=== PATIENT | female | born 1965 | race Hispanic/Latino ===

== ENCOUNTER 2019-07-17 04:25 | Emergency (ER) | payer SELFPAY ==
[~2019-07-17] VITALS: Ht 149.9 cm; Wt 66.2 kg
--- OUTSIDE RECORDS SUMMARY | 2019-07-17 04:28 | XMS REPORT | Clinical Summary ---
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 VIEWS (11/27/2018 9:58 AM CDT) Specimen Impressions Performed At IMPRESSION: SMS No acute displaced rib fracture. I have reviewed the study and agree wit h the findings in this report. Signed By: Garfield Garcia DO, 11/27/2018 2: 18 PM Narrative Performed At EXAMINATION: XRAY RIBS UNILATERAL 2 VIEWS SMS SIDE: RIGHT HISTORY: R rib fracture COMPARISON: Chest radiograph 11/27/2018 DISCUSSION: Limited evaluation secondary to soft ti ssue attenuation. No acute displaced rib fracture. No pneumothorax. The soft tissues are unremarkable. Procedure Note Interface, Rad/Mammog In - 11/27/2018 2:23 PM CDT EXAMINATION: XRAY RIBS UNILATERAL 2 VIEWS SIDE: RIGHT HISTORY: R rib fracture COMPARISON: Chest radiograph 11/27/2018 DISCUSSION: Limited evaluation secondary to soft tissue attenuation. No acute displaced rib fracture. No pneumothorax. The soft tissues are unremarkable. IMPRESSION IMPRESSION: No acute displaced rib fracture. I have reviewed the study and agree with the findings in this report. 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1965 Requested By: YVONNE Ren Order Number: [id number] Reading MD: Rajani Rosa Measurements Intervals [place] Rate: 65 P: 59 IN: 153 QRS: 68 QRSD: 89 T: 52 QT: 432 QTc: 449 Interpretive Statements SINUS RHYTHM Electronically Signed On 07-30-2018 16:18:45 CDT by Rajani Rosa Specimen Performing Organization Address City/State/Zipcode Ph one Number SMS after 07/16/2018 Insurance Type Payer Benefit Subscriber ID Effective Phone Address Plan / Dates Group [place] [employer] [place] 2018- [address] [employer] FAMILY 2019 [id number] PLANNING [place], [place] [address] [facility] FINANCIAL xxxxx [phone] [facility] / [place] [address] Advance Directives Date Inactivated Comments Code Status Date Activated 12/19/2014 8:38 PM Full Code 12/18/2014 12:20 PM
--- OUTSIDE RECORDS SUMMARY | 2019-07-17 04:29 | XMS REPORT ---
Author Author [facility] t Organization [facility] Address [address] [place] [address] Phone Unavailable Care Team Providers Care Quality Assurance Qa Lab Technician Name Role Phone Irma AUGUST, Nora Alstonna PCP Irma AUGUST, Nora Gutierrez Attphys Patrizia AN, Criselda Loyola Attphys Unavailable Irving AUGUST, Baudilio Nicholas Attphys Kathleen RN, Mandie Attphys Unavailable Cecilio AN, Meghana Attphys Unavailable Anirudh AUGUST, Simon Attphys Balwinder AN, Debbi Gonzalez Attphys Unavailable Radha AUGUST, Pema Attphys Froilan AUGUST, Antonino Attphys Gela Brunner MD Attphys Angus RN, Juan Dudley Attphys Unavailabl e Hemalatha AN, Attphys Unavailable Jorge Luis GOMEZS, M Jorden Attphys Niko AUGUST, Fareedshiv Attphys [phone] Laurent AN, F Linda Attphys Unavailable Payers Payer Name Policy Type Policy Number Effective Date Expiration Date S zachary [employer] [employer] [employer]xxxx2018-07/17/[id number], [place] [address] xxxxx 2018 00:00:00 2019 23:59:59 [place] [facility]AN[facility] ASSISTANCE PROGRAMxxx xx2018-10/15/[id number] [place] [address] xxxxx 2018 00:00:00 10-15 23:59:59 [facility] Problems Condition Name Condition Details Condition Category Status Onset Date Resolution Date Last Treatment Date Treating Clinician Comments Source Bulging of cervical intervertebral disc Bulging of cervical intervertebral disc Disease Active 2019-02-11 00:00:00 [facility] Bulging lumbar disc Bulging lumbar disc Disease Active 2019-02-11 00:00 :00 [facility] Injury of right rotator cuff Injury of right rotator cuff Disease Active 2019-02-11 00:00:00 [facility] unique Anorexia Anorexia Disease Active 2018-02-15 00:00:00 [facility] Boil Boil Disease Active 2017-12-13 00:00:00 [facility] Caregiver stress Caregiver stress Disease Active 2017-12-13 00:00:00 [facility] Abdominal pain, epigastric Abdominal pain, epigastric Disease Active 2017-09-28 00:00:00 [facility] Dental disorder Dental disorder Disease Active 2017-09-28 00:00:00 [facility] Carpal tunnel syndrome, bilateral Carpal tunnel syndrome, bilate ral Disease Active 2017-07-11 00:00:00 [facility] Arthralgia Arthralgia Disease Active 2017-07-11 00:00:00 [facility] Wrist tendonitis Wrist tendonitis Disease Active 2017-03-21 00:00:00 [facility] Arthritis of right shoulder (AC joint) Arthritis of right sh oulder (AC joint) Disease Active 2016-11-18 00:00:00 [facility] Adenopathy, cervical Adenopathy, cervical Disease Active 00:00:00 [facility] Decreased functional activity tolerance Decreased functional activity tolerance Disease Active 2016-06-30 00:00:00 [facility] Laceration Laceration Disease Active 2015-10-28 00:00:00 [facility] Elevated BP Elevated BP Disease Active 2015-10-28 00:00:00 [facility] Knee gives out Knee gives out Disease Active 2015-09-03 00:00:00 [facility] Hip pain, acute Hip pain, acute Disease Active 2015-09-03 00:00:00 [facility] Smoker Smoker Disease Active 2015-08-26 00:00:00 [facility] Discogenic low back pain Discogenic low back pain Disease Acti ve 2015-08-26 00:00:00 [facility] Primary osteoarthritis of both hands Primary osteoarthritis of both hands Disease Active 2015-08-26 00:00:00 [facility] care maintenance Health care maintenance Disease Active 2015-07-24 00:00:00 [facility] Pain Pain Disease Active 2015-07-24 00:00:00 [facility] Skin infection Skin infection Disease Active 2015-07-24 00:00:00 [facility] Adhesive capsulitis of right shoulder Adhesive capsulitis of right shoulder Disease Active 2015-07-24 00:00:00 [facility] Allergic rhinitis Allergic rhinitis Disease Active 2015-07-24 00:00:00 [facility] Bilateral hand numbness Bilateral hand numbness Disease Active 2015-07-24 00:00:00 [facility] Gastroesophageal reflux disease Gastroesophageal reflux disease Dis ease Active 2015-07-24 00:00:00 [facility] ealth S/P VH (vaginal hysterectomy) S/P VH (vaginal hysterectomy) Disease Active 2014-12-19 00:00:00 [facility] Endometriosis of pelvic peritoneum Endometriosis of pelvic perit oneum Disease Active 2014-12-18 00:00:00 [facility] S/P LAVH S/P LAVH Disease Active 2014-12-18 00:00:00 [facility] MDD (major depressive disorder), recurrent episode, mo derate MDD (major depressive disorder), recurrent episode, moderate Disease Active 2014-12-04 00:00:00 [facility] Abnormal uterine bleeding (AUB) Abnormal uterine bleeding (AUB) Dis ease Active 2014-11-12 00:00:00 Overview: - Patient is candidate for surgical management due to history of failed medical management. Patient states she had CT Scan at [facility] showing bilateral adnexal masses. Repeat sono pending-Pt ws given dose of Depo provera in August but she is still having irregular bleeding- Pt desires definitive treatment and was previously dispositioned for TVH by Dr. Ryan- R/B/A all d/w pt including alternatives to delay of surgery, other surgical options, continued medical and/or expectant management. - Pt would like ovarian removal and understands that she will go into medical menopause after that. Pt told to go home and think about her ovarian removal. She was told that this is not recommended to remove ovaries at this timePt scheduled for TVH, possible USO vs BSO on 11/24/[address] Ryan- Pt understands that surgery may not fully alleviate pain fully [facility] Fibroids Fibroids Disease Active 2011-10-31 00:00:00 Overview: 05/16/2014: Patient had TVUS showing 9 cm uterus. She had a 1.2 cm nodule at uterine fundus. Also had a 1.5 cm lesion in posterior uterine body myometrium. [facility] Class 1 obesity with body mass index (BMI) of 33.0 to 33.9 in adult Class 1 obesity with body mass index (BMI) of 33.0 to 33.9 in adult Disease Active 2010-07-02 00:00:00 [facility] ealt Anxiety Anxiety Disease Active 2010-04-02 00:00:00 Overview: Mood stable on medciation [facility] Chronic Pain Chronic Pain Disease Active 2005-12-09 00:00:00 Overview: Pt has chronic pain in her back. And complains of abdominal pain that is not alleviated by tylenol and she stated she has more bleeding with ibuprofen- Will give Rx for Toradol [facility] GERD (gastroesophageal reflux disease) GERD (gastroesophagea l reflux disease) Disease Active 2005-12-09 00:00:00 [facility] Chronic low back pain Chronic low back pain Disease Active 07-31-19 00:00:00 [facility] Abdominal bloating Abdominal bloating Disease Active [facility] Bilateral hand pain Bilateral hand pain Disease Active [facility] Thoracic spine pain Thoracic spine pain Disease Active [facility] Neck pain Neck pain Disease Active [facility] Osteoarthritis Osteoarthritis Disease Active [facility] Abnormal MRI, lumbar spine Abnormal MRI, lumbar spine Disease Active [facility] Ankle pain Ankle pain Disease Active [facility] FILI (stress urinary incontinence, female) FILI (stress urinary incontinence, female) Disease Active [facility] Hot flash, menopausal Hot flash, menopausal Disease Active [facility] Vitamin D deficiency Vitamin D deficiency Disease Active [facility] Abnormal thyroid blood test Abnormal thyroid blood test Disease Active [facility] TSH elevation - subclinical hypothyroidism TSH elevati on - subclinical hypothyroidism Disease Active [facility] Abnormal LFTs Abnormal LFTs Disease Active [facility] Allergies, Adverse Reactions, Alerts Allergy Name Allergy Type Status Severity Reaction(s) Onset Date Inacti ve Date Treating Clinician Comments Source Naproxen Propensity to adverse reactions to drug Active 2019-02-05 00:00:00 Red face [facility] doxylamine succinate DA Active [place] 2018-11-03 00:00:00 [facility] duloxetine HCl DA Active [place] 2018-11-03 00:00:00 [facility] ibuprofen DA Active U 2018-11-03 00:00:00 [facility] tramadol DA Active U 2018-11-03 00:00:00 [facility] doxylamine DA Active SV 2018-11-03 00:00:00 [facility] duloxetine DA Active [place] 2018-11-03 00:00:00 [facility] diphenhydramine DA Active [place] 2018-10-19 00:00:00 [facility] ibuprofen DA Active [place] 2018-10-19 00:00:00 [facility] tramadol DA Active U 2018-10-19 00:00:00 [facility] ibuprofen DA Active [place] 2018-07-28 00:00:00 [facility] tramadol DA Active U 2018-07-28 00:00:00 [facility] diphenhydramine DA Active [place] 2018-07-28 00:00:00 [facility] diphenhydramine DA Active [place] 2018-06-15 00:00:00 [facility] ibuprofen DA Active [place] 2018-06-07 00:00:00 [facility] tramadol DA Active U 2018-06-07 00:00:00 [facility] ibuprofen DA Active [place] 2018-05-10 00:00:00 [facility] tramadol DA Active U 2018-05-10 00:00:00 [facility] No Known Allergies DA Active U 2018-03-26 00:00:00 [facility] ibuprofen DA Active [place] 2018-03-26 00:00:00 [facility] tramadol DA Active U 2018-03-26 00:00:00 [facility] doxylamine succinate DA Active [place] 2018-03-15 00:00:00 [facility] duloxetine HCl DA Active [place] 2018-03-15 00:00:00 [facility] ibuprofen DA Active U 2018-03-15 00:00:00 [facility] tramadol DA Active U 2018-03-15 00:00:00 [facility] doxylamine DA Active SV 2018-03-15 00:00:00 [facility] duloxetine DA Active [place] 2018-03-15 00:00:00 [facility] doxylamine DA Active [place] 2018-01-19 00:00:00 [facility] duloxetine DA Active [place] 2018-01-19 00:00:00 [facility] ibuprofen DA Active SV 2018-01-19 00:00:00 [facility] tramadol DA Active [place] 2018-01-19 00:00:00 [facility] ibuprofen DA Active SV 2018-01-07 00:00:00 [facility] tramadol DA Active [place] 2018-01-07 00:00:00 [facility] doxylamine DA Active SV 2018-01-07 00:00:00 [facility] duloxetine DA Active [place] 2018-01-07 00:00:00 [facility] doxylamine succinate DA Active [place] 2017-10-10 00:00:00 [facility] duloxetine HCl DA Active [place] 2017-10-10 00:00:00 [facility] ibuprofen DA Active U 2017-10-10 00:00:00 [facility] tramadol DA Active U 2017-10-10 00:00:00 [facility] Duloxetine Propensity to adverse reactions to drug Active Nausea and Vomiting 2014-09-03 00:00:00 [facility] Doxylamine Succinate Propensity to adverse reactions to drug Active Angioedema 2014-09-03 00:00:00 [facility] Family History Family Member Diagnosis Comments Start Date Stop Date Source Natural brother Pul[facility] Natural brother Hypothyroid [facility] Natural father Asthma [facility] Natural father Diabetes [facility] Natural father Heart [facility] Natural father Hypertension [facility] Natural father Stroke [facility] Paternal grandfather Arthritis [facility] Paternal grandfather Diabetes [facility] Natural son Arthritis [facility] Natural son Seizures [facility] Social History Social Habit Start Date Stop Date Quantity Comments Source History of tobacco use Cigarette Smoker [facility] Sex Assigned At [facility] Exposure to SARS-CoV-2 (event) Not sure [facility] Alcohol intake 2019 00:00:00 2019 00:00:00 [facility] SDSD Food Scarcity 2019-01-29 00:00:00 2019-01-29 00:00:00 2 [facility] Food Worry 2017-09-28 00:00:00 2017-09-28 00:00:00 1 [facility] Smoking Status Start Date Stop Date Source Current every day smoker 2019 00:00:00 [facility] Medications Ordered Medication Name Filled Medication Name Start Date Stop Da te Current Medication? Ordering Clinician Indication Dosage Frequency Signature (SIG) Comments Components Source cyclobenzaprine (FLEXERIL) 10 mg tablet 2019-07-05 00:00:00 Yes Neck pain 10mg Take 1 tablet by mouth 3 times daily as needed for Mus jonathan Spasms. [facility] clonazePAM (KLONOPIN) 0.5 mg tablet 2019-07-05 00:00:00 Yes Anxiety .5mg Take 1 tablet by mouth 2 times daily as needed for Anxiety. One time only refill until seen by PCP or psychiatry. FINAL NOTICE. [facility] acetaminophen-codeine (TYLENOL/CODEINE #3) 300-30 mg per tab let 2019-07-05 00:00:00 Yes Fall with injury, subsequent encounter 1 {tbl} Q.5D Take 1 tablet by mouth 2 times daily For pain. [facility] albuterol 90 mcg/actuation inhaler 2019-06-14 00:00:00 Yes Acute bronchitis 2{puff} Inhale 2 Puffs by [facility] 4 times daily as needed for Wheezing. [facility] albuterol (PROVENTIL) 2.5 mg /3 mL (0.083 %) nebulizer solut ion 2019-06-14 00:00:00 Yes Uncomplicated as thma, unspecified asthma severity, unspecified whether persistent 2.5mg Inhale 3 mL by mouth every 4 hours as needed for Wheezing For asthma machine. [facility] th Nebulizer & Compressor For [facility] Brianna 2019-06-14 00:00:00 Yes Uncomplicated asthma, unspecified asthma severity, unspecified whether persistent by Misc.(Non-Drug; Combo Route) route. [facility] mupirocin calcium (BACTROBAN) 2 % topical cream 2019-06-14 0 0:00:00 Yes Skin infection Apply to affected area 3 times daily For compa ils. [facility] albuterol 90 mcg/actuation inhaler 2019-06-14 00:00:00 202 00:00:00 No Acute bronchitis 2{puff} Inhale 2 Puffs by mouth 4 times daily as needed for Wheezing. [facility] albuterol (PROVENTIL) 2.5 mg /3 mL (0.083 %) nebulizer solut ion 2019-06-14 00:00:00 2019-06-14 00:00:00 No Uncomplicate d asthma, unspecified asthma severity, unspecified whether persistent 2.5mg Inhale 3 mL by mouth every 4 hours as needed for Wheezing For asthma machine. [facility] Nebulizer & Compressor For [facility] Brianna 2019-06-14 00:00:0 0 2019-06-14 00:00:00 No Uncomplicated asthma, unspec ified asthma severity, unspecified whether persistent by Misc.(Non-Drug; Combo Route) route. [facility] albuterol (PROVENTIL) 2.5 mg /3 mL (0.083 %) nebulizer solut ion 2019-06-12 00:00:00 2019-06-12 23:59:00 No Uncomplicate d asthma, unspecified asthma severity, unspecified whether persistent 2.5mg Inhale 3 mL by mouth once for 1 dose. [facility] loratadine (CLARITIN) 10 mg tablet 2019 00:00:00 Yes Seasonal allergic rhinitis, unspecified trigger 10mg QD T delia 1 tablet by mouth daily For allergies. [facility] mometasone (NASONEX) 50 mcg/actuation nasal spray 2019 00:00:00 Yes Seasonal allergic rhinitis, unspecified trigger 2{spray} QD Use 2 sprays in each nostril daily. [facility] atorvastatin (LIPITOR) 10 mg tablet 2019 00:00:00 Yes Pure hypercholesterolemia 10mg Take 1 tablet by mo uth at bedtime nightly For cholesterol. [facility] loperamide (IMODIUM) 2 mg capsule 2019 00:00:00 Yes Diarrhea, unspecified type 2mg Take 1 capsule by mo uth 4 times daily as needed for Diarrhea. [facility] clonazePAM (KLONOPIN) 0.5 mg tablet 2019 00:00:0 0 2019-07-05 00:00:00 No Anxiety .5mg Take 1 tablet b y mouth 2 times daily as needed for Anxiety. One time only refill until seen by PCP or psychiatry. FINAL NOTICE. [facility] acetaminophen-codeine (TYLENOL/CODEINE #3) 300-30 mg per tab let 2019 00:00:00 2019-07-05 00:00:00 No Fall with injury, subsequen t encounter 1{tbl} Q.5D Take 1 tablet by mouth 2 times daily For pain. [facility] albuterol 90 mcg/actuation inhaler 2019 00:00:00 202 00:00:00 No Acute bronchitis 2{puff} Inhale 2 Puffs by mouth 4 times daily as needed for Wheezing. [facility] clonazePAM (KLONOPIN) 0.5 mg tablet 2019-05-25 00:00:0 0 2019 00:00:00 No Anxiety .5mg Take 1 tablet b y mouth 2 times daily as needed for Anxiety. One time only refill until seen by PCP or psychiatry. FINAL NOTICE. [facility] acetaminophen-codeine (TYLENOL/CODEINE #3) 300-30 mg per tab let 2019-05-25 00:00:00 2019 00:00:00 No Fall with injury, subsequen t encounter 1{tbl} Q.5D Take 1 tablet by mouth 2 times daily For pain. [facility] gabapentin (NEURONTIN) 100 mg capsule 2019-03-29 00:00:00 Yes Fall with injury, subsequent encounter 100mg Take 1 caps ule by mouth at bedtime nightly For nerve pain. [facility] amLODIPine (NORVASC) 10 mg tablet 2019-03-29 00:00:00 Yes HTN, goal below 140/80 10mg Take 1 tablet by mouth at bedtime nightly For h ypertension. [facility] ergocalciferol (VITAMIN D2) 1,250 mcg (50,000 unit) capsule 2019-03-29 00:00:00 Yes Vitamin D deficiency 45524P Take 1 capsule by mouth weekly For 3 months and then buy vitamin D3: 2000 units and take 1 tablet/day. [facility] atorvastatin (LIPITOR) 10 mg tablet 2019-03-29 00:00:0 0 2019 00:00:00 No Pure hypercholesterolemia 10mg Ta ke 1 tablet by mouth at bedtime nightly For cholesterol. [facility] albuterol 90 mcg/actuation inhaler 2019-03-29 00:00:00 202 00:00:00 No Acute bronchitis 2{puff} Inhale 2 Puffs by mouth 4 times daily as needed for Wheezing. [facility] clonazePAM (KLONOPIN) 0.5 mg tablet 2019-03-29 00:00:0 0 2019-05-25 00:00:00 No Anxiety .5mg Take 1 tablet b y mouth 2 times daily as needed for Anxiety. One time only refill until seen by PCP or psychiatry. FINAL NOTICE. [facility] acetaminophen-codeine (TYLENOL/CODEINE #3) 300-30 mg per tab let 2019-03-29 00:00:00 2019-05-25 00:00:00 No Fall with injury, subsequen t encounter 1{tbl} Q.5D Take 1 tablet by mouth 2 times daily For pain. [facility] atorvastatin (LIPITOR) 10 mg tablet 2019-03-08 00:00:0 0 2019-03-29 00:00:00 No Muscle cramping 10mg Take 1 tablet by mouth at bedtim e nightly. [facility] gabapentin (NEURONTIN) 100 mg capsule 2019-03-08 00:00 :00 2019-03-29 00:00:00 No Fall with injury, subsequent encounter 100mg Take 1 capsule by mouth at bedtime nightly. [facility] LORazepam (ATIVAN) 0.5 mg tablet 2019-03-08 00:00:00 2019-02 23:59:00 No Claustrophobia .5mg Take 1 tablet by josi th once as needed for up to 1 dose for Anxiety (30 minutes before MRI) ONLY IF NEEDED FOR MRI CLAUTROPHOBIA - FEB 2019. [facility] acetaminophen-codeine (TYLENOL/CODEINE #3) 300-30 mg per tab let 2019-01-31 00:00:00 2019-03-08 00:00:00 No Tooth pain 1{tbl} Take 1 tablet by mouth 3 times daily as needed for Pain DECLINED - outside prescriber. [facility] clonazePAM (KLONOPIN) 0.5 mg tablet 2019-01-31 00:00:0 0 2019-03-08 00:00:00 No Anxiety .5mg Take 1 tablet by mouth 2 times daily as needed for Anxiety. [facility] cyclobenzaprine (FLEXERIL) 10 mg tablet 00:00:00 2019-07-05 00:00:00 No 10mg Take 1 tablet by mouth 3 times daily as needed for Muscle Spasms. [facility] amLODIPine (NORVASC) 10 mg tablet 2019-01-29 00:00:00 2019 00:00:00 No HTN, goal below 140/80 10mg Take 1 tablet by mouth at b edtime nightly [facility] amoxicillin (AMOXIL) 500 mg capsule 2019-01-29 00:00:0 0 2019-02-09 23:59:00 No Pain due to dental caries 500mg Ta ke 1 capsule by mouth 3 times daily for 10 days. [facility] acetaminophen-codeine (TYLENOL/CODEINE #3) 300-30 mg per tab let 2019-01-10 00:00:00 2019-01-31 00:00:00 No Injury of right wrist , subsequent encounter 1{tbl} Take 1 tablet by mouth 3 mikayla es daily as needed for Pain DECLINED - outside prescriber. [facility] albuterol 90 mcg/actuation inhaler 2018-12-19 00:00:00 202 00:00:00 No Acute bronchitis 2{puff} Inhale 2 Puffs by mouth 4 times daily as needed for Wheezing. [facility] triamcinolone acetonide (KENALOG-40) injection 20 mg 2018-11-27 12:30:00 2018-11-27 12:32:00 No Contusion of rib on right si de, subsequent encounter 20mg [facility] naproxen (NAPROSYN) 500 mg tablet 2018-11-27 00:00:00 2019 00:00:00 No Fall with injury, subsequent encounter 500mg Take 1 tablet by mouth 2 times daily (with meals). [facility] albuterol 90 mcg/actuation inhaler 2018-11-27 00:00:00 201 10-31-27 00:00:00 No Acute bronchitis 2{puff} Inhale 2 Puffs by mouth 4 times daily as needed for Wheezing. [facility] amoxicillin-clavulanate (AUGMENTIN) 875-125 mg per tablet 2018-11-27 00:00:00 2018-12-13 23:59:00 No SOB (shortness of breath) 1{tbl} Q .5D Take 1 tablet by mouth 2 times daily for 10 days. [facility] methylPREDNISolone (MEDROL, KELLEY,) 4 mg dose pack 2018-11-27 00:00:00 2018-12-09 23:59:00 No Contusion of rib on right side, justin bsequent encounter Follow directions from dose pack and/or instructions from . [facility] polyethylene glycol 3350 (GLYCOLAX) 17 gram oral powder pack et 2018-11-27 00:00:00 2018-11-30 23:59:00 No Constipation, unspecified c onstipation type Mix 17 grams into 4 to 8 ounces of water , juice, soda, tea or coffee and drink as directed. [facility] clonazePAM (KLONOPIN) 0.5 mg tablet 2018-10-05 00:00:0 0 2019-01-31 00:00:00 No Anxiety .5mg Take 1 tablet b y mouth 2 times daily as needed for Anxiety. One time only refill until seen by PCP or psychiatry. FINAL NOTICE. [facility] acetaminophen-codeine (TYLENOL/CODEINE #3) 300-30 mg per tab let 2018-09-26 00:00:00 2019-01-10 00:00:00 No Injury of right wrist , subsequent encounter 1{tbl} Take 1 tablet by mouth 3 times daily as needed for Catracho n. [facility] ergocalciferol (VITAMIN D2) 1,250 mcg (50,000 unit) capsule 2018-09-06 00:00:00 2019-03-29 00:00:00 No Vitamin D deficiency 71178V Take 1 capsule by mouth weekly For 3 months and then buy vitamin D3: 2000 units and take 1 tablet/day. [facility] amLODIPine (NORVASC) 10 mg tablet 2018-09-06 00:00:00 2018 00:00:00 No HTN, goal below 140/80 10mg Take 1 tablet by mouth at b edtime nightly [facility] clonazePAM (KLONOPIN) 0.5 mg tablet 2018-09-05 00:00:0 0 2018-10-02 00:00:00 No Anxiety .5mg Take 1 tablet b y mouth 2 times daily as needed for Anxiety BELKIS refill until seen by PCP or psychiatry. [facility] amoxicillin (AMOXIL) 500 mg capsule 2018-09-03 00:00:0 0 2018-09-13 23:59:00 No Caries 500mg Take 1 capsule by mouth 3 times daily fo r 10 days. [facility] amLODIPine (NORVASC) 10 mg tablet 2018-08-30 00:00:00 2018 00:00:00 No Essential hypertension 10mg QD Take 1 tablet by mouth akin burch [facility] carvedilol (COREG) 3.125 mg tablet 2018-07-30 15:55:51 201 10-26-09 00:00:00 No 3.125mg Take 3.125 mg by mouth 2 times daily ( meals). [facility] lisinopril (PRINIVIL, ZESTRIL) 2.5 mg tablet 201 10-26-09 15:55:51 2018-07-30 00:00:00 No 2.5mg QD Take 2.5 mg by mouth daily. [facility] meclizine (ANTIVERT) 25 mg Tab 2018-07-30 15:55:51 2018-07-30 00 :00:00 No 25mg Take 25 mg by mouth 3 times daily. [facility] clonazePAM (KLONOPIN) 1 mg tablet 2018-07-30 15:53:27 2018 00:00:00 No 1mg Take 1 mg by mouth 2 times daily as need ed for Anxiety. [facility] meclizine (ANTIVERT) 25 mg Tab 2018-07-30 00:00:00 7 00:00:00 No Dizziness 25mg Take 1 tablet by mouth 3 times daily as n eeded (dizziness). [facility] clonazePAM (KLONOPIN) 0.5 mg tablet 2018-07-30 00:00:0 0 2018-09-04 00:00:00 No Anxiety .5mg Take 1 tablet by mouth 2 times daily as needed for Anxiety. [facility] lisinopril (PRINIVIL, ZESTRIL) 2.5 mg tablet 10-26-09 00:00:00 2018-08-30 00:00:00 No Essential hypertension 2.5mg QD Take 1 tablet by mouth daily. [facility] carvedilol (COREG) 3.125 mg tablet 2018-07-30 00:00:00 10-27-10 00:00:00 No Essential hypertension 3.125mg Take 1 ta blet by mouth 2 times daily (with meals). [facility] mometasone (NASONEX) 50 mcg/actuation nasal spray 2018-07-24 00:00:00 Yes Seasonal allergic rhinitis, unspecified trigger 1{spray} QD 1 [place] by each nostril route daily. [facility] acetaminophen-codeine (TYLENOL/CODEINE #3) 300-30 mg per tab let 2018-07-20 00:00:00 2018-09-26 00:00:00 No Injury of right wrist , subsequent encounter 1{tbl} Take 1 tablet by mouth 3 times daily STOP TRAMADOL. [facility] albuterol 90 mcg/actuation inhaler 2018-04-03 00:00:00 10-31-07 00:00:00 No Acute bronchitis 2{puff} Inhale 2 Puffs by mouth 4 times daily as needed for Wheezing. [facility] dicyclomine (BENTYL) 10 mg capsule 2018-02-14 00:00:00 10-26-09 00:00:00 No Epigastric pain 10mg Take 1 capsule b y mouth 4 times daily (before meals and nightly). [facility] amLODIPine (NORVASC) 10 mg tablet 2018-02-14 00:00:00 2018 00:00:00 No HTN, goal below 140/80 10mg Take 1 ta blet by mouth at bedtime nightly Dose increased 02/14/2018. [facility] mirtazapine (REMERON) 15 mg tablet 2018-02-14 00:00:00 10-26-09 00:00:00 No Anorexia 15mg Take 1 tablet by mouth at bedtime nightl y. [facility] acetaminophen-codeine (TYLENOL/CODEINE #3) 300-30 mg per tab let 2018-02-14 00:00:00 2018-07-19 00:00:00 No Injury of right wrist , subsequent encounter 1{tbl} Take 1 tablet by mouth 3 times daily STOP TRAMADOL. [facility] mupirocin calcium (BACTROBAN) 2 % topical cream 2017-12-13 00:00:00 2018-07-30 00:00:00 No Boil Apply to affected area 3 times daily. [facility] loratadine (CLARITIN) 10 mg tablet 2017-10-26 00:00:00 201 10-26-09 00:00:00 No Nasal congestion 10mg QD Take 1 tablet by mouth d aily For allergies as needed. [facility] mupirocin calcium (BACTROBAN NASAL) 2 % nasal ointment 2017-10-03 00:00:00 2018-07-30 00:00:00 No Skin sore 1{application} Q.5D U se 1 Each in each nostril 2 times daily. b/o md contacted 09/28/17 [facility] dexlansoprazole (DEXILANT) 30 mg delayed release capsule 2017-09-28 00:00:00 2018-07-30 00:00:00 No Gastroesophageal ref lux disease, esophagitis presence not specified 30mg QD Take 1 capsule by mouth daily For acid reflu x. [facility] cyclobenzaprine (FLEXERIL) 10 mg tablet 00:00:00 2018-07-30 00:00:00 No Chronic low back catracho n, unspecified back pain laterality, with sciatica presence unspecified 10mg Take 1 tab let by mouth 3 times daily as needed for Muscle Spasms. [facility] ergocalciferol (VITAMIN D2) 50,000 unit capsule 2017-09-28 00:00:00 2018-07-30 00:00:00 No Vitamin D insufficiency 30872H T delia 1 capsule by mouth weekly For 3 months and then buy vitamin D3: 2000 units and take 1 tablet/day. [facility] ciclesonide (ZETONNA) 37 mcg/actuation nasal HFA inhaler 2017-09-28 00:00:00 2018-07-24 00:00:00 No Nasal congestion 1{spray} QD Use 1 [place] in each nostril daily For allergies as needed. [facility] piroxicam (FELDENE) 10 mg capsule 2017-03-21 00:00:00 2018 00:00:00 No ECU (extensor carpi ulnaris), subluxation/dislocation, right, se quela 10mg QD Take 1 capsule by mouth daily For joint pains. Take with food. [facility] fluocinonide (LIDEX) 0.05 % external solution 20 06-11-24 00:00:00 2018-07-30 00:00:00 No Rash and other nonspecific skin eruption Q.5D Apply to affected area 2 times daily. [facility] triamcinolone (KENALOG) 0.025 % ointment 2016-10 00:00:00 2018-07-30 00:00:00 No Rash and other nonspecific skin eruption Q.5D Apply to affected area 2 times daily. [facility] sucralfate (CARAFATE) 1 gram tablet 2016-06-01 00:00:0 0 2018-07-30 00:00:00 No Gastroesophageal reflux disease without esophagitis 1g Take 1 tablet by mouth 4 times daily For acid reflux. [facility] estradiol (CLIMARA) 0.05 mg/24 hr transdermal patch 2015-08-06 00:00:00 2018-07-30 00:00:00 No Post-menopause A pply 1 patch to skin as directed weekly. [facility] conjugated estrogens (PREMARIN) 0.625 mg/gram vaginal cream 2015-08-06 00:00:00 2018-07-30 00:00:00 No Post-menopause Insert 1 gram into the vagina daily for 2 weeks. Then use only 2 times a week. [facility] Immunizations Ordered Immunization Name Filled Immunization Name Date Status Comments Source Influenza, Injectable, Quadrivalent 2019-01-29 00:00:00 Co mpleted [facility] Depo-provera 150mg Inj 2014-09-17 00:00:00 Completed [facility] Influenza Vaccine 2014-03-21 00:00:00 Completed [facility] Depo-provera 150mg Inj 2013-05-13 00:00:00 Completed [facility] Depo-provera 150mg Inj 2012-12-13 00:00:00 Completed [facility] Depo-provera 150mg Inj 2012-04-17 00:00:00 Completed [facility] Bicillin La (Pen G Benzathine 2,400,000) 2012-04-17 00:00: 00 Completed [facility] Influenza Vaccine 2012-02-03 00:00:00 Completed [facility] Tdap Tetanus, diphtheria, acellular pertussis Vaccine 2012-02-03 00:00:00 Completed [facility] Ipratropium 0.02t (2.5ml) 2011-06-29 00:00:00 Completed [facility] Albuterol 0.083% (3ml) 2011-06-29 00:00:00 Completed [facility] Ipratropium 0.02t (2.5ml) 2011-06-29 00:00:00 Completed [facility] Albuterol 0.083% (3ml) 2011-06-29 00:00:00 Completed [facility] Triamcinolone 40mg/ml Inj 2011-06-29 00:00:00 Completed [facility] Ceftriazone 500mg Injection 2010-12-01 00:00:00 Completed [facility] Depo-provera 150mg Inj 2010-07-02 00:00:00 Completed [facility] LUPRON DEPOT 3.75MG INJ 2009-10-12 00:00:00 Completed [facility] Ketorolac 60mg/2ml Syr Inj 2009-08-27 00:00:00 Completed [facility] LUPRON DEPOT 3.75MG INJ 2009-07-17 00:00:00 Completed [facility] Vital Signs Vital Name Observation Time Observation Value Comments Source Body height 2019-07-05 08:19:00 149.9 cm [facility] Systolic blood pressure 2019-03-29 15:45:00 132 mm[Hg] [facility] Diastolic blood pressure 2019-03-29 15:45:00 91 mm[Hg] [facility] Heart rate 2019-03-29 15:45:00 83 /min [facility] Body temperature 2019-03-29 15:45:00 36.83 Priscila Delio is [facility] Respiratory rate 2019-03-29 15:45:00 18 /min Delio is [facility] Body weight 2019-03-29 15:45:00 67.042 kg [facility] BMI 2019-03-29 15:45:00 29.85 kg/m2 [facility] Procedures Procedure Date / Time Performed Performing Clinician Sour e HEMOGLOBIN A1C 2019-04-01 22:03:00 Simon Oleary LIPID PROFILE 2019-04-01 22:03:00 Anirudh Simon [facility] COMPREHENSIVE METABOLIC PANEL 2019-04-01 22:03:00 OlearyDestineeg [facility] CBC/DIFF 2019-04-01 22:03:00 Anirudh Simon [facility] IRON PROFILE 2019-04-01 22:03:00 [facility] CBC 2019-04-01 22:03:00 [facility] DIFFERENTIAL, MANUAL (NO MORPHOLOGY)-WAM 2019-04-01 22:03:00 She lton [facility] CK, TOTAL 2019-04-01 22:02:00 Anirudh Simon [facility] THYROID STIMULATING HORMONE (TSH) 2019-04-01 22:02:00 Brenda Solis [facility] URINALYSIS 2019-04-01 22:02:00 Brenda Solis [facility] LIMA 2019-04-01 22:02:00 Brenda Solis [facility] RA FACTOR 2019-04-01 22:02:00 Brenda Solis [facility] SED RATE 2019-04-01 22:02:00 Brenda Solis [facility] URINALYSIS 2019-04-01 22:02:00 Brenda Solis [facility] XRAY SHOULDER 2 VIEWS MIN 2019-03-08 20:19:20 OlearySimon [facility] FECAL OCCULT BLOOD 2019-02-06 16:48:00 Anirudh [facility] LIPID PROFILE 2019-02-05 19:07:00 Simon Oleary [facility] COMPREHENSIVE METABOLIC PANEL 2019-02-05 19:07:00 Armando Oleary [facility] HEMOGLOBIN A1C 2019-02-05 19:07:00 Anirudh [facility] HEMOCCULT KIT FOR SPECIMEN COLLECTION AT HOME 2019-02-05 18: [facility] DIGITAL 2019-02-05 17:15:01 Pema Garcia [facility] XRAY SPINE LUMBOSACRAL AP-LAT 2019-01-02 21:39:16 [place] [facility] XRAY SPINE SACRUM - COCCYX 2 VWS MIN 2019-01-02 21:39:16 Oleary , [facility] XRAY SPINE CER 2-3 AP- LAT- ODONTOID 2019-01-02 21:39:16 Simon Oleary [facility] HEMOCCULT KIT FOR SPECIMEN COLLECTION AT HOME 2019-01-01 22: 10:03 Simon Oleary [facility] XRAY CHEST 2 VIEWS 2018-11-27 14:58:36 Simon Oleary [facility] XRAY RIBS UNILATERAL 2 VIEWS 2018-11-27 14:58:36 Simon Oleary [facility] COMPREHENSIVE METABOLIC PANEL 2018-11-27 14:10:00 Armando Oleary [facility] LIPID PROFILE 2018-11-27 14:10:00 Simon Oleary [facility] HEMOGLOBIN A1C 2018-11-27 14:10:00 Simon Oleary [facility] CBC/DIFF 2018-11-27 14:10:00 Simon Oleary [facility] CBC 2018-11-27 14:10:00 Simon Oleary [facility] 12 LEAD EKG 2018-07-30 20:10:44 Yvonne Brunner [facility] Plan of Care Planned Activity Planned Date Details Comments Source Future Scheduled Test 2020-02-07 00:00:00 Colorectal Cancer Scrn Annual (FIT/FOBT) Age 50 to 75 [code = Colorectal Cancer Scrn Annual (FIT/FOBT) Age 50 to 75] [facility] Future Scheduled Test 2020-02-06 00:00:00 Breast Cancer Scrn (Yearly) [code = Breast Cancer Scrn (Yearly)] [facility] Encounters Start Date/Time End Date/Time En[facility] ID Source 2018-02-23 00:00:00 2018-02-23 00:00:00 Outpatient [facility] [id number] [facility] 2018-01-31 00:00:00 2018-01-31 00:00:00 Outpatient [facility] [id number] [facility] 2018-01-09 00:00:00 2018-01-09 00:00:00 Outpatient [facility] [id number] [facility] 2018-01-03 00:00:00 2018-01-03 00:00:00 Outpatient [facility] [id number] [facility] 2018-01-03 00:00:00 2018-01-03 00:00:00 Outpatient [facility] [id number] [facility] 2018-01-01 00:00:00 2018-01-01 00:00:00 Outpatient [facility] [id number] [facility] 2017-12-22 00:00:00 2017-12-22 00:00:00 Outpatient [facility] [id number] [facility] 2017-12-22 00:00:00 2017-12-22 00:00:00 Outpatient [facility] [id number] [facility] 2017-12-22 00:00:00 2017-12-22 00:00:00 Outpatient [facility] [id number] [facility] 2017-12-21 00:00:00 2017-12-21 00:00:00 Outpatient [facility] [id number] [facility] 2017-12-21 00:00:00 2017-12-21 00:00:00 Outpatient [facility] [id number] [facility] 2017-12-18 00:00:00 2017-12-18 00:00:00 Outpatient [facility] [id number] [facility] 2017-12-18 00:00:00 2017-12-18 00:00:00 Outpatient [facility] [id number] [facility] 2017-12-15 00:00:00 2017-12-15 00:00:00 Outpatient [facility] [id number] [facility] 2017-12-13 14:35:35 2017-12-13 14:35:35 Outpatient [facility] [id number] [facility] 2017-12-13 00:00:00 2017-12-13 00:00:00 Outpatient [facility] [id number] [facility] 2017-12-13 00:00:00 2017-12-13 00:00:00 Outpatient [facility] [id number] [facility] 2017-12-13 00:00:00 2017-12-13 00:00:00 Outpatient [facility] [id number] [facility] 2017-12-08 00:00:00 2017-12-08 00:00:00 Outpatient [facility] [id number] [facility] 2017-12-08 00:00:00 2017-12-08 00:00:00 Outpatient [facility] [id number] [facility] 2017-12-08 00:00:00 2017-12-08 00:00:00 Outpatient [facility] [id number] [facility] 2017-12-07 00:00:00 2017-12-07 00:00:00 Outpatient [facility] [id number] [facility] 2017-12-05 00:00:00 2017-12-05 00:00:00 Outpatient [facility] [id number] [facility] 2017-11-29 00:00:00 2017-11-29 00:00:00 Outpatient [facility] [id number] [facility] 2017-11-28 00:00:00 2017-11-28 00:00:00 Outpatient [facility] [id number] [facility] 2017-11-23 00:00:00 2017-11-23 00:00:00 Outpatient [facility] [id number] [facility] 2017-11-23 00:00:00 2017-11-23 00:00:00 Outpatient [facility] [id number] [facility] 2017-11-14 00:00:00 2017-11-14 00:00:00 Outpatient [facility] [id number] [facility] 2017-11-14 00:00:00 2017-11-14 00:00:00 Outpatient [facility] [id number] [facility] 2017-11-10 00:00:00 2017-11-10 00:00:00 Outpatient [facility] [id number] [facility] 2017-11-07 00:00:00 2017-11-07 00:00:00 Outpatient [facility] [id number] [facility] 2017-11-07 00:00:00 2017-11-07 00:00:00 Outpatient [facility] [id number] [facility] 2017-11-06 00:00:00 2017-11-06 00:00:00 Outpatient [facility] [id number] [facility] 2017-11-06 00:00:00 2017-11-06 00:00:00 Outpatient [facility] [id number] [facility] 2017-11-02 00:00:00 2017-11-02 00:00:00 Outpatient [facility] [id number] [facility] 2017-11-01 00:00:00 2017-11-01 00:00:00 Outpatient [facility] [id number] [facility] 2017-10-30 00:00:00 2017-10-30 00:00:00 Outpatient [facility] [id number] [facility] 2017-10-26 00:00:00 2017-10-26 00:00:00 Outpatient [facility] [id number] [facility] 2017-10-17 00:00:00 2017-10-17 00:00:00 Outpatient [facility] [id number] [facility] 2017-10-16 00:00:00 2017-10-16 00:00:00 Outpatient [facility] [id number] [facility] 2017-10-13 00:00:00 2017-10-13 00:00:00 Outpatient [facility] [id number] [facility] 2017-10-11 00:00:00 2017-10-11 00:00:00 Outpatient [facility] [id number] [facility] 2017-10-11 00:00:00 2017-10-11 00:00:00 Outpatient [facility] [id number] [facility] 2017-10-10 00:00:00 2017-10-10 00:00:00 Outpatient [facility] [id number] [facility] 2017-10-05 00:00:00 2017-10-05 00:00:00 Outpatient [facility] [id number] [facility] 2017-10-02 00:00:00 2017-10-02 00:00:00 Outpatient [facility] [id number] [facility] 2017-10-02 00:00:00 2017-10-02 00:00:00 Outpatient [facility] [id number] [facility] 2017-09-29 13:33:06 2017-09-29 13:33:06 Outpatient [facility] [id number] [facility] 2017-09-29 13:14:06 2017-09-29 13:14:06 Outpatient [facility] [id number] [facility] 2017-09-29 00:00:00 2017-09-29 00:00:00 Outpatient [facility] [id number] [facility] 2017-09-29 00:00:00 2017-09-29 00:00:00 Outpatient [facility] [id number] [facility] 2017-09-28 15:04:34 2017-09-28 15:04:34 Outpatient [facility] [id number] [facility] 2017-09-27 00:00:00 2017-09-27 00:00:00 Outpatient [facility] [id number] [facility] 2017-09-25 00:00:00 2017-09-25 00:00:00 Outpatient [facility] [id number] [facility] 2017-09-22 00:00:00 2017-09-22 00:00:00 Outpatient [facility] [id number] [facility] 2017-09-18 00:00:00 2017-09-18 00:00:00 Outpatient [facility] [id number] [facility] 2017-09-18 00:00:00 2017-09-18 00:00:00 Outpatient [facility] [id number] [facility] 2017-09-15 13:56:35 2017-09-15 13:56:35 Outpatient [facility] [id number] [facility] 2017-09-14 00:00:00 2017-09-14 00:00:00 Outpatient [facility] [id number] [facility] 2017-08-31 00:00:00 2017-08-31 00:00:00 Outpatient [facility] [id number] [facility] 2017-08-31 00:00:00 2017-08-31 00:00:00 Outpatient [facility] [id number] [facility] 2017-08-31 00:00:00 2017-08-31 00:00:00 Outpatient [facility] [id number] [facility] 2017-08-29 00:00:00 2017-08-29 00:00:00 Outpatient [facility] [id number] [facility] 2017-08-24 00:00:00 2017-08-24 00:00:00 Outpatient [facility] [id number] [facility] 2017-08-24 00:00:00 2017-08-24 00:00:00 Outpatient [facility] [id number] [facility] 2017-08-22 00:00:00 2017-08-22 00:00:00 Outpatient [facility] [id number] [facility] 2017-08-21 00:00:00 2017-08-21 00:00:00 Outpatient [facility] [id number] [facility] 2017-08-21 00:00:00 2017-08-21 00:00:00 Outpatient [facility] [id number] [facility] 2017-08-21 00:00:00 2017-08-21 00:00:00 Outpatient [facility] [id number] [facility] 2017-08-17 00:00:00 2017-08-17 00:00:00 Outpatient [facility] [id number] [facility] 2017-08-15 00:00:00 2017-08-15 00:00:00 Outpatient [facility] [id number] [facility] 2017-08-14 00:00:00 2017-08-14 00:00:00 Outpatient [facility] [id number] [facility] 2017-08-14 00:00:00 2017-08-14 00:00:00 Outpatient [facility] [id number] [facility] 2017-08-11 15:17:19 2017-08-11 15:17:19 Outpatient [facility] [id number] [facility] 2017-08-11 00:00:00 2017-08-11 00:00:00 Outpatient [facility] [id number] [facility] 2017-08-10 00:00:00 2017-08-10 00:00:00 Outpatient [facility] [id number] [facility] 2017-08-09 00:00:00 2017-08-09 00:00:00 Outpatient [facility] [id number] [facility] 2017-07-26 00:00:00 2017-07-26 00:00:00 Outpatient [facility] [id number] [facility] 2017-07-21 00:00:00 2017-07-21 00:00:00 Outpatient [facility] [id number] [facility] 2017-07-21 00:00:00 2017-07-21 00:00:00 Outpatient [facility] [id number] [facility] 2017-07-21 00:00:00 2017-07-21 00:00:00 Outpatient [facility] [id number] [facility] 2017-07-20 00:00:00 2017-07-20 00:00:00 Outpatient [facility] [id number] [facility] 2017-07-20 00:00:00 2017-07-20 00:00:00 Outpatient [facility] [id number] [facility] 2017-07-20 00:00:00 2017-07-20 00:00:00 Outpatient [facility] [id number] [facility] 2017-07-18 00:00:00 2017-07-18 00:00:00 Outpatient [facility] [id number] [facility] 2017-07-18 00:00:00 2017-07-18 00:00:00 Outpatient [facility] [id number] [facility] 2017-07-14 00:00:00 2017-07-14 00:00:00 Outpatient [facility] [id number] [facility] 2017-07-14 00:00:00 2017-07-14 00:00:00 Outpatient [facility] [id number] [facility] 2017-07-14 00:00:00 2017-07-14 00:00:00 Outpatient [facility] [id number] [facility] 2017-07-14 00:00:00 2017-07-14 00:00:00 Outpatient [facility] [id number] [facility] 2017-07-13 00:00:00 2017-07-13 00:00:00 Outpatient [facility] [id number] [facility] 2017-07-13 00:00:00 2017-07-13 00:00:00 Outpatient [facility] [id number] [facility] 2017-07-11 15:12:07 2017-07-11 15:12:07 Outpatient [facility] [id number] [facility] 2017-07-07 00:00:00 2017-07-07 00:00:00 Outpatient [facility] [id number] [facility] 2017-07-07 00:00:00 2017-07-07 00:00:00 Outpatient [facility] [id number] [facility] 2017-07-06 00:00:00 2017-07-06 00:00:00 Outpatient [facility] [id number] [facility] 2017-06-29 00:00:00 2017-06-29 00:00:00 Outpatient [facility] [id number] [facility] 2017-06-29 00:00:00 2017-06-29 00:00:00 Outpatient [facility] [id number] [facility] 2017-06-28 00:00:00 2017-06-28 00:00:00 Outpatient [facility] [id number] [facility] 2017-06-21 00:00:00 2017-06-21 00:00:00 Outpatient [facility] [id number] [facility] 2017-06-19 00:00:00 2017-06-19 00:00:00 Outpatient [facility] [id number] [facility] 2017-06-09 00:00:00 2017-06-09 00:00:00 Outpatient [facility] [id number] [facility] 2017-06-06 00:00:00 2017-06-06 00:00:00 Outpatient [facility] [id number] [facility] 2017-06-06 00:00:00 2017-06-06 00:00:00 Outpatient [facility] [id number] [facility] 2017-06-01 00:00:00 2017-06-01 00:00:00 Outpatient [facility] [id number] [facility] 2017-05-31 00:00:00 2017-05-31 00:00:00 Outpatient [facility] [id number] [facility] 2017-05-25 00:00:00 2017-05-25 00:00:00 Outpatient [facility] [id number] [facility] 2017-05-15 00:00:00 2017-05-15 00:00:00 Outpatient [facility] [id number] [facility] 2017-05-08 00:00:00 2017-05-08 00:00:00 Outpatient [facility] [id number] [facility] 2017-05-01 00:00:00 2017-05-01 00:00:00 Outpatient [facility] [id number] [facility] 2017-04-19 00:00:00 2017-04-19 00:00:00 Outpatient [facility] [id number] [facility] 2017-04-06 00:00:00 2017-04-06 00:00:00 Outpatient [facility] [id number] [facility] 2017-04-05 00:00:00 2017-04-05 00:00:00 Outpatient [facility] [id number] [facility] 2017-03-21 15:36:50 2017-03-21 15:36:50 Outpatient [facility] [id number] [facility] 2017-03-21 00:00:00 2017-03-21 00:00:00 Outpatient [facility] [id number] [facility] 2017-03-17 00:00:00 2017-03-17 00:00:00 Outpatient [facility] [id number] [facility] 2017-03-13 00:00:00 2017-03-13 00:00:00 Outpatient [facility] [id number] [facility] 2017-03-09 00:00:00 2017-03-09 00:00:00 Outpatient [facility] [id number] [facility] 2017-03-09 00:00:00 2017-03-09 00:00:00 Outpatient [facility] [id number] [facility] 2017-03-08 00:00:00 2017-03-08 00:00:00 Outpatient [facility] [id number] [facility] 2017-03-08 00:00:00 2017-03-08 00:00:00 Outpatient [facility] [id number] [facility] 2017-03-01 00:00:00 2017-03-01 00:00:00 Outpatient [facility] [id number] [facility] 2017-02-23 00:00:00 2017-02-23 00:00:00 Outpatient [facility] [id number] [facility] 2017-02-15 13:58:14 2017-02-15 13:58:14 Outpatient [facility] [id number] [facility] 2017-02-15 13:54:35 2017-02-15 13:54:35 Outpatient [facility] [id number] [facility] 2017-02-15 00:00:00 2017-02-15 00:00:00 Outpatient [facility] [id number] [facility] 2017-02-15 00:00:00 2017-02-15 00:00:00 Outpatient [facility] [id number] [facility] 2017-02-14 15:08:46 2017-02-14 15:08:46 Outpatient [facility] [id number] [facility] 2017-02-06 00:00:00 2017-02-06 00:00:00 Outpatient [facility] [id number] [facility] 2017-02-04 12:24:04 2017-02-04 12:24:04 Outpatient [facility] [id number] [facility] 2017-01-25 00:00:00 2017-01-25 00:00:00 Outpatient [facility] [id number] [facility] 2017-01-23 00:00:00 2017-01-23 00:00:00 Outpatient [facility] [id number] [facility] 2017-01-23 00:00:00 2017-01-23 00:00:00 Outpatient [facility] [id number] [facility] 2017-01-19 00:00:00 2017-01-19 00:00:00 Outpatient [facility] [id number] [facility] 2017-01-19 00:00:00 2017-01-19 00:00:00 Outpatient [facility] [id number] [facility] 2017-01-19 00:00:00 2017-01-19 00:00:00 Outpatient [facility] [id number] [facility] 2017-01-19 00:00:00 2017-01-19 00:00:00 Outpatient [facility] [id number] [facility] 2017-01-18 16:11:14 2017-01-18 16:11:14 [facility]patient [facility] [id number] [facility] 2017-01-18 00:00:00 2017-01-18 00:00:00 Outpatient [facility] [id number] [facility] 2017-01-17 00:00:00 2017-01-17 00:00:00 Outpatient [facility] [id number] [facility] 2017-01-16 15:27:30 2017-01-16 15:27:30 [facility]patient [facility] [id number] [facility] 2017-01-09 00:00:00 2017-01-09 00:00:00 Outpatient [facility] [id number] [facility] 2017-01-06 00:00:00 2017-01-06 00:00:00 [facility]patient [facility] [id number] [facility] 2017-01-03 00:00:00 2017-01-03 00:00:00 [facility]patient [facility] [id number] [facility] 2017-01-01 00:00:00 2017-01-01 00:00:00 Outpatient [facility] [id number] [facility] 2017-01-01 00:00:00 2017-01-01 00:00:00 [facility]patient [facility] [id number] [facility] 2016-12-30 00:00:00 2016-12-30 00:00:00 [facility]patient [facility] [id number] [facility] 2016-12-30 00:00:00 2016-12-30 00:00:00 [facility]patient [facility] [id number] [facility] 2016-12-29 00:00:00 2016-12-29 00:00:00 Outpatient [facility] [id number] [facility] 2016-12-28 00:00:00 2016-12-28 00:00:00 Outpatient [facility] [id number] [facility] 2016-12-28 00:00:00 2016-12-28 00:00:00 Outpatient [facility] [id number] [facility] 2016-12-26 00:00:00 2016-12-26 00:00:00 Outpatient [facility] [id number] [facility] 2016-12-23 12:50:55 2016-12-23 12:50:55 Outpatient [facility] [id number] [facility] 2016-12-16 00:00:00 2016-12-16 00:00:00 Outpatient [facility] [id number] [facility] 2016-12-16 00:00:00 2016-12-16 00:00:00 Outpatient [facility] [id number] [facility] 2016-12-16 00:00:00 2016-12-16 00:00:00 Outpatient [facility] [id number] [facility] 2016-12-14 15:35:36 2016-12-14 15:35:36 Outpatient [facility] [id number] [facility] 2016-12-08 00:00:00 2016-12-08 00:00:00 Outpatient [facility] [id number] [facility] 2016-12-03 00:00:00 2016-12-03 00:00:00 Outpatient [facility] [id number] [facility] 2016-12-02 00:00:00 2016-12-02 00:00:00 Outpatient [facility] [id number] [facility] 2016-12-02 00:00:00 2016-12-02 00:00:00 Outpatient [facility] [id number] [facility] 2016-12-02 00:00:00 2016-12-02 00:00:00 Outpatient [facility] [id number] [facility] 2016-12-02 00:00:00 2016-12-02 00:00:00 Outpatient [facility] [id number] [facility] 2016-12-01 00:00:00 2016-12-01 00:00:00 Outpatient [facility] [id number] [facility] 2016-11-28 00:00:00 2016-11-28 00:00:00 Outpatient [facility] [id number] [facility] 2016-11-25 00:00:00 2016-11-25 00:00:00 Outpatient [facility] [id number] [facility] 2016-11-22 00:00:00 2016-11-22 00:00:00 Outpatient [facility] [id number] [facility] 2016-11-18 00:00:00 2016-11-18 00:00:00 Outpatient [facility] [id number] [facility] 2016-11-17 13:31:22 2016-11-17 13:31:22 Outpatient [facility] [id number] [facility] 2016-11-17 10:37:52 2016-11-17 10:37:52 Outpatient [facility] [id number] [facility] 2016-11-17 08:38:41 2016-11-17 08:38:41 Outpatient [facility] [id number] [facility] 2016-11-17 00:00:00 2016-11-17 00:00:00 Outpatient [facility] [id number] [facility] 2016-11-17 00:00:00 2016-11-17 00:00:00 Outpatient [facility] [id number] [facility] 2016-11-15 00:00:00 2016-11-15 00:00:00 Outpatient [facility] [id number] [facility] 2016-11-14 17:35:27 2016-11-14 17:35:27 Outpatient [facility] [id number] [facility] 2016-11-14 12:51:10 2016-11-14 12:51:10 Outpatient [facility] [id number] [facility] 2016-11-14 10:23:18 2016-11-14 10:23:18 Outpatient [facility] [id number] [facility] 2016-11-14 00:00:00 2016-11-14 00:00:00 Outpatient [facility] [id number] [facility] 2016-11-14 00:00:00 2016-11-14 00:00:00 Emergency [facility] [id number] [facility] 2016-11-07 00:00:00 2016-11-07 00:00:00 Outpatient [facility] [id number] [facility] 2016-11-04 00:00:00 2016-11-04 00:00:00 Outpatient [facility] [id number] [facility] 2016-10-25 00:00:00 2016-10-25 00:00:00 Outpatient [facility] [id number] [facility] 2016-10-20 00:00:00 2016-10-20 00:00:00 Outpatient [facility] [id number] [facility] 2016-10-19 00:00:00 2016-10-19 00:00:00 Outpatient [facility] [id number] [facility] 2016-10-07 00:00:00 2016-10-07 00:00:00 Outpatient [facility] [id number] [facility] 2016-10-06 00:00:00 2016-10-06 00:00:00 Outpatient [facility] [id number] [facility] 2016-10-04 00:00:00 2016-10-04 00:00:00 Outpatient [facility] [id number] [facility] 2016-10-03 00:00:00 2016-10-03 00:00:00 Outpatient [facility] [id number] [facility] 2016-10-03 00:00:00 2016-10-03 00:00:00 Outpatient [facility] [id number] [facility] 2016-09-27 00:00:00 2016-09-27 00:00:00 Outpatient [facility] [id number] [facility] 2016-09-26 00:00:00 2016-09-26 00:00:00 Outpatient [facility] [id number] [facility] 2016-09-21 00:00:00 2016-09-21 00:00:00 Outpatient [facility] [id number] [facility] 2016-09-14 15:43:26 2016-09-14 15:43:26 Outpatient [facility] [id number] [facility] 2016-09-14 14:36:30 2016-09-14 14:36:30 Outpatient [facility] [id number] [facility] 2016-09-07 00:00:00 2016-09-07 00:00:00 Outpatient [facility] [id number] [facility] 2016-09-07 00:00:00 2016-09-07 00:00:00 Outpatient [facility] [id number] [facility] 2016-09-01 00:00:00 2016-09-01 00:00:00 Outpatient [facility] [id number] [facility] 2016-08-31 00:00:00 2016-08-31 00:00:00 Outpatient [facility] [id number] [facility] 2016-08-26 00:00:00 2016-08-26 00:00:00 Outpatient [facility] [id number] [facility] 2016-08-12 00:00:00 2016-08-12 00:00:00 Outpatient [facility] [id number] [facility] 2016-08-11 00:00:00 2016-08-11 00:00:00 Outpatient [facility] [id number] [facility] 2016-08-10 00:00:00 2016-08-10 00:00:00 Outpatient [facility] [id number] [facility] 2016-08-05 00:00:00 2016-08-05 00:00:00 Outpatient [facility] [id number] [facility] 2016-08-04 00:00:00 2016-08-04 00:00:00 Outpatient [facility] [id number] [facility] 2016-08-02 00:00:00 2016-08-02 00:00:00 Outpatient [facility] [id number] [facility] 2016-07-29 00:00:00 2016-07-29 00:00:00 Outpatient [facility] [id number] [facility] 2016-07-25 00:00:00 2016-07-25 00:00:00 Outpatient [facility] [id number] [facility] 2016-07-20 00:00:00 2016-07-20 00:00:00 Outpatient [facility] [id number] [facility] 2016-07-05 00:00:00 2016-07-05 00:00:00 Outpatient [facility] [id number] [facility] Results Test Description Test Time Test Comments Results Result Comments Source FECES OVA PARASITES 2019-06-12 16:08:00 Test Item CONCENTRATE RESULT (test code = CONC) Final report () These results were obtained using wet preparation(s) andtrichrome stained smear. This test does not include testingfor Cryptosporidium parvum, Cyclospora, or Microsporidia. TRICHROME RESULT (test code = TRIC) SOURCE: STOOLSPECIMEN DESCRIPTION: RANDOMAG GIARDIA [id number] 16:08:00* Test Item Value Reference Range Interpretation Comments AG GIARDIA FECES (test code = GIARDAG) Negative Negative Performed At: [address] [id number] Naylor MD Ph:[phone] SOURCE: STOOLSPECIMEN DESCRIPTION: RANDOMFECES OVA [id number] 16:08:00* Test Item Value Reference Range Interpretation Comments CONCENTRATE RESULT (test code = CONC) Final report () These results were obtained using wet preparation(s) andtrichrome stained smear. This test does not include testingfor Cryptosporidium parvum, Cyclospora, or Microsporidia. TRICHROME RESULT (test code = TRIC) () No ova, cysts, or parasites seen.One negative specimen does not rule out the possibility ofa parasitic infection.Performed At: [address] [id number] Naylor MD Ph:[phone] SOURCE: STOOLSPECIMEN DESCRIPTION: RANDOMAG GIARDIA [id number] 16:08:00* Test Item Value Reference Range Interpretation Comments AG GIARDIA FECES (test code = GIARDAG) Negative Negative Performed At: [address] [id number] Naylor MD Ph:[phone] SOURCE: STOOLSPECIMEN DESCRIPTION: RANDOMFECES OVA [id number] 15:09:00* Test Item Value Reference Range Interpretation Comments CONCENTRATE RESULT (test code = CONC) TRICHROME RESULT (test code = TRIC) SOURCE: STOOLSPECIMEN DESCRIPTION: RANDOMAG GIARDIA [id number] 15:09:00* Test Item Value Reference Range Interpretation Comments AG GIARDIA FECES (test code = GIARDAG) Negative Negative Performed At: [address] [id number] Naylor MD Ph:[phone] SOURCE: STOOLSPECIMEN DESCRIPTION: RANDOMBASIC METABOLIC [id number] 04:51:00* Test Item Value Reference Range Interpretation Comments SODIUM (test code = NA) 144 mmol/L 136-145 RESU LT VERIFIED BY REPEAT ANALYSIS POTASSIUM (test code = K) 3.8 mmol/L 3.5-5.1 N CHLORIDE (test code = CL) 113.0 mmol/L 98-107 H CARBON DIOXIDE (test code = CO2) 27.0 mmol/L 21-32 N ANION GAP (test code = GAP) 7.8 10-20 L GLUCOSE (test code = GLU) 85 mg/dL 74-106 N BLOOD UREA NITROGEN (test code = BUN) 4 mg/dL 7-18 L GLOMERULAR FILTRATION RATE (test code = GFR) > 60 mL/min >=60 Estimated GFR by using Modified MDRD formula.Chronic kidney disease is defined as either kidney damageor GFR <60 mL/min/1.73 m2 for >3 months. CREATININE (test code = CREAT) 0.50 mg/dL 0.55-1.02 L Note change in reference range due to change in reagent. BUN/CREATININE RATIO (test code = BUN/CREA) 8.0 10-20 L CALCIUM (test code = CA) 8.6 mg/dL 8.5-10.1 N [id number] 04:51:00* Test Item Value Reference Range Interpretation Comments PHOSPHORUS (test code = PHOS) 2.5 mg/dL 2.5-4.9 N [id number] 04:51:00* Test Item Value Reference Range Interpretation Comments MAGNESIUM (test code = MAG) 1.7 mg/dL 1.8-2.4 L BASIC METABOLIC [id number] 04:49:00* Test Item Value Reference Range Interpretation Comments SODIUM (test code = NA) 144 mmol/L 136-145 RESU LT VERIFIED BY REPEAT ANALYSIS POTASSIUM (test code = K) 3.8 mmol/L 3.5-5.1 N CHLORIDE (test code = CL) 113.0 mmol/L 98-107 H CARBON DIOXIDE (test code = CO2) mmol/L 21-32 ANION GAP (test code = GAP) 10-20 GLUCOSE (test code = GLU) mg/dL 74-106 BLOOD UREA NITROGEN (test code = BUN) mg/dL 7-18 GLOMERULAR FILTRATION RATE (test code = GFR) mL/min >=60 CREATININE (test code = CREAT) mg/dL 0.55-1.02 BUN/CREATININE RATIO (test code = BUN/CREA) 10-20 CALCIUM (test code = CA) mg/dL 8.5-10.1 [id number] 04:49:00* Test Item Value Reference Range Interpretation Comments PHOSPHORUS (test code = PHOS) mg/dL 2.5-4.9 [id number] 04:49:00* Test Item Value Reference Range Interpretation Comments MAGNESIUM (test code = MAG) mg/dL 1.8-2.4 LIPID PROFILE (CORONARY RISK)2019-06-10 04:41:00* Test Item Value Reference Range Interpretation Comments TRIGLYCERIDES (test code = TRIG) 163 mg/dL 20-150 H CHOLESTEROL (test code = CHOL) 160 mg/dL 0-200 N CHOLESTEROL/HDL RATIO (test code = CHOLHDL) 2.0 RATIO 0-4.9 N RISK ASSOCIATED WITH CHOL/HDL RATIOS: Risk Male Female1/2 AVERAGE 3.43 3.27AVERAGE 4.97 4.442X AVERAGE 9.55 7.053X AVERAGE 23.39 11.04 REFERENCE VALUE IS RELATED TO RISK LEVELS ASRECOMMENDED BY THE [facility]. HEART, LUNG, AND BLOOD INST. HDL CHOLESTEROL (test code = HDL) 55 mg/dL 40-60 N LIPOPROTEIN LDL (test code = LDL) 89 mg/dL 100-129 L Reference Interval: mg/dL mmol/L Optimal <100 <2.6Near/above optimal 100-129 2.6- 3.3Borderline High 130-159 3.4-4.1High 160-189 4.1-4.9Very High >=190 >=4.9========= This LDL result is a direct measurement.========= T4 [id number] 04:41:00* Test Item Value Reference Range Interpretation Comments T4 FREE (test code = T4F) 0.80 ng/dL 0.76-1.46 N CBC W/AUTO [id number] 04:21:00* Test Item Value Reference Range Interpretation Comments WHITE BLOOD CELL (test code = WBC) 7.4 K/mm3 4.5-12.5 N RED BLOOD CELL (test code = RBC) 4.39 mill/mm3 3.7-5.2 N HEMOGLOBIN (test code = HGB) 14.2 gram/dL 11.5-15.5 N HEMATOCRIT (test code = HCT) 43.4 % 36.0-46.0 N MEAN CELL VOLUME (test code = MCV) 98.9 fL 80-98 H MEAN CELL HGB (test code = MCH) 32.3 picogram 27.0-33.0 N MEAN CELL HGB CONCETRATION (test code = MCHC) 32.7 gram/dL 33.0-36. 0 L RED CELL DISTRIBUTION WIDTH (test code = RDW) 13.5 % 11.6-16. 2 N RED CELL DISTRIBUTION WIDTH SD (test code = RDW-SD) 49.1 fL 37 .0-51.0 N PLATELET COUNT (test code = PLT) 224 K/mm3 150-450 N MEAN PLATELET VOLUME (test code = MPV) 9.8 fL 6.7-11.0 N NEUTROPHIL % (test code = NT%) 62.0 % 39.0-69.0 N IMMATURE GRANULOCYTE % (test code = IG%) 1.0 % 0.0-5.0 N LYMPHOCYTE % (test code = LY%) 27.9 % 25.0-55.0 N MONOCYTE % (test code = MO%) 6.0 % 0.0-10.0 N EOSINOPHIL % (test code = EO%) 2.4 % 0.0-5.0 N BASOPHIL % (test code = BA%) 0.7 % 0.0-1.0 N NUCLEATED RBC % (test code = NRBC%) 0.0 % 0-0 N NEUTROPHIL # (test code = NT#) 4.56 K/mm3 1.8-7.7 N IMMATURE GRANULOCYTE # (test code = IG#) 0.07 x10 3/uL 0-0.03 H LYMPHOCYTE # (test code = LY#) 2.05 K/mm3 1.0-5.0 N MONOCYTE # (test code = MO#) 0.44 K/mm3 0-0.8 N EOSINOPHIL # (test code = EO#) 0.18 K/mm3 0.0-0.5 N BASOPHIL # (test code = BA#) 0.05 K/mm3 0.0-0.2 N NUCLEATED RBC # (test code = NRBC#) 0.00 K/mm3 0.0-0.1 N MANUAL DIFF REQUIRED (test code = MDIFF) NO CBC W/AUTO [id number] 04:06:00* Test Item Value Reference Range Interpretation Comments WHITE BLOOD CELL (test code = WBC) K/mm3 4.5-12.5 RED BLOOD CELL (test code = RBC) mill/mm3 3.7-5.2 HEMOGLOBIN (test code = HGB) 14.2 gram/dL 11.5-15.5 N HEMATOCRIT (test code = HCT) 43.4 % 36.0-46.0 N MEAN CELL VOLUME (test code = MCV) fL 80-98 MEAN CELL HGB (test code = MCH) picogram 27.0-33.0 MEAN CELL HGB CONCETRATION (test code = MCHC) gram/dL 33.0-36. 0 RED CELL DISTRIBUTION WIDTH (test code = RDW) % 11.6-16. 2 RED CELL DISTRIBUTION WIDTH SD (test code = RDW-SD) fL 37 .0-51.0 PLATELET COUNT (test code = PLT) K/mm3 150-450 MEAN PLATELET VOLUME (test code = MPV) fL 6.7-11.0 NEUTROPHIL % (test code = NT%) % 39.0-69.0 IMMATURE GRANULOCYTE % (test code = IG%) % 0.0-5.0 LYMPHOCYTE % (test code = LY%) % 25.0-55.0 MONOCYTE % (test code = MO%) % 0.0-10.0 EOSINOPHIL % (test code = EO%) % 0.0-5.0 BASOPHIL % (test code = BA%) % 0.0-1.0 NEUTROPHIL # (test code = NT#) K/mm3 1.8-7.7 LYMPHOCYTE # (test code = LY#) K/mm3 1.0-5.0 MONOCYTE # (test code = MO#) K/mm3 0-0.8 EOSINOPHIL # (test code = EO#) K/mm3 0.0-0.5 BASOPHIL # (test code = BA#) K/mm3 0.0-0.2 BASIC METABOLIC [id number] 06:08:00* Test Item Value Reference Range Interpretation Comments SODIUM (test code = NA) 139 mmol/L 136-145 N POTASSIUM (test code = K) 3.9 mmol/L 3.5-5.1 N CHLORIDE (test code = CL) 106.0 mmol/L 98-107 N CARBON DIOXIDE (test code = CO2) 27.0 mmol/L 21-32 N ANION GAP (test code = GAP) 9.9 10-20 L GLUCOSE (test code = GLU) 107 mg/dL 74-106 H BLOOD UREA NITROGEN (test code = BUN) 8 mg/dL 7-18 N GLOMERULAR FILTRATION RATE (test code = GFR) > 60 mL/min >=60 Estimated GFR by using Modified MDRD formula.Chronic kidney disease is defined as either kidney damageor GFR <60 mL/min/1.73 m2 for >3 months. CREATININE (test code = CREAT) 0.70 mg/dL 0.55-1.02 N Note change in reference range due to change in reagent. BUN/CREATININE RATIO (test code = BUN/CREA) 11.4 10-20 N CALCIUM (test code = CA) 9.0 mg/dL 8.5-10.1 N [id number] 06:08:00* Test Item Value Reference Range Interpretation Comments PHOSPHORUS (test code = PHOS) 3.0 mg/dL 2.5-4.9 N [id number] 06:08:00* Test Item Value Reference Range Interpretation Comments MAGNESIUM (test code = MAG) 1.8 mg/dL 1.8-2.4 N THYROID STIMULATING [id number] 06:08:00* Test Item Value Reference Range Interpretation Comments THYROID STIMULATING HORMONE (test code = TSH) 4.080 uIU/mL 0.36-3.7 4 H TSH REFERENCE RANGES: EUTHYROID: 0.35 - 4.3 mIU/mL HYPO : > 5.5 mIU/mL HYPER : < 0.35 mIU/mL [id number] 06:08:00* Test Item Value Reference Range Interpretation Comments TROPONIN-I (test code = TROPI) <0.015 ng/mL 0-0.045 N CBC W/AUTO [id number] 05:48:00* Test Item Value Reference Range Interpretation Comments WHITE BLOOD CELL (test code = WBC) 7.4 K/mm3 4.5-12.5 N RED BLOOD CELL (test code = RBC) 4.76 mill/mm3 3.7-5.2 N HEMOGLOBIN (test code = HGB) 15.6 gram/dL 11.5-15.5 H HEMATOCRIT (test code = HCT) 46.7 % 36.0-46.0 H MEAN CELL VOLUME (test code = MCV) 98.1 fL 80-98 H MEAN CELL HGB (test code = MCH) 32.8 picogram 27.0-33.0 N MEAN CELL HGB CONCETRATION (test code = MCHC) 33.4 gram/dL 33.0-36. 0 N RED CELL DISTRIBUTION WIDTH (test code = RDW) 13.5 % 11.6-16. 2 N RED CELL DISTRIBUTION WIDTH SD (test code = RDW-SD) 48.6 fL 37 .0-51.0 N PLATELET COUNT (test code = PLT) 267 K/mm3 150-450 N MEAN PLATELET VOLUME (test code = MPV) 9.8 fL 6.7-11.0 N NEUTROPHIL % (test code = NT%) 54.4 % 39.0-69.0 N IMMATURE GRANULOCYTE % (test code = IG%) 0.4 % 0.0-5.0 N LYMPHOCYTE % (test code = LY%) 36.8 % 25.0-55.0 N MONOCYTE % (test code = MO%) 5.8 % 0.0-10.0 N EOSINOPHIL % (test code = EO%) 1.8 % 0.0-5.0 N BASOPHIL % (test code = BA%) 0.8 % 0.0-1.0 N NUCLEATED RBC % (test code = NRBC%) 0.0 % 0-0 N NEUTROPHIL # (test code = NT#) 4.03 K/mm3 1.8-7.7 N IMMATURE GRANULOCYTE # (test code = IG#) 0.03 x10 3/uL 0-0.03 N LYMPHOCYTE # (test code = LY#) 2.72 K/mm3 1.0-5.0 N MONOCYTE # (test code = MO#) 0.43 K/mm3 0-0.8 N EOSINOPHIL # (test code = EO#) 0.13 K/mm3 0.0-0.5 N BASOPHIL # (test code = BA#) 0.06 K/mm3 0.0-0.2 N NUCLEATED RBC # (test code = NRBC#) 0.00 K/mm3 0.0-0.1 N MANUAL DIFF REQUIRED (test code = MDIFF) NO BASIC METABOLIC [id number] 05:42:00* Test Item Value Reference Range Interpretation Comments SODIUM (test code = NA) 139 mmol/L 136-145 N POTASSIUM (test code = K) 3.9 mmol/L 3.5-5.1 N CHLORIDE (test code = CL) 106.0 mmol/L 98-107 N CARBON DIOXIDE (test code = CO2) mmol/L 21-32 ANION GAP (test code = GAP) 10-20 GLUCOSE (test code = GLU) mg/dL 74-106 BLOOD UREA NITROGEN (test code = BUN) mg/dL 7-18 GLOMERULAR FILTRATION RATE (test code = GFR) mL/min >=60 CREATININE (test code = CREAT) mg/dL 0.55-1.02 BUN/CREATININE RATIO (test code = BUN/CREA) 10-20 CALCIUM (test code = CA) mg/dL 8.5-10.1 [id number] 05:42:00* Test Item Value Reference Range Interpretation Comments PHOSPHORUS (test code = PHOS) mg/dL 2.5-4.9 [id number] 05:42:00* Test Item Value Reference Range Interpretation Comments MAGNESIUM (test code = MAG) mg/dL 1.8-2.4 THYROID STIMULATING [id number] 05:42:00* Test Item Value Reference Range Interpretation Comments THYROID STIMULATING HORMONE (test code = TSH) uIU/mL 0.36-3.7 4 [id number] 05:42:00* Test Item Value Reference Range Interpretation Comments TROPONIN-I (test code = TROPI) ng/mL 0-0.045 [id number] 05:34:00* Test Item Value Reference Range Interpretation Comments GLYCOSYLATED HEMOGLOBIN (HA1C) (test code = GLYHGB) 5.6 % HbA1 SUGGESTED DIAGNOSIS: HbA1C (%) Diabetic >6.4Prediabetes 5.7 - 6.4Normal <5.7 ESTIMATED AVERAGE GLUCOSE (test code = EAG) 114 MG/DL [id number] 18:35:00* Test Item Value Reference Range Interpretation Comments TROPONIN-I (test code = TROPI) <0.015 ng/mL 0-0.045 N SPECIMEN COMMENTS: add on to this afternoon labs at 1338BASIC METABOLIC PANEL 2019-06-08 14:49:00* Test Item Value Reference Range Interpretation Comments SODIUM (test code = NA) 139 mmol/L 136-145 N POTASSIUM (test code = K) 4.5 mmol/L 3.5-5.1 N CHLORIDE (test code = CL) 109.0 mmol/L 98-107 H CARBON DIOXIDE (test code = CO2) 23.0 mmol/L 21-32 N ANION GAP (test code = GAP) 11.5 10-20 N GLUCOSE (test code = GLU) 123 mg/dL 74-106 H BLOOD UREA NITROGEN (test code = BUN) 6 mg/dL 7-18 L GLOMERULAR FILTRATION RATE (test code = GFR) > 60 mL/min >=60 Estimated GFR by using Modified MDRD formula.Chronic kidney disease is defined as either kidney damageor GFR <60 mL/min/1.73 m2 for >3 months. CREATININE (test code = CREAT) 0.70 mg/dL 0.55-1.02 N Note change in reference range due to change in reagent. BUN/CREATININE RATIO (test code = BUN/CREA) 8.6 10-20 L CALCIUM (test code = CA) 9.0 mg/dL 8.5-10.1 N [id number] 07:23:00* Test Item Value Reference Range Interpretation Comments D-DIMER (test code = DDIMER) 295.00 ng/mLFEU 0-500 N Clinical Cut-off value for D-Dimer is 500 ng/mL FEU. Comment: The [employer] D-Dimer assay is intended for use asan aid in the diagnosis of venous thromboembolism (VTE)[deep vein thrombosis (DVT) or pulmonary embolism (PE)].The measurement of D-Dimer should not be used as an aid inthe diagnosis of VTE, in patient with: -Therapeutic dose anticoagulant therapy for >24 hours -Fibrinolytic therapy within previous 7 days -Trauma or surgery within previous 4 weeks -Disseminated malignancies -Aortic aneurysm -Sepsis, severe infections, pneumonia, severe skin infections -Liver cirrhosis - BASIC METABOLIC [id number] 06:31:00* Test Item Value Reference Range Interpretation Comments SODIUM (test code = NA) 139 mmol/L 136-145 N POTASSIUM (test code = K) 2.8 mmol/L 3.5-5.1 Blanche irene called [facility]ROBINSONby [facility] 0631Critical results verified and read back by Nurse? Y CHLORIDE (test code = CL) 107.0 mmol/L 98-107 N CARBON DIOXIDE (test code = CO2) 20.0 mmol/L 21-32 L ANION GAP (test code = GAP) 14.8 10-20 N GLUCOSE (test code = GLU) 183 mg/dL 74-106 H BLOOD UREA NITROGEN (test code = BUN) 3 mg/dL 7-18 L GLOMERULAR FILTRATION RATE (test code = GFR) > 60 mL/min >=60 Estimated GFR by using Modified MDRD formula.Chronic kidney disease is defined as either kidney damageor GFR <60 mL/min/1.73 m2 for >3 months. CREATININE (test code = CREAT) 0.70 mg/dL 0.55-1.02 N Note change in reference range due to change in reagent. BUN/CREATININE RATIO (test code = BUN/CREA) 4.3 10-20 L CALCIUM (test code = CA) 9.1 mg/dL 8.5-10.1 N [id number] 06:31:00* Test Item Value Reference Range Interpretation Comments TROPONIN-I (test code = TROPI) <0.015 ng/mL 0-0.045 N HEPATIC FUNCTION [id number] 06:26:00* Test Item Value Reference Range Interpretation Comments TOTAL PROTEIN (test code = PROT) 7.4 gram/dL 6.4-8.2 N ALBUMIN (test code = ALB) 3.5 g/dL 3.4-5.0 N GLOBULIN (test code = GLOB) 3.9 gram/dL 2.7-4.2 N ALBUMIN/GLOBULIN RATIO (test code = A/G) 0.9 0.75-1.50 N BILIRUBIN TOTAL (test code = BILT) 0.40 mg/dL 0.0-1.0 N BILIRUBIN DIRECT (test code = BILD) 0.14 mg/dL 0.0-0.20 N SGOT/AST (test code = AST) 38 IUnit/L 15-37 H SGPT/ALT (test code = ALT) 78 IUnit/L 12-78 N ALKALINE PHOSPHATASE TOTAL (test code = ALKP) 140 IUnit/L 45-117 H Note change in reference range due to change in reagent. [id number] 06:26:00* Test Item Value Reference Range Interpretation Comments LIPASE (test code = LIP) 136 U/L 73.0-393.0 N PROTHROMBIN [id number] 06:22:00* Test Item Value Reference Range Interpretation Comments PROTHROMBIN TIME PATIENT (test code = PTP) 10.5 seconds 9.0-14.0 N INTERNATIONAL NORMAL RATIO (test code = INR) 0.9 0.8-1.2 N The therapeutic range for oral anticoagulant therapy formost indications is an international normalized ratio (INR)of between 2.0 and 3.0. The recommended therapeutic INRrange for various clinical situations is listed below: Clinical Situation INR range Pulmonary e mbolism treatment (2.0-3.0)Venous thrombosis treatmentVenous thrombosis prophylaxis (high risk surgery)Prevention of systemic embolism from: Acute myocardial infarction Valvular heart disease Atrial fibrillation Mechanical prosthetic heart valves (2.5-3.5) IS PATIENT ON ANTICOAGULANTS? NTHROMBOPLASTIN TIME [id number] 06:22:00* Test Item Value Reference Range Interpretation Comments THROMBOPLASTIN TIME PARTIAL (test code = PTT) 32.3 seconds 25.0-36. 5 N IS PATIENT ON ANTICOAGULANTS? NCBC W/O [id number] 06:12:00* Test Item Value Reference Range Interpretation Comments WHITE BLOOD CELL (test code = WBC) 11.6 K/mm3 4.5-12.5 N RED BLOOD CELL (test code = RBC) 5.23 mill/mm3 3.7-5.2 H HEMOGLOBIN (test code = HGB) 17.4 gram/dL 11.5-15.5 H HEMATOCRIT (test code = HCT) 51.2 % 36.0-46.0 H MEAN CELL VOLUME (test code = MCV) 97.9 fL 80-98 N MEAN CELL HGB (test code = MCH) 33.3 picogram 27.0-33.0 H MEAN CELL HGB CONCETRATION (test code = MCHC) 34.0 gram/dL 33.0-36. 0 N RED CELL DISTRIBUTION WIDTH (test code = RDW) 13.4 % 11.6-16. 2 N PLATELET COUNT (test code = PLT) 312 K/mm3 150-450 N MEAN PLATELET VOLUME (test code = MPV) 9.1 fL 6.7-11.0 N - XR CHEST 1 [id number] 05:51:00 FAX: Carmenza Martinez DO [place]: B St: REG Name: MICHAEL HERNANDEZ [facility] : [birth year] Age/S: 54/F [address] [facility] Unit #: [id number] Loc: [place] [address] Phys: Carmenza Martinez DO Acct: [id number] Dis Date: Status: REG ER PHONE #: [phone] Exam Date: 06/08/2019 05 FAX #: [phone] Reason: CHEST PAIN EXAMS: CPT CODE: [id number] XR CHEST 1 V 00559 DICTATION LOCATION: 8 HISTORY: Female, 54 years of age with chest pain and dyspnea EXAM: CHEST X-RAY, ONE VIEW COMPARISON: None COM MENT: Frontal view of the chest is provided. No focal infiltrate, consolid ation, mass lesion, or effusion is seen. Cardiac silhouette is within norm al limits. No acute bony abnormalities. IMPRESSION: No acute cardiopulmonary disease. at 0527 Reported and signed by: Sveta Medrano MD CC: Carmenza Martinez DO Technologist: Bert Garduno RT(R); ROQUE KILGORE RT(R) Trnscrd Date/Time/By: 06/08/2019 (0557) : By: [email or web address] Orig Print D/T: S: 06/08/2019 (1045) PAGE 1 Signed Report Differential, [id number] 09:50:00* Test Item Value Reference Range Interpretation Comments Neutrophil (test code = 60260755) 65.0 % 34-70 Lymphs (test code = 66147993) 28.0 % 20-50 Monocytes (test code = 47570265) 5.0 % 5-12 Eos (test code = 94445296) 2.0 % 0.7-5 Basos (test code = 45291665) 0.0 % 0.1-1.2 L Neutrophils (Absolute) (test code = 59771515) 6.01 K/uL 1.56-6.1 3 Lymphs (Absolute) (test code = 90272076) 2.59 K/uL 1.18-3.74 Monocytes(Absolute) (test code = 74025545) 0.46 K/uL 0.24-0.36 H Eos (Absolute) (test code = 33524079) 0.19 K/uL 0.04-0.36 Baso (Absolute) (test code = 24198263) 0.00 K/uL 0.01-0.08 L Cells Counted (test code = 02820302) Lab Interpretation (test code = 78463-2) [facility]normal [id number] 09:50:00* Test Item Value Reference Range Interpretation Comments WBC (test code = 6690-2) 9.3 K/uL 4.5-11 RBC (test code = 789-8) 4.84 4.20- 5.40 M/uL Hemoglobin (test code = 718-7) 16.6 g/dL 12-16 H Hematocrit (test code = 4544-3) 50.1 % 37-47 H MCV (test code = 787-2) 103.5 fL 82-92 H MCH (test code = 785-6) 34.3 pg 27-32 H MCHC (test code = 786-4) 33.1 g/dL 32-36 RDW (test code = 19015-6) 47.3 fL 36.4-46.3 H Platelet (test code = 777-3) 327 K/uL 150-400 Mean Platelet Volume (test code = 56238-1) 10.0 fL 9.4-12.4 Percent NRBC (test code = 76227836) 0.0 % Absolute NRBC (test code = 76934041) 0.00 K/uL Lab Interpretation (test code = 91650-1) [id number] 09:09:00* Test Item Value Reference Range Interpretation Comments Hemoglobin A1c (test code = 4548-4) 5.4 % 4.3-6.1 Estimated Average Glucose (test code = 65682188) 108 mg/dL 70-11 0 Lab Interpretation (test code = 83430-3) Normal [facility] [id number] 07:25:00* Test Item Value Reference Range Interpretation Comments Iron (test code = 10228581) 120 ug/dL 50-212 TIBC (test code = 88664345) 427 ug/dL 250-450 % Iron Sat (test code = 33424530) 28 % Transferrin (test code = 54875326) 304.94 mg/dL 203-362 [facility] [id number] 07:25:00* Test Item Value Reference Range Interpretation Comments Cholesterol (test code = 2093-3) 216.0 mg/dL <=200.0 H Triglyceride (test code = 68690426) 206 mg/dL <150 H HDL (test code = 2085-9) 57.0 mg/dL See Reference Range Narrative . LDL (test code = 16893-5) 118 mg/dL <100 H Op timal: < 100.0 mg/dLNear Optimal: 120-129 mg/dLBorderline: 130-159 mg/dLHigh: 160-189 mg/dLVery High: >=190 mg/dL Patient Fasting? (test code = 59418038) No GILMAR (test code = GILMAR) Patient is not fasting. For a triglyceride result greater than 440 mg/dL, consider re-testing when the patient is in a fasting state. Lab Interpretation (test code = 02942-3) Abnormal [facility] [id number] 07:25:00* Test Item Value Reference Range Interpretation Comments Sodium (test code = 2951-2) 138 mmol/L 136-145 Potassium (test code = 2823-3) 4.0 mmol/L 3.5-5.1 Chloride (test code = 2075-0) 106 mmol/L 98-107 CO2 (test code = 36933686) 22 mmol/L 21-31 Glucose (test code = 00974950) 114 mg/dL 70-110 H Calcium (test code = 25503193) 9.5 mg/dL 8.6-10.3 Urea Nitrogen (test code = 74871498) 9.0 mg/dL 7-25 Creatinine (test code = 61436069) 0.7 mg/dL 0.6-1.2 Alkaline Phosphatase (test code = 76169292) 112 U/L 34-104 H ALT (test code = 88928738) 32 U/L 7-52 AST (test code = 77367744) 13 U/L 13-39 Total Protein (test code = 2885-2) 6.7 g/dL 6-8.3 GFR, Estimated (test code = 47849138) 88 >=90 mL/min/1.73 m2 L Albumin (test code = 46428-9) 4.0 g/dL 3.7-5.3 Anion Gap (test code = 72151187) 10 mmol/L 5-16 Lab Interpretation (test code = 14056-6) Abnormal [facility] [id number] 14:31:20IMPRESSION: 1. No acute osseous lesion. 2. Mild degenerative changes of the AC joint. If the report is "FINALIZED" it indicates that the attending/staffradiologist has reviewed the images and agrees with the resident'sinterpretation. Dictated By: Remberto Kapoor MD, 03/08/2019 2:27 PM I have reviewed the study and agree with the findings in this report. Signed By: Daniel Murrell MD, 03/08/2019 2:31 PM Interface, Rad/Mammog In - 03/08/2019 2:36 PM CSTEXAMINATION: XRAY SHOULDER 2 VIEWS MIN SIDE: RIGHTINDICATION: h/o supraspinatus partial tear COMPARISON: Shoulder radiographs 11/09/2016 FINDINGS:BONE: No acute displaced fracture.J OINTS: Mild degenerative changes of the AC joint.SOFT TISSUES:The soft tissues a ppear unremarkable.IMPRESSIONIMPRESSION: 1. No acute osseous lesion. 2. Mild d egenerative changes of the AC joint.If the report is "FINALIZED" it indicates th at the attending/staffradiologist has reviewed the images and agrees with the re sident'sinterpretation.Dictated By: Remberto Kapoor MD, 03/08/2019 2:27 PMI have reviewed the study and agree with the findings in this report.Signed By: Daniel Murrell MD, 03/08/2019 2:31 [facility] METABOLIC [id number] 15:56:00* Test Item Value Reference Range Interpretation Comments SODIUM (test code = NA) 142 mmol/L 136-145 N POTASSIUM (test code = K) 3.6 mmol/L 3.5-5.1 N CHLORIDE (test code = CL) 109.0 mmol/L 98-107 H CARBON DIOXIDE (test code = CO2) 26.0 mmol/L 21-32 N ANION GAP (test code = GAP) 10.6 10-20 N GLUCOSE (test code = GLU) 101 mg/dL 74-106 N BLOOD UREA NITROGEN (test code = BUN) 9 mg/dL 7-18 N GLOMERULAR FILTRATION RATE (test code = GFR) > 60 mL/min >=60 Estimated GFR by using Modified MDRD formula.Chronic kidney disease is defined as either kidney damageor GFR <60 mL/min/1.73 m2 for >3 months. CREATININE (test code = CREAT) 0.90 mg/dL 0.55-1.02 N Note change in reference range due to change in reagent. BUN/CREATININE RATIO (test code = BUN/CREA) 10.6 10-20 N CALCIUM (test code = CA) 9.2 mg/dL 8.5-10.1 N [id number] 15:56:00* Test Item Value Reference Range Interpretation Comments TROPONIN-I (test code = TROPI) <0.015 ng/mL 0-0.045 N BASIC METABOLIC [id number] 15:42:00* Test Item Value Reference Range Interpretation Comments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 15, 2018 FINDINGS: No lacerations or contusions of the scalp or facial soft tissues.. Calvarium and skull base are intact. No acute hemorrhage. No intracranial mass, mass effect, or midline shift. No effacement of the sulci or cali-white matter interface to suggest acute infarct. Mild cortical atrophy is unchanged from the previous exam. No hydrocephalus.. No extra- axial fluid collection. Visualized paranasal sinuses are clear. Mastoid air cells are underpneumatized. Auditory canals and middle ear cavities are clear. Orbital contents are unremarkable. IMPRESSION: No acute intracranial process. Cortical atrophy is unchanged from the previous exam. at 2049 Reported and signed by: Raj Ribera MD CC: Brenda Simpson MD; Yuval Andres MD; Adalid Salazar MD Technologist:MIGEL WARE RT(R),CT CTDI: DLP: Trnscb Date/Time: 11/03/2018 (2049) [email or web address] Orig Print D/T: S: 11/03/2018 (2052) PAGE 1 Signed Report - XR RIBS UNI W/CXR 3+V [id number] 20:44:00 Name: MICHAEL CAPELLAN [facility] : 1965 Age/S:53 /F [address] [facility] Unit#:[id number] Loc: [place] [address] Phys: Chan Simpson MD Dis Date: PHONE #: [phone] Status: REG ER FAX #: [phone] Exam Date: 11/03/2018 Re ason: fall, right sided chest pain EXAMS: CPT CODE: [id number] XR RIBS UNI W/CXR 3+[place] 15746 CLINICAL HISTORY: fall, right sided chest pain TECHNIQUE: AP and oblique views of the right-sided ribs . COMPARISON: Chest x-ray March 15, 2018 FINDINGS: No acute right-sided rib fracture is identified. Visualized porti ons of the contralateral ribs also appear intact. Visualized thoracolumbar spine is unremarkable. No pneumothorax. IMPRESSIO N: 1. Negative right-sided rib series. Electronica lly Signed by Raj Ribera MD on 11/03/2018 at 2043 Repor raulito and signed by: Raj Ribera MD CC: Brenda Simpson MD; Yuval Andres MD; Adalid Salazar MD Technologist: MIGEL WARE RT(R),CT Trnscrpt Data: 11/03/2018 (2043) [email or web address] Orig Print D/T: S: 11/03/2018 (2046) PAGE 1 Signed Report BASIC METABOLIC [id number] 08:51:00* Test Item Value Reference Range Interpretation Comments SODIUM (test code = NA) 142 mmol/L 136-145 N POTASSIUM (test code = K) 3.3 mmol/L 3.5-5.1 L CHLORIDE (test code = CL) 108.0 mmol/L 98-107 H CARBON DIOXIDE (test code = CO2) 23.0 mmol/L 21-32 N ANION GAP (test code = GAP) 14.3 10-20 N GLUCOSE (test code = GLU) 157 mg/dL 74-106 H BLOOD UREA NITROGEN (test code = BUN) 8 mg/dL 7-18 N GLOMERULAR FILTRATION RATE (test code = GFR) 52 mL/min >=60 Estimated GFR by using Modified MDRD formula.Chronic kidney disease is defined as either kidney damageor GFR <60 mL/min/1.73 m2 for >3 months. CREATININE (test code = CREAT) 1.10 mg/dL 0.55-1.02 H Note change in reference range due to change in reagent. BUN/CREATININE RATIO (test code = BUN/CREA) 7.3 10-20 L CALCIUM (test code = CA) 9.3 mg/dL 8.5-10.1 N [id number] 08:51:00* Test Item Value Reference Range Interpretation Comments TROPONIN-I (test code = TROPI) <0.015 ng/mL 0-0.045 N BASIC METABOLIC [id number] 08:37:00* Test Item Value Reference Range Interpretation Comments SODIUM (test code = NA) 142 mmol/L 136-145 N POTASSIUM (test code = K) 3.3 mmol/L 3.5-5.1 L CHLORIDE (test code = CL) 108.0 mmol/L 98-107 H CARBON DIOXIDE (test code = CO2) mmol/L 21-32 ANION GAP (test code = GAP) 10-20 GLUCOSE (test code = GLU) mg/dL 74-106 BLOOD UREA NITROGEN (test code = BUN) mg/dL 7-18 GLOMERULAR FILTRATION RATE (test code = GFR) mL/min >=60 CREATININE (test code = CREAT) mg/dL 0.55-1.02 BUN/CREATININE RATIO (test code = BUN/CREA) 10-20 CALCIUM (test code = CA) mg/dL 8.5-10.1 [id number] 08:37:00* Test Item Value Reference Range Interpretation Comments TROPONIN-I (test code = TROPI) ng/mL 0-0.045 CBC W/O [id number] 08:28:00* Test Item Value Reference Range Interpretation Comments WHITE BLOOD CELL (test code = WBC) 7.4 K/mm3 4.5-12.5 N RED BLOOD CELL (test code = RBC) 5.77 mill/mm3 3.7-5.2 H HEMOGLOBIN (test code = HGB) 17.4 gram/dL 11.5-15.5 H HEMATOCRIT (test code = HCT) 53.0 % 36.0-46.0 H MEAN CELL VOLUME (test code = MCV) 91.9 fL 80-98 N MEAN CELL HGB (test code = MCH) 30.2 picogram 27.0-33.0 N MEAN CELL HGB CONCETRATION (test code = MCHC) 32.8 gram/dL 33.0-36. 0 L RED CELL DISTRIBUTION WIDTH (test code = RDW) 14.3 % 11.6-16. 2 N PLATELET COUNT (test code = PLT) 257 K/mm3 150-450 N MEAN PLATELET VOLUME (test code = MPV) 9.9 fL 6.7-11.0 N TROPONIN I [id number] 08:20:00* Test Item Value Reference Range Interpretation Comments TROPONIN I RAPID (test code = TROPIRAP) 0.00 ng/mL <0.08 Please Note New Reference Range 0.00-0.079 ng/mL - Negative>or= 0.08 ng/mL - Positive The use of serial sampling and testing protocol is arecommended practice.An elevated troponin level alone is often not sufficient fordiagnosis of myocardial infarction. Troponin results obtained by different assays may vary.Evaluation of the extent of myocardial damage based onincrease of troponin would be valid only if similarmethodology is used. - XR CHEST 1 [id number] 07:55:00 FAX: Silvio Wilhelm MD [phone] [place]: [address] St: DEP Name: MICHAEL HERNANDEZ [facility] : [birth year] Age/S: 53/F [address] [facility] Unit #: [id number] Loc: J[place]ET [place] [address] Phys: Silvio Wilhelm MD Acct: [id number] Dis Date: Status: DEP ER PHONE #: [phone] Exam Date: 10/19/2018 0795 FAX #: [phone] Reason: CHEST PAIN EXAMS: CPT CODE: [id number] XR CHEST 1 V 83719 HISTORY: CHEST PAIN TECHNIQUE: AP chest x-ray COMPARISON: 07/28/18 FINDING S: No airspace consolidation or pleural effusion. Normal heart siz e. Mediastinal silhouette is unremarkable. Mild thoracic spondylosis. IMPRESSION: No radiographic evidence of acute card iopulmonary process. Electronically Signed by Hannah Gottlieb D.O. on 09/22 at 0755 Reported and signed by: Hannah Gottlieb D.O. CC: Silvio Wilhelm MD Technologist: Brenda Bustamante(R) Trnscrd Date/Time/By: 10/19/2018 (0755) : By: [email or web address] Orig Print D/T: S: (075) PAGE 1 Signed Repo rt - XR CHEST 1 [id number] 07:55:00 FAX: Silvio Wilhelm MD [phone] [place]: [address] St: REG Name: LUIS HERNANDEZ [facility] : [birth year] Age/S: 53/F [address] [facility] Unit #: [id number] Loc: [place] [address] Phys: Silvio Wilhelm MD Acct: [id number] Dis Date: Status: REG ER PHONE #: [phone] Exam Date: 10/19/2018 0740 FAX #: [phone] Reason: CHEST PAIN EXAMS: CPT CODE: [id number] XR CHEST 1 V 20590 HISTORY: CHEST PAIN TECHNIQUE: AP chest x-ray COMPARISON: 07/28/18 FINDING S: No airspace consolidation or pleural effusion. Normal heart siz e. Mediastinal silhouette is unremarkable. Mild thoracic spondylosis. IMPRESSION: No radiographic evidence of acute card iopulmonary process. Electronically Signed by Hannah Gottlieb D.O. on 09/22 at 0755 Reported and signed by: Hannah Gottlieb D.O. 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 8-6.0 H ESTIMATED AVERAGE GLUCOSE (test code = EAG) 148 MG/DL COMPREHENSIVE METABOLIC [id number] 12:16:00* Test Item Value Reference Range Interpretation Comments SODIUM (test code = NA) 142 mmol/L 136-145 N POTASSIUM (test code = K) 4.1 mmol/L 3.5-5.1 N CHLORIDE (test code = CL) 110.0 mmol/L 98-107 H CARBON DIOXIDE (test code = CO2) 28.0 mmol/L 21-32 N ANION GAP (test code = GAP) 8.1 10-20 L GLUCOSE (test code = GLU) 126 mg/dL 74-106 H BLOOD UREA NITROGEN (test code = BUN) 8 mg/dL 7-18 N GLOMERULAR FILTRATION RATE (test code = GFR) > 60 mL/min >=60 Estimated GFR by using Modified MDRD formula.Chronic kidney disease is defined as either kidney damageor GFR <60 mL/min/1.73 m2 for >3 months. CREATININE (test code = CREAT) 0.60 mg/dL 0.55-1.02 N Note change in reference range due to change in reagent. BUN/CREATININE RATIO (test code = BUN/CREA) 13.3 10-20 N TOTAL PROTEIN (test code = PROT) 5.7 gram/dL 6.4-8.2 L ALBUMIN (test code = ALB) 2.9 g/dL 3.4-5.0 L GLOBULIN (test code = GLOB) 2.8 gram/dL 2.7-4.2 N ALBUMIN/GLOBULIN RATIO (test code = A/G) 1.0 0.75-1.50 N CALCIUM (test code = CA) 8.9 mg/dL 8.5-10.1 N BILIRUBIN TOTAL (test code = BILT) 0.40 mg/dL 0.0-1.0 N SGOT/AST (test code = AST) 23 IUnit/L 15-37 N SGPT/ALT (test code = ALT) 49 IUnit/L 12-78 N ALKALINE PHOSPHATASE TOTAL (test code = ALKP) 109 IUnit/L 45-117 N Note change in reference range due to change in reagent. LIPID PROFILE (CORONARY RISK)2018-07-29 12:16:00* Test Item Value Reference Range Interpretation Comments TRIGLYCERIDES (test code = TRIG) 153 mg/dL 20-150 H CHOLESTEROL (test code = CHOL) 155 mg/dL 0-200 N CHOLESTEROL/HDL RATIO (test code = CHOLHDL) 5.0 RATIO 0-4.9 H RISK ASSOCIATED WITH CHOL/HDL RATIOS: Risk Male Female1/2 AVERAGE 3.43 3.27AVERAGE 4.97 4.442X AVERAGE 9.55 7.053X AVERAGE 23.39 11.04 REFERENCE VALUE IS RELATED TO RISK LEVELS ASRECOMMENDED BY THE [place]. HEART, LUNG, AND BLOOD INST. HDL CHOLESTEROL (test code = HDL) 31 mg/dL 40-60 L LIPOPROTEIN LDL (test code = LDL) 107 mg/dL 100-129 N RN PERSONNEL, CONTACT PHYSICIAN IMMEDIATELY IF THIS IS A STROKE, AMI OR CAROTID STENOSIS PATIENT WHEN THE LDL >100 (1ST OCCURENCE, THIS ADMISSION) Reference Interval: mg/dL mmol/L Optimal <100 <2.6Near/above optimal 100-129 2.6- 3.3Borderline High 130-159 3.4-4.1High 160-189 4.1-4.9Very High >=190 >=4.9========= This LDL result is a direct measurement.========= THYROID STIMULATING [id number] 12:16:00* Test Item Value Reference Range Interpretation Comments THYROID STIMULATING HORMONE (test code = TSH) 3.580 uIU/mL 0.36-3.7 4 N TSH REFERENCE RANGES: EUTHYROID: 0.35 - 4.3 mIU/mL HYPO : > 5.5 mIU/mL HYPER : < 0.35 mIU/mL COMPREHENSIVE METABOLIC [id number] 11:51:00* Test Item Value Reference Range Interpretation Comments SODIUM (test code = NA) 142 mmol/L 136-145 N POTASSIUM (test code = K) 4.1 mmol/L 3.5-5.1 N CHLORIDE (test code = CL) 110.0 mmol/L 98-107 H CARBON DIOXIDE (test code = CO2) mmol/L 21-32 ANION GAP (test code = GAP) 10-20 GLUCOSE (test code = GLU) mg/dL 74-106 BLOOD UREA NITROGEN (test code = BUN) mg/dL 7-18 GLOMERULAR FILTRATION RATE (test code = GFR) mL/min >=60 CREATININE (test code = CREAT) mg/dL 0.55-1.02 BUN/CREATININE RATIO (test code = BUN/CREA) 10-20 TOTAL PROTEIN (test code = PROT) gram/dL 6.4-8.2 ALBUMIN (test code = ALB) g/dL 3.4-5.0 GLOBULIN (test code = GLOB) gram/dL 2.7-4.2 ALBUMIN/GLOBULIN RATIO (test code = A/G) 0.75-1.50 CALCIUM (test code = CA) mg/dL 8.5-10.1 BILIRUBIN TOTAL (test code = BILT) mg/dL 0.0-1.0 SGOT/AST (test code = AST) IUnit/L 15-37 SGPT/ALT (test code = ALT) IUnit/L 12-78 ALKALINE PHOSPHATASE TOTAL (test code = ALKP) IUnit/L 45-117 LIPID PROFILE (CORONARY RISK)2018-07-29 11:51:00* Test Item Value Reference Range Interpretation Comments TRIGLYCERIDES (test code = TRIG) mg/dL 20-150 CHOLESTEROL (test code = CHOL) mg/dL 0-200 CHOLESTEROL/HDL RATIO (test code = CHOLHDL) RATIO 0-4.9 HDL CHOLESTEROL (test code = HDL) mg/dL 40-60 LIPOPROTEIN LDL (test code = LDL) mg/dL 100-129 THYROID STIMULATING [id number] 11:51:00* Test Item Value Reference Range Interpretation Comments THYROID STIMULATING HORMONE (test code = TSH) uIU/mL 0.36-3.7 4 - MRI BRAIN W/O [id number] 11:26:00 FAX: Raymond Wilde [place]: B St: DIS Name: MICHAEL HERNANDEZ [facility] : [birth year] Age/S: 53/F [address] Unit #: [id number] Loc: [place] [address] Phys: Raymond Wilde MD Acct: [id number] Dis Date: Status: DIS IN PHONE #: [phone] Exam Date: 07/29/2018 1045 FAX #: [phone] Reason: vertigo, dizziness, pain EXAMS: CPT CODE: [id number] MRI BRAIN W/O CONTRAST 00344 HISTORY: vertigo, dizziness, pain TECHNIQUE: Sagittal T1, axial FLAIR, axial T2, axial gradient T2, axial T1, coronal T2, and DWI/ADC sequences of the brain were acquired. Examination acquired within 24 hours of arrival. COMPARISON: Head CT 07/28/18 FINDINGS: No evidence of acute ischemic insult. No intracranial hemorrhage. No intracranial mass or mass effect. Mild parenchymal atrophy. No hydrocephalus. Pituitary gland and corpus callosum are normal in appearance. No extra-axial fluid collections. Norm al vascular flow-voids are identified. Visualized orbital contents are unremarkable. Paranasal sinuses are clear. Calvarial and skull base mar row signal is preserved. IMPRESSION: No acute intracranial process. Electronically Signed by Hannah Gottlieb D.O. on at 1126 Reported and signed by: Hannah Gottlieb D.O. CC: Raymond Wilde MD chnologist: Ryann Posadas RT(R)(MR) Trnscrd Date/ Time/By: 07/29/2018 (1126) : By: [email or web address] [facility] Print D/T: S: 07/30/19 (1126) PAGE 1 Signed Report - MRI BRAIN W/O [id number] 11:26:00 FAX: Raymond Wilde [place]: B St: ADM Name: LUIS HERNANDEZ [facility] : [birth year] Age/S: 53/F [address] [facility] Unit #: [id number] Loc: V.[facility] [place] [address] Phys: Raymond Wilde MD Acct: [id number] Dis Date: Status: ADM IN PHONE #: [phone] Exam Date: 07/29/2018 1045 FAX #: [phone] Reason: vertigo, dizziness, pain EXAMS: CPT CODE: [id number] MRI BRAIN W/O CONTRAST 67368 HISTORY: vertigo, dizziness, pain TECHNIQUE: Sagittal T1, axial FLAIR, axial T2, axial gradient T2, axial T1, coronal T2, and DWI/ADC sequences of the brain were acquired. Examination acquired within 24 hours of arrival. COMPARISON: Head CT 07/28/18 FINDINGS: No evidence of acute ischemic insult. No intracranial hemorrhage. No intracranial mass or mass effect. Mild parenchymal atrophy. No hydrocephalus. Pituitary gland and corpus callosum are normal in appearance. No extra-axial fluid collections. Norm al vascular flow-voids are identified. Visualized orbital contents are unremarkable. Paranasal sinuses are clear. Calvarial and skull base mar row signal is preserved. IMPRESSION: No acute intracranial process. Electronically Signed by Hannah Gottlieb D.O. on at 1126 Reported and signed by: Hannah Gottlieb D.O. CC: Raymond Wilde MD chnologist: Ryann TAYLOR(R)(MR) Trnscrd Date/ Time/By: 07/29/2018 (1126) : By: [email or web address] Orig Print D/T: S: 07/30/19 (1128) PAGE 1 Signed Report CBC W/AUTO [id number] 11:23:00* Test Item Value Reference Range Interpretation Comments WHITE BLOOD CELL (test code = WBC) 8.8 K/mm3 4.5-12.5 N RED BLOOD CELL (test code = RBC) 4.95 mill/mm3 3.7-5.2 N HEMOGLOBIN (test code = HGB) 14.9 gram/dL 11.5-15.5 N HEMATOCRIT (test code = HCT) 46.8 % 36.0-46.0 H MEAN CELL VOLUME (test code = MCV) 94.5 fL 80-98 N MEAN CELL HGB (test code = MCH) 30.1 picogram 27.0-33.0 N MEAN CELL HGB CONCETRATION (test code = MCHC) 31.8 gram/dL 33.0-36. 0 L RED CELL DISTRIBUTION WIDTH (test code = RDW) 14.1 % 11.6-16. 2 N RED CELL DISTRIBUTION WIDTH SD (test code = RDW-SD) 48.7 fL 37 .0-51.0 N PLATELET COUNT (test code = PLT) 275 K/mm3 150-450 N MEAN PLATELET VOLUME (test code = MPV) 10.0 fL 6.7-11.0 N NEUTROPHIL % (test code = NT%) 65.4 % 39.0-69.0 N IMMATURE GRANULOCYTE % (test code = IG%) 0.8 % 0.0-5.0 N LYMPHOCYTE % (test code = LY%) 23.8 % 25.0-55.0 L MONOCYTE % (test code = MO%) 5.9 % 0.0-10.0 N EOSINOPHIL % (test code = EO%) 3.4 % 0.0-5.0 N BASOPHIL % (test code = BA%) 0.7 % 0.0-1.0 N NUCLEATED RBC % (test code = NRBC%) 0.0 % 0-0 N NEUTROPHIL # (test code = NT#) 5.72 K/mm3 1.8-7.7 N IMMATURE GRANULOCYTE # (test code = IG#) 0.07 x10 3/uL 0-0.03 H LYMPHOCYTE # (test code = LY#) 2.08 K/mm3 1.0-5.0 N MONOCYTE # (test code = MO#) 0.52 K/mm3 0-0.8 N EOSINOPHIL # (test code = EO#) 0.30 K/mm3 0.0-0.5 N BASOPHIL # (test code = BA#) 0.06 K/mm3 0.0-0.2 N NUCLEATED RBC # (test code = NRBC#) 0.00 K/mm3 0.0-0.1 N CBC W/AUTO [id number] 11:19:00* Test Item Value Reference Range Interpretation Comments WHITE BLOOD CELL (test code = WBC) K/mm3 4.5-12.5 RED BLOOD CELL (test code = RBC) mill/mm3 3.7-5.2 HEMOGLOBIN (test code = HGB) 14.9 gram/dL 11.5-15.5 N HEMATOCRIT (test code = HCT) % 36.0-46.0 MEAN CELL VOLUME (test code = MCV) fL 80-98 MEAN CELL HGB (test code = MCH) picogram 27.0-33.0 MEAN CELL HGB CONCETRATION (test code = MCHC) gram/dL 33.0-36. 0 RED CELL DISTRIBUTION WIDTH (test code = RDW) % 11.6-16. 2 RED CELL DISTRIBUTION WIDTH SD (test code = RDW-SD) fL 37 .0-51.0 PLATELET COUNT (test code = PLT) K/mm3 150-450 MEAN PLATELET VOLUME (test code = MPV) fL 6.7-11.0 NEUTROPHIL % (test code = NT%) % 39.0-69.0 IMMATURE GRANULOCYTE % (test code = IG%) % 0.0-5.0 LYMPHOCYTE % (test code = LY%) % 25.0-55.0 MONOCYTE % (test code = MO%) % 0.0-10.0 EOSINOPHIL % (test code = EO%) % 0.0-5.0 BASOPHIL % (test code = BA%) % 0.0-1.0 NEUTROPHIL # (test code = NT#) K/mm3 1.8-7.7 LYMPHOCYTE # (test code = LY#) K/mm3 1.0-5.0 MONOCYTE # (test code = MO#) K/mm3 0-0.8 EOSINOPHIL # (test code = EO#) K/mm3 0.0-0.5 BASOPHIL # (test code = BA#) K/mm3 0.0-0.2 [id number] 02:44:00* Test Item Value Reference Range Interpretation Comments TROPONIN-I (test code = TROPI) <0.015 ng/mL 0-0.045 N COMMENTS TO ANODIC TREATER: COLLECT 3 HOURS AFTER PREVIOUS [id number] 23:48:00* Test Item Value Reference Range Interpretation Comments TROPONIN-I (test code = TROPI) <0.015 ng/mL 0-0.045 N COMMENTS TO ANODIC TREATER: COLLECT 3 HOURS AFTER PREVIOUS SAMPLEDRUGS OF ABUSE SCREEN [id number] 19:08:00* Test Item Value Reference Range Interpretation Comments UA PH DIPSTICK (test code = CARLOS) 6.0 5.0-8.0 URN COCAINE (test code = COCAURN) NEGATIVE <300 ng/mL URN CANNABINOIDS (test code = CANNABURN) NEGATIVE <50 ng/mL URN AMPHETAMINE (test code = AMPHETURN) NEGATIVE <1000 ng/mL URN BARBITURATE (test code = BARBITURN) NEGATIVE <200 ng/mL URN BENZODIAZEPINE (test code = BENZOURN) NEGATIVE <200 ng/mL URN OPIATES (test code = OPIATURN) POSITIVE <300 ng/mL A This test provides only a preliminary test result. A morespecific alternate chemical method must be used in order toobtain a confirmed analytical result. Gas chromatography/mass spectrometry (GC/MS) is thepreferred confirmatory method. Other chemical confirmationmethods are available. Clinical consideration and professional judgment should be applied to any drug of abusetest result, particularly when preliminary positive resultsare used.Unconfirmed screening results must not be used fornon-medical purposes (e.g., employment testing, legaltesting). URN PHENCYCLIDINE (PCP) (test code = PHENCURN) NEGATIVE <25 ng/ mL URN METHADONE (test code = METHAURN) NEGATIVE <300 ng/mL DRUGS OF ABUSE SCREEN [id number] 18:51:00* Test Item Value Reference Range Interpretation Comments UA PH DIPSTICK (test code = CARLOS) 5.0-8.0 URN COCAINE (test code = COCAURN) NEGATIVE <300 ng/mL URN CANNABINOIDS (test code = CANNABURN) NEGATIVE <50 ng/mL URN AMPHETAMINE (test code = AMPHETURN) NEGATIVE <1000 ng/mL URN BARBITURATE (test code = BARBITURN) NEGATIVE <200 ng/mL URN BENZODIAZEPINE (test code = BENZOURN) NEGATIVE <200 ng/mL URN OPIATES (test code = OPIATURN) POSITIVE <300 ng/mL A This test provides only a preliminary test result. A morespecific alternate chemical method must be used in order toobtain a confirmed analytical result. Gas chromatography/mass spectrometry (GC/MS) is thepreferred confirmatory method. Other chemical confirmationmethods are available. Clinical consideration and professional judgment should be applied to any drug of abusetest result, particularly when preliminary positive resultsare used.Unconfirmed screening results must not be used fornon-medical purposes (e.g., employment testing, legaltesting). URN PHENCYCLIDINE (PCP) (test code = PHENCURN) NEGATIVE <25 ng/ mL URN METHADONE (test code = METHAURN) NEGATIVE <300 ng/mL - CT HEAD/BRAIN W/O [id number] 15:37:00 Name: MICHAEL CAPELLAN [facility] : 1965 Age/S: 53 / F [address] Unit #: [id number] Loc: [place] [address] Phys: Raymond Wilde MD Acct: [id number] Dis Date: Status: DIS IN PHONE #: [phone] Exam Date: 07/28/2018 1506 FAX #: [phone] Reason: headache EXAMS: CPT CODE: [id number] CT HEAD/BRAIN W/O CONT 44774 HISTORY: headache TECHNIQUE: Noncontrast 2.[address] of the head. Examination acquired within 24 hours of arrival. Automated exposure control for dose reduction. COMPARISON: None FINDINGS: No acute hemorrhage. No intracranial mass, mass effect, or midline shift. No CT evidence of acute infarct. Allan-white matter differentiation is preserved. No hydrocephalus. No extra-axial fluid collection. Visualized paranasal sinuses are clear. Mastoid air cells are opacified/sclerotic and middle ear cavities are clear. Orbital contents are unremarkable. Calvarium and skull base are intact. IMPRESSION: No acute intra cranial abnormality. at 1537 Reported and signed by: Carl Astudillo C: Raymond Wilde MD Technologist:Sherry Kasper RT(R),CT CTDI: DLP: Trnscb Date/Time: 07/28/2018 (1 537) [email or web address] Orig Print D/T: S: 07/28/2018 (2135) PAGE 1 Signed Report - CT HEAD/BRAIN W/O [id number] 15:37:00 Name: LUIS CAPELLAN [facility] : 1965 Age/S: 53 / F [address] Unit #: [id number] Loc: [place] [address] Phys: Raymond Wilde MD Acct: [id number] Dis Date: Status: REG ER PHONE #: [phone] Exam Date: 07/28/2018 1502 FAX #: [phone] Reason: headache EXAMS: CPT CODE: [id number] CT HEAD/BRAIN W/O CONT 21461 HISTORY: headache TECHNIQUE: Noncontrast 2.[address] of the head. Examination acquired within 24 hours of arrival. Automated exposure control for dose reduction. COMPARISON: None FINDINGS: No acute hemorrhage. No intracranial mass, mass effect, or midline shift. No CT evidence of acute infarct. Allan-white matter differentiation is preserved. No hydrocephalus. No extra-axial fluid collection. Visualized paranasal sinuses are clear. Mastoid air cells are opacified/sclerotic and middle ear cavities are clear. Orbital contents are unremarkable. Calvarium and skull base are intact. IMPRESSION: No acute intracranial abnormality. at 1537 Reported and signed by: Carl Hough M.D. CC: Raymond Wilde MD Technologist:Sherry Kasper RT(R),CT CTDI: DLP: Trnscb Date/Time: 07/28/2018 (1537) [email or web address] Orig Print D/T: S: 07/28/2018 (6539) PAGE 1 Signed Report - XR CHEST 1 [id number] 15:21:00 FAX: Raymond Wilde [place]: B St: DIS Name: MICHAEL HERNANDEZ [facility] : [birth year] Age/S: 53/F [address] [facility] Unit #: [id number] Loc: [place] [address] Phys: Raymond Wilde MD Acct: [id number] Dis Date: Status: DIS IN PHONE #: [phone] Exam Date: 07/28/2018 1450 FAX #: [phone] Reason: CHEST PAIN EXAMS: CPT CODE: [id number] XR CHEST 1 V 84286 REASON FOR EXAM: CHEST PAIN Exam Order Date: 07/28/2018 2:33 PM Ordering M.D.: Raymond Wilde MD PROCEDURE: - XR CHEST 1 V COMP ARISON: June 15, 2018. FINDINGS: The lungs are clear. Th ere is no pleural effusion or pneumothorax. Pulmonary vascularity is withi n normal limits. Cardiomediastinal silhouette is normal in size fo r technique. The mediastinal contours are within normal limits. Musculoskeletal structures are within normal limits. The visua lized upper abdomen is within normal limits. IMPRESSION: No acute cardiopulmonary process. at 1521 Reported and signed by: Carl Hough M.D. CC: Raymond Wilde MD Technologist: TRISTIN RGOERS RT(R) Trnscrd Date/Time/By: 07/28/2018 (1523) : By: [email or web address] Orig Print D/T: S: 07/28/2018 (5605) PAGE 1 Signed Report - XR CHEST 1 [id number] 15:21:00 FAX: Raymond Wilde [place]: B St: REG Name: Maria E EDITHLUIS [facility] : [birth year] Age/S: 53/F [address] [facility] Unit #: [id number] Loc: [place] [address] Phys: Raymond Wilde MD Acct: [id number] Dis Date: Status: REG ER PHONE #: [phone] Exam Date: 07/28/2018 1450 FAX #: [phone] Reason: CHEST PAIN EXAMS: CPT CODE: [id number] XR CHEST 1 V [id number] REASON FOR EXAM: CHEST PAIN Exam Order Date: 07/28/2018 2:33 PM Ordering Zurdo: Raymond Wilde MD PROCEDURE: - XR CHEST 1 V COMP ARISON: June 15, 2018. FINDINGS: The lungs are clear. Th ere is no pleural effusion or pneumothorax. Pulmonary vascularity is withi n normal limits. Cardiomediastinal silhouette is normal in size fo r technique. The mediastinal contours are within normal limits. Musculoskeletal structures are within normal limits. The visua lized upper abdomen is within normal limits. IMPRESSION: No acute cardiopulmonary process. at 1521 Reported and signed by: Carl Hough M.D. CC: Raymond Wilde MD Technologist: TRISTIN TAYLOR(R) Trnscrd Date/Time/By: 07/28/2018 (1527) : By: [email or web address] Orig Print D/T: S: 07/28/2018 (5133) PAGE 1 Signed Report URINALYSIS [id number] 15:18:00* Test Item Value Reference Range Interpretation Comments UA COLOR (test code = COLU) YELLOW YELLOW UA APPEARANCE (test code = APPU) CLEAR CLEAR UA GLUCOSE DIPSTICK (test code = DGLUU) NEGATIVE mg/dL NEGATIVE UA BILIRUBIN DIPSTICK (test code = BILU) NEGATIVE mg/dL NEGATIVE UA KETONE DIPSTICK (test code = KETU) NEGATIVE mg/dL NEGATIVE UA SPECIFIC GRAVITY (test code = SGU) 1.013 1.001-1.035 UA BLOOD DIPSTICK (test code = FINN) 0.03 mg/dL (Trace) mg/dL NEGATI VE A UA PH DIPSTICK (test code = CARLOS) 6.0 5.0-8.0 UA PROTEIN DIPSTICK (test code = PROU) NEGATIVE mg/dL NEGATIVE UA UROBILINIOGEN DIPSTICK (test code = URO) 2.0 (1+) mg/dL NEGATIVE A UA NITRITE DIPSTICK (test code = MARIO) NEGATIVE NEGATIVE UA LEUKOCYTE ESTERASE W REFLEX (test code = LEUUR) NEGATIVE Mich/uL NEGATIVE UA WBC (test code = WBCU) 0-5 per HPF 0-5 UA RBC (test code = RBCU) 3-5 #/HPF 0-5 UA EPITHELIAL CELLS (test code = EPIU) FEW per HPF FEW UA BACTERIA (test code = BACU) NONE SEEN #/HPF NONE UA MUCUS (test code = MUCU) FEW #/LPF FEW Urine Source? Clean CatchUR HCG [id number] 15:18:00* Test Item Value Reference Range Interpretation Comments UR HCG QUAL (test code = HCGQLU) NEGATIVE This HCGQL test is NOT applicable for MALE patients.Check with nurse about probable order error.If Tumor Marker Test needed, nurse should order test "HCGTU"(Test #550.82846) Urine Source? Clean CatchURINALYSIS [id number] 15:17:00* Test Item Value Reference Range Interpretation Comments UA COLOR (test code = COLU) YELLOW YELLOW UA APPEARANCE (test code = APPU) CLEAR CLEAR UA GLUCOSE DIPSTICK (test code = DGLUU) NEGATIVE mg/dL NEGATIVE UA BILIRUBIN DIPSTICK (test code = BILU) NEGATIVE mg/dL NEGATIVE UA KETONE DIPSTICK (test code = KETU) NEGATIVE mg/dL NEGATIVE UA SPECIFIC GRAVITY (test code = SGU) 1.013 1.001-1.035 UA BLOOD DIPSTICK (test code = FINN) 0.03 mg/dL (Trace) mg/dL NEGATI VE A UA PH DIPSTICK (test code = CARLOS) 6.0 5.0-8.0 UA PROTEIN DIPSTICK (test code = PROU) NEGATIVE mg/dL NEGATIVE UA UROBILINIOGEN DIPSTICK (test code = URO) 2.0 (1+) mg/dL NEGATIVE A UA NITRITE DIPSTICK (test code = MARIO) NEGATIVE NEGATIVE UA LEUKOCYTE ESTERASE W REFLEX (test code = LEUUR) NEGATIVE Mich/uL NEGATIVE UA WBC (test code = WBCU) 0-5 per HPF 0-5 UA RBC (test code = RBCU) 3-5 #/HPF 0-5 UA EPITHELIAL CELLS (test code = EPIU) FEW per HPF FEW UA BACTERIA (test code = BACU) NONE SEEN #/HPF NONE UA MUCUS (test code = MUCU) FEW #/LPF FEW Urine Source? Clean CatchUR HCG [id number] 15:17:00* Test Item Value Reference Range Interpretation Comments UR HCG QUAL (test code = HCGQLU) Urine Source? Clean CatchBASIC METABOLIC [id number] 15:01:00* Test Item Value Reference Range Interpretation Comments SODIUM (test code = NA) 138 mmol/L 136-145 N POTASSIUM (test code = K) 3.7 mmol/L 3.5-5.1 N CHLORIDE (test code = CL) 108.0 mmol/L 98-107 H CARBON DIOXIDE (test code = CO2) mmol/L 21-32 ANION GAP (test code = GAP) 10-20 GLUCOSE (test code = GLU) mg/dL 74-106 BLOOD UREA NITROGEN (test code = BUN) mg/dL 7-18 GLOMERULAR FILTRATION RATE (test code = GFR) mL/min >=60 CREATININE (test code = CREAT) mg/dL 0.55-1.02 BUN/CREATININE RATIO (test code = BUN/CREA) 10-20 CALCIUM (test code = CA) 9.0 mg/dL 8.5-10.1 N HCG SERUM [id number] 15:01:00* Test Item Value Reference Range Interpretation Comments HCG SERUM QUAL (test code = HCGQL) NEGATIVE NEGATIVE This HCGQL test is NOT applicable for MALE patients.Check with nurse about probable order error.If Tumor Marker Test needed, nurse should order test "HCGTU"(Test #550.97334) [id number] 15:01:00* Test Item Value Reference Range Interpretation Comments TROPONIN-I (test code = TROPI) ng/mL 0-0.045 BASIC METABOLIC [id number] 15:01:00* Test Item Value Reference Range Interpretation Comments SODIUM (test code = NA) 138 mmol/L 136-145 N POTASSIUM (test code = K) 3.7 mmol/L 3.5-5.1 N CHLORIDE (test code = CL) 108.0 mmol/L 98-107 H CARBON DIOXIDE (test code = CO2) 23.0 mmol/L 21-32 N ANION GAP (test code = GAP) 10.7 10-20 N GLUCOSE (test code = GLU) 152 mg/dL 74-106 H BLOOD UREA NITROGEN (test code = BUN) 6 mg/dL 7-18 L GLOMERULAR FILTRATION RATE (test code = GFR) > 60 mL/min >=60 Estimated GFR by using Modified MDRD formula.Chronic kidney disease is defined as either kidney damageor GFR <60 mL/min/1.73 m2 for >3 months. CREATININE (test code = CREAT) 0.70 mg/dL 0.55-1.02 N Note change in reference range due to change in reagent. BUN/CREATININE RATIO (test code = BUN/CREA) 8.6 10-20 L CALCIUM (test code = CA) 9.0 mg/dL 8.5-10.1 N HCG SERUM [id number] 15:01:00* Test Item Value Reference Range Interpretation Comments HCG SERUM QUAL (test code = HCGQL) NEGATIVE NEGATIVE This HCGQL test is NOT applicable for MALE patients.Check with nurse about probable order error.If Tumor Marker Test needed, nurse should order test "HCGTU"(Test #550.12950) [id number] 15:01:00* Test Item Value Reference Range Interpretation Comments TROPONIN-I (test code = TROPI) <0.015 ng/mL 0-0.045 N BASIC METABOLIC [id number] 15:00:00* Test Item Value Reference Range Interpretation Comments SODIUM (test code = NA) 138 mmol/L 136-145 N POTASSIUM (test code = K) 3.7 mmol/L 3.5-5.1 N CHLORIDE (test code = CL) 108.0 mmol/L 98-107 H CARBON DIOXIDE (test code = CO2) mmol/L 21-32 ANION GAP (test code = GAP) 10-20 GLUCOSE (test code = GLU) mg/dL 74-106 BLOOD UREA NITROGEN (test code = BUN) mg/dL 7-18 GLOMERULAR FILTRATION RATE (test code = GFR) mL/min >=60 CREATININE (test code = CREAT) mg/dL 0.55-1.02 BUN/CREATININE RATIO (test code = BUN/CREA) 10-20 CALCIUM (test code = CA) 9.0 mg/dL 8.5-10.1 N HCG SERUM [id number] 15:00:00* Test Item Value Reference Range Interpretation Comments HCG SERUM QUAL (test code = HCGQL) NEGATIVE [id number] 15:00:00* Test Item Value Reference Range Interpretation Comments TROPONIN-I (test code = TROPI) ng/mL 0-0.045 CBC W/O [id number] 14:55:00* Test Item Value Reference Range Interpretation Comments WHITE BLOOD CELL (test code = WBC) 8.6 K/mm3 4.5-12.5 N RED BLOOD CELL (test code = RBC) 5.53 mill/mm3 3.7-5.2 H HEMOGLOBIN (test code = HGB) 16.7 gram/dL 11.5-15.5 H HEMATOCRIT (test code = HCT) 52.4 % 36.0-46.0 H MEAN CELL VOLUME (test code = MCV) 94.8 fL 80-98 N MEAN CELL HGB (test code = MCH) 30.2 picogram 27.0-33.0 N MEAN CELL HGB CONCETRATION (test code = MCHC) 31.9 gram/dL 33.0-36. 0 L RED CELL DISTRIBUTION WIDTH (test code = RDW) 14.1 % 11.6-16. 2 N PLATELET COUNT (test code = PLT) 295 K/mm3 150-450 N MEAN PLATELET VOLUME (test code = MPV) 9.8 fL 6.7-11.0 N BASIC METABOLIC [id number] 22:20:00* Test Item Value Reference Range Interpretation Comments SODIUM (test code = NA) 139 mmol/L 136-145 N POTASSIUM (test code = K) 4.0 mmol/L 3.5-5.1 N CHLORIDE (test code = CL) 106.0 mmol/L 98-107 N CARBON DIOXIDE (test code = CO2) 27.0 mmol/L 21-32 N ANION GAP (test code = GAP) 10.0 10-20 N GLUCOSE (test code = GLU) 102 mg/dL 74-106 N BLOOD UREA NITROGEN (test code = BUN) 3 mg/dL 7-18 L GLOMERULAR FILTRATION RATE (test code = GFR) > 60 mL/min >=60 Estimated GFR by using Modified MDRD formula.Chronic kidney disease is defined as either kidney damageor GFR <60 mL/min/1.73 m2 for >3 months. CREATININE (test code = CREAT) 0.70 mg/dL 0.55-1.02 N Note change in reference range due to change in reagent. BUN/CREATININE RATIO (test code = BUN/CREA) 4.3 10-20 L CALCIUM (test code = CA) 9.5 mg/dL 8.5-10.1 N [id number] 22:20:00* Test Item Value Reference Range Interpretation Comments TROPONIN-I (test code = TROPI) <0.015 ng/mL 0-0.045 N - XR CHEST 1 [id number] 22:11:00 FAX: Mehrdad Flowers [phone] [place]: St: DEP Name: MICHAEL HERNANDEZ [facility] : [birth year] Age/S: 53/F [address] [facility] Unit #: [id number] Loc: [place] [address] Phys: Mehrdad Ramirez MD Acct: [id number] Dis Date: Status: DEP ER PHONE #: [phone] Exam Date: 06/15/20182154 FAX #: [phone] Reason: CHEST PAIN EXAMS: CPT CODE: [id number] XR CHEST 1 V 67636 REASON FOR EXAM: CHEST PAIN EXAM ORDER DATE: 06/15/2018 9:47 PM Ordering M.DLashell: Mehrdad Ramirez MD PROCEDURE: - XR CHEST 1 V CO MPARISON: 06/07/2018 FINDINGS: Portable AP frontal view of the [address]ck[address] [facility] obtained at 9:58 PM shows clear lungs without evidence of consolidation . There is no evidence of effusion. The heart size is within normal limits . Pulmonary vasculatures are unremarkable. IMPRESSION: No active disease. at 2211 Reported and signed by: Deon Kirkpatrick M.D. CC: Mehrdad Ramirez MD Technol ogist: Elizabeth Bustamante(Ada) Trnscrd Date/Time/ By: 06/15/2018 (2210) : By: SukhjinderL Orig Print D/T: S: 06/15/2018 (0 185) PAGE 1 Signed Report - XR CHEST 1 [id number] 22:11:00 FAX: Mehrdad Flowers [phone] [place]: St: REG Name: LUIS HERNANDEZ [facility] : [birth year] Age/S: 53/F [address] [facility] Unit #: [id number] Loc: [place] [address] Phys: Mehrdad Ramirez MD Acct: [id number] Dis Date: Status: REG ER PHONE #: [phone] Exam Date: 06/15/20182154 FAX #: [phone] Reason: CHEST PAIN EXAMS: CPT CODE: [id number] XR CHEST 1 V 27552 REASON FOR EXAM: CHEST PAIN EXAM ORDER DATE: 06/15/2018 9:47 PM Ordering Zurdo: Mehrdad Ramirez MD PROCEDURE: - XR CHEST 1 V CO MPARISON: 06/07/2018 FINDINGS: Portable AP frontal view of the [address] obtained at 9:58 PM shows clear lungs without evidence of consolidation . There is no evidence of effusion. The heart size is within normal limits . Pulmonary vasculatures are unremarkable. IMPRESSION: No active disease. at 2211 Reported and signed by: Deon Kirkpatrick M.D. CC: Mehrdad Ramirez MD Technol ogist: Elizabeth Bustamante(Ada) Trnscrd Date/Time/ By: 06/15/2018 (9831) : By: SukhjinderL Orig Print D/T: S: 06/15/2018 (2 215) PAGE 1 Signed Report BASIC METABOLIC [id number] 22:07:00* Test Item Value Reference Range Interpretation Comments SODIUM (test code = NA) 139 mmol/L 136-145 N POTASSIUM (test code = K) 4.0 mmol/L 3.5-5.1 N CHLORIDE (test code = CL) 106.0 mmol/L 98-107 N CARBON DIOXIDE (test code = CO2) mmol/L 21-32 ANION GAP (test code = GAP) 10-20 GLUCOSE (test code = GLU) mg/dL 74-106 BLOOD UREA NITROGEN (test code = BUN) mg/dL 7-18 GLOMERULAR FILTRATION RATE (test code = GFR) mL/min >=60 CREATININE (test code = CREAT) mg/dL 0.55-1.02 BUN/CREATININE RATIO (test code = BUN/CREA) 10-20 CALCIUM (test code = CA) mg/dL 8.5-10.1 [id number] 22:07:00* Test Item Value Reference Range Interpretation Comments TROPONIN-I (test code = TROPI) ng/mL 0-0.045 CBC W/O [id number] 22:03:00* Test Item Value Reference Range Interpretation Comments WHITE BLOOD CELL (test code = WBC) 7.7 K/mm3 4.5-12.5 N RED BLOOD CELL (test code = RBC) 5.57 mill/mm3 3.7-5.2 H HEMOGLOBIN (test code = HGB) 16.7 gram/dL 11.5-15.5 H HEMATOCRIT (test code = HCT) 53.7 % 36.0-46.0 H MEAN CELL VOLUME (test code = MCV) 96.4 fL 80-98 N MEAN CELL HGB (test code = MCH) 30.0 picogram 27.0-33.0 N MEAN CELL HGB CONCETRATION (test code = MCHC) 31.1 gram/dL 33.0-36. 0 L RED CELL DISTRIBUTION WIDTH (test code = RDW) 14.3 % 11.6-16. 2 N PLATELET COUNT (test code = PLT) 330 K/mm3 150-450 N MEAN PLATELET VOLUME (test code = MPV) 9.5 fL 6.7-11.0 N - XR CHEST 1 [id number] 15:49:00 FAX: Silvio Wilhelm MD [phone] [place]: St: DEP Name: MICHAEL HERNANDEZ [facility] : [birth year] Age/S: 53/F [address] [facility] Unit #: [id number] Loc: [place] [address] Phys: Silvio Wilhelm MD Acct: [id number] Dis Date: Status: DEP ER PHONE #: [phone] Exam Date: 06/07/2018 1530 FAX #: [phone] Reason: CHEST PAIN EXAMS: CPT CODE: [id number] XR CHEST 1 V 70509 REASON FOR EXAM: CHEST PAIN EXAM ORDER DATE: 06/07/2018 3:06 PM Ordering MMayank: Silvio Wilhelm MD PROCEDURE: - XR CHEST 1 V COMPAR SAM: FINDINGS: Portable AP frontal view of the chest obtained at 3:33 PM shows clear lungs without evidence of consolidation. There is no evidence of effusion. The heart size is within normal limits. Pulmon red vasculatures are unremarkable. IMPRESSION: No active diseas e. at 6188 Reported and signed by: Zurdo Mcnair C: Silvio Wilhelm MD Technologist: LUIZA MICHELLE, RT(R) [facility] Date/Time/By: 06/07/2018 (9193) : By: Shanon.VTL Orig Print D/T: S: 06/07/2018 (1860) PAGE 1 Signed Report - XR CHEST 1 [id number] 15:49:00 FAX: Silvio Wilhelm MD [phone] [place]: St: REG Name: LUIS HERNANDEZ [facility] : [birth year] Age/S: 53/F [address] [facility] Unit #: [id number] Loc: [place] [address] Phys: Silvio Wilhelm MD Acct: [id number] Dis Date: Status: REG ER PHONE #: [phone] Exam Date: 06/07/2018 1530 FAX #: [phone] Reason: CHEST PAIN EXAMS: CPT CODE: [id number] XR CHEST 1 V 05564 REASON FOR EXAM: CHEST PAIN EXAM ORDER DATE: 06/07/2018 3:06 PM Ordering MMayank: Silvio Wilhelm MD PROCEDURE: - XR CHEST 1 V COMPAR SAM: FINDINGS: Portable AP frontal view of the chest obtained at 3:33 PM shows clear lungs without evidence of consolidation. There is no evidence of effusion. The heart size is within normal limits. Pulmon red vasculatures are unremarkable. IMPRESSION: No active diseas e. at 1541 Reported and signed by: Deon Kirkpatrick M.D. C C: Silvio Wilhelm MD Technologist: LUIZA MICHELLE, RT(R) Trnscrd Date/Time/By: 06/07/2018 (7057) : By: Shanon.VTL Orig Print D/T: S: 06/07/2018 (2958) PAGE 1 Signed Report BASIC METABOLIC [id number] 15:48:00* Test Item Value Reference Range Interpretation Comments SODIUM (test code = NA) 136 mmol/L 136-145 N POTASSIUM (test code = K) 3.8 mmol/L 3.5-5.1 N CHLORIDE (test code = CL) 105.3 mmol/L 98-107 N CARBON DIOXIDE (test code = CO2) 26.0 mmol/L 21-32 N ANION GAP (test code = GAP) 8.5 10-20 L GLUCOSE (test code = GLU) 133 mg/dL 74-106 H BLOOD UREA NITROGEN (test code = BUN) 7 mg/dL 7-18 N GLOMERULAR FILTRATION RATE (test code = GFR) > 60 mL/min >=60 Estimated GFR by using Modified MDRD formula.Chronic kidney disease is defined as either kidney damageor GFR <60 mL/min/1.73 m2 for >3 months. CREATININE (test code = CREAT) 0.75 mg/dL 0.55-1.02 N Note change in reference range due to change in reagent. BUN/CREATININE RATIO (test code = BUN/CREA) 9.3 10-20 L CALCIUM (test code = CA) 9.0 mg/dL 8.5-10.1 N [id number] 15:48:00* Test Item Value Reference Range Interpretation Comments TROPONIN-I (test code = TROPI) <0.015 ng/mL 0-0.045 N CBC W/O [id number] 15:19:00* Test Item Value Reference Range Interpretation Comments WHITE BLOOD CELL (test code = WBC) 6.8 K/mm3 4.5-12.5 N RED BLOOD CELL (test code = RBC) 5.64 mill/mm3 3.7-5.2 H HEMOGLOBIN (test code = HGB) 16.6 gram/dL 11.5-15.5 H HEMATOCRIT (test code = HCT) 54.1 % 36.0-46.0 H MEAN CELL VOLUME (test code = MCV) 95.9 fL 80-98 N MEAN CELL HGB (test code = MCH) 29.4 picogram 27.0-33.0 N MEAN CELL HGB CONCETRATION (test code = MCHC) 30.7 gram/dL 33.0-36. 0 L RED CELL DISTRIBUTION WIDTH (test code = RDW) 14.2 % 11.6-16. 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 Acct: [id number] Dis Date: Status: DIS IN PHONE #: [phone] Exam Date: 05/11/2018 1602 FAX #: [phone] Reason: sob/cp EXAMS: CPT CODE: [id number] CTA CHEST 04323 EXAM: CTA of the chest with contrast; INFORMATION: Chest pain and shortness of breath; TECHNIQUE: CT dose reduction protocol; 1.25 mm cuts were obtained through the chest during intravenous infusion of contrast material; multiplanar reconstructions were obtained; PE protocol; addition, 3-D angiographic studies were generated on an independent workstation, using volume rendering, maximal intensity projection and transparency algorithms. FINDINGS: The pulmonary arteries are densely enhancing and are without filling defects. The thoracic aorta is normal; no evidence of dissection or aneurysm. No evidence of hilar or mediastinal adenopathy; No effusions. Lung windows show no parenchymal abnormalities. Scans through the abdomen abdomen show an enlarged liver with decreased attenuation IMPRESSION: 1. No evidence of pulmonary embolism, aortic dissection or other acute abnormalities. 2. Hepatomegaly and diffuse fatty infiltration of the liver. at 1917 Reported and signed by: Beto Lopez M.D. CC: Barb Breen MD; Alex Cowan NP Technologist:TORSTEN TAYLOR(R); Mary Jane Yusuf CTDI: DLP: Trnscb Date/Time: 05/11/2018 (1916) Abdullahi Orig Print D/T: S: 05/11/2018 (1919) PAGE 1 Signed Report - CTA [id number] 19:17:00 Name: LUIS CAPELLAN [facility] : 1965 Age/S: 52 / F [address] [facility] Unit #: [id number] Loc: [place] [address] Phys: ChapoDeirdrewarren Munoz NP Acct: [id number] Di s Date: Status: ADM IN PHONE #: [phone] Exam Date: 05/11/2018 0998 FAX #: Reason: sob/cp EXAMS: CPT CODE: [id number] CTA CHEST 83760 EXAM: CTA of the chest with contrast; INFORMATION: Chest pain and shortness of breath; TECHNIQUE: CT dose reduction protocol; 1.25 mm cuts were obtained through the chest during intravenous infusion of contrast material; multiplanar reconstructions were obtained; PE protocol; additi on, 3-D angiographic studies were generated on an independent workstation, using volume rendering, maximal intensity projection and transparency algorithms. FINDINGS: The pulmonary arteries are densely enhancing and are without filling defects. The thoracic aorta is no rmal; no evidence of dissection or aneurysm. No evidence of hilar or media stinal adenopathy; No effusions. Lung windows show no parenchymal ab normalities. Scans through the abdomen abdomen show an enlarged liver with decreased attenuation IMPRESSION: 1. No evidence of pulmonary embolism, aortic dissection or other acute abnorm alities. 2. Hepatomegaly and diffuse fatty infiltration of the liver. at 1917 Reported and signed by: Beto Lopez M.D. CC: Barb Breen MD; Alex Garcia NP Technologist:TORSTEN JACKSON RT(R); Mary Jane Yusuf CTDI: DLP: Trnscb Date/Time: 05/11/2018 (1916) Abdullahi Orig Print D/T: S: 05/11/2018 (1919) CTDI: DLP: PAGE 1 Signed Report [id number] 08:05:00* Test Item Value Reference Range Interpretation Comments GLUBED (test code = GLUBED) 94 mg/dL 74-106 N Performed by certified yardage control operator at [facility] - CT ABD PELVIS W/[id number] 08:02:00 Name: MICHAEL CAPELLAN [facility] : 1965 Age/S: 52 / F [address] Unit #: [id number] Loc: [place] [address] Phys: Barb Breen MD Acct: [id number] Dis Date: Status: DIS IN PHONE #: [phone] Exam Date: 05/10/2018 2240 FAX #: [phone] Reason: abdominal pain; bloating EXAMS: CPT CODE: [id number] CT ABD PELVIS W/CONT 51160 REASON FOR EXAM: abdominal pain; bloating EXAM ORDER DATE: 05/10/2018 10:05 PM Ordering Zurdo: Barb Breen MD PROCEDURE: - CT ABD PELVIS W/CONT COMPARISON: FINDINGS: CT images of the abdomen and pelvis were obtained with IV and without oral contrast at 5mm. Dose modulation, iterative reconstruction, and/or weight based adjustment of the MA/KV was utilized to reduce the radiation dose to as low as reasonably achievable. Intravenous contrast: 100cc of Omnipaque 370. The liver, spleen, pancreas are grossly within normal limits. The gallbladder is contracted. The kidneys are within normal limits. The urinary bladder is unremarkable. The colon, small bowel, and stomach are within normal limits without evidence of obstruction. The appendix is unremarkable. No evidence of free air or free fluid. The patient is status post hysterectomy IMPRESSION: No acute findings in the abdomen at 0802 Reported and signed by: Deon Kirkpatrick M.D. CC: Barb Breen MD Technologist:NOAH LAZO RT CTDI: DLP: Trnscb Date/Time: 05/11/2018 (0802) t.LESTERR.VTL Orig Print D/T: S: 05/11/2018 (0805) PAGE 1 Signed Report - CT ABD PELVIS W/[id number] 08:02:00 Name: LUIS CAPELLAN [facility] : 1965 Age/S: 52 / F [address] Unit #: [id number] Loc: [place] [address] Phys: Barb Breen MD Acct: [id number] Dis Date: Status: ADM IN PHONE #: [phone] Exam Date: 05/10/2018 2240 FAX #: [phone] Reason: abdominal pain; bloating EXAMS: CPT CODE: [id number] CT ABD PELVIS W/CONT 02920 REASON FOR EXAM: abdominal pain; bloating EXAM ORDER DATE: 05/10/2018 10:05 PM Ordering Tammy.Tuyet: Barb Breen MD PROCEDURE: - CT ABD PELVIS W/CONT COMPARISON: FINDINGS: CT images of the abdomen and pelvis were obtained with IV and without oral contrast at 5mm. Dose modulation, iterative reconstruction, and/or weight based adjustment of the MA/KV was utilized to reduce the radiation dose to as low as reasonably achievable. Intravenous contrast: 100cc of Omnipaque 370. The liver, spleen, pancreas are grossly within normal limits. The gallbladder is contracted. The kidneys are within normal limits. The urinary bladder is unremarkable. The colon, small bowel, and stomach are within normal limits without evidence of obstruction. The appendix is unremarkable. No evidence of free air or free fluid. The patient is status post hysterectomy IMPRESSION: No acute findings in the abdomen at 0802 Reported and signed by: Deon Kirkpatrick M.D. CC: Barb Breen MD Technologist:RT NICHOL CTDI: DLP: Trnscb Date/Time: 05/11/2018 (801) Shanon.VTL Orig Print D/T: S: 05/11/2018 (804) CTDI: DLP: PAGE 1 Signed Report [id number] 07:07:00* Test Item Value Reference Range Interpretation Comments GLYCOSYLATED HEMOGLOBIN (HA1C) (test code = GLYHGB) 6.0 % HbA1 4. 8-6.0 N ESTIMATED AVERAGE GLUCOSE (test code = EAG) 126 MG/DL LIPID PROFILE (CORONARY RISK)2018-05-11 03:52:00* Test Item Value Reference Range Interpretation Comments TRIGLYCERIDES (test code = TRIG) 159 mg/dL 20-150 H CHOLESTEROL (test code = CHOL) 176 mg/dL 0-200 N CHOLESTEROL/HDL RATIO (test code = CHOLHDL) 4.0 RATIO 0-4.9 N RISK ASSOCIATED WITH CHOL/HDL RATIOS: Risk Male Female1/2 AVERAGE 3.43 3.27AVERAGE 4.97 4.442X AVERAGE 9.55 7.053X AVERAGE 23.39 11.04 REFERENCE VALUE IS RELATED TO RISK LEVELS ASRECOMMENDED BY THE [place]. HEART, LUNG, AND BLOOD INST. HDL CHOLESTEROL (test code = HDL) 43 mg/dL 40-60 N LIPOPROTEIN LDL (test code = LDL) 117 mg/dL 100-129 N RN PERSONNEL, CONTACT PHYSICIAN IMMEDIATELY IF THIS IS A STROKE, AMI OR CAROTID STENOSIS PATIENT WHEN THE LDL >100 (1ST OCCURENCE, THIS ADMISSION) Reference Interval: mg/dL mmol/L Optimal <100 <2.6Near/above optimal 100-129 2.6- 3.3Borderline High 130-159 3.4-4.1High 160-189 4.1-4.9Very High >=190 >=4.9========= This LDL result is a direct measurement.========= [id number] 02:59:00* Test Item Value Reference Range Interpretation Comments TROPONIN-I (test code = TROPI) <0.015 ng/mL 0-0.045 N [id number] 23:11:00* Test Item Value Reference Range Interpretation Comments TROPONIN-I (test code = TROPI) <0.015 ng/mL 0-0.045 N BASIC METABOLIC [id number] 19:05:00* Test Item Value Reference Range Interpretation Comments SODIUM (test code = NA) 138 mmol/L 136-145 N POTASSIUM (test code = K) 4.0 mmol/L 3.5-5.1 N CHLORIDE (test code = CL) 108.0 mmol/L 98-107 H CARBON DIOXIDE (test code = CO2) 22.0 mmol/L 21-32 N ANION GAP (test code = GAP) 12.0 10-20 N GLUCOSE (test code = GLU) 175 mg/dL 74-106 H BLOOD UREA NITROGEN (test code = BUN) 9 mg/dL 7-18 N GLOMERULAR FILTRATION RATE (test code = GFR) > 60 mL/min >=60 Estimated GFR by using Modified MDRD formula.Chronic kidney disease is defined as either kidney damageor GFR <60 mL/min/1.73 m2 for >3 months. CREATININE (test code = CREAT) 0.80 mg/dL 0.55-1.02 N Note change in reference range due to change in reagent. BUN/CREATININE RATIO (test code = BUN/CREA) 11.3 10-20 N CALCIUM (test code = CA) 9.0 mg/dL 8.5-10.1 N [id number] 19:05:00* Test Item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 within normal limits. No prevertebral soft tissue swelling, facet malalignment, or interspinous widening. Endplate margins are intact. No acute bony fracture. Vertebral body height are maintained. Disc height are maintained. Limited visualized skull base an d mastoid air cells are unremarkable. Limited visualized lung apices are a lso unremarkable. IMPRESSION: No acute bony abnormalities of the cervical spine. SL: FAMILIA Electronically Si gned by Zurdo Holder on 03/15/2018 at 1656 Reported an d signed by: Cristopher Holder M.D. CC: Momo Guthrie MD Technologist:RT Vicenta(R) CTDI: DLP: Trnscb Date/Time: 03/15/2018 (165) [email or web address] Orig Print D/T: S: 03/15/2018 (1540) CTDI: DLP: PAGE 1 Signed Report
[2019-07-17 04:59] LABS: BASOPHILS # (AUTO) 0.1 (0.0-0.1); EOSINOPHILS # (AUTO) 0.3 (0.0-0.4); HEMATOCRIT 48.8 % (34.2-44.1); HEMOGLOBIN 16.6 g/dL (12.0-16.0); LYMPHOCYTES # (AUTO) 3.3 (1.0-3.2); LYMPHOCYTES % 39.7 % (18.0-39.1); MEAN CORPUSCULAR HEMOGLOBIN 33.1 pg (28-32); MEAN CORPUSCULAR VOLUME 97.2 fL (81-99); MONOCYTES # (AUTO) 0.3 (0.2-0.8); MONOCYTES % 3.6 % (4.4-11.3); NEUTROPHILS # (AUTO) 4.3 (2.1-6.9); NEUTROPHILS % 52.2 % (38.7-80.0); PLATELET COUNT 308 x10e3/uL (140-360); RED BLOOD COUNT 5.02 x10e6/uL (3.6-5.1); RED CELL DISTRIBUTION WIDTH 14.1 % (11.7-14.4)
--- NOTE | 2019-07-17 04:59 | Emergency Department Note ---
History of Present Illnes History of Present Illness Chief Complaint: Chest Pain History of Present Illness This is a 54 year old female WHO PRESENTS VIA EMS WITH C/O STERNAL CHES T PAIN FOR THE PAST 2 WEEKS, STATES IS CONSTANT BUT WORSE TONIGHT, PAIN IS WORSE WITH MOVEMENT AND INSPIRATION. 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 Any updates have been documented here. Past Medical History Recent Fever: No Clinical Suspicion of Infectio: No New/Unexplained Change in Ment: No Past Medical History: Hypertension, Hyperlipedemia Other Medical History: GERD HIGH CHOLESTEROL Other Surgery: FIBROID TUMORS HAD COMPLETE HYSTERECOMY 2016 ([facility]) Social History Smoking Cessation: Current some day smoker Alcohol Use: Daily Any Illegal Drug Use: No TB Exposure/Symptoms: No Physically hurt or threatened: No Family History Family history of heart diseas: No Other Last Tetanus: UTD Any Pre-Existing Lines (PICC,: No Is patient up to date on immun: Yes Last Flu: UTD Last Pneumovax: NO Review of Systems Review of Systems Constitutional: no symptoms EENTM: no symptoms Cardiovascular: as per HPI Respiratory: no symptoms Gastrointestinal: no symptoms Genitourinary: no symptoms Musculoskeletal: no symptoms Neurological: no symptoms Psychological: no symptoms Endocrine: no symptoms Hematological/Lymphatic: no symptoms Review of other systems All other systems reviewed and negative. Physical Exam Related Data Allergies: Uncoded Allergies: UNISOME (Allergy, Unknown, 06/15/16) LIPS SWELL UP Triage Vital Signs Vital Signs Date Time Temp Pulse Resp B/P (MAP) Pulse Ox O2 Delivery O2 Flow Rate FiO2 07/17/19 04:29 97.4 93 17 146/89 99 Vital signs reviewed: Yes Physical Exam CONSTITUTIONAL Constitutional: well-developed, well-nourished HENT HENT: normocephalic, atraumatic, oropharynx clear/moist, nose normal HENT L/R: left ext ear normal, right ext ear normal EYES Eyes: PERRL, conjunctivae normal NECK Neck: ROM normal PULMONARY Pulmonary: effort normal, breath sounds normal CARDIOVASCULAR Cardiovascular: regular rhythm, heart sounds normal, capillary refill normal, normal rate, other (CHEST PAIN REPRODUCIBLE WITH PALPATION OF STERNUM) GASTROINTESTINAL Abdominal: soft, nontender, bowel sounds normal GENITOURINARY Genitourinary: exam deferred SKIN Skin: warm, dry MUSCULOSKELETAL Musculoskeletal: ROM normal NEUROLOGICAL Neurological: alert, oriented x 3, no gross motor or sensory deficits PSYCHOLOGICAL Psychological: mood/affect normal, judgement normal Results Laboratory Laboratory Laboratory Tests Test 07/17/19 04:36 White Blood Count 8.28 x10e3/uL (4.8-10.8) Red Blood Count 5.02 x10e6/uL (3.6-5.1) Hemoglobin 16.6 g/dL (12.0-16.0) Hematocrit 48.8 % (34.2-44.1) Mean Corpuscular Volume 97.2 fL (81-99) Mean Corpuscular Hemoglobin 33.1 pg (28-32) Mean Corpuscular Hemoglobin Concent 34.0 g/dL (31-35) Red Cell Distribution Width 14.1 % (11.7-14.4) Platelet Count 308 x10e3/uL (140-360) Neutrophils (%) (Auto) 52.2 % (38.7-80.0) Lymphocytes (%) (Auto) 39.7 % (18.0-39.1) Monocytes (%) (Auto) 3.6 % (4.4-11.3) Eosinophils (%) (Auto) 3.0 % (0.0-6.0) Basophils (%) (Auto) 1.0 % (0.0-1.0) Neutrophils # (Auto) 4.3 (2.1-6.9) Lymphocytes # (Auto) 3.3 (1.0-3.2) Monocytes # (Auto) 0.3 (0.2-0.8) Eosinophils # (Auto) 0.3 (0.0-0.4) Basophils # (Auto) 0.1 (0.0-0.1) Absolute Immature Granulocyte (auto 0.04 x10e3/uL (0-0.1) Sodium Level 141 mmol/L (136-145) Potassium Level 3.3 mmol/L (3.5-5.1) Chloride Level 109 mmol/L (98-107) Carbon Dioxide Level 19 mmol/L (22-29) Anion Gap 16.3 mmol/L (8-16) Blood Urea Nitrogen 5 mg/dL (7-26) Creatinine 0.74 mg/dL (0.57-1.11) Estimat Glomerular Filtration Rate > 60 ML/MIN (60-) BUN/Creatinine Ratio 7 (6-25) Glucose Level 137 mg/dL (74-118) Calcium Level 9.3 mg/dL (8.4-10.2) Total Bilirubin 0.3 mg/dL (0.2-1.2) Aspartate Amino Transf (AST/SGOT) 34 IU/L (5-34) Alanine Aminotransferase (ALT/SGPT) 74 IU/L (0-55) Alkaline Phosphatase 120 IU/L (40-150) Creatine Kinase 59 IU/L (29-168) Creatine Kinase MB 0.90 ng/mL (0-5.0) Troponin I 0.011 ng/mL (0-0.300) Total Protein 7.1 g/dL (6.5-8.1) Albumin 3.6 g/dL (3.5-5.0) Globulin 3.5 g/dL (2.3-3.5) Albumin/Globulin Ratio 1.0 (0.8-2.0) Laboratory Tests Test 07/17/19 04:36 Lab results reviewed: Yes Imaging Imaging results reviewed: Yes Impressions I SPOKE WITH DR GOLDSMITH, CXR REVEALS EMPHYSEMA AND BRONCHITIS Procedures 12 Lead ECG Interpretation Head Mechanic: Interpreted by ED physician Rhythm: sinus rhythm Rate: normal BPM: 87 QRS axis: normal ST segments normal: Yes T waves normal: Yes Clinical Impression: non-specific ECG Critical Care Time Subsequent provider I assumed direction of critical care for this patient from another provider of my specialty. Assessment & Plan Assessment & Plan Final Impression: (1) Bronchitis (2) Chest wall pain Assessment & Plan PT WITH CHEST PAIN FOR THE PAST 2 WEEKS THAT IS CONSTANT AND WORSE WITH MOVEMENT AND INSPIRATION, CBC, CMP, CARDIAC ENZYMES, EKG, CXR ORDERED TO EVAL FOR MYOCARDIAL INFARCTION, PNEUMONIA, ELECTROLYTE ABNORMALITY, Depart Disposition: HOME, SELF-CARE Last Vital Signs Date Time Temp Pulse Resp B/P (MAP) Pulse Ox O2 Delivery O2 Flow Rate FiO2 07/17/19 04:50 88 18 121/67 99 07/17/19 04:29 97.4 ALEJANDRO GARZA MD July 17, 2019 04:59
[2019-07-17 05:17] LABS: ALANINE AMINOTRANSFERASE 74 IU/L (0-55); ALBUMIN 3.6 g/dL (3.5-5.0); ALKALINE PHOSPHATASE 120 IU/L (40-150); ANION GAP 16.3 mmol/L (8-16); BLOOD UREA NITROGEN 5 mg/dL (7-26); BUN/CREATININE RATIO 7 (6-25); CALCIUM 9.3 mg/dL (8.4-10.2); CARBON DIOXIDE 19 mmol/L (22-29); CHLORIDE 109 mmol/L (98-107); CREATINE KINASE 59 IU/L (29-168); CREATININE, SERUM 0.74 mg/dL (0.57-1.11); EST GLOMERULAR FILTRATION RATE > 60 ML/MIN (60-); GLUCOSE 137 mg/dL (74-118); POTASSIUM 3.3 mmol/L (3.5-5.1); SODIUM 141 mmol/L (136-145)
[2019-07-17 05:54] VITALS: BP 103/69
--- NOTE | 2019-07-17 05:56 | Diagnostic Imaging Report ---
EXAMINATION: CHEST SINGLE (PORTABLE) INDICATION: Chest pain COMPARISON: Chest x-ray 06/15/2016 FINDINGS: TUBES and LINES: None. LUNGS: No consolidations. Mild prominence of central pulmonary vasculature. Hyperinflated lungs. Mild central bronchial wall thickening. PLEURA: No pleural effusion or pneumothorax. HEART AND MEDIASTINUM: The cardiomediastinal silhouette is unremarkable. BONES AND SOFT TISSUES: No acute osseous lesion. Soft tissues are unremarkable. UPPER ABDOMEN: No free air under the diaphragm. IMPRESSION: Findings of pulmonary emphysema and bronchitis and mild pulmonary vascular congestion. Signed by: Vijay Carpenter DO on 07/17/2019 5:52 AM
== END 2019-07-17 06:15 | disposition home or self-care (01) ==
LOC: ER 04:25
DX: R07.89 Other chest pain (principal); J40 Bronchitis, not specified as acute or chronic; I10 Essential (primary) hypertension; E78.5 Hyperlipidemia, unspecified; K21.9 Gastro-esophageal reflux disease without esophagitis; F17.210 Nicotine dependence, cigarettes, uncomplicated
CPT/HCPCS: 36415; 71045; 80053; 82550; 82553; 84484; 85025; 99284

== ENCOUNTER 2019-11-08 05:28 | Emergency (ER) | payer SELFPAY ==
[~2019-11-08] VITALS: Ht 149.9 cm; Wt 66.2 kg
[2019-11-08 06:03] LABS: BASOPHILS # (AUTO) 0.1 (0.0-0.1); EOSINOPHILS # (AUTO) 0.3 (0.0-0.4); HEMATOCRIT 51.2 % (34.2-44.1); HEMOGLOBIN 17.1 g/dL (12.0-16.0); LYMPHOCYTES # (AUTO) 4.6 (1.0-3.2); LYMPHOCYTES % 55.2 % (18.0-39.1); MEAN CORPUSCULAR HEMOGLOBIN 32.6 pg (28-32); MEAN CORPUSCULAR HGB CONC 33.4 g/dL (31-35); MEAN CORPUSCULAR VOLUME 97.7 fL (81-99); MONOCYTES # (AUTO) 0.3 (0.2-0.8); NEUTROPHILS # (AUTO) 2.9 (2.1-6.9); NEUTROPHILS % 35.1 % (38.7-80.0); PLATELET COUNT 326 x10e3/uL (140-360); RED BLOOD COUNT 5.24 x10e6/uL (3.6-5.1); RED CELL DISTRIBUTION WIDTH 12.7 % (11.7-14.4)
[2019-11-08 06:22] LABS: ALANINE AMINOTRANSFERASE 77 IU/L (0-55); ALBUMIN 4.3 g/dL (3.5-5.0); ALBUMIN/GLOBULIN RATIO 1.4 (0.8-2.0); ALKALINE PHOSPHATASE 141 IU/L (40-150); ANION GAP 18.1 mmol/L (8-16); BLOOD UREA NITROGEN < 5 mg/dL (7-26); CARBON DIOXIDE 18 mmol/L (22-29); CHLORIDE 109 mmol/L (98-107); CREATINE KINASE 48 IU/L (29-168); CREATININE, SERUM 0.74 mg/dL (0.57-1.11); EST GLOMERULAR FILTRATION RATE > 60 ML/MIN (60-); GLUCOSE 129 mg/dL (74-118); POTASSIUM 3.1 mmol/L (3.5-5.1); SODIUM 142 mmol/L (136-145)
[2019-11-08 06:25] LABS: BUN/CREATININE RATIO 7 (6-25)
[2019-11-08 06:28] LABS: CLARITY,URINE CLEAR (CLEAR); COLOR,URINE YELLOW (YELLOW); LEUKOCYTE ESTERASE ,URINE NEGATIVE (NEGATIVE); NITRITE,URINE NEGATIVE (NEGATIVE)
[2019-11-08 06:29] LABS: AMPHETAMINES SCREEN,URINE NEGATIVE (NEGATIVE); BENZODIAZEPINES SCREEN,URINE NEGATIVE (NEGATIVE); BILIRUBIN,URINE NEGATIVE (NEGATIVE); KETONES,URINE NEGATIVE (NEGATIVE); PHENCYCLIDINE SCREEN,URINE NEGATIVE (NEGATIVE); PROTEIN,URINE DIPSTICK NEGATIVE (NEGATIVE); URINE UROBILINOGEN 0.2 mg/dL (0.2 - 1)
[2019-11-08 06:39] LABS: RBC,URINE 0-5 /HPF (0-5); WBC,URINE (MAN) 0-5 /HPF (0-5)
[2019-11-08] MEDS ORDERED: ACETAMINOPHEN 325 MG TAB PO ONE (06:45)
--- NOTE | 2019-11-08 07:14 | NUR ---
RECEIVED REPORT FROM OFFGOING NURSE. PATIENT IN ROOM IN BED RESTING QUIETLY WITH EYES CLOSED. ARROUSED EASILY BUT PATIENT WENT BACK TO SLEEP. PENDING LABS AND RADIOLOGY RESULTS FOR DISPO.
--- NOTE | 2019-11-08 07:29 | Diagnostic Imaging Report ---
EXAMINATION: CHEST SINGLE (PORTABLE) INDICATION: CHEST PAIN COMPARISON: Radiograph dated 07/17/2019 FINDINGS: TUBES and LINES: None. LUNGS: Normal lung volumes. Lungs are clear. No consolidations. PLEURA: No pleural effusion or pneumothorax. HEART AND MEDIASTINUM: The cardiomediastinal silhouette is unremarkable. BONES AND SOFT TISSUES: No acute osseous lesion. Soft tissues are unremarkable. UPPER ABDOMEN: No free air under the diaphragm. IMPRESSION: No acute thoracic radiographic abnormality. Signed by: Amor Babcock MD on 11/08/2019 7:25 AM
--- NOTE | 2019-11-08 07:55 | Emergency Department Note ---
History of Present Illnes History of Present Illness Chief Complaint: Chest Pain History of Present Illness This is a 54 year old female arrived to the ED intoxicated, recently left [place] (arm band still in place) . 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 Any updates have been documented here. Past Medical History Recent Fever: No Clinical Suspicion of Infectio: No New/Unexplained Change in Ment: No Past Medical History: Hypertension, Anxiety, GERD, Hyperlipedemia, Chronic Back Pain Other Medical History: GERD HIGH CHOLESTEROL Other Surgery: FIBROID TUMORS HAD COMPLETE HYSTERECOMY 2016 ([facility]) Social History Smoking Cessation: Former smoker Alcohol Use: None Any Illegal Drug Use: No Other Last Tetanus: UTD Any Pre-Existing Lines (PICC,: No Review of Systems Review of Systems Constitutional: Reports no symptoms EENTM: Reports no symptoms Cardiovascular: Reports as per HPI, Reports chest pain Respiratory: Reports no symptoms Gastrointestinal: Reports no symptoms Genitourinary: Reports no symptoms Musculoskeletal: Reports no symptoms Integumentary: Reports no symptoms Neurological: Reports no symptoms Psychological: Reports no symptoms Endocrine: Reports no symptoms Hematological/Lymphatic: Reports no symptoms Physical Exam Related Data Allergies: Coded Allergies: ibuprofen (Verified Allergy, Intermediate, BLEEDING, 11/08/19) tramadol (Verified Allergy, Unknown, 11/08/19) Uncoded Allergies: UNISOME (Allergy, Unknown, 06/15/16) LIPS SWELL UP Triage Vital Signs Vital Signs Date Time Temp Pulse Resp B/P (MAP) Pulse Ox O2 Delivery O2 Flow Rate FiO2 11/08/19 05:28 98.5 102 20 101/62 96 Room Air Vital signs reviewed: Yes Physical Exam CONSTITUTIONAL Constitutional: Present well-developed, Present well-nourished HENT HENT: Present normocephalic, Present atraumatic, Present oropharynx clear/moist, Present nose normal HENT L/R: Present left ext ear normal, Present right ext ear normal EYES Eyes: Reports PERRL, Reports conjunctivae normal NECK Neck: Present ROM normal PULMONARY Pulmonary: Present effort normal, Present breath sounds normal CARDIOVASCULAR Cardiovascular: Present regular rhythm, Present heart sounds normal, Present capillary refill normal, Present normal rate GASTROINTESTINAL Abdominal: Present soft, Present nontender, Present bowel sounds normal GENITOURINARY Genitourinary: Present exam deferred SKIN Skin: Present warm, Present dry MUSCULOSKELETAL Musculoskeletal: Present ROM normal NEUROLOGICAL Neurological: Present alert, Present oriented x 3, Present no gross motor or sensory deficits PSYCHOLOGICAL Psychological: Present mood/affect normal, Present judgement normal Results Laboratory Result Diagram: 11/08/19 0540 11/08/19 0540 Laboratory Laboratory Tests Test 11/08/19 06:14 11/08/19 05:40 Urine Color Yellow (YELLOW) Urine Clarity Clear (CLEAR) Urine pH 6 (5 - 7) Urine Specific [place] 1.010 (1.010-1.025) Urine Protein Negative (NEGATIVE) Urine Glucose (UA) Negative (NEGATIVE) Urine Ketones Negative (NEGATIVE) Urine Blood Negative (NEGATIVE) Urine Nitrite Negative (NEGATIVE) Urine Bilirubin Negative (NEGATIVE) Urine Urobilinogen 0.2 mg/dL (0.2 - 1) Urine Leukocyte Esterase Negative (NEGATIVE) Urine RBC 0-5 /HPF (0-5) Urine WBC 0-5 /HPF (0-5) Urine Epithelial Cells None /LPF (NONE) Urine Bacteria None /HPF (NONE) Urine Opiates Screen Negative (NEGATIVE) Urine Methadone Screen Negative (NEGATIVE) Urine Barbiturates Screen Negative (NEGATIVE) Urine Phencyclidine Screen Negative (NEGATIVE) Urine Amphetamines Screen Negative (NEGATIVE) Urine Methamphetamines Screen Negative (NEGATIVE) Urine Benzodiazepines Screen Negative (NEGATIVE) Urine Cocaine Screen Negative (NEGATIVE) Urine Cannabinoids Screen Negative (NEGATIVE) White Blood Count 8.25 x10e3/uL (4.8-10.8) Red Blood Count 5.24 x10e6/uL (3.6-5.1) Hemoglobin 17.1 g/dL (12.0-16.0) Hematocrit 51.2 % (34.2-44.1) Mean Corpuscular Volume 97.7 fL (81-99) Mean Corpuscular Hemoglobin 32.6 pg (28-32) Mean Corpuscular Hemoglobin Concent 33.4 g/dL (31-35) Red Cell Distribution Width 12.7 % (11.7-14.4) Platelet Count 326 x10e3/uL (140-360) Neutrophils (%) (Auto) 35.1 % (38.7-80.0) Lymphocytes (%) (Auto) 55.2 % (18.0-39.1) Monocytes (%) (Auto) 4.0 % (4.4-11.3) Eosinophils (%) (Auto) 4.0 % (0.0-6.0) Basophils (%) (Auto) 1.0 % (0.0-1.0) Neutrophils # (Auto) 2.9 (2.1-6.9) Lymphocytes # (Auto) 4.6 (1.0-3.2) Monocytes # (Auto) 0.3 (0.2-0.8) Eosinophils # (Auto) 0.3 (0.0-0.4) Basophils # (Auto) 0.1 (0.0-0.1) Absolute Immature Granulocyte (auto 0.06 x10e3/uL (0-0.1) D-Dimer Quantitative (PE/DVT) 246 ng/mL (0-400) Sodium Level 142 mmol/L (136-145) Potassium Level 3.1 mmol/L (3.5-5.1) Chloride Level 109 mmol/L (98-107) Carbon Dioxide Level 18 mmol/L (22-29) Anion Gap 18.1 mmol/L (8-16) Blood Urea Nitrogen < 5 mg/dL (7-26) Creatinine 0.74 mg/dL (0.57-1.11) Estimat Glomerular Filtration Rate > 60 ML/MIN (60-) BUN/Creatinine Ratio 7 (6-25) Glucose Level 129 mg/dL (74-118) Calcium Level 9.0 mg/dL (8.4-10.2) Total Bilirubin 0.4 mg/dL (0.2-1.2) Aspartate Amino Transf (AST/SGOT) 58 IU/L (5-34) Alanine Aminotransferase (ALT/SGPT) 77 IU/L (0-55) Alkaline Phosphatase 141 IU/L (40-150) Creatine Kinase 48 IU/L (29-168) Creatine Kinase MB 0.50 ng/mL (0-5.0) Troponin I < 0.001 ng/mL (0-0.300) Total Protein 7.3 g/dL (6.5-8.1) Albumin 4.3 g/dL (3.5-5.0) Globulin 3.0 g/dL (2.3-3.5) Albumin/Globulin Ratio 1.4 (0.8-2.0) Ethyl Alcohol Level 291.7 mg/dL (0.0-10.0) Assessment & Plan Medical Decision Making MDM 54-year-old female arrives to the ED with nonspecific complaints, patient noted to be under the influence of EtOH. EtOH level elevated. Lab work including cardiac markers and d-dimer unremarkable. Patient stable for discharge home. Patient allowed to sober up in the ED and was discharged home with no complaints. Assessment & Plan Final Impression: (1) Alcohol abuse Depart Disposition: HOME, SELF-CARE Last Vital Signs Date Time Temp Pulse Resp B/P (MAP) Pulse Ox O2 Delivery O2 Flow Rate FiO2 11/08/19 07:01 86 19 101/62 99 Room Air 11/08/19 05:28 98.5 Medications in the ED Acetaminophen 650 mg ONCE ONCE PO ; Start 11/08/19 at 06:45; Stop 11/08/19 at 06:46; Status DC MISTI WILLAMS, DO Nov 08, 2019 07:56
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
--- OUTSIDE RECORDS SUMMARY | 2019-11-08 10:57 | XMS REPORT | Continuity of Care Document ---
Author Author [facility] t Organization [facility] Address 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 Name Role Phone NO, PCP PCP Unavailable Bryce WILLAMS Attphys Unavailable Tammy Moore Attphys Irma AUGUST, Nora Gutierrez Attphys Marisa AUGUST, Rosa Stone Attphys Kiana AUGUST, N Wilbert Attphys Balwinder AN, Debbi Gonzalez Attphys Unavailable Baudilio Villatoro MD Attphys Dayday GARZA Attphys Unavailable Patrizia AN, Criselda Loyola Attphys Unavailable Kathleen RN, Mandie Attphys Unavailable Cecilio RN, Meghana Attphys Unavailable Anirudh AUGUST, Simon Attphys Radha AUGUST, Pema Attphys Froilan AUGUST, Antonino Attphys Glen AUGUST, Gela Atkins Attphys Angus AN, Juan Dudley Attphys Unavailpam Penny RN, Kenyonnikia Attphys Unavailable Payers Payer Name Policy Type Policy Number Effective Date Expiration Date S zachary Self Pay NA [facility] [employer] [place] 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 LY 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, [place] [address] xxxxx 2019 00:00:00 2020 23:59:59 [facility] PLANFINANCIAL ASSISTANCE PROGRAMxxx [id number] [place] [address] xxxxx 2019 00:00:00 09-29 23:59:59 [facility] Problems Condition Name Condition Details Condition Category Status Onset Date Resolution Date Last Treatment Date Treating Clinician Comments Source Bulging of cervical intervertebral disc Bulging of cervical intervertebral disc Disease Active 2019-02-11 00:00:00 [facility] Bulging lumbar disc Bulging lumbar disc Disease Active 2019-02-11 00:00 :00 [facility] Injury of right rotator cuff Injury of right rotator cuff Disease Active 2019-02-11 00:00:00 [facility] Anorexia Anorexia Disease Active 2018-02-15 00:00:00 [facility] Boil Boil Disease Active 2017-12-13 00:00:00 [facility] Caregiver stress Caregiver stress Disease Active 2017-12-13 00:00:00 [facility] Abdominal pain, epigastric Abdominal pain, epigastric Disease Active 2017-09-28 00:00:00 [facility] Dental disorder Dental disorder Disease Active 2017-09-28 00:00:00 [facility] Carpal tunnel syndrome, bilateral Carpal tunnel syndrome, bilate ral Disease Active 2017-07-11 00:00:00 [facility] Arthralgia Arthralgia Disease Active 2017-07-11 00:00:00 [facility] Wrist tendonitis Wrist tendonitis Disease Active 2017-03-21 00:00:00 [facility] Arthritis of right shoulder (AC joint) Arthritis of right sh oulder (AC joint) Disease Active 2016-11-18 00:00:00 [facility] Adenopathy, cervical Adenopathy, cervical Disease Active 00:00:00 [facility] Decreased functional activity tolerance Decreased functional activity tolerance Disease Active 2016-06-30 00:00:00 [facility] Laceration Laceration Disease Active 2015-10-28 00:00:00 [facility] Elevated BP Elevated BP Disease Active 2015-10-28 00:00:00 [facility] Knee gives out Knee gives out Disease Active 2015-09-03 00:00:00 [facility] Hip pain, acute Hip pain, acute Disease Active 2015-09-03 00:00:00 [facility] Smoker Smoker Disease Active 2015-08-26 00:00:00 [facility] Discogenic low back pain Discogenic low back pain Disease Acti ve 2015-08-26 00:00:00 [facility] Primary osteoarthritis of both hands Primary osteoarthritis of both hands Disease Active 2015-08-26 00:00:00 [facility] care maintenance Health care maintenance Disease Active 2015-07-24 00:00:00 [facility] Pain Pain Disease Active 2015-07-24 00:00:00 [facility] Skin infection Skin infection Disease Active 2015-07-24 00:00:00 [facility] Adhesive capsulitis of right shoulder Adhesive capsulitis of right shoulder Disease Active 2015-07-24 00:00:00 [facility] Allergic rhinitis Allergic rhinitis Disease Active 2015-07-24 00:00:00 [facility] Bilateral hand numbness Bilateral hand numbness Disease Active 2015-07-24 00:00:00 [facility] Gastroesophageal reflux disease Gastroesophageal reflux disease Dis ease Active 2015-07-24 00:00:00 [facility]alth S/P VH (vaginal hysterectomy) S/P VH (vaginal hysterectomy) Disease Active 2014-12-19 00:00:00 [facility] Endometriosis of pelvic peritoneum Endometriosis of pelvic perit oneum Disease Active 2014-12-18 00:00:00 [facility] S/P LAV S/P LAVH Disease Active 2014-12-18 00:00:00 [facility] MDD (major depressive disorder), recurrent episode, mo derate MDD (major depressive disorder), recurrent episode, moderate Disease Active 2014-12-04 00:00:00 [facility] Abnormal uterine bleeding (AUB) Abnormal uterine bleeding (AUB) Dis ease Active 2014-11-12 00:00:00 Overview: - Patient is candidate for surgical management due to history of failed medical management. Patient states she had CT Scan at [facility] showing bilateral adnexal masses. Repeat sono pending-Pt [...] surgery may not fully alleviate pain fully [facility] Fibroids Fibroids Disease Active 2011-10-31 00:00:00 Overview: 05/16/2014: Patient had TVUS showing 9 cm uterus. She had a 1.2 cm nodule at uterine fundus. Also had a 1.5 cm lesion in posterior uterine body myometrium. [facility] Class 1 obesity with body mass index (BMI) of 33.0 to 33.9 in adult Class 1 obesity with body mass index (BMI) of 33.0 to 33.9 in adult Disease Active 2010-07-02 00:00:00 [facility] Anxiety Anxiety Disease Active 2010-04-02 00:00:00 Overview: Mood stable on medciation [facility] Chronic Pain Chronic Pain Disease Active 2005-12-09 00:00:00 Overview: Pt has chronic pain in her back. And complains of abdominal pain that is not alleviated by tylenol and she stated she has more bleeding with ibuprofen- Will give Rx for Toradol [facility] GERD (gastroesophageal reflux disease) GERD (gastroesophagea l reflux disease) Disease Active 2005-12-09 00:00:00 [facility] Chronic low back pain Chronic low back pain Disease Active 200 07-31-19 00:00:00 [facility] Bronchitis Problem Active [facility] Chest wall pain Problem Active [facility] Abdominal bloating Abdominal bloating Disease Active [facility] Bilateral hand pain Bilateral hand pain Disease Active [facility] Thoracic spine pain Thoracic spine pain Disease Active [facility] Neck pain Neck pain Disease Active [facility] Osteoarthritis Osteoarthritis Disease Active [facility] Abnormal MRI, lumbar spine Abnormal MRI, lumbar spine Disease Active [facility] Ankle pain Ankle pain Disease Active [facility] FILI (stress urinary incontinence, female) FILI (stress urinary incontinence, female) Disease Active [facility] Hot flash, menopausal Hot flash, menopausal Disease Active [facility] Vitamin D deficiency Vitamin D deficiency Disease Active [facility] Abnormal thyroid blood test Abnormal thyroid blood test Disease Active [facility] TSH elevation - subclinical hypothyroidism TSH elevati on - subclinical hypothyroidism Disease Active [facility] Abnormal LFTs Abnormal LFTs Disease Active [facility] Allergies, Adverse Reactions, Alerts Allergy Name Allergy Type Status Severity Reaction(s) Onset Date Inacti ve Date Treating Clinician Comments Source Ibuprofen Allergy to substance Active Moderate BLEEDING 2019-11-08 00:0 0:00 [facility] Tramadol Allergy to substance Active 2019-11-08 00:00:00 [facility] duloxetine HCl DA Active [place] 2019-11-07 00:00:00 [facility] codeine DA Active U 2019-11-07 00:00:00 [facility] acetaminophen DA Active U 2019-11-07 00:00:00 [facility] ibuprofen DA Active U 2019-11-07 00:00:00 [facility] naproxen DA Active U 2019-11-07 00:00:00 [facility] tramadol DA Active U 2019-11-07 00:00:00 [facility] gabapentin DA Active U 2019-11-07 00:00:00 [facility] diphenhydramine DA Active [place] 2019-11-07 00:00:00 [facility] duloxetine DA Active [place] 2019-11-07 00:00:00 [facility] ibuprofen DA Active U 2019-09-27 00:00:00 [facility] tramadol DA Active U 2019-09-27 00:00:00 [facility] naproxen DA Active U 2019-09-27 00:00:00 [facility] gabapentin DA Active U 2019-09-27 00:00:00 [facility] ibuprofen DA Active U 2019-09-26 00:00:00 [facility] naproxen DA Active U 2019-09-26 00:00:00 [facility] tramadol DA Active U 2019-09-26 00:00:00 [facility] gabapentin DA Active U 2019-09-26 00:00:00 [facility] doxylamine succinate DA Active MO 2019-09-06 00:00:00 [facility] duloxetine HCl DA Active [place] 2019-09-06 00:00:00 [facility] ibuprofen DA Active U 2019-09-06 00:00:00 [facility] tramadol DA Active U 2019-09-06 00:00:00 [facility] diphenhydramine DA Active [place] 2019-09-06 00:00:00 [facility] doxylamine DA Active SV 2019-09-06 00:00:00 [facility] duloxetine DA Active NC 2019-09-06 00:00:00 [facility] Naproxen Propensity to adverse reactions to drug Active 2019-02-05 00:00:00 Red face [facility] doxylamine succinate DA Active MO 2018-11-03 00:00:00 [facility] duloxetine HCl DA Active [place] 2018-11-03 00:00:00 [facility] ibuprofen DA Active U 2018-11-03 00:00:00 [facility] tramadol DA Active U 2018-11-03 00:00:00 [facility] doxylamine DA Active SV 2018-11-03 00:00:00 [facility] duloxetine DA Active NC 2018-11-03 00:00:00 [facility] diphenhydramine DA Active NC 2018-10-19 00:00:00 [facility] ibuprofen DA Active NC 2018-10-19 00:00:00 [facility] tramadol DA Active U 2018-10-19 00:00:00 [facility] ibuprofen DA Active NC 2018-07-28 00:00:00 [facility] tramadol DA Active U 2018-07-28 00:00:00 [facility] diphenhydramine DA Active NC 2018-07-28 00:00:00 [facility] diphenhydramine DA Active NC 2018-06-15 00:00:00 [facility] ibuprofen DA Active NC 2018-06-07 00:00:00 [facility] tramadol DA Active U 2018-06-07 00:00:00 [facility] ibuprofen DA Active NC 2018-05-10 00:00:00 [facility] tramadol DA Active U 2018-05-10 00:00:00 [facility] No Known Allergies DA Active U 2018-03-26 00:00:00 [facility] ibuprofen DA Active NC 2018-03-26 00:00:00 [facility] tramadol DA Active U 2018-03-26 00:00:00 [facility] doxylamine succinate DA Active MO 2018-03-15 00:00:00 [facility] duloxetine HCl DA Active NC 2018-03-15 00:00:00 [facility] ibuprofen DA Active U 2018-03-15 00:00:00 [facility] tramadol DA Active U 2018-03-15 00:00:00 [facility] doxylamine DA Active SV 2018-03-15 00:00:00 [facility] duloxetine DA Active NC 2018-03-15 00:00:00 [facility] doxylamine DA Active SV 2018-01-19 00:00:00 [facility] duloxetine DA Active NC 2018-01-19 00:00:00 [facility] ibuprofen DA Active SV 2018-01-19 00:00:00 [facility] tramadol DA Active NC 2018-01-19 00:00:00 [facility] ibuprofen DA Active SV 2018-01-07 00:00:00 [facility] tramadol DA Active NC 2018-01-07 00:00:00 [facility] doxylamine DA Active SV 2018-01-07 00:00:00 [facility] duloxetine DA Active NC 2018-01-07 00:00:00 [facility] doxylamine succinate DA Active MO 2017-10-10 00:00:00 [facility] duloxetine HCl DA Active NC 2017-10-10 00:00:00 [facility] ibuprofen DA Active U 2017-10-10 00:00:00 [facility] tramadol DA Active U 2017-10-10 00:00:00 [facility] UNISOME Allergy to substance Active 2016-06-15 00:00:00 [facility] Duloxetine Propensity to adverse reactions to drug Active Nausea and Vomiting 2014-09-03 00:00:00 [facility] Doxylamine Succinate Propensity to adverse reactions to drug Active Angioedema 2014-09-03 00:00:00 [facility] Family History Family Member Diagnosis Comments Start Date Stop Date Source Natural brother Pulmonary [facility] Natural brother Hyp[facility] Natural father [facility] Natural father Diabetes [facility] Natural father Heart [facility] Natural father Hypertension [facility] Natural father Stroke [facility]aternal grandfather Arthritis [facility] Paternal grandfather Diabetes [facility] Natural son Arthritis [facility] Natural son Seizures [facility] Social History Social Habit Start Date Stop Date Quantity Comments Source History of tobacco use Cigarette Smoker [facility] Sex Assigned At [facility] Exposure to SARS-CoV-2 (event) Not sure [facility] Alcohol intake 2019-09-05 00:00:00 2019-09-05 00:00:00 Current non-drinker of alcohol (finding) [facility] History SDOH Food Scarcity 2019-01-29 00:00:00 2019-01-29 00:00:00 2 [facility] History SDOH Food Worry 2017-09-28 00:00:00 2017-09-28 00:00:00 1 [facility] Smoking Status Start Date Stop Date Source Current every day smoker 2019-09-05 00:00:00 [facility] Medications Ordered Medication Name Filled Medication Name Start Date Stop Da te Current Medication? Ordering Clinician Indication Dosage Frequency Signature (SIG) Comments Components Source clonazePAM (KLONOPIN) 0.5 mg tablet 2019-09-26 00:00:00 Yes Anxiety .5mg Take 1 tablet by mouth 2 times daily as needed for Anxiety. [facility] acetaminophen-codeine (TYLENOL/CODEINE #3) 300-30 mg per tab let 2019-09-26 00:00:00 Yes Fall with injury, subsequent encounter 1 {tbl} Q.5D Take 1 tablet by mouth 2 times daily For pain. [facility] atorvastatin (LIPITOR) 10 mg tablet 2019-09-26 00:00:00 Yes Pure hypercholesterolemia 10mg Take 1 tablet by mo uth at bedtime nightly For cholesterol. [facility] amLODIPine (NORVASC) 10 mg tablet 2019-09-26 00:00:00 Yes HTN, goal below 140/80 10mg Take 1 tablet by mouth at bedtime nightly For h ypertension. [facility] albuterol 90 mcg/actuation inhaler 2019-09-26 00:00:00 Yes Acute bronchitis 2{puff} Inhale 2 Puffs by mo uth 4 times daily as needed for Wheezing. [facility] loratadine (CLARITIN) 10 mg tablet 2019-09-26 00:00:00 Yes Seasonal allergic rhinitis, unspecified trigger 10mg QD T delia 1 tablet by mouth daily For allergies. [facility] mometasone (NASONEX) 50 mcg/actuation nasal spray 2019-09-26 00:00:00 Yes Seasonal allergic rhinitis, unspecified trigger 2{spray} QD Use 2 sprays in each nostril daily. [facility] triamcinolone (TRIDERM) 0.1 % topical cream 2019-09-26 00:00:00 Yes Rash Q.5D Apply to affected area 2 times daily. [facility] cyclobenzaprine (FLEXERIL) 10 mg tablet 2019-09-26 00:00:00 Yes Neck pain 10mg Take 1 tablet by mouth 3 times daily as needed for Mus jonathan Spasms. [facility] albuterol (PROVENTIL) 2.5 mg /3 mL (0.083 %) nebulizer solut ion 2019-09-26 00:00:00 Yes Uncomplicated as thma, unspecified asthma severity, unspecified whether persistent 2.5mg Inhale 3 mL by mouth every 4 hours as needed for Wheezing For asthma machine. [facility] atorvastatin (LIPITOR) 10 mg tablet 2019-09-26 00:00:00 Yes Pure hypercholesterolemia 10mg Take 1 tablet by mo uth at bedtime nightly For cholesterol. [facility] amLODIPine (NORVASC) 10 mg tablet 2019-09-26 00:00:00 Yes HTN, goal below 140/80 10mg Take 1 tablet by mouth at bedtime nightly For h ypertension. [facility] fluticasone propionate (FLONASE) 50 mcg/actuation nasal spra y 2019-09-26 00:00:00 Yes Use 2 spra ys in each nostril daily.[employer]os[employer] for NASONEX per [employer] [facility] atorvastatin (LIPITOR) 10 mg tablet 2019-09-26 00:00:0 0 2019-09-26 00:00:00 No Pure hypercholesterolemia 10mg Ta ke 1 tablet by mouth at bedtime nightly For cholesterol. [facility] amLODIPine (NORVASC) 10 mg tablet 2019-09-26 00:00:00 2019 00:00:00 No HTN, goal below 140/80 10mg Take 1 ta blet by mouth at bedtime nightly For hypertension. [facility] albuterol 90 mcg/actuation inhaler 2019-09-26 00:00:00 00:00:00 No Acute bronchitis 2{puff} Inhale 2 Puffs by mouth 4 times daily as needed for Wheezing. [facility] loratadine (CLARITIN) 10 mg tablet 2019-09-26 00:00:00 00:00:00 No Seasonal allergic rhinitis, unspecified trigger 10mg QD Take 1 tablet by mouth daily For allergies. [facility] mometasone (NASONEX) 50 mcg/actuation nasal spray 2019-09-26 00:00:00 2019-09-26 00:00:00 No Seasonal allergic rhinitis, unspecified trigger 2{spray} QD Use 2 sprays in each nostril daily. [facility] triamcinolone (TRIDERM) 0.1 % topical cream 2019 00:00:00 2019-09-26 00:00:00 No Rash Q.5D Apply to affected area 2 times daily. [facility] cyclobenzaprine (FLEXERIL) 10 mg tablet 00:00:00 2019-09-26 00:00:00 No Neck pain 10mg Take 1 tablet by mouth 3 times daily as needed for Muscle Spasms. [facility] albuterol (PROVENTIL) 2.5 mg /3 mL (0.083 %) nebulizer solut ion 2019-09-26 00:00:2019-09-26 00:00:00 No Uncomplicate d asthma, unspecified asthma severity, unspecified whether persistent 2.5mg Inhale 3 mL by mouth every 4 hours as needed for Wheezing For asthma machine. [facility] loratadine (CLARITIN) 10 mg tablet 2019-09-26 00:00:00 202 00:00:00 No Seasonal allergic rhinitis, unspecified trigger 10mg QD Take 1 tablet by mouth daily For allergies. [facility] mometasone (NASONEX) 50 mcg/actuation nasal spray 2019-09-26 00:00:00 2019-09-26 00:00:00 No Seasonal allergic rhinitis, unspecified trigger 2{spray} QD Use 2 sprays in each nostril daily. [facility] triamcinolone (TRIDERM) 0.1 % topical cream 2019 00:00:00 2019-09-26 00:00:00 No Rash Q.5D Apply to affected area 2 times daily. [facility] cyclobenzaprine (FLEXERIL) 10 mg tablet 00:00:00 2019-09-26 00:00:00 No Neck pain 10mg Take 1 tablet by mouth 3 times daily as needed for Muscle Spasms. [facility] albuterol (PROVENTIL) 2.5 mg /3 mL (0.083 %) nebulizer solut ion 2019-09-26 00:00:2019-09-26 00:00:00 No Uncomplicate d asthma, unspecified asthma severity, unspecified whether persistent 2.5mg Inhale 3 mL by mouth every 4 hours as needed for Wheezing For asthma machine. [facility] atorvastatin (LIPITOR) 10 mg tablet 2019-08-22 00:00:0 0 2019-09-26 00:00:00 No Pure hypercholesterolemia 10mg Ta ke 1 tablet by mouth at bedtime nightly For cholesterol. [facility] amLODIPine (NORVASC) 10 mg tablet 2019-08-22 00:00:00 2019 00:00:00 No HTN, goal below 140/80 10mg Take 1 ta blet by mouth at bedtime nightly For hypertension. [facility] albuterol (PROVENTIL) 2.5 mg /3 mL (0.083 %) nebulizer solut ion 2019-08-22 00:00:00 2019-09-26 00:00:00 No Uncomplicate d asthma, unspecified asthma severity, unspecified whether persistent 2.5mg Inhale 3 mL by mouth every 4 hours as needed for Wheezing For asthma machine. [facility] albuterol 90 mcg/actuation inhaler 2019-08-22 00:00:00 00:00:00 No Acute bronchitis 2{puff} Inhale 2 Puffs by mouth 4 times daily as needed for Wheezing. [facility] loratadine (CLARITIN) 10 mg tablet 2019-08-22 00:00:00 00:00:00 No Seasonal allergic rhinitis, unspecified trigger 10mg QD Take 1 tablet by mouth daily For allergies. [facility] mometasone (NASONEX) 50 mcg/actuation nasal spray 2019-08-22 00:00:00 2019-09-26 00:00:00 No Seasonal allergic rhinitis, unspecified trigger 2{spray} QD Use 2 sprays in each nostril daily. [facility] triamcinolone (TRIDERM) 0.1 % topical cream 2019 00:00:00 2019-09-26 00:00:00 No Rash Q.5D Apply to affected area 2 times daily. [facility] cyclobenzaprine (FLEXERIL) 10 mg tablet 00:00:00 2019-09-26 00:00:00 No Neck pain 10mg Take 1 tablet by mouth 3 times daily as needed for Muscle Spasms. [facility] amoxicillin (AMOXIL) 500 mg capsule 2019-08-22 00:00:0 0 2019-09-09 23:59:00 No Cough 500mg Take 1 capsule by mouth 3 times daily fo r 10 days. [facility] atorvastatin (LIPITOR) 10 mg tablet 2019-08-22 00:00:0 0 2019-08-22 00:00:00 No Pure hypercholesterolemia 10mg Ta ke 1 tablet by mouth at bedtime nightly For cholesterol. [facility] amLODIPine (NORVASC) 10 mg tablet 2019-08-22 00:00:00 2019 00:00:00 No HTN, goal below 140/80 10mg Take 1 ta blet by mouth at bedtime nightly For hypertension. [facility] albuterol (PROVENTIL) 2.5 mg /3 mL (0.083 %) nebulizer solut ion 2019-08-22 00:00:00 2019-08-22 00:00:00 No Uncomplicate d asthma, unspecified asthma severity, unspecified whether persistent 2.5mg Inhale 3 mL by mouth every 4 hours as needed for Wheezing For asthma machine. [facility] albuterol 90 mcg/actuation inhaler 2019-08-22 00:00:00 00:00:00 No Acute bronchitis 2{puff} Inhale 2 Puffs by mouth 4 times daily as needed for Wheezing. [facility] loratadine (CLARITIN) 10 mg tablet 2019-08-22 00:00:00 00:00:00 No Seasonal allergic rhinitis, unspecified trigger 10mg QD Take 1 tablet by mouth daily For allergies. [facility] mometasone (NASONEX) 50 mcg/actuation nasal spray 2019-08-22 00:00:00 2019-08-22 00:00:00 No Seasonal allergic rhinitis, unspecified trigger 2{spray} QD Use 2 sprays in each nostril daily. [facility] triamcinolone (TRIDERM) 0.1 % topical cream 2019 00:00:00 2019-08-22 00:00:00 No Rash Q.5D Apply to affected area 2 times daily. [facility] clonazePAM (KLONOPIN) 0.5 mg tablet 2019-08-13 00:00:0 0 2019-09-26 00:00:00 No Anxiety .5mg Take 1 tablet by mouth 2 times daily as needed for Anxiety. [facility] acetaminophen-codeine (TYLENOL/CODEINE #3) 300-30 mg per tab let 2019-08-13 00:00:00 2019-09-26 00:00:00 No Fall with injury, subsequen t encounter 1{tbl} Q.5D Take 1 tablet by mouth 2 times daily For pain. [facility] atorvastatin (LIPITOR) 10 mg tablet 2019-08-13 00:00:0 0 2019-08-22 00:00:00 No Pure hypercholesterolemia 10mg Ta ke 1 tablet by mouth at bedtime nightly For cholesterol. [facility] amLODIPine (NORVASC) 10 mg tablet 2019-08-13 00:00:00 2019 00:00:00 No HTN, goal below 140/80 10mg Take 1 ta blet by mouth at bedtime nightly For hypertension. [facility] albuterol (PROVENTIL) 2.5 mg /3 mL (0.083 %) nebulizer solut ion 2019-08-13 00:00:00 2019-08-22 00:00:00 No Uncomplicate d asthma, unspecified asthma severity, unspecified whether persistent 2.5mg Inhale 3 mL by mouth every 4 hours as needed for Wheezing For asthma machine. [facility] albuterol 90 mcg/actuation inhaler 2019-08-13 00:00:00 00:00:00 No Acute bronchitis 2{puff} Inhale 2 Puffs by mouth 4 times daily as needed for Wheezing. [facility] loratadine (CLARITIN) 10 mg tablet 2019-08-13 00:00:00 00:00:00 No Seasonal allergic rhinitis, unspecified trigger 10mg QD Take 1 tablet by mouth daily For allergies. [facility] mometasone (NASONEX) 50 mcg/actuation nasal spray 2019-08-13 00:00:00 2019-08-22 00:00:00 No Seasonal allergic rhinitis, unspecified trigger 2{spray} QD Use 2 sprays in each nostril daily. [facility] triamcinolone (TRIDERM) 0.1 % topical cream 2019 00:00:00 2019-08-22 00:00:00 No Rash Q.5D Apply to affected area 2 times daily. [facility] clonazePAM (KLONOPIN) 0.5 mg tablet 2019-08-13 00:00:0 0 2019-08-13 00:00:00 No Anxiety .5mg Take 1 tablet by mouth 2 times daily as needed for Anxiety. [facility] acetaminophen-codeine (TYLENOL/CODEINE #3) 300-30 mg per tab let 2019-08-13 00:00:00 2019-08-13 00:00:00 No Fall with injury, subsequen t encounter 1{tbl} Q.5D Take 1 tablet by mouth 2 times daily For pain. [facility] escitalopram (LEXAPRO) 10 mg tablet 2019-08-05 00:00:00 Yes Anxiety Take half of a tablet by mouth daily for 4 days and then take 1 tablet daily. [facility] clonazePAM (KLONOPIN) 0.5 mg tablet 2019-08-05 00:00:0 0 2019-08-13 00:00:00 No Anxiety .5mg Take 1 tablet by mouth 2 times daily as needed for Anxiety. [facility] cyclobenzaprine (FLEXERIL) 10 mg tablet 00:00:00 2019-08-22 00:00:00 No Neck pain 10mg Take 1 tablet by mouth 3 times daily as needed for Muscle Spasms. [facility] acetaminophen-codeine (TYLENOL/CODEINE #3) 300-30 mg per tab let 2019-07-05 00:00:00 2019-08-13 00:00:00 No Fall with injury, subsequen t encounter 1{tbl} Q.5D Take 1 tablet by mouth 2 times daily For pain. [facility] clonazePAM (KLONOPIN) 0.5 mg tablet 2019-07-05 00:00:0 0 2019-08-05 00:00:00 No Anxiety .5mg Take 1 tablet b y mouth 2 times daily as needed for Anxiety. One time only refill until seen by PCP or psychiatry. FINAL NOTICE. [facility] Nebulizer & Compressor For Neb Brianna 2019-06-14 00:00:00 Yes Uncomplicated asthma, unspecified asthma severity, unspecified whether persistent by Misc.(Non-Drug; Combo Route) route. [facility] mupirocin calcium (BACTROBAN) 2 % topical cream 2019-06-14 0 0:00:00 Yes Skin infection Apply to affected area 3 times daily For sebastián ils. [facility] albuterol 90 mcg/actuation inhaler 2019-06-14 00:00:00 202 00:00:00 No Acute bronchitis 2{puff} Inhale 2 Puffs by mouth 4 times daily as needed for Wheezing. [facility] albuterol (PROVENTIL) 2.5 mg /3 mL (0.083 %) nebulizer solut ion 2019-06-14 00:00:00 2019-08-13 00:00:00 No Uncomplicate d asthma, unspecified asthma severity, unspecified whether persistent 2.5mg Inhale 3 mL by mouth every 4 hours as needed for Wheezing For asthma machine. [facility] albuterol 90 mcg/actuation inhaler 2019-06-14 00:00:00 202 00:00:00 No Acute bronchitis 2{puff} Inhale 2 Puffs by mouth 4 times daily as needed for Wheezing. [facility] albuterol (PROVENTIL) 2.5 mg /3 mL (0.083 %) nebulizer solut ion 2019-06-14 00:00:00 2019-06-14 00:00:00 No Uncomplicate d asthma, unspecified asthma severity, unspecified whether persistent 2.5mg Inhale 3 mL by mouth every 4 hours as needed for Wheezing For asthma machine. [facility] Nebulizer & Compressor For Neb Brianna 2019-06-14 00:00:0 0 2019-06-14 00:00:00 No Uncomplicated asthma, unspec ified asthma severity, unspecified whether persistent by Misc.(Non-Drug; Combo Route) route. [facility] albuterol (PROVENTIL) 2.5 mg /3 mL (0.083 %) nebulizer solut ion 2019-06-12 00:00:00 2019-06-12 23:59:00 No Uncomplicate d asthma, unspecified asthma severity, unspecified whether persistent 2.5mg Inhale 3 mL by mouth once for 1 dose. [facility] loperamide (IMODIUM) 2 mg capsule 2019 00:00:00 Yes Diarrhea, unspecified type 2mg Take 1 capsule by [facility] 4 times daily as needed for Diarrhea. [facility] loratadine (CLARITIN) 10 mg tablet 2019 00:00:00 00:00:00 No Seasonal allergic rhinitis, unspecified trigger 10mg QD Take 1 tablet by mouth daily For allergies. [facility] mometasone (NASONEX) 50 mcg/actuation nasal spray 2019 00:00:00 2019-08-13 00:00:00 No Seasonal allergic rhinitis, unspecified trigger 2{spray} QD Use 2 sprays in each nostril daily. [facility] atorvastatin (LIPITOR) 10 mg tablet 2019 00:00:0 0 2019-08-13 00:00:00 No Pure hypercholesterolemia 10mg Ta ke 1 tablet by mouth at bedtime nightly For cholesterol. [facility] clonazePAM (KLONOPIN) 0.5 mg tablet 2019 00:00:0 0 2019-07-05 00:00:00 No Anxiety .5mg Take 1 tablet b y mouth 2 times daily as needed for Anxiety. One time only refill until seen by PCP or psychiatry. FINAL NOTICE. [facility] acetaminophen-codeine (TYLENOL/CODEINE #3) 300-30 mg per tab let 2019 00:00:00 2019-07-05 00:00:00 No Fall with injury, subsequen t encounter 1{tbl} Q.5D Take 1 tablet by mouth 2 times daily For pain. [facility] albuterol 90 mcg/actuation inhaler 2019 00:00:00 202 00:00:00 No Acute bronchitis 2{puff} Inhale 2 Puffs by mouth 4 times daily as needed for Wheezing. [facility] clonazePAM (KLONOPIN) 0.5 mg tablet 2019-05-25 00:00:0 0 2019 00:00:00 No Anxiety .5mg Take 1 tablet b y mouth 2 times daily as needed for Anxiety. One time only refill until seen by PCP or psychiatry. FINAL NOTICE. [facility] acetaminophen-codeine (TYLENOL/CODEINE #3) 300-30 mg per tab let 2019-05-25 00:00:00 2019 00:00:00 No Fall with injury, subsequen t encounter 1{tbl} Q.5D Take 1 tablet by mouth 2 times daily For pain. [facility] gabapentin (NEURONTIN) 100 mg capsule 2019-03-29 00:00:00 Yes Fall with injury, subsequent encounter 100mg Take 1 caps ule by mouth at bedtime nightly For nerve pain. [facility] ergocalciferol (VITAMIN D2) 1,250 mcg (50,000 unit) capsule 2019-03-29 00:00:00 Yes Vitamin D deficiency 91487L Take 1 capsule by mouth weekly For 3 months and then buy vitamin D3: 2000 units and take 1 tablet/day. [facility] amLODIPine (NORVASC) 10 mg tablet 2019-03-29 00:00:00 2019 00:00:00 No HTN, goal below 140/80 10mg Take 1 ta blet by mouth at bedtime nightly For hypertension. [facility] atorvastatin (LIPITOR) 10 mg tablet 2019-03-29 00:00:0 0 2019 00:00:00 No Pure hypercholesterolemia 10mg Ta ke 1 tablet by mouth at bedtime nightly For cholesterol. [facility] albuterol 90 mcg/actuation inhaler 2019-03-29 00:00:00 202 00:00:00 No Acute bronchitis 2{puff} Inhale 2 Puffs by mouth 4 times daily as needed for Wheezing. [facility] clonazePAM (KLONOPIN) 0.5 mg tablet 2019-03-29 00:00:0 0 2019-05-25 00:00:00 No Anxiety .5mg Take 1 tablet b y mouth 2 times daily as needed for Anxiety. One time only refill until seen by PCP or psychiatry. FINAL NOTICE. [facility] acetaminophen-codeine (TYLENOL/CODEINE #3) 300-30 mg per tab let 2019-03-29 00:00:00 2019-05-25 00:00:00 No Fall with injury, subsequen t encounter 1{tbl} Q.5D Take 1 tablet by mouth 2 times daily For pain. [facility] atorvastatin (LIPITOR) 10 mg tablet 2019-03-08 00:00:0 0 2019-03-29 00:00:00 No Muscle cramping 10mg Take 1 tablet by mouth at bedtim e nightly. [facility] gabapentin (NEURONTIN) 100 mg capsule 2019-03-08 00:00 :00 2019-03-29 00:00:00 No Fall with injury, subsequent encounter 100mg Take 1 capsule by mouth at bedtime nightly. [facility] LORazepam (ATIVAN) 0.5 mg tablet 2019-03-08 00:00:00 2019-02 23:59:00 No Claustrophobia .5mg Take 1 tablet by josi th once as needed for up to 1 dose for Anxiety (30 minutes before MRI) ONLY IF NEEDED FOR MRI CLAUTROPHOBIA - FEB 2019. [facility] acetaminophen-codeine (TYLENOL/CODEINE #3) 300-30 mg per tab let 2019-01-31 00:00:00 2019-03-08 00:00:00 No Tooth pain 1{tbl} Take 1 tablet by mouth 3 times daily as needed for Pain DECLINED - outside prescriber. [facility] clonazePAM (KLONOPIN) 0.5 mg tablet 2019-01-31 00:00:0 0 2019-03-08 00:00:00 No Anxiety .5mg Take 1 tablet by mouth 2 times daily as needed for Anxiety. [facility] cyclobenzaprine (FLEXERIL) 10 mg tablet 00:00:00 2019-07-05 00:00:00 No 10mg Take 1 tablet by mouth 3 times daily as needed for Muscle Spasms. [facility] amLODIPine (NORVASC) 10 mg tablet 2019-01-29 00:00:00 2019 00:00:00 No HTN, goal below 140/80 10mg Take 1 tablet by mouth at b edtime nightly [facility] amoxicillin (AMOXIL) 500 mg capsule 2019-01-29 00:00:0 0 2019-02-09 23:59:00 No Pain due to dental caries 500mg Ta ke 1 capsule by mouth 3 times daily for 10 days. [facility] acetaminophen-codeine (TYLENOL/CODEINE #3) 300-30 mg per tab let 2019-01-10 00:00:00 2019-01-31 00:00:00 No Injury of right wrist , subsequent encounter 1{tbl} Take 1 tablet by mouth 3 mikayla es daily as needed for Pain DECLINED - outside prescriber. [facility] albuterol 90 mcg/actuation inhaler 2018-12-19 00:00:00 00:00:00 No Acute bronchitis 2{puff} Inhale 2 Puffs by mouth 4 times daily as needed for Wheezing. [facility] triamcinolone acetonide (KENALOG-40) injection 20 mg 2018-11-27 12:30:00 2018-11-27 12:32:00 No Contusion of rib on right si de, subsequent encounter 20mg [facility] naproxen (NAPROSYN) 500 mg tablet 2018-11-27 00:00:00 2019 00:00:00 No Fall with injury, subsequent encounter 500mg Take 1 tablet by mouth 2 times daily (with meals). [facility] albuterol 90 mcg/actuation inhaler 2018-11-27 00:00:00 201 10-31-27 00:00:00 No Acute bronchitis 2{puff} Inhale 2 Puffs by mouth 4 times daily as needed for Wheezing. [facility] amoxicillin-clavulanate (AUGMENTIN) 875-125 mg per tablet 2018-11-27 00:00:00 2018-12-13 23:59:00 No SOB (shortness of breath) 1{tbl} Q .5D Take 1 tablet by mouth 2 times daily for 10 days. [facility] methylPREDNISolone (MEDROL, KELLEY,) 4 mg dose pack 2018-11-27 00:00:00 2018-12-09 23:59:00 No Contusion of rib on right side, justin bsequent encounter Follow directions from dose pack and/or instructions from . [facility] polyethylene glycol 3350 (GLYCOLAX) 17 gram oral powder pack et 2018-11-27 00:00:00 2018-11-30 23:59:00 No Constipation, unspecified c onstipation type Mix 17 grams into 4 to 8 ounces of water , juice, soda, tea or coffee and drink as directed. [facility] clonazePAM (KLONOPIN) 0.5 mg tablet 2018-10-05 00:00:0 0 2019-01-31 00:00:00 No Anxiety .5mg Take 1 tablet b y mouth 2 times daily as needed for Anxiety. One time only refill until seen by PCP or psychiatry. FINAL NOTICE. [facility] acetaminophen-codeine (TYLENOL/CODEINE #3) 300-30 mg per tab let 2018-09-26 00:00:00 2019-01-10 00:00:00 No Injury of right wrist , subsequent encounter 1{tbl} Take 1 tablet by mouth 3 times daily as needed for Catracho n. [facility] ergocalciferol (VITAMIN D2) 1,250 mcg (50,000 unit) capsule 2018-09-06 00:00:00 2019-03-29 00:00:00 No Vitamin D deficiency [id number] Take 1 capsule by mouth weekly For 3 months and then buy vitamin D3: 2000 units and take 1 tablet/day. [facility] amLODIPine (NORVASC) 10 mg tablet 2018-09-06 00:00:00 2018 00:00:00 No HTN, goal below 140/80 10mg Take 1 tablet by mouth at b edtime nightly [facility] meclizine (ANTIVERT) 25 mg Tab 2018-07-30 00:00:00 7 00:00:00 No Dizziness 25mg Take 1 tablet by mouth 3 times daily as n eeded (dizziness). [facility] mometasone (NASONEX) 50 mcg/actuation nasal spray 2018-07-24 00:00:00 Yes Seasonal allergic rhinitis, unspecified trigger 1{spray} QD 1 [place] by each nostril route daily. [facility] albuterol 90 mcg/actuation inhaler 2018-04-03 00:00:00 201 10-31-07 00:00:00 No Acute bronchitis 2{puff} Inhale 2 Puffs by mouth 4 times daily as needed for Wheezing. [facility] Immunizations Ordered Immunization Name Filled Immunization Name Date Status Comments Source Influenza, Injectable, Quadrivalent 2019-01-29 00:00:00 Co mpleted [facility] Influenza Vaccine 2014-03-21 00:00:00 Completed [facility] Influenza Vaccine 2012-02-03 00:00:00 Completed [facility] Tdap Tetanus, diphtheria, acellular pertussis Vaccine 2012-02-03 00:00:00 [facility] Vital Signs Vital Name Observation Time Observation Value Comments Source Weight 2019-11-08 05:28:00 146 [lb_av] [facility] BMI (Body Mass Index) 2019-11-08 05:28:00 29.5 kg/m2 [facility] Body height 2019-09-26 14:45:00 149.9 cm [facility] Body Temperature 2019-07-17 05:54:00 98.0 [degF] [facility] Weight 2019-07-17 04:29:00 146 [lb_av] [facility] BMI (Body Mass Index) 2019-07-17 04:29:00 29.5 kg/m2 [facility] Systolic blood pressure 2019-03-29 15:45:00 132 mm[Hg] [facility] Diastolic blood pressure 2019-03-29 15:45:00 91 mm[Hg] [facility] Heart rate 2019-03-29 15:45:00 83 /min [facility] Body temperature 2019-03-29 15:45:00 36.83 Priscila Delio [facility] Respiratory rate 2019-03-29 15:45:00 18 /min Delio is [facility] Body weight 2019-03-29 15:45:00 67.042 kg [facility] BMI 2019-03-29 15:45:00 29.85 kg/m2 [facility] Procedures Procedure Date / Time Performed Performing Clinician Иван kelley HEMOGLOBIN A1C 2019-04-01 16:03:00 Simon Oleary [facility] LIPID PROFILE 2019-04-01 16:03:00 Simon Oleary [facility] COMPREHENSIVE METABOLIC PANEL 2019-04-01 16:03:00 Armando Oleary [facility] CBC/DIFF 2019-04-01 16:03:00 Simon Oleary [facility] IRON PROFILE 2019-04-01 16:03:00 Simon Oleary [facility] CBC 2019-04-01 16:03:00 Simon Oleary [facility] DIFFERENTIAL, MANUAL (NO MORPHOLOGY)-WAM 2019-04-01 16:03:00 [facility] Simon espinoza [facility] CK, TOTAL 2019-04-01 16:02:00 Simon Oleary [facility] THYROID STIMULATING HORMONE (TSH) 2019-04-01 16:02:00 Brenda Solis [facility] URINALYSIS 2019-04-01 16:02:00 Brenda Solis eah LIMA 2019-04-01 16:02:00 Brenda Solis [facility] unique RA FACTOR 2019-04-01 16:02:00 Brenda Solis [facility] unique SED RATE 2019-04-01 16:02:00 Brenda Solis [facility] 2019-04-01 16:02:00 Brenda Solis [facility] XRAY SHOULDER 2 VIEWS MIN 2019-03-08 14:19:20 Simon Oleary [facility] FECAL OCCULT BLOOD 2019-02-06 10:48:00 Simon Oleary [facility] LIPID PROFILE 2019-02-05 13:07:00 Simon Oleary [facility] COMPREHENSIVE METABOLIC PANEL 2019-02-05 13:07:00 Armando Oleary [facility] HEMOGLOBIN A1C 2019-02-05 13:07:00 Simon Oleary [facility] HEMOCCULT KIT FOR SPECIMEN COLLECTION AT HOME 2019-02-05 12: 09:42 Simon Oleary [facility] MAMMOGRAM BILAT SCREEN DIGITAL 2019-02-05 11:15:01 Pema Garcia [facility] XRAY SPINE LUMBOSACRAL AP-LAT 2019-01-02 15:39:16 Armando Oleary [facility] XRAY SPINE SACRUM - COCCYX 2 VWS MIN 2019-01-02 15:39:16 Simon Oleary [facility] XRAY SPINE CER 2-3 AP- LAT- ODONTOID 2019-01-02 15:39:16 OlearySimon thornton [facility] HEMOCCULT KIT FOR SPECIMEN COLLECTION AT HOME 2019-01-01 16: 10:03 Oleary, [facility] XRAY CHEST 2 VIEWS 2018-11-27 09:58:36 Anirudh [facility] XRAY RIBS UNILATERAL 2 VIEWS 2018-11-27 09:58:36 Oleary [facility] COMPREHENSIVE METABOLIC PANEL 2018-11-27 09:10:[address] [facility] LIPID PROFILE 2018-11-27 09:10:00 Oleary, [facility] HEMOGLOBIN A1C 2018-11-27 09:10:00 OlearySimon thornton [facility] CBC/DIFF 2018-11-27 09:10:00 [place] [facility] CBC 2018-11-27 09:10:00 Oleary [facility] Plan of Care Planned Activity Planned Date Details Comments Source Future Scheduled Test 2020-02-07 00:00:00 Screening for geovanna gnant neoplasm of colon (procedure) [code = [id number]] [facility] Future Scheduled Test 2020-02-06 00:00:00 Breast Cancer Scrn (Yearly) [code = Breast Cancer Scrn (Yearly)] [facility] Instructions Alcohol Abuse [facility] Instructions Alcohol Intoxication [facility] Instructions Chest Pain - Chest Wall [facility] Encounters Start Date/Time End Date/Time Encounter Type Admission Type [email or web address] Care Department Encounter ID Source 2019-11-08 05:52:00 2019-11-08 08:30:00 Departed Emergency Room 1 MISTI WILLAMS [facility] [id number] [facility] 2019-07-17 04:25:00 2019-07-17 06:15:00 Departed Emergency Room 1 ALEJANDRO GARZA [facility] [id number] [facility] 2018-02-23 00:00:00 2018-02-23 00:00:00 Outpatient [facility] [id number] [facility] 2018-01-31 00:00:00 2018-01-31 00:00:00 Outpatient [facility] [id number] [facility] 2018-01-09 00:00:00 2018-01-09 00:00:00 Outpatient [facility] [id number] [facility] 2018-01-03 00:00:00 2018-01-03 00:00:00 Outpatient [facility] [id number] [facility] 2018-01-03 00:00:00 2018-01-03 00:00:00 Outpatient [facility] [id number] [facility] 2018-01-01 00:00:00 2018-01-01 00:00:00 Outpatient [facility] [id number] [facility] 2017-12-22 00:00:00 2017-12-22 00:00:00 Outpatient [facility] [id number] [facility] 2017-12-22 00:00:00 2017-12-22 00:00:00 Outpatient [facility] [id number] [facility] 2017-12-22 00:00:00 2017-12-22 00:00:00 Outpatient [facility] [id number] [facility] 2017-12-21 00:00:00 2017-12-21 00:00:00 Outpatient [facility] [id number] [facility] 2017-12-21 00:00:00 2017-12-21 00:00:00 Outpatient [facility] [id number] [facility] 2017-12-18 00:00:00 2017-12-18 00:00:00 Outpatient [facility] [id number] [facility] 2017-12-18 00:00:00 2017-12-18 00:00:00 Outpatient [facility] [id number] [facility] 2017-12-15 00:00:00 2017-12-15 00:00:00 Outpatient [facility] [id number] [facility] 2017-12-13 14:35:35 2017-12-13 14:35:35 Outpatient [facility] [id number] [facility] 2017-12-13 00:00:00 2017-12-13 00:00:00 Outpatient [facility] [id number] [facility] 2017-12-13 00:00:00 2017-12-13 00:00:00 Outpatient [facility] [id number] [facility] 2017-12-13 00:00:00 2017-12-13 00:00:00 Outpatient [facility] [id number] [facility] 2017-12-08 00:00:00 2017-12-08 00:00:00 Outpatient [facility] [id number] [facility] 2017-12-08 00:00:00 2017-12-08 00:00:00 Outpatient [facility] [id number] [facility] 2017-12-08 00:00:00 2017-12-08 00:00:00 Outpatient [facility] [id number] [facility] 2017-12-07 00:00:00 2017-12-07 00:00:00 Outpatient [facility] [id number] [facility] 2017-12-05 00:00:00 2017-12-05 00:00:00 Outpatient [facility] [id number] [facility] 2017-11-29 00:00:00 2017-11-29 00:00:00 Outpatient [facility] [id number] [facility] 2017-11-28 00:00:00 2017-11-28 00:00:00 Outpatient [facility] [id number] [facility] 2017-11-23 00:00:00 2017-11-23 00:00:00 Outpatient [facility] [id number] [facility] 2017-11-23 00:00:00 2017-11-23 00:00:00 Outpatient [facility] [id number] [facility] 2017-11-14 00:00:00 2017-11-14 00:00:00 Outpatient [facility] [id number] [facility] 2017-11-14 00:00:00 2017-11-14 00:00:00 Outpatient [facility] [id number] [facility] 2017-11-10 00:00:00 2017-11-10 00:00:00 Outpatient [facility] [id number] [facility] 2017-11-07 00:00:00 2017-11-07 00:00:00 Outpatient [facility] [id number] [facility] 2017-11-07 00:00:00 2017-11-07 00:00:00 Outpatient [facility] [id number] [facility] 2017-11-06 00:00:00 2017-11-06 00:00:00 Outpatient [facility] [id number] [facility] 2017-11-06 00:00:00 2017-11-06 00:00:00 Outpatient [facility] [id number] [facility] 2017-11-02 00:00:00 2017-11-02 00:00:00 Outpatient [facility] [id number] [facility] 2017-11-01 00:00:00 2017-11-01 00:00:00 Outpatient [facility] [id number] [facility] 2017-10-30 00:00:00 2017-10-30 00:00:00 Outpatient [facility] [id number] [facility] 2017-10-26 00:00:00 2017-10-26 00:00:00 Outpatient [facility] [id number] [facility] 2017-10-17 00:00:00 2017-10-17 00:00:00 Outpatient [facility] [id number] [facility] 2017-10-16 00:00:00 2017-10-16 00:00:00 Outpatient [facility] [id number] [facility] 2017-10-13 00:00:00 2017-10-13 00:00:00 Outpatient [facility] [id number] [facility] 2017-10-11 00:00:00 2017-10-11 00:00:00 Outpatient [facility] [id number] [facility] 2017-10-11 00:00:00 2017-10-11 00:00:00 Outpatient [facility] [id number] [facility] 2017-10-10 00:00:00 2017-10-10 00:00:00 Outpatient [facility] [id number] [facility] 2017-10-05 00:00:00 2017-10-05 00:00:00 Outpatient [facility] [id number] [facility] 2017-10-02 00:00:00 2017-10-02 00:00:00 Outpatient [facility] [id number] [facility] 2017-10-02 00:00:00 2017-10-02 00:00:00 Outpatient [facility] [id number] [facility] 2017-09-29 13:33:06 2017-09-29 13:33:06 Outpatient [facility] [id number] [facility] 2017-09-29 13:14:06 2017-09-29 13:14:06 Outpatient [facility] [id number] [facility] 2017-09-29 00:00:00 2017-09-29 00:00:00 Outpatient [facility] [id number] [facility] 2017-09-29 00:00:00 2017-09-29 00:00:00 Outpatient [facility] [id number] [facility] 2017-09-28 15:04:34 2017-09-28 15:04:34 Outpatient [facility] [id number] [facility] 2017-09-27 00:00:00 2017-09-27 00:00:00 Outpatient [facility] [id number] [facility] 2017-09-25 00:00:00 2017-09-25 00:00:00 Outpatient [facility] [id number] [facility] 2017-09-22 00:00:00 2017-09-22 00:00:00 Outpatient [facility] [id number] [facility] 2017-09-18 00:00:00 2017-09-18 00:00:00 Outpatient [facility] [id number] [facility] 2017-09-18 00:00:00 2017-09-18 00:00:00 Outpatient [facility] [id number] [facility] 2017-09-15 13:56:35 2017-09-15 13:56:35 Outpatient [facility] [id number] [facility] 2017-09-14 00:00:00 2017-09-14 00:00:00 Outpatient [facility] [id number] [facility] 2017-08-31 00:00:00 2017-08-31 00:00:00 Outpatient [facility] [id number] [facility] 2017-08-31 00:00:00 2017-08-31 00:00:00 Outpatient [facility] [id number] [facility] 2017-08-31 00:00:00 2017-08-31 00:00:00 Outpatient [facility] [id number] [facility] 2017-08-29 00:00:00 2017-08-29 00:00:00 Outpatient [facility] [id number] [facility] 2017-08-24 00:00:00 2017-08-24 00:00:00 Outpatient [facility] [id number] [facility] 2017-08-24 00:00:00 2017-08-24 00:00:00 Outpatient [facility] [id number] [facility] 2017-08-22 00:00:00 2017-08-22 00:00:00 Outpatient [facility] [id number] [facility] 2017-08-21 00:00:00 2017-08-21 00:00:00 Outpatient [facility] [id number] [facility] 2017-08-21 00:00:00 2017-08-21 00:00:00 Outpatient [facility] [id number] [facility] 2017-08-21 00:00:00 2017-08-21 00:00:00 Outpatient [facility] [id number] [facility] 2017-08-17 00:00:00 2017-08-17 00:00:00 Outpatient [facility] [id number] [facility] 2017-08-15 00:00:00 2017-08-15 00:00:00 Outpatient [facility] [id number] [facility] 2017-08-14 00:00:00 2017-08-14 00:00:00 Outpatient [facility] [id number] [facility] 2017-08-14 00:00:00 2017-08-14 00:00:00 Outpatient [facility] [id number] [facility] 2017-08-11 15:17:19 2017-08-11 15:17:19 Outpatient [facility] [id number] [facility] 2017-08-11 00:00:00 2017-08-11 00:00:00 Outpatient [facility] [id number] [facility] 2017-08-10 00:00:00 2017-08-10 00:00:00 Outpatient [facility] [id number] [facility] 2017-08-09 00:00:00 2017-08-09 00:00:00 Outpatient [facility] [id number] [facility] 2017-07-26 00:00:00 2017-07-26 00:00:00 Outpatient [facility] [id number] [facility] 2017-07-21 00:00:00 2017-07-21 00:00:00 Outpatient [facility] [id number] [facility] 2017-07-21 00:00:00 2017-07-21 00:00:00 Outpatient [facility] [id number] [facility] 2017-07-21 00:00:00 2017-07-21 00:00:00 Outpatient [facility] [id number] [facility] 2017-07-20 00:00:00 2017-07-20 00:00:00 Outpatient [facility] [id number] [facility] 2017-07-20 00:00:00 2017-07-20 00:00:00 Outpatient [facility] [id number] [facility] 2017-07-20 00:00:00 2017-07-20 00:00:00 Outpatient [facility] [id number] [facility] 2017-07-18 00:00:00 2017-07-18 00:00:00 Outpatient [facility] [id number] [facility] 2017-07-18 00:00:00 2017-07-18 00:00:00 Outpatient [facility] [id number] [facility] 2017-07-14 00:00:00 2017-07-14 00:00:00 Outpatient [facility] [id number] [facility] 2017-07-14 00:00:00 2017-07-14 00:00:00 Outpatient [facility] [id number] [facility] 2017-07-14 00:00:00 2017-07-14 00:00:00 Outpatient [facility] [id number] [facility] 2017-07-14 00:00:00 2017-07-14 00:00:00 Outpatient [facility] [id number] [facility] 2017-07-13 00:00:00 2017-07-13 00:00:00 Outpatient [facility] [id number] [facility] 2017-07-13 00:00:00 2017-07-13 00:00:00 Outpatient [facility] [id number] [facility] 2017-07-11 15:12:07 2017-07-11 15:12:07 Outpatient [facility] [id number] [facility] 2017-07-07 00:00:00 2017-07-07 00:00:00 Outpatient [facility] [id number] [facility] 2017-07-07 00:00:00 2017-07-07 00:00:00 Outpatient [facility] [id number] [facility] 2017-07-06 00:00:00 2017-07-06 00:00:00 Outpatient [facility] [id number] [facility] 2017-06-29 00:00:00 2017-06-29 00:00:00 Outpatient [facility] [id number] [facility] 2017-06-29 00:00:00 2017-06-29 00:00:00 Outpatient [facility] [id number] [facility] 2017-06-28 00:00:00 2017-06-28 00:00:00 Outpatient [facility] [id number] [facility] 2017-06-21 00:00:00 2017-06-21 00:00:00 Outpatient [facility] [id number] [facility] 2017-06-19 00:00:00 2017-06-19 00:00:00 Outpatient [facility] [id number] [facility] 2017-06-09 00:00:00 2017-06-09 00:00:00 Outpatient [facility] [id number] [facility] 2017-06-06 00:00:00 2017-06-06 00:00:00 Outpatient [facility] [id number] [facility] 2017-06-06 00:00:00 2017-06-06 00:00:00 Outpatient [facility] [id number] [facility] 2017-06-01 00:00:00 2017-06-01 00:00:00 Outpatient [facility] [id number] [facility] 2017-05-31 00:00:00 2017-05-31 00:00:00 Outpatient [facility] [id number] [facility] 2017-05-25 00:00:00 2017-05-25 00:00:00 Outpatient [facility] [id number] [facility] 2017-05-15 00:00:00 2017-05-15 00:00:00 Outpatient [facility] [id number] [facility] 2017-05-08 00:00:00 2017-05-08 00:00:00 Outpatient [facility] [id number] [facility] 2017-05-01 00:00:00 2017-05-01 00:00:00 Outpatient [facility] [id number] [facility] 2017-04-19 00:00:00 2017-04-19 00:00:00 Outpatient [facility] [id number] [facility] 2017-04-06 00:00:00 2017-04-06 00:00:00 Outpatient [facility] [id number] [facility] 2017-04-05 00:00:00 2017-04-05 00:00:00 Outpatient [facility] [id number] [facility] 2017-03-21 15:36:50 2017-03-21 15:36:50 Outpatient [facility] [id number] [facility] 2017-03-21 00:00:00 2017-03-21 00:00:00 Outpatient [facility] [id number] [facility] 2017-03-17 00:00:00 2017-03-17 00:00:00 Outpatient [facility] [id number] [facility] 2017-03-13 00:00:00 2017-03-13 00:00:00 Outpatient [facility] [id number] [facility] 2017-03-09 00:00:00 2017-03-09 00:00:00 Outpatient [facility] [id number] [facility] 2017-03-09 00:00:00 2017-03-09 00:00:00 Outpatient [facility] [id number] [facility] 2017-03-08 00:00:00 2017-03-08 00:00:00 Outpatient [facility] [id number] [facility] 2017-03-08 00:00:00 2017-03-08 00:00:00 Outpatient [facility] [id number] [facility] 2017-03-01 00:00:00 2017-03-01 00:00:00 Outpatient [facility] [id number] [facility] 2017-02-23 00:00:00 2017-02-23 00:00:00 Outpatient [facility] [id number] [facility] 2017-02-15 13:58:14 2017-02-15 13:58:14 Outpatient [facility] [id number] [facility] 2017-02-15 13:54:35 2017-02-15 13:54:35 Outpatient [facility] [id number] [facility] 2017-02-15 00:00:00 2017-02-15 00:00:00 Outpatient [facility] [id number] [facility] 2017-02-15 00:00:00 2017-02-15 00:00:00 Outpatient [facility] [id number] [facility] 2017-02-14 15:08:46 2017-02-14 15:08:46 Outpatient [facility] [id number] [facility] 2017-02-06 00:00:00 2017-02-06 00:00:00 Outpatient [facility] [id number] [facility] 2017-02-04 12:24:04 2017-02-04 12:24:04 Outpatient [facility] [id number] [facility] 2017-01-25 00:00:00 2017-01-25 00:00:00 Outpatient [facility] [id number] [facility] 2017-01-23 00:00:00 2017-01-23 00:00:00 Outpatient [facility] [id number] [facility] 2017-01-23 00:00:00 2017-01-23 00:00:00 Outpatient [facility] [id number] [facility] 2017-01-19 00:00:00 2017-01-19 00:00:00 Outpatient [facility] [id number] [facility] 2017-01-19 00:00:00 2017-01-19 00:00:00 Outpatient [facility] [id number] [facility] 2017-01-19 00:00:00 2017-01-19 00:00:00 Outpatient [facility] [id number] [facility] 2017-01-19 00:00:00 2017-01-19 00:00:00 Outpatient [facility] [id number] [facility] 2017-01-18 16:11:14 2017-01-18 16:11:14 Outpatient [facility] [id number] [facility] 2017-01-18 00:00:00 2017-01-18 00:00:00 Outpatient [facility] [id number] [facility] 2017-01-17 00:00:00 2017-01-17 00:00:00 Outpatient [facility] [id number] [facility] 2017-01-16 15:27:30 2017-01-16 15:27:30 Outpatient [facility] [id number] [facility] 2017-01-09 00:00:00 2017-01-09 00:00:00 Outpatient [facility] [id number] [facility] 2017-01-06 00:00:00 2017-01-06 00:00:00 Outpatient [facility] [id number] [facility] 2017-01-03 00:00:00 2017-01-03 00:00:00 Outpatient [facility] [id number] [facility] 2017-01-01 00:00:00 2017-01-01 00:00:00 Outpatient [facility] [id number] [facility] 2017-01-01 00:00:00 2017-01-01 00:00:00 Outpatient [facility] [id number] [facility] 2016-12-30 00:00:00 2016-12-30 00:00:00 Outpatient [facility] [id number] [facility] 2016-12-30 00:00:00 2016-12-30 00:00:00 Outpatient [facility] [id number] [facility] 2016-12-29 00:00:00 2016-12-29 00:00:00 Outpatient [facility] [id number] [facility] 2016-12-28 00:00:00 2016-12-28 00:00:00 Outpatient [facility] [id number] [facility] 2016-12-28 00:00:00 2016-12-28 00:00:00 Outpatient [facility] [id number] [facility] 2016-12-26 00:00:00 2016-12-26 00:00:00 Outpatient [facility] [id number] [facility] 2016-12-23 12:50:55 2016-12-23 12:50:55 Outpatient [facility] [id number] [facility] 2016-12-16 00:00:00 2016-12-16 00:00:00 Outpatient [facility] [id number] [facility] 2016-12-16 00:00:00 2016-12-16 00:00:00 Outpatient [facility] [id number] [facility] 2016-12-16 00:00:00 2016-12-16 00:00:00 Outpatient [facility] [id number] [facility] 2016-12-14 15:35:36 2016-12-14 15:35:36 Outpatient [facility] [id number] [facility] 2016-12-08 00:00:00 2016-12-08 00:00:00 Outpatient [facility] [id number] [facility] 2016-12-03 00:00:00 2016-12-03 00:00:00 Outpatient [facility] [id number] [facility] 2016-12-02 00:00:00 2016-12-02 00:00:00 Outpatient [facility] [id number] [facility] 2016-12-02 00:00:00 2016-12-02 00:00:00 Outpatient [facility] [id number] [facility] 2016-12-02 00:00:00 2016-12-02 00:00:00 Outpatient [facility] [id number] [facility] 2016-12-02 00:00:00 2016-12-02 00:00:00 Outpatient [facility] [id number] [facility] 2016-12-01 00:00:00 2016-12-01 00:00:00 Outpatient [facility] [id number] [facility] 2016-11-28 00:00:00 2016-11-28 00:00:00 Outpatient [facility] [id number] [facility] 2016-11-25 00:00:00 2016-11-25 00:00:00 Outpatient [facility] [id number] [facility] 2016-11-22 00:00:00 2016-11-22 00:00:00 Outpatient [facility] [id number] [facility] 2016-11-18 00:00:00 2016-11-18 00:00:00 Outpatient [facility] [id number] [facility] 2016-11-17 13:31:22 2016-11-17 13:31:22 Outpatient [facility] [id number] [facility] 2016-11-17 10:37:52 2016-11-17 10:37:52 Outpatient [facility] [id number] [facility] 2016-11-17 08:38:41 2016-11-17 08:38:41 Outpatient [facility] [id number] [facility] 2016-11-17 00:00:00 2016-11-17 00:00:00 Outpatient [facility] [id number] [facility] 2016-11-17 00:00:00 2016-11-17 00:00:00 Outpatient [facility] [id number] [facility] 2016-11-15 00:00:00 2016-11-15 00:00:00 Outpatient [facility] [id number] [facility] 2016-11-14 17:35:27 2016-11-14 17:35:27 Outpatient [facility] [id number] [facility] 2016-11-14 12:51:10 2016-11-14 12:51:10 Outpatient [facility] [id number] [facility] 2016-11-14 10:23:18 2016-11-14 10:23:18 Outpatient [facility] [id number] [facility] 2016-11-14 00:00:00 2016-11-14 00:00:00 Outpatient [facility] [id number] [facility] 2016-11-14 00:00:00 2016-11-14 00:00:00 Emergency [facility] [id number] [facility] 2016-11-07 00:00:00 2016-11-07 00:00:00 Outpatient [facility] [id number] [facility] 2016-11-04 00:00:00 2016-11-04 00:00:00 Outpatient [facility] [id number] [facility] 2016-10-25 00:00:00 2016-10-25 00:00:00 Outpatient [facility] [id number] [facility] 2016-10-20 00:00:00 2016-10-20 00:00:00 Outpatient [facility] [id number] [facility] 2016-10-19 00:00:00 2016-10-19 00:00:00 Outpatient [facility] [id number] [facility] 2016-10-07 00:00:00 2016-10-07 00:00:00 Outpatient [facility] [id number] [facility] 2016-10-06 00:00:00 2016-10-06 00:00:00 Outpatient [facility] [id number] [facility] 2016-10-04 00:00:00 2016-10-04 00:00:00 Outpatient [facility] [id number] [facility] 2016-10-03 00:00:00 2016-10-03 00:00:00 Outpatient [facility] [id number] [facility] 2016-10-03 00:00:00 2016-10-03 00:00:00 Outpatient [facility] [id number] [facility] 2016-09-27 00:00:00 2016-09-27 00:00:00 Outpatient [facility] [id number] [facility] 2016-09-26 00:00:00 2016-09-26 00:00:00 Outpatient [facility] [id number] [facility] 2016-09-21 00:00:00 2016-09-21 00:00:00 Outpatient [facility] [id number] [facility] 2016-09-14 15:43:26 2016-09-14 15:43:26 Outpatient [facility] [id number] [facility] 2016-09-14 14:36:30 2016-09-14 14:36:30 Outpatient [facility] [id number] [facility] 2016-09-07 00:00:00 2016-09-07 00:00:00 Outpatient [facility] [id number] [facility] 2016-09-07 00:00:00 2016-09-07 00:00:00 Outpatient [facility] [id number] [facility] 2016-09-01 00:00:00 2016-09-01 00:00:00 Outpatient [facility] [id number] [facility] 2016-08-31 00:00:00 2016-08-31 00:00:00 Outpatient [facility] [id number] [facility] 2016-08-26 00:00:00 2016-08-26 00:00:00 Outpatient [facility] [id number] [facility] 2016-08-12 00:00:00 2016-08-12 00:00:00 Outpatient [facility] [id number] [facility] 2016-08-11 00:00:00 2016-08-11 00:00:00 Outpatient [facility] [id number] [facility] 2016-08-10 00:00:00 2016-08-10 00:00:00 Outpatient [facility] [id number] [facility] 2016-08-05 00:00:00 2016-08-05 00:00:00 Outpatient [facility] [id number] [facility] 2016-08-04 00:00:00 2016-08-04 00:00:00 Outpatient [facility] [id number] [facility] 2016-08-02 00:00:00 2016-08-02 00:00:00 Outpatient [facility] [id number] [facility] 2016-07-29 00:00:00 2016-07-29 00:00:00 Outpatient [facility] [id number] [facility] 2016-07-25 00:00:00 2016-07-25 00:00:00 Outpatient [facility] [id number] [facility] 2016-07-20 00:00:00 2016-07-20 00:00:00 Outpatient [facility] [id number] [facility] 2016-07-05 00:00:00 2016-07-05 00:00:00 Outpatient [facility] [id number] [facility] Results Test Description Test Time Test Comments Results Result Comments Source CHEST SINGLE (PORTABLE) 2019-11-08 07:24:00 [facility] [address] [place] [address] Patient Name: MICHAEL CAPELLAN MR #: [id number] : 1965 Age/Sex: 54/F Req #: [id number] Adm Physician: Ordered by: ALEJANDRO GARZA MD Report #: [id number] Location: ER Room/Bed: Procedure: [id number] DX/CHEST SINGLE (PORTABLE) Exam Date: 11/08/19 Exam Time: 06 REPORT STATUS: Signed EXAMINATION: CHEST SINGLE (PORTABLE) INDICATION: CHEST PAIN COMPARISON: Radiograph dated 07/17/2019 FINDINGS: TUBES and LINES: None. LUNGS: Normal lung volumes. Lungs are clear. No consolidations. PLEURA: No pleural effusion or pneumothorax. HEART AND MEDIASTINUM: The cardiomediastinal silhouette is unremarkable. BONES AND SOFT TISSUES: No acute osseous lesion. Soft tissues are unremarkable. UPPER ABDOMEN: No free air under the diaphragm. IMPRESSION: No acute thoracic radiographic abnormality. Signed by: Layla Babcock MD on 11/08/2019 7:25 AM Dictated By: LAYLA BABCOCK MD 4 Transcribed By: TOHMAS on 11/08/19724 COPY TO: ALEJANDRO GARZA MD Urine color determination 2019-11-08 06:14:00 Test Item Urine Color (test code = 5778-6) YELLOW YELLOW [facility] [id number] 06:14:00* Test Item Value Reference Range Interpretation Comments Urine Clarity (test code = 88364-7) [facility]AR [facility] by Test strip 2019-11-08 06:14:00* Test Item Value Reference Range Interpretation Comments Urine Specific Casa (test code = 5811-5) 1.010 1.010-1.02 5 [facility] by automated test crypy9536-60-55 06:14:00* Test Item Value Reference Range Interpretation Comments Urine pH (test code = 25250-1) 6 5-7 [facility] leukocyte esterase detection by stwrzjto3549-96-81 06:14:00* Test Item Value Reference Range Interpretation Comments Urine Leukocyte Esterase (test code = 5799-2) NEGATIVE NEGATIVE [facility] nitrite daugrgttz4243-01-19 06:14:00* Test Item Value Reference Range Interpretation Comments Urine Nitrite (test code = 73960-6) NEGATIVE NEGATIVE [facility] protein measurement by test strip (mass/volume)2019-11-08 06:14:00* Test Item Value Reference Range Interpretation Comments Urine Protein (test code = 5804-0) NEGATIVE NEGATIVE [facility] glucose erxqiasmq6460-92-32 06:14:00* Test Item Value Reference Range Interpretation Comments Urine Glucose (UA) (test code = 2349-9) NEGATIVE NEGATIVE [facility] ketones detection by automated test eogar2443-91-64 06:14:00* Test Item Value Reference Range Interpretation Comments Urine Ketones (test code = 21767-7) NEGATIVE NEGATIVE [facility] opiates screening rlxd2205-37-61 06:14:00* Test Item Value Reference Range Interpretation Comments Urine Opiates Screen (test code = 53616-5) NEGATIVE NEGATIVE ALL TESTS PERFORMED MANUALLY ON MATINAS BIOPHARMA TOX/SEE TESTMichael [facility]. [facility] CenterBarbiturates screen, rsxtf1208-43-79 06:14:00* Test Item Value Reference Range Interpretation Comments Urine Barbiturates Screen (test code = 627532560) NEGATIVE NEGA TIVE [facility] phencyclidine detection by screening oizedz4883-24-00 06:14:00* Test Item Value Reference Range Interpretation Comments Urine Phencyclidine Screen (test code = 17999-0) NEGATIVE NEGAT [facility] amphetamines detection by screen method > 1000 ng/eC4439-41-34 06:14:00* Test Item Value Reference Range Interpretation Comments Urine Amphetamines Screen (test code = 99811-2) NEGATIVE NEGATI VE [facility] CenterFluoroscopic procedure less than one hour ayguxcqi7871-13-89 06:14:00* Test Item Value Reference Range Interpretation Comments Urine Methamphetamines Screen (test code = Urine Metha mphetamines Screen) NEGATIVE NEGATIVE [facility] CenterU[facility] benzodiazepines detection by screening liqsrs5730-79-37 06:14:00* Test Item Value Reference Range Interpretation Comments Urine Benzodiazepines Screen (test code = 77133-6) NEGATIVE NEG ATIVE [facility] CenterU[facility] cocaine measurement (mass/volume) 2019-11-08 06:14:00* Test Item Value Reference Range Interpretation Comments Urine Cocaine Screen (test code = 3398-5) NEGATIVE NEGATIVE [facility] Center[facility] cannabinoids detection by screening plmsbx0609-82-45 06:14:00* Test Item Value Reference Range Interpretation Comments Urine Cannabinoids Screen (test code = 56590-9) NEGATIVE NEGATI VE THESE RESULTS ARE FOR MEDICAL TREATMENT ONLYTHIS REPORT CONTAINS UNCONFIR MED SCREENING RESULTS*POSITIVE RESULTS WILL BE CONFIRMED BY REFERENCE LAB UPON R EQUEST CUT-OFFDRUG CLASS CONCENTRATION ng/mLAmphetamines 1000Methamphetamines 1000Cocaine 300Opiate 300Phencyc lidine 25Cannabinoid 50Barbiturates 300Benzodiazepine 300Methadone 300[facility] methadone ecxeey3548-55-99 06:14:00* Test Item Value Reference Range Interpretation Comments Urine Methadone Screen (test code = 74423-2) NEGATIVE NEGATIVE THESE RESULTS ARE FOR MEDICAL TREATMENT ONLYTHIS REPORT CONTAINS UNCONFIR MED SCREENING RESULTS*POSITIVE RESULTS WILL BE CONFIRMED BY REFERENCE LAB UPON R EQUEST CUT-OFFDRUG CLASS CONCENTRATION ng/mLAmphetamines 1000Methamphetamines 1000Cocaine Metabolite 300Opiate 300Phencyc lidine 25Cannabinoid 50Barbiturates 300Benzodiazepine 300Methadone 300[facility]Urine urobilinogen measurement by test strip (mass/volume)2019-11-08 06:14:00* Test Item Value Reference Range Interpretation Comments Urine Urobilinogen (test code = 93987-0) 0.2 0.2-1 [facility] total bilirubin measurement (mass/volume)2019-11-08 06:14:00* Test Item Value Reference Range Interpretation Comments Urine Bilirubin (test code = 1978-6) NEGATIVE NEGATIVE [facility] CenterUrine erythrocytes afvtqxbfv5944-57-78 06:14:00* Test Item Value Reference Range Interpretation Comments Urine Blood (test code = 75014-6) NEGATIVE NEGATIVE [facility] CenterAutomated urine sediment leukocyte count by microscopy (number/high power field)2019-11-08 06:14:00* Test Item Value Reference Range Interpretation Comments Urine WBC (test code = 5821-4) 0-5 0-5 [facility] CenterErythrocytes detection in urine sediment by light qopvxmxrwx0047-07-57 06:14:00* Test Item Value Reference Range Interpretation Comments Urine RBC (test code = 70380-5) 0-5 0-5 [facility] CenterBacteria detection in urine sediment by light qhqfqrohbu9634-16-11 06:14:00* Test Item Value Reference Range Interpretation Comments Urine Bacteria (test code = 01669-9) NONE NONE [facility] CenterEpithelial cells detection in urine sediment by light crwayuywfw8966-07-25 06:14:00* Test Item Value Reference Range Interpretation Comments Urine Epithelial Cells (test code = 10399-4) NONE NONE [facility] CenterBlood leukocytes automated count (number/volume)2019-11-08 05:40:00* Test Item Value Reference Range Interpretation Comments White Blood Count (test code = 6690-2) 8.25 4.8-10.8 [facility] CenterBlood erythrocytes automated count (number/volume)2019-11-08 05:40:00* Test Item Value Reference Range Interpretation Comments Red Blood Count (test code = 789-8) 5.24 3.6-5.1 [facility] CenterBlood hemoglobin measurement (moles/volume)2019-11-08 05:40:00* Test Item Value Reference Range Interpretation Comments Hemoglobin (test code = 72275-9) 17.1 12.0-16.0 [facility] CenterAutomated blood hematocrit (volume fraction)2019-11-08 05:40:00* Test Item Value Reference Range Interpretation Comments Hematocrit (test code = 4544-3) 51.2 34.2-44.1 [facility] CenterAutomated erythrocyte mean corpuscular sxaqkt5452-86-78 05:40:00* Test Item Value Reference Range Interpretation Comments Mean Corpuscular Volume (test code = 787-2) 97.7 81-99 [facility] CenterAutomated erythrocyte mean corpuscular hemoglobin (mass per erythrocyte)2019-11-08 05:40:00* Test Item Value Reference Range Interpretation Comments Mean Corpuscular Hemoglobin (test code = 785-6) 32.6 28-32 [facility] CenterAutomated erythrocyte mean corpuscular hemoglobin concentration measurement (mass/volume)2019-11-08 05:40:00* Test Item Value Reference Range Interpretation Comments Mean Corpuscular Hemoglobin Concent (test code = 786-4) 33.4 31-35 [facility] CenterRDW RxoKy-Dyc6391-20-18 05:40:00* Test Item Value Reference Range Interpretation Comments Red Cell Distribution Width (test code = 48680-6) 12.7 11.7 -14.4 [facility] CenterAutomated blood platelet count (count/volume)2019-11-08 05:40:00* Test Item Value Reference Range Interpretation Comments Platelet Count (test code = 777-3) 326 140-360 [facility] CenterAutomated blood segmented neutrophil count as percentage of total hykflaeuqz1245-79-23 05:40:00* Test Item Value Reference Range Interpretation Comments Neutrophils (%) (Auto) (test code = 90768-6) 35.1 38.7-80.0 [facility] CenterAutomated blood lymphocyte count as percentage ot total gopocdwicq9029-43-03 05:40:00* Test Item Value Reference Range Interpretation Comments Lymphocytes (%) (Auto) (test code = 736-9) 55.2 18.0-39.1 [facility] CenterAutomated blood monocyte count as percentage of total evnjlbaleb0600-06-33 05:40:00* Test Item Value Reference Range Interpretation Comments Monocytes (%) (Auto) (test code = 5905-5) 4.0 4.4-11.3 [facility] CenterAutomated blood eosinophil count as percentage of total etyzjtvpjx4687-74-55 05:40:00* Test Item Value Reference Range Interpretation Comments Eosinophils (%) (Auto) (test code = 713-8) 4.0 0.0-6.0 [facility] basophil count as percentage of total mvxuyfhtec5667-28-76 05:40:00* Test Item Value Reference Range Interpretation Comments Basophils (%) (Auto) (test code = 706-2) 1.0 0.0-1.0 [facility] CenterFluoroscopic procedure less than one hour yxkwdcbq6919-08-89 05:40:00* Test Item Value Reference Range Interpretation Comments IM GRANULOCYTES % (test code = IM GRANULOCYTES %) 0.7 0.0- 1.0 [facility] CenterAutomated blood neutrophil count 2019-11-08 05:40:00* Test Item Value Reference Range Interpretation Comments Neutrophils # (Auto) (test code = 751-8) 2.9 2.1-6.9 [facility] CenterBlood lymphocytes count (number/volume) 2019-11-08 05:40:00* Test Item Value Reference Range Interpretation Comments Lymphocytes # (Auto) (test code = 29694-2) 4.6 1.0-3.2 [facility] CenterBlood monocytes automated count (number/volume)2019-11-08 05:40:00* Test Item Value Reference Range Interpretation Comments Monocytes # (Auto) (test code = 742-7) 0.3 0.2-0.8 [facility] CenterAutomated blood eosinophil count 2019-11-08 05:40:00* Test Item Value Reference Range Interpretation Comments Eosinophils # (Auto) (test code = 711-2) 0.3 0.0-0.4 [facility] CenterAutomated blood basophil count (count/volume)2019-11-08 05:40:00* Test Item Value Reference Range Interpretation Comments Basophils # (Auto) (test code = 704-7) 0.1 0.0-0.1 [facility] CenterFluoroscopic procedure less than one hour lpgcvaop4351-61-19 05:40:00* Test Item Value Reference Range Interpretation Comments Absolute Immature Granulocyte (auto (uri t code = Absolute Immature Granulocyte (auto) 0.06 0-0.1 [facility] CenterFibrin D-dimer DDU measurement in platelet poor plasma (mass/volume)2019-11-08 05:40:00* Test Item Value Reference Range Interpretation Comments D-Dimer Quantitative (PE/DVT) (test code = 57490-9) 246 0- 400 As with all in vitro diagnostic tests, the test results should be interpreted by the physician in conjunction with clinical findings and other test results.Test results are reported in NEW D-dimer units(ug/mLFEU).[facility] or plasma sodium measurement (moles/volume)2019-11-08 05:40:00* Test Item Value Reference Range Interpretation Comments Sodium Level (test code = 2951-2) 142 136-145 [facility] or plasma potassium measurement (moles/volume)2019-11-08 05:40:00* Test Item Value Reference Range Interpretation Comments Potassium Level (test code = 2823-3) 3.1 3.5-5.1 [facility] or plasma chloride measurement (moles/volume)2019-11-08 05:40:00* Test Item Value Reference Range Interpretation Comments Chloride Level (test code = 2075-0) 109 98-107 [facility] or plasma carbon dioxide, total measurement (moles/volume)2019-11-08 05:40:00* Test Item Value Reference Range Interpretation Comments Carbon Dioxide Level (test code = 2028-9) 18 22-29 [facility] or plasma anion qde1814-14-47 05:40:00* Test Item Value Reference Range Interpretation Comments Anion Gap (test code = 66895-2) 18.1 8-16 [facility] or plasma urea nitrogen measurement (mass/volume)2019-11-08 05:40:00* Test Item Value Reference Range Interpretation Comments Blood Urea Nitrogen (test code = 3094-0) < 5 7-26 [facility] or plasma creatinine measurement (mass/volume)2019-11-08 05:40:00* Test Item Value Reference Range Interpretation Comments Creatinine (test code = 2160-0) 0.74 0.57-1.11 [facility] or plasma urea nitrogen/creatinine mass uypme2545-47-85 05:40:00* Test Item Value Reference Range Interpretation Comments BUN/Creatinine Ratio (test code = 3097-3) 7 6-25 [facility] CenterEstimated glomerular filtration rate (GFR) cvpavnimnsqqh3398-17-15 05:40:00* Test Item Value Reference Range Interpretation Comments Estimat Glomerular Filtration Rate (test code = 134946051) > 60 >60 Ranges were taken from the National Kidney Disease Education Program and the [facility] Kid[facility] Foundation literature.Reference ranges:60 or greater: Hqsnnk82-05 ( for 3 consecutive months): Chronic kidney disease 15 or less: Kidney failureMichael E. [facility] Medical CenterGlucose htllcrdqlrt2435-00-99 05:40:00* Test Item Value Reference Range Interpretation Comments Glucose Level (test code = DJD4799) 129 74-118 [facility] or plasma calcium measurement (mass/volume)2019-11-08 05:40:00* Test Item Value Reference Range Interpretation Comments Calcium Level (test code = 15017-1) 9.0 8.4-10.2 [facility] or plasma total bilirubin measurement (mass/volume)2019-11-08 05:40:00* Test Item Value Reference Range Interpretation Comments Total Bilirubin (test code = 1975-2) 0.4 0.2-1.2 [facility] CenterFluoroscopic procedure less than one hour ongwyplg6714-30-71 05:40:00* Test Item Value Reference Range Interpretation Comments Aspartate Amino Transf (AST/SGOT) (test code = Aspartate Amino Transf (AST/SGOT)) 58 5-34 [facility] or plasma alanine aminotransferase measurement (enzymatic activity/volume)2019-11-08 05:40:00* Test Item Value Reference Range Interpretation Comments Alanine Aminotransferase (ALT/SGPT) (test code = 1742-6) 77 0-55 [facility] or plasma protein measurement (mass/volume)2019-11-08 05:40:00* Test Item Value Reference Range Interpretation Comments Total Protein (test code = 2885-2) 7.3 6.5-8.1 [facility] or plasma albumin measurement (mass/volume)2019-11-08 05:40:00* Test Item Value Reference Range Interpretation Comments Albumin (test code = 1751-7) 4.3 3.5-5.0 [facility] CenterPlasma globulin measurement (mass/volume) 2019-11-08 05:40:00* Test Item Value Reference Range Interpretation Comments Globulin (test code = 70118-8) 3.0 2.3-3.5 [facility] or plasma albumin/globulin mass imrqt0100-93-35 05:40:00* Test Item Value Reference Range Interpretation Comments Albumin/Globulin Ratio (test code = 1759-0) 1.4 0.8-2.0 [facility] or plasma alkaline phosphatase measurement (enzymatic activity/volume)2019-11-08 05:40:00* Test Item Value Reference Range Interpretation Comments Alkaline Phosphatase (test code = 6768-6) 141 40-150 [facility] or plasma creatine kinase measurement (enzymatic activity/volume)2019-11-08 05:40:00* Test Item Value Reference Range Interpretation Comments Creatine Kinase (test code = 2157-6) 48 29-168 [facility] or plasma creatine kinase MB measurement (mass/volume)2019-11-08 05:40:00* Test Item Value Reference Range Interpretation Comments Creatine Kinase MB (test code = 60455-0) 0.50 0-5.0 [facility] CenterTroponin I measurement by highly sensitive enzyme hdjxbgwlpcc8300-57-66 05:40:00* Test Item Value Reference Range Interpretation Comments Troponin I (test code = 48416-9) < 0.001 0-0.300 [facility] or plasma ethanol measurement (mass/volume)2019-11-08 05:40:00* Test Item Value Reference Range Interpretation Comments Ethyl Alcohol Level (test code = 5643-2) 291.7 0.0-10.0 [facility] CenterBASIC METABOLIC [id number] 08:33:00 * Test Item Value Reference Range Interpretation Comments SODIUM (test code = NA) 137 mEq/L 134-147 N POTASSIUM (test code = K) 3.4 mEq/L 3.4-5.0 N CHLORIDE (test code = CL) 108 mEq/L 100-108 N CARBON DIOXIDE (test code = CO2) 18 mEq/L 21-33 L ANION GAP (test code = GAP) 14 0-20 N GLUCOSE (test code = GLU) 208 mg/dL 70-110 H BLOOD UREA NITROGEN (test code = BUN) 5 mg/dL 7-18 L GLOMERULAR FILTRATION RATE (test code = GFR) 87.9 90-95 L Units of measure = ml/min/1.73 m2 CREATININE (test code = CREAT) 0.7 mg/dL 0.6-1.3 N CALCIUM (test code = CA) 8.8 mg/dL 8.0-10.5 N [id number]-[id number] 08:33:00* Test Item Value Reference Range Interpretation Comments TROPONIN-I (test code = TROPI) < 0.006 ng/mL 0.000-0.045 N Negative: <= 0.045 Positive: >= 0.046 Correlation with serial results, other cardiac markers andclinical findings is necessary to determine the clinicalsignificance of this result. Results using different methodologies should not be comparedto one another as quantitative results may vary by method. [id number] 08:33:00* Test Item Value Reference Range Interpretation Comments ALCOHOL (test code = ALC) 172.1 mg/dL <3.0 H Et hyl Alcohol Interpretation: 100 mg/dL - Legally Intoxicated 300-400 mg/dL - Severely Intoxicated >400 mg/dL - Potentially LethalResults are for Medical purposes only, and not for Legal orEmployment evaluation purposes. - XR CHEST 1 [id number] 08:22:00 FAX: Shy Elver Barakat DO [phone] [place]: St: PRE Name: MICHAEL HERNANDEZ [facility] : [birth year] Age/S: 54/F [address] [place] [address] Unit #: [id number] Loc: [place] [address] Phys: Elver Barakat DO Acct: [id number] Dis Date: Status: PRE ER PHONE #: [phone] Exam Date: 10/20/2019813 FAX #: [phone] Reason: pain EXAMS: CPT CODE: [id number] XR CHEST 1 V 58885 Single view chest: H ISTORY: Chest pain. FINDINGS: Both lungs are clear. The heart and mediastinal contour stable from 10/11/2019. No pleural effusion or pneumo thorax. IMPRESSION: No acute finding SL: [id number] at 0822 Reported and signed by: Irvin batuista M.D. CC: Elver Barakat DO Technologist: Carmenza Amaya, RT(R); Ryann Smith, RT(R) Trnscrd Date/Time/By: 10/20/2019 (08) : By: Oneil Orig Print D/T: S: 10/20/2019 (5487) PAGE 1 Signed Report CBC W/AUTO [id number] 08:10:00* Test Item Value Reference Range Interpretation Comments WHITE BLOOD CELL (test code = WBC) 6.70 x10 3/uL 4.5-11.0 N RED BLOOD CELL (test code = RBC) 4.81 x10 6/uL 3.54-5.02 N HEMOGLOBIN (test code = HGB) 16.2 g/dL 11.0-15.0 H HEMATOCRIT (test code = HCT) 48.8 % 33.0-45.0 H MEAN CELL VOLUME (test code = MCV) 101.5 fL 81.0-99.0 H MEAN CELL HGB (test code = MCH) 33.7 pg 27.0-33.0 H MEAN CELL HGB CONCETRATION (test code = MCHC) 33.2 g/dL 33.0-37. 0 N RED CELL DISTRIBUTION WIDTH CV (test code = RDW) 12.9 % 11.5- 14.5 N RED CELL DISTRIBUTION WIDTH SD (test code = RDW-SD) 48.2 fL 37 .0-54.0 N PLATELET COUNT (test code = PLT) 266 x10 3/uL 150-400 N MEAN PLATELET VOLUME (test code = MPV) 9.6 fL 7.0-9.0 H NEUTROPHIL % (test code = NT%) 37.8 % 56.0-77.0 L IMMATURE GRANULOCYTE % (test code = IG%) 0.7 % 0.0-2.0 N LYMPHOCYTE % (test code = LY%) 50.3 % 14.0-32.0 H MONOCYTE % (test code = MO%) 5.8 % 4.8-9.0 N EOSINOPHIL % (test code = EO%) 4.2 % 0.3-3.7 H BASOPHIL % (test code = BA%) 1.2 % 0.0-2.0 N NUCLEATED RBC % (test code = NRBC%) 0.0 % 0-0 N NEUTROPHIL # (test code = NT#) 2.53 x10 3/uL 2.0-7.6 N IMMATURE GRANULOCYTE # (test code = IG#) 0.05 x10 3/uL 0.00-0.03 H LYMPHOCYTE # (test code = LY#) 3.37 x10 3/uL 1.0-3.8 N MONOCYTE # (test code = MO#) 0.39 x10 3/uL 0.1-0.8 N EOSINOPHIL # (test code = EO#) 0.28 x10 3/uL 0.0-0.2 H BASOPHIL # (test code = BA#) 0.08 x10 3/uL 0.0-0.2 N NUCLEATED RBC # (test code = NRBC#) 0.00 x10 3/uL 0.0-0.1 N MANUAL DIFF REQUIRED (test code = MDIFF) NO B-TYPE NATRIURETIC [id number] 07:15:00* Test Item Value Reference Range Interpretation Comments B-TYPE NATRIURETIC PEPTIDE (test code = BNP) 15.30 pgram/mL 0-100 N - XR ELBOW 3 + V [id number] 06:53:00 FAX: Dakota Billy MD [place]: St: REG Name: MICHAEL HERNANDEZ [facility] : [birth year] Age/S: 54/F [address] [facility] [address] #: [id number] Loc: [place] [address] Phys: Dakota Billy MD Acct: [id number] Dis Date: Status: REG ER PHONE #: [phone] Exam Date: 10/11/2019641 FAX #: [phone] Reason: fall EXAMS: CPT CODE: [id number] XR ELBOW 3 + [place] [address] AFTER HOURS SERVICE ON: 10/11/2019 6:53 AM Left Elbow, 3 Views Location Code M12 History: fall Findings: There is normal quirino omic alignment. No fracture, dislocation or avulsion fragments are seen. Articular surfaces are within normal limits for patient's age. The later al view is limited. Impression: Unremarkable e lbow. at 0653 Reported and signed by: Deanna Donaldson M.D. CC: Dakota Truong MD Technologist: Brenda Valverde) Trnscrd Date/Time/By: 10/11/2019 (0653 ) : By: [email or web address] Orig Print D/T: S: 10/11/2019 (0656) PAGE 1 Signed Report - XR CHEST 1 [id number] 06:52:00 FAX: Dakota Billy MD [place]: St: REG Name: MICHAEL HERNANDEZ [facility] : [birth year] Age/S: 54/F [address] [facility] Unit #: [id number] Loc: [place] [address] Phys: Dakota Billy MD Acct: [id number] Dis Date: Status: REG ER PHONE #: [phone] Exam Date: 10/11/2019636 FAX #: [phone] Reason: Shortness of Breath EXAMS: CPT CODE: [id number] XR CHEST 1 V 54282 AFTER HOURS SERVICE ON: 10/11/2019 6:52 AM AP Portable Chest Location Code M12 HISTORY: Shortness of Breath FINDINGS: There are no infiltrates. There are no pleural effusions. There is no pneumothor ax. Cardiac silhouette and mediastinum appear within normal limits. IMPRESSION: No active pulmonary findings. at 0652 R eported and signed by: Deanna Donaldson M.D. CC: Richard Billy MD Technologist: Brenda Caballero) Trnscrd Date/Time/By: 10/11/2019 (52) : Nora y: [email or web address] Orig Print D/T: S: 10/11/2019 (0666) PAGE 1 Signed Report BASIC METABOLIC [id number] 06:47:00* Test Item Value Reference Range Interpretation Comments SODIUM (test code = NA) 138 mmol/L 136-145 N POTASSIUM (test code = K) 4.4 mmol/L 3.5-5.1 N CHLORIDE (test code = CL) 108.0 mmol/L 98-107 H CARBON DIOXIDE (test code = CO2) 19.0 mmol/L 21-32 L ANION GAP (test code = GAP) 15.4 10-20 N GLUCOSE (test code = GLU) 85 mg/dL [...] reagent. BUN/CREATININE RATIO (test code = BUN/CREA) 4.4 10-20 L CALCIUM (test code = CA) 9.6 mg/dL 8.5-10.1 N HCG SERUM [id number] 06:47:00* Test Item Value Reference Range Interpretation Comments HCG SERUM QUAL (test code = HCGQL) NEGATIVE NEGATIVE This HCGQL test is NOT applicable for MALE patients.Check with nurse about probable order error.If Tumor Marker Test needed, nurse should order test "HCGTU"(Test #550.06845) [id number] 06:47:00* Test Item Value Reference Range Interpretation Comments TROPONIN-I (test code = TROPI) <0.015 ng/mL 0-0.045 N BASIC METABOLIC [id number] 06:28:00* Test Item Value Reference Range Interpretation Comments SODIUM (test code = NA) mmol/L 136-145 POTASSIUM (test code = K) mmol/L 3.5-5.1 CHLORIDE (test code = CL) mmol/L 98-107 CARBON DIOXIDE (test code = CO2) mmol/L 21-32 ANION GAP (test code = GAP) 10-20 GLUCOSE (test code = GLU) mg/dL 74-106 BLOOD UREA NITROGEN (test code = BUN) mg/dL 7-18 GLOMERULAR FILTRATION RATE (test code = GFR) mL/min >=60 CREATININE (test code = CREAT) mg/dL 0.55-1.02 BUN/CREATININE RATIO (test code = BUN/CREA) 10-20 CALCIUM (test code = CA) mg/dL 8.5-10.1 HCG SERUM [id number] 06:28:00* Test Item Value Reference Range Interpretation Comments HCG SERUM QUAL (test code = HCGQL) NEGATIVE NEGATIVE This HCGQL test is NOT applicable for MALE patients.Check with nurse about probable order error.If Tumor Marker Test needed, nurse should order test "HCGTU"(Test #550.98699) [id number] 06:28:00* Test Item Value Reference Range Interpretation Comments TROPONIN-I (test code = TROPI) ng/mL 0-0.045 CBC W/O [id number] 06:19:00* Test Item Value Reference Range Interpretation Comments WHITE BLOOD CELL (test code = WBC) 9.9 K/mm3 4.5-12.5 N RED BLOOD CELL (test code = RBC) 5.07 mill/mm3 3.7-5.2 N HEMOGLOBIN (test code = HGB) 17.0 gram/dL 11.5-15.5 H HEMATOCRIT (test code = HCT) 50.2 % 36.0-46.0 H MEAN CELL VOLUME (test code = MCV) 99.0 fL 80-98 H MEAN CELL HGB (test code = MCH) 33.5 picogram 27.0-33.0 H MEAN CELL HGB CONCETRATION (test code = MCHC) 33.9 gram/dL 33.0-36. 0 N RED CELL DISTRIBUTION WIDTH (test code = RDW) 12.9 % 11.6-16. 2 N PLATELET COUNT (test code = PLT) 374 K/mm3 150-450 N MEAN PLATELET VOLUME (test code = MPV) 9.5 fL 6.7-11.0 N CBC W/O [id number] 06:06:00* Test Item Value Reference Range Interpretation Comments WHITE BLOOD CELL (test code = WBC) K/mm3 4.5-12.5 RED BLOOD CELL (test code = RBC) mill/mm3 3.7-5.2 HEMOGLOBIN (test code = HGB) gram/dL 11.5-15.5 HEMATOCRIT (test code = HCT) % 36.0-46.0 MEAN CELL VOLUME (test code = MCV) fL 80-98 MEAN CELL HGB (test code = MCH) picogram 27.0-33.0 MEAN CELL HGB CONCETRATION (test code = MCHC) gram/dL 33.0-36. 0 RED CELL DISTRIBUTION WIDTH (test code = RDW) % 11.6-16. 2 PLATELET COUNT (test code = PLT) 374 K/mm3 150-450 N MEAN PLATELET VOLUME (test code = MPV) fL 6.7-11.0 PROTHROMBIN [id number] 04:56:00* Test Item Value Reference Range Interpretation Comments PROTHROMBIN TIME PATIENT (test code = PTP) 12.0 seconds 9.0-14.0 N INTERNATIONAL NORMAL RATIO (test code = INR) 1.0 0.8-1.2 N The therapeutic range for oral [...] Atrial fibrillation Mechanical prosthetic heart valves (2.5-3.5) THROMBOPLASTIN TIME [id number] 04:56:00* Test Item Value Reference Range Interpretation Comments THROMBOPLASTIN TIME PARTIAL (test code = PTT) 29.6 seconds 23.0-37. 0 N URINALYSIS [id number] 04:43:00* Test Item Value Reference Range Interpretation Comments UA COLOR (test code = COLU) Light-Yellow YELLOW UA APPEARANCE (test code = APPU) CLEAR CLEAR UA GLUCOSE DIPSTICK (test code = DGLUU) NEGATIVE mg/dL NEGATIVE UA BILIRUBIN DIPSTICK (test code = BILU) NEGATIVE mg/dL NEGATIVE UA KETONE DIPSTICK (test code = KETU) NEGATIVE mg/dL NEGATIVE UA SPECIFIC GRAVITY (test code = SGU) 1.006 1.001-1.035 UA BLOOD DIPSTICK (test code = FINN) Negative mg/dL NEGATIVE UA PH DIPSTICK (test code = CARLOS) 5.5 5.0-8.0 UA PROTEIN DIPSTICK (test code = PROU) NEGATIVE mg/dL NEGATIVE UA UROBILINIOGEN DIPSTICK (test code = URO) Normal mg/dL NEGATIVE UA NITRITE DIPSTICK (test code = MARIO) NEGATIVE NEGATIVE UA LEUKOCYTE ESTERASE W REFLEX (test code = LEUUR) NEGATIVE Mich/uL NEGATIVE UA WBC (test code = WBCU) 0-5 per HPF 0-5 UA RBC (test code = RBCU) 0-3 #/HPF 0-5 UA EPITHELIAL CELLS (test code = EPIU) FEW per HPF FEW UA BACTERIA (test code = BACU) NONE SEEN #/HPF NONE Urine Source? Clean CatchDRUGS OF ABUSE SCREEN [id number] 04:43:00* Test Item Value Reference Range Interpretation Comments URN COCAINE (test code = COCAURN) NEGATIVE [...] (test code = METHAURN) NEGATIVE <300 ng/mL Urine Source? Clean CatchURINALYSIS [id number] 04:31:00* Test Item Value Reference Range Interpretation Comments UA COLOR (test code = COLU) Light-Yellow YELLOW UA APPEARANCE (test code = APPU) CLEAR CLEAR UA GLUCOSE DIPSTICK (test code = DGLUU) NEGATIVE mg/dL NEGATIVE UA BILIRUBIN DIPSTICK (test code = BILU) NEGATIVE mg/dL NEGATIVE UA KETONE DIPSTICK (test code = KETU) NEGATIVE mg/dL NEGATIVE UA SPECIFIC GRAVITY (test code = SGU) 1.006 1.001-1.035 UA BLOOD DIPSTICK (test code = FINN) Negative mg/dL NEGATIVE UA PH DIPSTICK (test code = CARLOS) 5.5 5.0-8.0 UA PROTEIN DIPSTICK (test code = PROU) NEGATIVE mg/dL NEGATIVE UA UROBILINIOGEN DIPSTICK (test code = URO) Normal mg/dL NEGATIVE UA NITRITE DIPSTICK (test code = MARIO) NEGATIVE NEGATIVE UA LEUKOCYTE ESTERASE W REFLEX (test code = LEUUR) NEGATIVE Mich/uL NEGATIVE UA WBC (test code = WBCU) per HPF 0-5 UA RBC (test code = RBCU) per HPF 0-5 UA EPITHELIAL CELLS (test code = EPIU) per HPF Few UA BACTERIA (test code = BACU) per HPF NONE Urine Source? Clean CatchDRUGS OF ABUSE SCREEN [id number] 04:31:00* Test Item Value Reference Range Interpretation Comments URN COCAINE (test code = COCAURN) NEGATIVE [...] (test code = METHAURN) NEGATIVE <300 ng/mL Urine Source? Clean CatchURINALYSIS [id number] 04:11:00* Test Item Value Reference Range Interpretation Comments UA COLOR (test code = COLU) Light-Yellow YELLOW UA APPEARANCE (test code = APPU) CLEAR CLEAR UA GLUCOSE DIPSTICK (test code = DGLUU) NEGATIVE mg/dL NEGATIVE UA BILIRUBIN DIPSTICK (test code = BILU) NEGATIVE mg/dL NEGATIVE UA KETONE DIPSTICK (test code = KETU) NEGATIVE mg/dL NEGATIVE UA SPECIFIC GRAVITY (test code = SGU) 1.006 1.001-1.035 UA BLOOD DIPSTICK (test code = FINN) Negative mg/dL NEGATIVE UA PH DIPSTICK (test code = CARLOS) 5.5 5.0-8.0 UA PROTEIN DIPSTICK (test code = PROU) NEGATIVE mg/dL NEGATIVE UA UROBILINIOGEN DIPSTICK (test code = URO) Normal mg/dL NEGATIVE UA NITRITE DIPSTICK (test code = MARIO) NEGATIVE NEGATIVE UA LEUKOCYTE ESTERASE W REFLEX (test code = LEUUR) NEGATIVE Mich/uL NEGATIVE UA WBC (test code = WBCU) per HPF 0-5 UA RBC (test code = RBCU) per HPF 0-5 UA EPITHELIAL CELLS (test code = EPIU) per HPF Few UA BACTERIA (test code = BACU) per HPF NONE Urine Source? Clean CatchDRUGS OF ABUSE SCREEN [id number] 04:11:00* Test Item Value Reference Range Interpretation Comments URN COCAINE (test code = COCAURN) <300 ng/mL URN CANNABINOIDS (test code = CANNABURN) <50 ng/mL URN AMPHETAMINE (test code = AMPHETURN) <1000 ng/mL URN BARBITURATE (test code = BARBITURN) <200 ng/mL URN BENZODIAZEPINE (test code = BENZOURN) <200 ng/mL URN OPIATES (test code = OPIATURN) <300 ng/mL URN PHENCYCLIDINE (PCP) (test code = PHENCURN) <25 ng/ mL URN METHADONE (test code = METHAURN) <300 ng/mL Urine Source? Clean CatchBASIC METABOLIC [id number] 03:39:00* Test Item Value Reference Range Interpretation Comments SODIUM (test code = NA) 142 mmol/L 136-145 N POTASSIUM (test code = K) 3.1 mmol/L 3.5-5.1 L CHLORIDE (test code = CL) 108.0 mmol/L 98-107 H CARBON DIOXIDE (test code = CO2) 24.0 mmol/L 21-32 N ANION GAP (test code = GAP) 13.1 10-20 N GLUCOSE (test code = GLU) 124 mg/dL 74-106 H BLOOD UREA NITROGEN (test [...] reagent. BUN/CREATININE RATIO (test code = BUN/CREA) 5.8 10-20 L CALCIUM (test code = CA) 9.3 mg/dL 8.5-10.1 N HEPATIC FUNCTION [id number] 03:39:00* Test Item Value Reference Range Interpretation Comments TOTAL PROTEIN (test code = PROT) 7.5 gram/dL 6.4-8.2 N ALBUMIN (test code = ALB) 3.5 g/dL 3.4-5.0 N GLOBULIN (test code = GLOB) 4.0 gram/dL 2.7-4.2 N ALBUMIN/GLOBULIN RATIO (test code = A/G) 0.9 0.75-1.50 N BILIRUBIN TOTAL (test code = BILT) 0.30 mg/dL 0.0-1.0 N BILIRUBIN DIRECT (test code = BILD) 0.12 mg/dL 0.0-0.20 N SGOT/AST (test code = AST) 28 IUnit/L 15-37 N SGPT/ALT (test code = ALT) 67 IUnit/L 12-78 N ALKALINE PHOSPHATASE TOTAL (test code = ALKP) 119 IUnit/L 45-117 H Note change in reference range due to change in reagent. [id number] 03:39:00* Test Item Value Reference Range Interpretation Comments LIPASE (test code = LIP) 149 U/L 73.0-393.0 N [id number] 03:39:00* Test Item Value Reference Range Interpretation Comments TROPONIN-I (test code = TROPI) <0.015 ng/mL 0-0.045 N [id number] 03:39:00* Test Item Value Reference Range Interpretation Comments ALCOHOL (test code = ALC) 188 mg/dL 0.0-3.0 H -- INTERPRETIVE DATA NOTE: POSITIVE SCREENING RESULTS SHOULD BE CONSIDERED PRESUMPTIVE.WHEN COLLECTED FOR MEDICAL PURPOSES ONLY. SPECIMEN WILL NOTBE COLLECTED BY CHAIN OF CUSTODY.IF A CONFIRMATION OF POSITIVE RESULTS IS DESIRED, ACONFIRMATION TEST MUST BE REQUESTED BY THE PHYSICIAN AT ANADDITIONAL CHARGE TO THE PATIENT. BASIC METABOLIC [id number] 03:19:00* Test Item Value Reference Range Interpretation Comments SODIUM (test code = NA) 142 mmol/L 136-145 N POTASSIUM (test code = K) 3.1 mmol/L 3.5-5.1 L CHLORIDE (test code = [...] CALCIUM (test code = CA) mg/dL 8.5-10.1 HEPATIC FUNCTION [id number] 03:19:00* Test Item Value Reference Range Interpretation Comments TOTAL PROTEIN (test code = PROT) gram/dL 6.4-8.2 ALBUMIN (test code = ALB) g/dL 3.4-5.0 GLOBULIN (test code = GLOB) gram/dL 2.7-4.2 ALBUMIN/GLOBULIN RATIO (test code = A/G) 0.75-1.50 BILIRUBIN TOTAL (test code = BILT) mg/dL 0.0-1.0 BILIRUBIN DIRECT (test code = BILD) mg/dL 0.0-0.20 SGOT/AST (test code = AST) IUnit/L 15-37 SGPT/ALT (test code = ALT) IUnit/L 12-78 ALKALINE PHOSPHATASE TOTAL (test code = ALKP) IUnit/L 45-117 [id number] 03:19:00* Test Item Value Reference Range Interpretation Comments LIPASE (test code = LIP) U/L 73.0-393.0 [id number] 03:19:00* Test Item Value Reference Range Interpretation Comments TROPONIN-I (test code = TROPI) ng/mL 0-0.045 [id number] 03:19:00* Test Item Value Reference Range Interpretation Comments ALCOHOL (test code = ALC) mg/dL 0-3 CBC W/O [id number] 03:05:00* Test Item Value Reference Range Interpretation Comments WHITE BLOOD CELL (test code = WBC) 8.6 K/mm3 4.5-12.5 N RED BLOOD CELL (test code = RBC) 4.65 mill/mm3 3.7-5.2 N HEMOGLOBIN (test code = HGB) 15.7 gram/dL 11.5-15.5 H HEMATOCRIT (test code = HCT) 46.8 % 36.0-46.0 H MEAN CELL VOLUME (test code = MCV) 100.6 fL 80-98 H MEAN CELL HGB (test code = MCH) 33.8 picogram 27.0-33.0 H MEAN CELL HGB CONCETRATION (test code = MCHC) 33.5 gram/dL 33.0-36. 0 N RED CELL DISTRIBUTION WIDTH (test code = RDW) 13.0 % 11.6-16. 2 N PLATELET COUNT (test code = PLT) 299 K/mm3 150-450 N MEAN PLATELET VOLUME (test code = MPV) 9.8 fL 6.7-11.0 N CBC W/O [id number] 03:02:00* Test Item Value Reference Range Interpretation Comments WHITE BLOOD CELL (test code = WBC) K/mm3 4.5-12.5 RED BLOOD CELL (test code = RBC) mill/mm3 3.7-5.2 HEMOGLOBIN (test code = HGB) gram/dL 11.5-15.5 HEMATOCRIT (test code = HCT) % 36.0-46.0 MEAN CELL VOLUME (test code = MCV) fL 80-98 MEAN CELL HGB (test code = MCH) picogram 27.0-33.0 MEAN CELL HGB CONCETRATION (test code = MCHC) gram/dL 33.0-36. 0 RED CELL DISTRIBUTION WIDTH (test code = RDW) % 11.6-16. 2 PLATELET COUNT (test code = PLT) 299 K/mm3 150-450 N MEAN PLATELET VOLUME (test code = MPV) fL 6.7-11.0 - XR CHEST 1 [id number] 02:48:00 FAX: Francesca Hernandez MD [phone] [place]: B St: REG Name: MICHAEL HERNANDEZ [facility] : [birth year] Age/S: 54/F [address] Unit #: [id number] Loc: [place] [address] Phys: Francesca Hernandez MD Acct: [id number] Dis Date: Status: REG ER PHONE #: [phone] Exam Date: 10/02/2019222 FAX #: [phone] Reason: CHEST PAIN EXAMS: CPT CODE: [id number] XR CHEST 1 V 74932 EXAM: - XR CHEST 1 V COMPARISON: 07/31/2019 LOCATION: H57 HISTORY: 54 ye ars-old Female with CHEST PAIN FINDINGS: The cardiom ediastinal silhouette is within normal limits. The lungs are well aerated . No large pneumothorax or pleural effusion. Osseous structures and soft tissues demonstrate no acute findings. The visualized upper abdomen is u nremarkable. IMPRESSION: No acute cardiopulmon red abnormality. at 0248 Reported and signed by: Alejandro Pinto M.D. CC: Francesca Hernandez MD Technologist: RT NICHOL Trnscrd Date/Time/By: (0248) : By: [email or web address] Orig Print D/T: S: 10/02/2019 (0251) PAGE 1 Signed Report [id number] 07:41:00* Test Item Value Reference Range Interpretation Comments GLUBED (test code = GLUBED) 113 mg/dL 74-106 H Performed by certified gang punch operator at [facility] COMPREHENSIVE METABOLIC [id number] 03:18:00* Test Item Value Reference Range Interpretation Comments SODIUM (test code = NA) 137 mmol/L 136-145 POTASSIUM (test code = K) 3.9 mmol/L 3.5-5.1 N CHLORIDE (test code = CL) 108.0 mmol/L 98-107 H CARBON DIOXIDE (test code = CO2) 24.0 mmol/L 21-32 N ANION GAP (test code = GAP) 8.9 10-20 L GLUCOSE (test code = GLU) 121 mg/dL 74-106 H BLOOD UREA NITROGEN (test [...] reagent. BUN/CREATININE RATIO (test code = BUN/CREA) 12.8 10-20 N TOTAL PROTEIN (test code = PROT) 6.1 gram/dL 6.4-8.2 L ALBUMIN (test code = ALB) 2.8 g/dL 3.4-5.0 L Pr eviously reported result: 2.8 g/dLEdited by: TARA on 09/28/19:317 GLOBULIN (test code = GLOB) 3.3 gram/dL 2.7-4.2 N ALBUMIN/GLOBULIN RATIO (test code = A/G) 0.9 0.75-1.50 N Previously reported result: 0.8 Edited by: TARA on 09/28/19:317 CALCIUM (test code = CA) 9.2 mg/dL 8.5-10.1 N BILIRUBIN TOTAL (test code = BILT) 0.20 mg/dL 0.0-1.0 N SGOT/AST (test code = AST) 48 IUnit/L 15-37 H SGPT/ALT (test code = ALT) 82 IUnit/L 12-78 H ALKALINE PHOSPHATASE TOTAL (test code = ALKP) 128 IUnit/L 45-117 H Note change in reference range due to change in reagent. [id number] 03:18:00* Test Item Value Reference Range Interpretation Comments MAGNESIUM (test code = MAG) 2.0 mg/dL 1.8-2.4 N COMPREHENSIVE METABOLIC [id number] 02:04:00* Test Item Value Reference Range Interpretation Comments SODIUM (test code = NA) 137 mmol/L 136-145 POTASSIUM (test code = K) 3.9 mmol/L 3.5-5.1 N CHLORIDE (test code = CL) 108.0 mmol/L 98-107 H CARBON DIOXIDE (test code = CO2) 24.0 mmol/L 21-32 N ANION GAP (test code = GAP) 8.9 10-20 L GLUCOSE (test code = GLU) 121 mg/dL 74-106 H BLOOD UREA NITROGEN (test [...] reagent. BUN/CREATININE RATIO (test code = BUN/CREA) 12.8 10-20 N TOTAL PROTEIN (test code = PROT) gram/dL 6.4-8.2 ALBUMIN (test code = ALB) 2.8 g/dL 3.4-5.0 L GLOBULIN (test code = GLOB) gram/dL 2.7-4.2 ALBUMIN/GLOBULIN RATIO (test code = A/G) 0.75-1.50 CALCIUM (test code = CA) 9.2 mg/dL 8.5-10.1 N BILIRUBIN TOTAL (test code = BILT) mg/dL 0.0-1.0 SGOT/AST (test code = AST) 48 IUnit/L 15-37 H SGPT/ALT (test code = ALT) 82 IUnit/L 12-78 H ALKALINE PHOSPHATASE TOTAL (test code = ALKP) IUnit/L 45-117 [id number] 02:04:00* Test Item Value Reference Range Interpretation Comments MAGNESIUM (test code = MAG) 2.0 mg/dL 1.8-2.4 N COMPREHENSIVE METABOLIC [id number] 02:04:00* Test Item Value Reference Range Interpretation Comments SODIUM (test code = NA) 137 mmol/L 136-145 POTASSIUM (test code = K) 3.9 mmol/L 3.5-5.1 N CHLORIDE (test code = CL) 108.0 mmol/L 98-107 H CARBON DIOXIDE (test code = CO2) 24.0 mmol/L 21-32 N ANION GAP (test code = GAP) 8.9 10-20 L GLUCOSE (test code = GLU) 121 mg/dL 74-106 H BLOOD UREA NITROGEN (test [...] reagent. BUN/CREATININE RATIO (test code = BUN/CREA) 12.8 10-20 N TOTAL PROTEIN (test code = PROT) 6.1 gram/dL 6.4-8.2 L ALBUMIN (test code = ALB) 2.8 g/dL 3.4-5.0 L GLOBULIN (test code = GLOB) gram/dL 2.7-4.2 ALBUMIN/GLOBULIN RATIO (test code = A/G) 0.8 0.75-1.50 N CALCIUM (test code = CA) 9.2 mg/dL 8.5-10.1 N BILIRUBIN TOTAL (test code = BILT) 0.20 mg/dL 0.0-1.0 N SGOT/AST (test code = AST) 48 IUnit/L 15-37 H SGPT/ALT (test code = ALT) 82 IUnit/L 12-78 H ALKALINE PHOSPHATASE TOTAL (test code = ALKP) 128 IUnit/L 45-117 H Note change in reference range due to change in reagent. [id number] 02:04:00* Test Item Value Reference Range Interpretation Comments MAGNESIUM (test code = MAG) 2.0 mg/dL 1.8-2.4 N CBC W/AUTO [id number] 02:00:00* Test Item Value Reference Range Interpretation Comments WHITE BLOOD CELL (test code = WBC) 6.2 K/mm3 4.5-12.5 N RED BLOOD CELL (test code = RBC) 4.13 mill/mm3 3.7-5.2 N HEMOGLOBIN (test code = HGB) 13.8 gram/dL 11.5-15.5 N HEMATOCRIT (test code = HCT) 42.7 % 36.0-46.0 N MEAN CELL VOLUME (test code = MCV) 103.4 fL 80-98 H MEAN CELL HGB (test code = MCH) 33.4 picogram 27.0-33.0 H MEAN CELL HGB CONCETRATION (test code = MCHC) 32.3 gram/dL 33.0-36. 0 L RED CELL DISTRIBUTION WIDTH (test code = RDW) 12.9 % 11.6-16. 2 N RED CELL DISTRIBUTION WIDTH SD (test code = RDW-SD) 48.9 fL 37 .0-51.0 N PLATELET COUNT (test code = PLT) 242 K/mm3 150-450 RESULT VERIFIED BY REPEAT ANALYSIS MEAN PLATELET VOLUME (test code = MPV) 9.6 fL 6.7-11.0 N NEUTROPHIL % (test code = NT%) 48.3 % 39.0-69.0 N IMMATURE GRANULOCYTE % (test code = IG%) 0.8 % 0.0-5.0 N LYMPHOCYTE % (test code = LY%) 38.7 % 25.0-55.0 N MONOCYTE % (test code = MO%) 7.0 % 0.0-10.0 N EOSINOPHIL % (test code = EO%) 4.1 % 0.0-5.0 N BASOPHIL % (test code = BA%) 1.1 % 0.0-1.0 H NUCLEATED RBC % (test code = NRBC%) 0.0 % 0-0 N NEUTROPHIL # (test code = NT#) 2.98 K/mm3 1.8-7.7 N IMMATURE GRANULOCYTE # (test code = IG#) 0.05 x10 3/uL 0-0.03 H LYMPHOCYTE # (test code = LY#) 2.39 K/mm3 1.0-5.0 N MONOCYTE # (test code = MO#) 0.43 K/mm3 0-0.8 N EOSINOPHIL # (test code = EO#) 0.25 K/mm3 0.0-0.5 N BASOPHIL # (test code = BA#) 0.07 K/mm3 0.0-0.2 N NUCLEATED RBC # (test code = NRBC#) 0.00 K/mm3 0.0-0.1 N MANUAL DIFF REQUIRED (test code = MDIFF) NO [id number] 19:36:00* Test Item Value Reference Range Interpretation Comments GLUBED (test code = GLUBED) 124 mg/dL 74-106 H Performed by certified gang punch operator at [facility] [id number] 17:38:00* Test Item Value Reference Range Interpretation Comments TROPONIN-I (test code = TROPI) <0.015 ng/mL 0-0.045 N COMMENTS TO GASOLINE CATALYST OPERATOR: COLLECT 3 HOURS AFTER PREVIOUS [id number] 15:55:00* Test Item Value Reference Range Interpretation Comments GLUBED (test code = GLUBED) 111 mg/dL 74-106 H Performed by certified gang punch operator at [facility] - CT ABD PELVIS W/O [id number] 14:07:00 Name: MICHAEL CAPELLAN [facility] : 1965 Age/S: 54 / F [address] Unit #: [id number] Loc: [place] [address] Phys: Mel Mayfield MSN Acct: [id number] Dis Date: Status: ADM IN PHONE #: [phone] Exam Date: 09/27/2019 1258 FAX #: [phone] Reason: abd pain EXAMS: CPT CODE: [id number] CT ABD PELVIS W/O CONT 55680 HISTORY: sob, wheezing EXAM: CT abdomen and pelvis without IV contrast. Location: [facility] TECHNIQUE:Contrast - No IV contrast was given, Noncontrast phase -chest, abdomen and pelvis including all of kidneys Reconstructions - coronal and sagittal planes One or more of the following dose reduction techniques were used: Automated exposure control, adjustment of the mA and/or kV according to patient size, and/or utilization of iterative reconstruction technique. COMPARISON: None Statements: Lack of intravenous contrast compromises evaluation of thorax and abdominopelvic organs and vasculature. Lack of oral contrast compromises evaluation of bowel. FINDINGS: Lungs: No airspace consolidation or pleural effusion. Central airways are patent. Cardi ovascular: Normal heart size. No pericardial effusion. No thoracic aortic aneurysm or dissection. Normal caliber pulmonary arteries. M ediastinum: No lymphadenopathy. Visualized thyroid is unremarkable. Normal esophagus. Included upper abdomen: Unremarkable. Sebastián manuel and superficial soft tissues: Regional osseous structures are intact. Hepatobiliary: Diffuse hypoattenuation of the liver relative to the spleen. The liver measures up to 20 cm in the craniocaudal dimension. The gallbladder is normal. No biliary dilation. Pancreas: Normal. Spleen: Normal. Adrenals: Normal. PAGE 1 Signed Report (CONTINUED) Name: MICHAEL CAPELLAN [facility] : 1965 A ge/S: 54 / F [address] Unit #: [id number] Loc : [place] [address] Phys: Mel Mayfield MSN Acct: [id number] Dis Date: Status: ADM IN PHONE #: [phone] Exam Date: 09/27/2019 125 FAX #: [phone] Reason: abd pain EXAMS: CPT CODE: [id number] CT ABD PELVIS W/O CONT 26167 <Continued> Genitourinary: The kidneys are normal. There is no evidence of hydronephrosis of either kidney. There is no evidence of renal calculus. Evaluation of the bladder is limited, but no obvious bladder abnormality is present. Gastrointestinal: No bowel obstruction or perienteric inflammation. The appendix is normal. Diffuse scattered diverticulosis without signs of diverticulitis. Vascular: The aorta is grossly normal in appearance. Lymphatics: No enlarged lymph nodes by CT size criteria. Bones/Soft Tissues: No acute osseous findings. No ventral hernias. Peritoneum/Other: No extraluminal air. No ex traluminal fluid. IMPRESSION: No acute abnormalities. Hepatomegaly with hepatic steatosis. Diverticulosis without signs of diverticulitis. at 1407 Reported and signed by: Kenyon Boykin M.D. CC: Mel Mayfield; Duane Mckeon MD Technologist:Mor Fulton RT(R),(MR),(CT) CTDI: DLP: Trnscb Date/Time: 09/27/2019 (1407) [email or web address] Orig Print D/T: S: 09/27/2019 (6161) PAGE 2 Signed Report - CT CHEST W/O [id number] 14:07:00 Name: MICHAEL CAPELLAN [facility] : 1965 Age/S: 54 / F [address] [facility] Unit #: [id number] Loc: [place], [place] [address] Phys: Devonte Mayfield MSN Acct: [id number] Di s Date: Status: ADM IN PHONE #: [phone] Exam Date: 09/27/2019 1254 FAX #: [phone] Reason: sob, wheezing EXAMS: CPT CODE: [id number] CT CHEST W/O CONTRAST 02152 HISTORY: sob, wheezing EXAM: CT abdomen and pelvis without IV contrast. Locat ion: [facility] TECHNIQUE:Contrast - No IV contrast was given, Nonc ontrast phase -chest, abdomen and pelvis including all of kidneys Reconst ructions - coronal and sagittal planes One or more of the following dose r eduction techniques were used: Automated exposure control, adjustment of t he mA and/or kV according to patient size, and/or utilization of iterative reconstruction technique. COMPARISON: None St atements: Lack of intravenous contrast compromises evaluation of thorax an d abdominopelvic organs and vasculature. Lack of oral contrast compromises evaluation of bowel. FINDINGS: Lungs: No airspace consolid ation or pleural effusion. Central airways are patent. Cardi ovascular: Normal heart size. No pericardial effusion. No thoracic aortic aneurysm or dissection. Normal caliber pulmonary arteries. M ediastinum: No lymphadenopathy. Visualized thyroid is unremarkable. Normal esophagus. Included upper abdomen: Unremarkable. Sebastián manuel and superficial soft tissues: Regional osseous structures are intact. Hepatobiliary: Diffuse hypoattenuation of the liver relative to the spleen. The liver measures up to 20 cm in the craniocaudal dimension. The gallbladder is normal. No biliary dilation. Pancreas: Normal. Spleen: Normal. Adrenals: Normal. PAGE 1 Signed Report (CONTINUED) Name: MICHAEL CAPELLAN [facility] : 1965 A ge/S: 54 / F [address] Unit #: [id number] Loc : [place] [address] Phys: SpeculatorMel michel MSN Acct: [id number] Dis Date: Status: ADM IN PHONE #: [phone] Exam Date: 09/27/2019 1251 FAX #: [phone] Reason: sob, wheezing EXAMS: CPT CODE: [id number] CT CHEST W/O CONTRAST 13247 <Continued> Genitourinary: The kidneys are normal. There is no evidence of hydronephrosis of either kidney. There is no evidence of renal calculus. Evaluation of the bladder is limited, but no obvious bladder abnormality is present. Gastrointestinal: No bowel obstruction or perienteric inflammation. The appendix is normal. Diffuse scattered diverticulosis without signs of diverticulitis. Vascular: The aorta is grossly normal in appearance. Lymphatics: No enlarged lymph nodes by CT size criteria. Bones/Soft Tissues: No acute osseous findings. No ventral hernias. Peritoneum/Other: No extraluminal air. No ex traluminal fluid. IMPRESSION: No acute abnormalities. Hepatomegaly with hepatic steatosis. Diverticulosis without signs of diverticulitis. at 1407 Reported and signed by: Kenyon Boykin M.D. CC: Mel Mayfield MSN; Duane Mckeon MD Technologist:Mor Fulton RT(R),(MR),(CT) CTDI: DLP: Trnscb Date/Time: 09/27/2019 (2388) [email or web address] Orig Print D/T: S: 09/27/2019 (0972) PAGE 2 Signed Report - CT CHEST W/O [id number] 14:07:00 Name: MICHAEL CAPELLAN [facility] : 1965 Age/S: 54 / F [address] [facility] Unit #: [id number] Loc: [place] [address] Phys: Devonte Mayfield MSN Acct: [id number] Di s Date: 09/28/2019 Status: DIS IN PHONE #: Exam Date: 09/27/2019 7096 FAX #: [phone] Reason: sob, wheezing EXAMS: CPT CODE: [id number] CT CHEST W/O CONTRAST 19254 HISTORY: sob, wheezing EXAM: CT abdomen and pelvis without IV contrast. Locat ion: [facility] TECHNIQUE:Contrast - No IV contrast was given, Nonc ontrast phase -chest, abdomen and pelvis including all of kidneys Reconst ructions - coronal and sagittal planes One or more of the following dose r eduction techniques were used: Automated exposure control, adjustment of t he mA and/or kV according to patient size, and/or utilization of iterative reconstruction technique. COMPARISON: None St atements: Lack of intravenous contrast compromises evaluation of thorax an d abdominopelvic organs and vasculature. Lack of oral contrast compromises evaluation of bowel. FINDINGS: Lungs: No airspace consolid ation or pleural effusion. Central airways are patent. Cardi ovascular: Normal heart size. No pericardial effusion. No thoracic aortic aneurysm or dissection. Normal caliber pulmonary arteries. M ediastinum: No lymphadenopathy. Visualized thyroid is unremarkable. Normal esophagus. Included upper abdomen: Unremarkable. Sebastián manuel and superficial soft tissues: Regional osseous structures are intact. Hepatobiliary: Diffuse hypoattenuation of the liver relative to the spleen. The liver measures up to 20 cm in the craniocaudal dimension. The gallbladder is normal. No biliary dilation. Pancreas: Normal. Spleen: Normal. Adrenals: Normal. PAGE 1 Signed Report (CONTINUED) Name: MICHAEL CAPELLAN [facility] : 1965 A ge/S: 54 / F [address] [employer] Unit #: [id number] Loc : JANET Ortiz [id number] Phys: Mel Mayfield MSN Acct: [id number] Dis Date: 09/2019 Status: DIS IN PHONE #: [phone] Exam Date: 09/27/2019 1254 FAX #: [phone] Reaso n: sob, wheezing EXAMS: CPT CODE: [id number] CT CHEST W/O CONTRAST 23494 <Continued> Genitourinary: The kidneys are normal. There is no evidence of hydronephrosis of either kidney. There is no evidence of renal calculus. Evaluation of the bladder is limited, but no obvious bladder abnormality is present. Gastrointestinal: No bowel obstruction or perienteric inflammation. The appendix is normal. Diffuse scattered diverticulosis without signs of diverticulitis. Vascular: The aorta is grossly normal in appearance. Lymphatics: No enlarged lymph nodes by CT size criteria. Bones/Soft Tissues: No acute osseous findings. No ventral hernias. Peritoneum/Other: No extraluminal air. No ex traluminal fluid. IMPRESSION: No acute abnormalities. Hepatomegaly with hepatic steatosis. Diverticulosis without signs of diverticulitis. at 1407 Reported and signed by: Kenyon Boykin M.D. CC: Mel Mayfield MSN; Duane Mckeon MD Technologist:Mor Fulton RT(R),(MR),(CT) CTDI: DLP: Trnscb Date/Time: 09/27/2019 (1407) [email or web address] Orig Print D/T: S: 09/27/2019 (1280) PAGE 2 Signed Report - CT ABD PELVIS W/O [id number] 14:07:00 Name: MICHAEL CAPELLAN [facility] : 1965 Age/S: 54 / F [address] Unit #: [id number] Loc: JANET Ortiz [address] Phys: Speculator,Er in M MSN Acct: [id number] Di s Date: 09/28/2019 Status: DIS IN PHONE #: [phone] Exam Date: 09/27/2019 5047 FAX #: Reason: abd pain EXAMS: CPT CODE: [id number] CT ABD PELVIS W/O CONT 31388 HISTORY: sob, wheezing EXAM: CT abdomen and pelvis without IV contrast. Locat ion: [facility] TECHNIQUE:Contrast - No IV contrast was given, Nonc ontrast phase -chest, abdomen and pelvis including all of kidneys Reconst ructions - coronal and sagittal planes One or more of the following dose r eduction techniques were used: Automated exposure control, adjustment of t he mA and/or kV according to patient size, and/or utilization of iterative reconstruction technique. COMPARISON: None St atements: Lack of intravenous contrast compromises evaluation of thorax an d abdominopelvic organs and vasculature. Lack of oral contrast compromises evaluation of bowel. FINDINGS: Lungs: No airspace consolid ation or pleural effusion. Central airways are patent. Cardi ovascular: Normal heart size. No pericardial effusion. No thoracic aortic aneurysm or dissection. Normal caliber pulmonary arteries. M ediastinum: No lymphadenopathy. Visualized thyroid is unremarkable. Normal esophagus. Included upper abdomen: Unremarkable. Sebastián manuel and superficial soft tissues: Regional osseous structures are intact. Hepatobiliary: Diffuse hypoattenuation of the liver relative to the spleen. The liver measures up to 20 cm in the craniocaudal dimension. The gallbladder is normal. No biliary dilation. Pancreas: Normal. Spleen: Normal. Adrenals: Normal. PAGE 1 Signed Report (CONTINUED) Name: MICHAEL CAPELLAN [facility] : 1965 A ge/S: 54 / F [address] [facility] Unit #: [id number] Loc : [place] [address] Phys: Chaparro,Mel Tammy MSN Acct: [id number] Dis Date: 09/2019 Status: DIS IN PHONE #: [phone] Exam Date: 09/27/2019 1258 FAX #: [phone] Reaso n: abd pain EXAMS: CPT CODE: [id number] CT ABD PELVIS W/O CONT 69972 <Continued> Genitourinary: The kidneys are normal. There is no evidence of hydronephrosis of either kidney. There is no evidence of renal calculus. Evaluation of the bladder is limited, but no obvious bladder abnormality is present. Gastrointestinal: No bowel obstruction or perienteric inflammation. The appendix is normal. Diffuse scattered diverticulosis without signs of diverticulitis. Vascular: The aorta is grossly normal in appearance. Lymphatics: No enlarged lymph nodes by CT size criteria. Bones/Soft Tissues: No acute osseous findings. No ventral hernias. Peritoneum/Other: No extraluminal air. No ex traluminal fluid. IMPRESSION: No acute abnormalities. Hepatomegaly with hepatic steatosis. Diverticulosis without signs of diverticulitis. at 1407 Reported and signed by: Kenyon Boykin M.D. CC: Mel Mayfield MSN; Duane Mckeon MD Technologist:Mor Fulton RT(R),(MR),(CT) CTDI: DLP: Trnscb Date/Time: 09/27/2019 (1407) [email or web address] Orig Print D/T: S: 09/27/2019 (1410) PAGE 2 Signed Report - CT HEAD/BRAIN W/O [id number] 13:45:00 Name: MICHAEL CAPELLAN [facility] : 1965 Age/S: 54 / F [address] Unit #: [id number] Loc: JANET Ortiz [address] Phys: Devonte Mayfield MSN Acct: [id number] Di s Date: Status: ADM IN PHONE #: [phone] Exam Date: 09/27/2019 1254 FAX #: [phone] Reason: weakness, recent facial drooping EXAMS: CPT CODE: [id number] CT HEAD/BRAIN W/O CONT 20901 HISTORY: weakness, recent facial drooping TECHNIQUE: Noncontrast 2.[address] of the he ad. Examination acquired within 24 hours of arrival. Automated exposure co ntrol for dose reduction. COMPARISON: None FIN DINGS: No lacerations or contusions of the scalp or facial soft ti ssues. Calvarium and skull base are intact. No acte or chronic condition nurse bernie infarct. No effacement of the sulci or cali-white matter interface. No acute hemorrhage. No intracranial mass, mass effect, or midline shift. No cortical atrophy. No signs of white matter small-vessel disease. No hydrocephalus.. No extra-axial fluid collection. Visualized paranasal sinuses are clear. Mastoid air cells and middle ear cavities are clear. Orbital contents are unremarkable. IMPRESSION: Negative CT head. Loca tion: at 134 5 Reported and signed by: Kenyon Boykin M.D. CC: Mel George MSN; Duane Mckeon MD Technologist:Mor Fulton RT(R),(MR),(CT) CTDI: DLP: Trnscb Date/Time: 09/27/2019 (7980) [email or web address] Orig Print D/T: S: 09/27/2019 (5813) PAGE 1 Signed Report - CT HEAD/BRAIN W/O [id number] 13:45:00 Name: MICHAEL CAPELLAN [facility] : 1965 Age/S: 54 / F [address] [facility] Unit #: [id number] Loc: JANET Ortiz [address] Phys: Mel Mayfield MSN Acct: [id number] Dis Date: 09/28/2019 Status: DIS IN PHONE #: [phone] Exam Date: 09/27/2019 1250 FAX #: [phone] Reason: weakness, recent facial drooping EXAMS: CPT CODE: [id number] CT HEAD/BRAIN W/O CONT 05129 HISTORY: weakness, recent facial drooping TECHNIQUE: Noncontrast 2.[address] of the head. Examination acquired within 24 hours of arrival. Automated exposure control for dose reduction. COMPARISON: None FINDINGS: No lacerations or contusions of the scalp or facial soft tissues. Calvarium and skull base are intact. No acte or chronic infarct. No effacement of the sulci or cali-white matter interface. No acute hemorrhage. No intracranial mass, mass effect, or midline shift. No cortical atrophy. No signs of white matter small-vessel disease. No hydrocephalus.. No extra-axial fluid collection. Visualized paranasal sinuses are clear. Mastoid air cells and middle ear cavities are clear. Orbital contents are unremarkable. IMPRESSION: Negative CT head. Location: at 1345 Reported and signed by: Kenyon Boykin M.D. CC: Mel Mayfield; Duane Mckeon MD Technologist:Mor Fulton RT(R),(MR),(CT) CTDI: DLP: Trnscb Date/Time: 09/27/2019 (1345) [email or web address] Orig Print D/T: S: 09/27/2019 (5161) PAGE 1 Signed Report [id number] 11:47:00* Test Item Value Reference Range Interpretation Comments GLUBED (test code = GLUBED) 151 mg/dL 74-106 H Performed by certified gang punch operator at [facility] B-TYPE NATRIURETIC [id number] 11:09:00* Test Item Value Reference Range Interpretation Comments B-TYPE NATRIURETIC PEPTIDE (test code = BNP) 46.11 pgram/mL 0-100 N LIPID PROFILE (CORONARY RISK)2019-09-27 11:04:00* Test Item Value Reference Range Interpretation Comments TRIGLYCERIDES (test code = TRIG) 250 mg/dL 20-150 H CHOLESTEROL (test code = CHOL) 204 mg/dL 0-200 H CHOLESTEROL/HDL RATIO (test code = CHOLHDL) 4.0 RATIO 0-4.9 N RISK ASSOCIATED WITH CHOL/HDL RATIOS: Risk Male Female1/2 AVERAGE 3.43 3.27AVERAGE 4.97 4.442X AVERAGE 9.55 7.053X AVERAGE 23.39 11.04 REFERENCE VALUE IS RELATED TO RISK LEVELS ASRECOMMENDED BY THE [facility]. HEART, LUNG, AND BLOOD INST. HDL CHOLESTEROL (test code = HDL) 45 mg/dL 40-60 N LIPOPROTEIN LDL (test code = LDL) 133 mg/dL 100-129 H RN PERSONNEL, CONTACT PHYSICIAN IMMEDIATELY IF THIS IS A STROKE, AMI OR CAROTID STENOSIS PATIENT WHEN THE LDL >100 (1ST OCCURENCE, THIS ADMISSION) Reference Interval: mg/dL mmol/L Optimal <100 <2.6Near/above optimal 100-129 2.6- 3.3Borderline High 130-159 3.4-4.1High 160-189 4.1-4.9Very High >=190 >=4.9========= This LDL result is a direct measurement.========= THYROID STIMULATING [id number] 11:04:00* Test Item Value Reference Range Interpretation Comments THYROID STIMULATING HORMONE (test code = TSH) 2.240 uIU/mL 0.36-3.7 4 N TSH REFERENCE RANGES: EUTHYROID: 0.35 - 4.3 mIU/mL HYPO : > 5.5 mIU/mL HYPER : < 0.35 mIU/mL [id number] 11:04:00* Test Item Value Reference Range Interpretation Comments GLYCOSYLATED HEMOGLOBIN (HA1C) (test code = GLYHGB) 5.3 % HbA1 SUGGESTED DIAGNOSIS: HbA1C (%) Diabetic >6.4Prediabetes 5.7 - 6.4Normal <5.7 ESTIMATED AVERAGE GLUCOSE (test code = EAG) 105 MG/DL [id number] 10:37:00* Test Item Value Reference Range Interpretation Comments TROPONIN-I (test code = TROPI) <0.015 ng/mL 0-0.045 N COMMENTS TO GASOLINE CATALYST OPERATOR: COLLECT 3 HOURS AFTER PREVIOUS SAMPLELIPID PROFILE (CORONARY RISK)2019-09-27 10:35:00* Test Item Value Reference Range Interpretation Comments TRIGLYCERIDES (test code = TRIG) 250 mg/dL 20-150 H CHOLESTEROL (test code = CHOL) 204 mg/dL 0-200 H CHOLESTEROL/HDL RATIO (test code = CHOLHDL) 4.0 RATIO 0-4.9 N RISK ASSOCIATED WITH CHOL/HDL RATIOS: Risk Male Female1/2 AVERAGE 3.43 3.27AVERAGE 4.97 4.442X AVERAGE 9.55 7.053X AVERAGE 23.39 11.04 REFERENCE VALUE IS RELATED TO RISK LEVELS ASRECOMMENDED BY THE [facility]. HEART, LUNG, AND BLOOD INST. HDL CHOLESTEROL (test code = HDL) 45 mg/dL 40-60 N LIPOPROTEIN LDL (test code = LDL) 133 mg/dL 100-129 H RN PERSONNEL, CONTACT PHYSICIAN IMMEDIATELY IF THIS IS A STROKE, AMI OR CAROTID STENOSIS PATIENT WHEN THE LDL >100 (1ST OCCURENCE, THIS ADMISSION) Reference Interval: mg/dL mmol/L Optimal <100 <2.6Near/above optimal 100-129 2.6- 3.3Borderline High 130-159 3.4-4.1High 160-189 4.1-4.9Very High >=190 >=4.9========= This LDL result is a direct measurement.========= THYROID STIMULATING [id number] 10:35:00* Test Item Value Reference Range Interpretation Comments THYROID STIMULATING HORMONE (test code = TSH) uIU/mL 0.36-3.7 4 [id number] 05:57:00* Test Item Value Reference Range Interpretation Comments ALCOHOL (test code = ALC) 240 mg/dL 0.0-3.0 H -- INTERPRETIVE DATA NOTE: POSITIVE SCREENING RESULTS SHOULD BE CONSIDERED PRESUMPTIVE.WHEN COLLECTED FOR MEDICAL PURPOSES ONLY. SPECIMEN WILL NOTBE COLLECTED BY CHAIN OF CUSTODY.IF A CONFIRMATION OF POSITIVE RESULTS IS DESIRED, ACONFIRMATION TEST MUST BE REQUESTED BY THE PHYSICIAN AT ANADDITIONAL CHARGE TO THE PATIENT. HEPATIC FUNCTION [id number] 05:57:00* Test Item Value Reference Range Interpretation Comments TOTAL PROTEIN (test code = PROT) 6.6 gram/dL 6.4-8.2 N ALBUMIN (test code = ALB) 3.1 g/dL 3.4-5.0 L GLOBULIN (test code = GLOB) 3.5 gram/dL 2.7-4.2 N ALBUMIN/GLOBULIN RATIO (test code = A/G) 0.9 0.75-1.50 N BILIRUBIN TOTAL (test code = BILT) 0.30 mg/dL 0.0-1.0 N BILIRUBIN DIRECT (test code = BILD) 0.09 mg/dL 0.0-0.20 N SGOT/AST (test code = AST) 65 IUnit/L 15-37 H SGPT/ALT (test code = ALT) 95 IUnit/L 12-78 H ALKALINE PHOSPHATASE TOTAL (test code = ALKP) 134 IUnit/L 45-117 H Note change in reference range due to change in reagent. [id number] 05:57:00* Test Item Value Reference Range Interpretation Comments LIPASE (test code = LIP) 168 U/L 73.0-393.0 N BASIC METABOLIC [id number] 05:38:00* Test Item Value Reference Range Interpretation Comments SODIUM (test code = NA) 145 mmol/L 136-145 N POTASSIUM (test code = K) 3.5 mmol/L 3.5-5.1 N CHLORIDE (test code = CL) 114.0 mmol/L 98-107 H CARBON DIOXIDE (test code [...] CALCIUM (test code = CA) mg/dL 8.5-10.1 [id number] 05:38:00* Test Item Value Reference Range Interpretation Comments TROPONIN-I (test code = TROPI) ng/mL 0-0.045 BASIC METABOLIC [id number] 05:38:00* Test Item Value Reference Range Interpretation Comments SODIUM (test code = NA) 145 mmol/L 136-145 N POTASSIUM (test code = K) 3.5 mmol/L 3.5-5.1 N CHLORIDE (test code = CL) 114.0 mmol/L 98-107 H CARBON DIOXIDE (test code = CO2) 24.0 mmol/L 21-32 N ANION GAP (test code = GAP) 10.5 10-20 N GLUCOSE (test code = GLU) 115 mg/dL 74-106 H BLOOD UREA NITROGEN (test [...] reagent. BUN/CREATININE RATIO (test code = BUN/CREA) 10.5 10-20 N CALCIUM (test code = CA) 9.0 mg/dL 8.5-10.1 N [id number] 05:38:00* Test Item Value Reference Range Interpretation Comments TROPONIN-I (test code = TROPI) <0.015 ng/mL 0-0.045 N [id number] 05:33:00* Test Item Value Reference Range Interpretation Comments D-DIMER (test code = DDIMER) 346.00 ng/mLFEU 0-500 N Clinical Cut-off value for [...] skin infections -Liver cirrhosis - CBC W/O [id number] 05:25:00* Test Item Value Reference Range Interpretation Comments WHITE BLOOD CELL (test code = WBC) 6.1 K/mm3 4.5-12.5 N RED BLOOD CELL (test code = RBC) 4.62 mill/mm3 3.7-5.2 N HEMOGLOBIN (test code = HGB) 15.3 gram/dL 11.5-15.5 N HEMATOCRIT (test code = HCT) 46.4 % 36.0-46.0 H MEAN CELL VOLUME (test code = MCV) 100.4 fL 80-98 H MEAN CELL HGB (test code = MCH) 33.1 picogram 27.0-33.0 H MEAN CELL HGB CONCETRATION (test code = MCHC) 33.0 gram/dL 33.0-36. 0 N RED CELL DISTRIBUTION WIDTH (test code = RDW) 13.1 % 11.6-16. 2 N PLATELET COUNT (test code = PLT) 298 K/mm3 150-450 N MEAN PLATELET VOLUME (test code = MPV) 9.5 fL 6.7-11.0 N - XR CHEST 1 [id number] 05:22:00 FAX: Wiliam Zavaleta MD [phone] [place]: B St: REG Name: MICHAEL HERNANDEZ [facility] : [birth year] Age/S: 54/F [address] Unit #: [id number] Loc: [place] [address] Phys: Wiliam Zavaleta MD Acct: [id number] Dis Date: Status: REG ER PHONE #: [phone] Exam Date: 09/27/2019518 FAX #: [phone] Reason: CHEST PAIN EXAMS: CPT CODE: [id number] XR CHEST 1 V 00934 LOCATION: Q15 HISTORY: 54-year-old female who presents with chest pain. COMMENT: A frontal chest radiograph was obtained at the bedside at 5:13 a.m., and is compared to a study of September 26, 2019. The lungs are clear and well-aerated. The cardiac silhouette, anjum, and mediastinum are within normal limits. The skeleton is intact, and the surrounding soft tissues are unremarkable. Cardiac monitoring leads are present. IMPRESSION: Unremarkable portable examination of the chest. at 0522 Reported and signed by: Sanjeev Wilhelm M.D. CC: Wiliam Zavaleta MD Technologist: Bella Ospina Trndeniserd Date/Time/By: 09/27/2019 (521) : By: [email or web address] Orig Print D/T: S: 09/27/2019 (9066) PAGE 1 Signed Report - XR CHEST 1 [id number] 05:22:00 FAX: Wiliam Zavaleta MD [phone] [place]: B St: DIS Name: MICHAEL HERNANDEZ [facility] : [birth year] Age/S: 54/F [address] Unit #: [id number] Loc: [place] [address] Phys: Wiliam Zavaleta MD Acct: [id number] Dis Date: [id number] Status: DIS IN PHONE #: [phone] Exam Date: 09/27/2019518 FAX #: [phone] Reason: CHEST PAIN EXAMS: CPT CODE: [id number] XR CHEST 1 V 70563 LOCATION: Q15 HISTORY: 54-year-old female who presents with chest pain. COMMENT: A frontal chest radiograph was obtained at the bedside at 5:13 a.m., and is compared to a study of September 26, 2019. The lungs are clear and well-aerated. The cardiac silhouette, anjum, and mediastinum are within normal limits. The skeleton is intact, and the surrounding soft tissues are unremarkable. Cardiac monitoring leads are present. IMPRESSION: Unremarkable portable examination of the chest. at 0522 Reported and signed by: Sanjeev Wilhelm M.D. CC: Wiliam Zavaleta MD Technologist: Bella Ospina Trnscrd Date/Time/By: 09/27/2019 (521) : By: [email or web address] Orig Print D/T: S: 09/27/2019 (0526) PAGE 1 Signed Report B-TYPE NATRIURETIC [id number] 04:27:00* Test Item Value Reference Range Interpretation Comments B-TYPE NATRIURETIC PEPTIDE (test code = BNP) 24.90 pgram/mL 0-100 N [id number] 04:08:00* Test Item Value Reference Range Interpretation Comments ALCOHOL (test code = ALC) 237 mg/dL 0.0-3.0 H -- INTERPRETIVE DATA NOTE: POSITIVE SCREENING RESULTS SHOULD BE CONSIDERED PRESUMPTIVE.WHEN COLLECTED FOR MEDICAL PURPOSES ONLY. SPECIMEN WILL NOTBE COLLECTED BY CHAIN OF CUSTODY.IF A CONFIRMATION OF POSITIVE RESULTS IS DESIRED, ACONFIRMATION TEST MUST BE REQUESTED BY THE PHYSICIAN AT ANADDITIONAL CHARGE TO THE PATIENT. COVID 19 INHOUSE [id number] 04:07:00* Test Item Value Reference Range Interpretation Comments COVID 19 INHOUSE AG (test code = [id number]) NEGATIVE BASIC METABOLIC [id number] 03:13:00* Test Item Value Reference Range Interpretation Comments SODIUM (test code = NA) 141 mmol/L 136-145 N POTASSIUM (test code = K) 3.7 mmol/L 3.5-5.1 N CHLORIDE (test code = CL) 109.0 mmol/L 98-107 H CARBON DIOXIDE (test code = CO2) 23.0 mmol/L 21-32 N ANION GAP (test code = GAP) 12.7 10-20 N GLUCOSE (test code = GLU) [...] reagent. BUN/CREATININE RATIO (test code = BUN/CREA) 9.1 10-20 L CALCIUM (test code = CA) 9.0 mg/dL 8.5-10.1 N HEPATIC FUNCTION [id number] 03:13:00* Test Item Value Reference Range Interpretation Comments TOTAL PROTEIN (test code = PROT) 6.8 gram/dL 6.4-8.2 N ALBUMIN (test code = ALB) 3.2 g/dL 3.4-5.0 L GLOBULIN (test code = GLOB) 3.6 gram/dL 2.7-4.2 N ALBUMIN/GLOBULIN RATIO (test code = A/G) 0.9 0.75-1.50 N BILIRUBIN TOTAL (test code = BILT) 0.40 mg/dL 0.0-1.0 N BILIRUBIN DIRECT (test code = BILD) 0.10 mg/dL 0.0-0.20 N SGOT/AST (test code = AST) 66 IUnit/L 15-37 H SGPT/ALT (test code = ALT) 86 IUnit/L 12-78 H ALKALINE PHOSPHATASE TOTAL (test code = ALKP) 124 IUnit/L 45-117 H Note change in reference range due to change in reagent. [id number] 03:13:00* Test Item Value Reference Range Interpretation Comments LIPASE (test code = LIP) 187 U/L 73.0-393.0 N HCG SERUM [id number] 03:13:00* Test Item Value Reference Range Interpretation Comments HCG SERUM QUAL (test code = HCGQL) NEGATIVE NEGATIVE This HCGQL test is NOT applicable for MALE patients.Check with nurse about probable order error.If Tumor Marker Test needed, nurse should order test "HCGTU"(Test #550.52467) [id number] 03:13:00* Test Item Value Reference Range Interpretation Comments TROPONIN-I (test code = TROPI) <0.015 ng/mL 0-0.045 N BASIC METABOLIC [id number] 03:04:00* Test Item Value Reference Range Interpretation Comments SODIUM (test code = NA) mmol/L 136-145 POTASSIUM (test code = K) mmol/L 3.5-5.1 CHLORIDE (test code = CL) mmol/L 98-107 CARBON DIOXIDE (test code = CO2) mmol/L 21-32 ANION GAP (test code = GAP) 10-20 GLUCOSE (test code = GLU) mg/dL 74-106 BLOOD UREA NITROGEN (test code = BUN) mg/dL 7-18 GLOMERULAR FILTRATION RATE (test code = GFR) mL/min >=60 CREATININE (test code = CREAT) mg/dL 0.55-1.02 BUN/CREATININE RATIO (test code = BUN/CREA) 10-20 CALCIUM (test code = CA) mg/dL 8.5-10.1 HEPATIC FUNCTION [id number] 03:04:00* Test Item Value Reference Range Interpretation Comments TOTAL PROTEIN (test code = PROT) gram/dL 6.4-8.2 ALBUMIN (test code = ALB) g/dL 3.4-5.0 GLOBULIN (test code = GLOB) gram/dL 2.7-4.2 ALBUMIN/GLOBULIN RATIO (test code = A/G) 0.75-1.50 BILIRUBIN TOTAL (test code = BILT) mg/dL 0.0-1.0 BILIRUBIN DIRECT (test code = BILD) mg/dL 0.0-0.20 SGOT/AST (test code = AST) IUnit/L 15-37 SGPT/ALT (test code = ALT) IUnit/L 12-78 ALKALINE PHOSPHATASE TOTAL (test code = ALKP) IUnit/L 45-117 [id number] 03:04:00* Test Item Value Reference Range Interpretation Comments LIPASE (test code = LIP) U/L 73.0-393.0 HCG SERUM [id number] 03:04:00* Test Item Value Reference Range Interpretation Comments HCG SERUM QUAL (test code = HCGQL) NEGATIVE NEGATIVE This HCGQL test is NOT applicable for MALE patients.Check with nurse about probable order error.If Tumor Marker Test needed, nurse should order test "HCGTU"(Test #550.52440) [id number] 03:04:00* Test Item Value Reference Range Interpretation Comments TROPONIN-I (test code = TROPI) ng/mL 0-0.045 CBC W/O [id number] 02:48:00* Test Item Value Reference Range Interpretation Comments WHITE BLOOD CELL (test code = WBC) 8.1 K/mm3 4.5-12.5 N RED BLOOD CELL (test code = RBC) 4.59 mill/mm3 3.7-5.2 N HEMOGLOBIN (test code = HGB) 15.4 gram/dL 11.5-15.5 N HEMATOCRIT (test code = HCT) 46.2 % 36.0-46.0 H MEAN CELL VOLUME (test code = MCV) 100.7 fL 80-98 H MEAN CELL HGB (test code = MCH) 33.6 picogram 27.0-33.0 H MEAN CELL HGB CONCETRATION (test code = MCHC) 33.3 gram/dL 33.0-36. 0 N RED CELL DISTRIBUTION WIDTH (test code = RDW) 12.8 % 11.6-16. 2 N PLATELET COUNT (test code = PLT) 293 K/mm3 150-450 N MEAN PLATELET VOLUME (test code = MPV) 9.6 fL 6.7-11.0 N CBC W/O [id number] 02:47:00* Test Item Value Reference Range Interpretation Comments WHITE BLOOD CELL (test code = WBC) K/mm3 4.5-12.5 RED BLOOD CELL (test code = RBC) mill/mm3 3.7-5.2 HEMOGLOBIN (test code = HGB) 15.4 gram/dL 11.5-15.5 N HEMATOCRIT (test code = HCT) % 36.0-46.0 MEAN CELL VOLUME (test code = MCV) fL 80-98 MEAN CELL HGB (test code = MCH) picogram 27.0-33.0 MEAN CELL HGB CONCETRATION (test code = MCHC) gram/dL 33.0-36. 0 RED CELL DISTRIBUTION WIDTH (test code = RDW) % 11.6-16. 2 PLATELET COUNT (test code = PLT) 293 K/mm3 150-450 N MEAN PLATELET VOLUME (test code = MPV) fL 6.7-11.0 - XR CHEST 1 [id number] 02:39:00 FAX: Dakota Billy MD [place]: B St: REG Name: MICHAEL HERNANDEZ [facility] : [birth year] Age/S: 54/F [address] [facility] Unit #: [id number] Loc: [place] [address] Phys: Dakota Billy MD Acct: [id number] Dis Date: Status: REG ER PHONE #: [phone] Exam Date: 09/26/2019 0208 FAX #: [phone] Reason: Shortness of Breath EXAMS: CPT CODE: [id number] XR CHEST 1 V 16625 HISTORY: Shortness of breath Location: C3 COMPARISON:None FINDINGS: Lung volumes are increased. Heart size and vascularity are within normal limits. The lungs are clear of focal consolidation. No effusion, pneumothorax, or acute osseous abnormality. IMPRESSION: 1. Increased lung volumes. No focal consolidation. No other acute abnormalities. at 0239 Reported and signed by: Sanjeev Bragg MD CC: Dakota Billy MD Technologist: RT Kika GANDARAscrd Date/Time/By: 09/26/2019 (238) : By: [email or web address] Orig Print D /T: S: 09/26/2019 (0242) PAGE 1 S igned Report - XR CHEST 1 [id number] 02:39:00 FAX: Dakota Billy MD [place]: St: DEP Name: MICHAEL HERNANDEZ [facility] : [birth year] Age/S: 54/F [address] [facility] Unit #: [id number] Loc: [place] [address] Phys: Dakota Billy MD Acct: [id number] Dis Date: Status: DEP ER PHONE #: [phone] Exam Date: 09/26/2019 0208 FAX #: [phone] Reason: Shortness of Breath EXAMS: CPT CODE: [id number] XR CHEST 1 V 59370 HISTORY: Shortness of breath Location: C3 COMPARISON:None FINDINGS: Lung volumes are increased. Heart size and vascularity are within normal limits. The lungs are clear of focal consolidation. No effusion, pneumothorax, or acute osseous abnormality. IMPRESSION: 1. Increased lung volumes. No focal consolidation. No other acute abnormalities. at 0239 Reported and signed by: Sanjeev Bragg MD CC: Dakota Billy MD Technologist: RT Kika GANDARAscrd Date/Time/By: 09/26/2019 (0239) : By: [email or web address] Orig Print D /T: S: 09/26/2019 (0241) PAGE 1 S igned Report [id number] 07:09:00* Test Item Value Reference Range Interpretation Comments ALCOHOL (test code = ALC) 301 mg/dL 0.0-3.0 H -- INTERPRETIVE DATA NOTE: POSITIVE SCREENING RESULTS SHOULD BE CONSIDERED PRESUMPTIVE.WHEN COLLECTED FOR MEDICAL PURPOSES ONLY. SPECIMEN WILL NOTBE COLLECTED BY CHAIN OF CUSTODY.IF A CONFIRMATION OF POSITIVE RESULTS IS DESIRED, ACONFIRMATION TEST MUST BE REQUESTED BY THE PHYSICIAN AT ANADDITIONAL CHARGE TO THE PATIENT. BASIC METABOLIC [id number] 07:09:00* Test Item Value Reference Range Interpretation Comments SODIUM (test code = NA) 142 mmol/L 136-145 N POTASSIUM (test code = K) 3.4 mmol/L 3.5-5.1 L CHLORIDE (test code = CL) 109.0 mmol/L 98-107 H CARBON DIOXIDE (test code = CO2) 27.0 mmol/L 21-32 N ANION GAP (test code = GAP) 9.4 10-20 L GLUCOSE (test code = GLU) 94 mg/dL 74-106 N BLOOD UREA NITROGEN (test [...] code = CA) 9.0 mg/dL 8.5-10.1 N [id number] 07:09:00* Test Item Value Reference Range Interpretation Comments TROPONIN-I (test code = TROPI) <0.015 ng/mL 0-0.045 N CBC W/O [id number] 06:56:00* Test Item Value Reference Range Interpretation Comments WHITE BLOOD CELL (test code = WBC) 7.5 K/mm3 4.5-12.5 N RED BLOOD CELL (test code = RBC) 5.02 mill/mm3 3.7-5.2 N HEMOGLOBIN (test code = HGB) 16.7 gram/dL 11.5-15.5 H HEMATOCRIT (test code = HCT) 49.7 % 36.0-46.0 H MEAN CELL VOLUME (test code = MCV) 99.0 fL 80-98 H MEAN CELL HGB (test code = MCH) 33.3 picogram 27.0-33.0 H MEAN CELL HGB CONCETRATION (test code = MCHC) 33.6 gram/dL 33.0-36. 0 N RED CELL DISTRIBUTION WIDTH (test code = RDW) 13.2 % 11.6-16. 2 N PLATELET COUNT (test code = PLT) 304 K/mm3 150-450 N MEAN PLATELET VOLUME (test code = MPV) 9.4 fL 6.7-11.0 N BASIC METABOLIC [id number] 06:53:00* Test Item Value Reference Range Interpretation Comments SODIUM (test code = NA) 142 mmol/L 136-145 N POTASSIUM (test code = K) 3.4 mmol/L 3.5-5.1 L CHLORIDE (test code = CL) 109.0 mmol/L [...] code = CA) 9.0 mg/dL 8.5-10.1 N [id number] 06:53:00* Test Item Value Reference Range Interpretation Comments TROPONIN-I (test code = TROPI) ng/mL 0-0.045 DRUGS OF ABUSE SCREEN [id number] 21:12:00* Test Item Value Reference Range Interpretation Comments [...] (test code = METHAURN) NEGATIVE <300 ng/mL 1729]DRUGS OF ABUSE SCREEN [id number] 20:47:00* Test Item Value Reference Range Interpretation Comments UA PH DIPSTICK (test code = CARLOS) 6.0 5.0-8.0 URN COCAINE (test code = COCAURN) <300 ng/mL URN CANNABINOIDS (test code = CANNABURN) <50 ng/mL URN AMPHETAMINE (test code = AMPHETURN) <1000 ng/mL URN BARBITURATE (test code = BARBITURN) <200 ng/mL URN BENZODIAZEPINE (test code = BENZOURN) <200 ng/mL URN OPIATES (test code = OPIATURN) <300 ng/mL URN PHENCYCLIDINE (PCP) (test code = PHENCURN) <25 ng/ mL URN METHADONE (test code = METHAURN) <300 ng/mL 1729][id number] 20:13:00* Test Item Value Reference Range Interpretation Comments GLUBED (test code = GLUBED) 247 mg/dL 74-106 H Performed by certified gang punch operator at [facility] [id number] 20:13:00* Test Item Value Reference Range Interpretation Comments GLUBED (test code = GLUBED) 142 mg/dL 74-106 H Performed by certified gang punch operator at [facility] [id number] 14:57:00* Test Item Value Reference Range Interpretation Comments GLUBED (test code = GLUBED) 267 mg/dL 74-106 H Performed by certified gang punch operator at [facility] [id number] 09:24:00* Test Item Value Reference Range Interpretation Comments MAGNESIUM (test code = MAG) 2.5 mg/dL 1.8-2.4 H [id number] 08:36:00* Test Item Value Reference Range Interpretation Comments GLUBED (test code = GLUBED) 152 mg/dL 74-106 H Performed by certified gang punch operator at [facility] - US ABDOMEN [id number] 07:56:00 Name: MICHAEL CAPELLAN [facility] : 1965 Age/S: 54 / F [address] [facility] Unit #: [id number] Loc: [place] [address] Phys: Adrienne Haynes MD Acct: [id number] Dis Date: Status: ADM IN PHONE #: [phone] Exam Date: 08/01/2019210 FAX #: [phone] Reason: Abdominal pain EXAMS: CPT CODE: [id number] US ABDOMEN COMPLETE 34796 HISTORY: Abdominal pain TECHNIQUE: Static grayscale and color Doppler images from real time sonographic evaluation of the abdomen. Spectral waveform analysis of the portal vein. COMPARISON: None FINDINGS: LIVER: Hepatomegaly, measuring 21 cm craniocaudal. Diffusely increased echogenicity. No intrahepatic biliary dilation. Hepatopedal flow identified within the portal vein. GALLBLADDER: No cholelithiasis. No gallbladder wall thickening or pericholecystic fluid. Technologist reports negative sonographic Toney's sign. COMMON DUCT: Normal caliber at 4 mm. PANCREAS: Partially obscured. No visible pancreatic abnormality. KIDNEYS: Normal parenchymal echogenicity. Right kidney measures 11.1 x 5.4 x 4.6 cm. Left kidney measures 9.8 x 5.7 x 4.9 cm. Echogenic 1.0 cm lesion within the mid left renal cortex, possible angiomyolipoma. No hydronephrosis. SPLEEN: Normal parenchymal echogenicity. AORTA/IVC: No abdominal aortic aneurysm. Patent IVC. OTHER: There is no free fluid. IMPRESSION: No acute findings on sonographic evaluation of the abdomen. Hepatomegaly with diffusely increased echogenicity, suggesting fibrofatty changes. Echogenic 1.0 cm left renal lesion, possible angiomyolipoma. LOCATION: LP at 0756 Reported and signed by: Hannah Gottlieb D.O. PAGE 1 Signed Report (CONTINUED) Name: MICHAEL CAPELLAN [facility] : 1965 Age/S: 54 / F [address] [facility] Unit #: [id number] Loc: [place] [address] Phys: Adrienne Danielson MD Acct: [id number] Dis Date: Status: ADM IN [place] NE #: [phone] Exam Date: 08/01/2019 0211 FAX #: Reason: Abdominal pain EXAM S: CPT CODE: [id number] US ABD OMEN COMPLETE 95223 <Continued> CC: Adrienne Haynes MD Technologist: Meek Lafleur Trnscb Date/Time: 08/01/2019 (075) [email or web address] Orig Print D/T: S: 08/01/2019 (0800) Probe: PAGE 2 Signed Report COMPREHENSIVE METABOLIC PANEL 2019-08-01 07:24:00* Test Item Value Reference Range Interpretation Comments SODIUM (test code = NA) 137 mmol/L 136-145 N POTASSIUM (test code = K) 4.3 mmol/L 3.5-5.1 N CHLORIDE (test code = CL) 104.0 mmol/L 98-107 N CARBON DIOXIDE (test code = CO2) 23.0 mmol/L 21-32 N ANION GAP (test code = GAP) 14.3 10-20 N GLUCOSE (test code = GLU) 163 mg/dL 74-106 H BLOOD UREA NITROGEN (test code = BUN) 11 mg/dL 7-18 N GLOMERULAR FILTRATION RATE (test code = GFR) > 60 mL/min >=60 Estimated GFR by using Modified MDRD formula.Chronic kidney disease is defined as either kidney damageor GFR <60 mL/min/1.73 m2 for >3 months. CREATININE (test code = CREAT) 0.80 mg/dL 0.55-1.02 N Note change in reference range due to change in reagent. BUN/CREATININE RATIO (test code = BUN/CREA) 13.7 10-20 N TOTAL PROTEIN (test code = PROT) 7.0 gram/dL 6.4-8.2 N ALBUMIN (test code = ALB) 3.2 g/dL 3.4-5.0 L GLOBULIN (test code = GLOB) 3.8 gram/dL 2.7-4.2 N ALBUMIN/GLOBULIN RATIO (test code = A/G) 0.8 0.75-1.50 N CALCIUM (test code = CA) 9.7 mg/dL 8.5-10.1 N BILIRUBIN TOTAL (test code = BILT) 0.40 mg/dL 0.0-1.0 N SGOT/AST (test code = AST) 24 IUnit/L 15-37 N SGPT/ALT (test code = ALT) 71 IUnit/L 12-78 N ALKALINE PHOSPHATASE TOTAL (test code = ALKP) 117 IUnit/L 45-117 N Note change in reference range due to change in reagent. LIPID PROFILE (CORONARY RISK)2019-08-01 07:24:00* Test Item Value Reference Range Interpretation Comments TRIGLYCERIDES (test code = TRIG) 90 mg/dL 20-150 N CHOLESTEROL (test code = CHOL) 236 mg/dL 0-200 H CHOLESTEROL/HDL RATIO (test code = CHOLHDL) 3.0 RATIO 0-4.9 N RISK ASSOCIATED WITH CHOL/HDL RATIOS: Risk Male Female1/2 AVERAGE 3.43 3.27AVERAGE 4.97 4.442X AVERAGE 9.55 7.053X AVERAGE 23.39 11.04 REFERENCE VALUE IS RELATED TO RISK LEVELS ASRECOMMENDED BY THE [facility]. HEART, LUNG, AND BLOOD INST. HDL CHOLESTEROL (test code = HDL) 72 mg/dL 40-60 H LIPOPROTEIN LDL (test code = LDL) 149 mg/dL 100-129 H RN PERSONNEL, CONTACT PHYSICIAN IMMEDIATELY IF THIS IS A STROKE, AMI OR CAROTID STENOSIS PATIENT WHEN THE LDL >100 (1ST OCCURENCE, THIS ADMISSION) Reference Interval: mg/dL mmol/L Optimal <100 <2.6Near/above optimal 100-129 2.6- 3.3Borderline High 130-159 3.4-4.1High 160-189 4.1-4.9Very High >=190 >=4.9========= This LDL result is a direct measurement.========= THYROID STIMULATING [id number] 07:24:00* Test Item Value Reference Range Interpretation Comments THYROID STIMULATING HORMONE (test code = TSH) 0.683 uIU/mL 0.36-3.7 4 N TSH REFERENCE RANGES: EUTHYROID: 0.35 - 4.3 mIU/mL HYPO : > 5.5 mIU/mL HYPER : < 0.35 mIU/mL [id number] 07:10:00* Test Item Value Reference Range Interpretation Comments GLYCOSYLATED HEMOGLOBIN (HA1C) (test code = GLYHGB) 5.2 % HbA1 SUGGESTED DIAGNOSIS: HbA1C (%) Diabetic >6.4Prediabetes 5.7 - 6.4Normal <5.7 ESTIMATED AVERAGE GLUCOSE (test code = EAG) 103 MG/DL COMPREHENSIVE METABOLIC [id number] 07:06:00* Test Item Value Reference Range Interpretation Comments SODIUM (test code = NA) 137 mmol/L 136-145 N POTASSIUM (test code = K) 4.3 mmol/L 3.5-5.1 N CHLORIDE (test code = CL) 104.0 mmol/L 98-107 N CARBON DIOXIDE (test code [...] = ALKP) IUnit/L 45-117 LIPID PROFILE (CORONARY RISK)2019-08-01 07:06:00* Test Item Value Reference Range Interpretation Comments TRIGLYCERIDES (test code = TRIG) mg/dL 20-150 CHOLESTEROL (test code = CHOL) mg/dL 0-200 CHOLESTEROL/HDL RATIO (test code = CHOLHDL) RATIO 0-4.9 HDL CHOLESTEROL (test code = HDL) mg/dL 40-60 LIPOPROTEIN LDL (test code = LDL) mg/dL 100-129 THYROID STIMULATING [id number] 07:06:00* Test Item Value Reference Range Interpretation Comments THYROID STIMULATING HORMONE (test code = TSH) uIU/mL 0.36-3.7 4 CBC W/AUTO [id number] 06:47:00* Test Item Value Reference Range Interpretation Comments WHITE BLOOD CELL (test code = WBC) 12.7 K/mm3 4.5-12.5 H RED BLOOD CELL (test code = RBC) 4.75 mill/mm3 3.7-5.2 N HEMOGLOBIN (test code = HGB) 15.6 gram/dL 11.5-15.5 H HEMATOCRIT (test code = HCT) 47.1 % 36.0-46.0 H MEAN CELL VOLUME (test code = MCV) 99.2 fL 80-98 H MEAN CELL HGB (test code = MCH) 32.8 picogram 27.0-33.0 N MEAN CELL HGB CONCETRATION (test code = MCHC) 33.1 gram/dL 33.0-36. 0 N RED CELL DISTRIBUTION WIDTH (test code = RDW) 13.7 % 11.6-16. 2 N RED CELL DISTRIBUTION WIDTH SD (test code = RDW-SD) 50.9 fL 37 .0-51.0 N PLATELET COUNT (test code = PLT) 284 K/mm3 150-450 N MEAN PLATELET VOLUME (test code = MPV) 9.5 fL 6.7-11.0 N NEUTROPHIL % (test code = NT%) 84.7 % 39.0-69.0 H IMMATURE GRANULOCYTE % (test code = IG%) 0.6 % 0.0-5.0 N LYMPHOCYTE % (test code = LY%) 9.2 % 25.0-55.0 L MONOCYTE % (test code = MO%) 5.3 % 0.0-10.0 N EOSINOPHIL % (test code = EO%) 0.0 % 0.0-5.0 N BASOPHIL % (test code = BA%) 0.2 % 0.0-1.0 N NUCLEATED RBC % (test code = NRBC%) 0.0 % 0-0 N NEUTROPHIL # (test code = NT#) 10.79 K/mm3 1.8-7.7 H IMMATURE GRANULOCYTE # (test code = IG#) 0.08 x10 3/uL 0-0.03 H LYMPHOCYTE # (test code = LY#) 1.17 K/mm3 1.0-5.0 N MONOCYTE # (test code = MO#) 0.67 K/mm3 0-0.8 N EOSINOPHIL # (test code = EO#) 0.00 K/mm3 0.0-0.5 N BASOPHIL # (test code = BA#) 0.02 K/mm3 0.0-0.2 N NUCLEATED RBC # (test code = NRBC#) 0.00 K/mm3 0.0-0.1 N MANUAL DIFF REQUIRED (test code = MDIFF) NO [id number] 21:12:00* Test Item Value Reference Range Interpretation Comments GLUBED (test code = GLUBED) 252 mg/dL 74-106 H Performed by certified gang punch operator at [facility] [id number] 18:52:00* Test Item Value Reference Range Interpretation Comments PHOSPHORUS (test code = PHOS) 2.9 mg/dL 2.5-4.9 N [id number] 18:52:00* Test Item Value Reference Range Interpretation Comments LIPASE (test code = LIP) 107 U/L 73.0-393.0 N [id number] 18:52:00* Test Item Value Reference Range Interpretation Comments MAGNESIUM (test code = MAG) 1.7 mg/dL 1.8-2.4 L VITAMIN [id number] 18:52:00* Test Item Value Reference Range Interpretation Comments VITAMIN B12 (test code = VITB12) 220 pg/mL 193-986 N FOLIC [id number] 18:52:00* Test Item Value Reference Range Interpretation Comments FOLIC ACID (test code = FOL) 4.5 ng/mL 3.10-17.50 N [id number] 18:06:00* Test Item Value Reference Range Interpretation Comments TROPONIN-I (test code = TROPI) <0.015 ng/mL 0-0.045 N COMMENTS TO GASOLINE CATALYST OPERATOR: COLLECT 3 HOURS AFTER PREVIOUS [id number] 18:02:00* Test Item Value Reference Range Interpretation Comments AMMONIA (test code = AMM) 27 umol/L 11-32 N PROTHROMBIN [id number] 18:01:00* Test Item Value Reference Range Interpretation Comments [...] (2.5-3.5) IS PATIENT ON ANTICOAGULANTS? NTHROMBOPLASTIN TIME [id number] 18:01:00* Test Item Value Reference Range Interpretation Comments THROMBOPLASTIN TIME PARTIAL (test code = PTT) 31.6 seconds 23.0-37. 0 N IS PATIENT ON ANTICOAGULANTS? [id number] 14:41:00* Test Item Value Reference Range Interpretation Comments TROPONIN-I (test code = TROPI) <0.015 ng/mL 0-0.045 N COMMENTS TO GASOLINE CATALYST OPERATOR: COLLECT 3 HOURS AFTER PREVIOUS [id number] 05:36:00* Test Item Value Reference Range Interpretation Comments ALCOHOL (test code = ALC) 265 mg/dL 0.0-3.0 H -- INTERPRETIVE DATA NOTE: POSITIVE SCREENING RESULTS SHOULD BE CONSIDERED PRESUMPTIVE.WHEN COLLECTED FOR MEDICAL PURPOSES ONLY. SPECIMEN WILL NOTBE COLLECTED BY CHAIN OF CUSTODY.IF A CONFIRMATION OF POSITIVE RESULTS IS DESIRED, ACONFIRMATION TEST MUST BE REQUESTED BY THE PHYSICIAN AT ANADDITIONAL CHARGE TO THE PATIENT. B-TYPE NATRIURETIC [id number] 05:16:00* Test Item Value Reference Range Interpretation Comments B-TYPE NATRIURETIC PEPTIDE (test code = BNP) 9.6 pgram/mL 0-100 N BASIC METABOLIC [id number] 04:59:00* Test Item Value Reference Range Interpretation Comments SODIUM (test code = NA) 140 mmol/L 136-145 N POTASSIUM (test code = K) 3.8 mmol/L 3.5-5.1 N CHLORIDE (test code = CL) 109.0 mmol/L 98-107 H CARBON DIOXIDE (test code = CO2) 22.0 mmol/L 21-32 N ANION GAP (test code = GAP) 12.8 10-20 N GLUCOSE (test code = GLU) 107 mg/dL [...] reagent. BUN/CREATININE RATIO (test code = BUN/CREA) 11.2 10-20 N CALCIUM (test code = CA) 9.3 mg/dL 8.5-10.1 N HCG SERUM [id number] 04:59:00* Test Item Value Reference Range Interpretation Comments HCG SERUM QUAL (test code = HCGQL) NEGATIVE NEGATIVE This HCGQL test is NOT applicable for MALE patients.Check with nurse about probable order error.If Tumor Marker Test needed, nurse should order test "HCGTU"(Test #[id number]) [id number] 04:59:00* Test Item Value Reference Range Interpretation Comments TROPONIN-I (test code = TROPI) <0.015 ng/mL 0-0.045 N CBC W/O [id number] 04:49:00* Test Item Value Reference Range Interpretation Comments WHITE BLOOD CELL (test code = WBC) 7.5 K/mm3 4.5-12.5 N RED BLOOD CELL (test code = RBC) 5.05 mill/mm3 3.7-5.2 N HEMOGLOBIN (test code = HGB) 17.1 gram/dL 11.5-15.5 H HEMATOCRIT (test code = HCT) 49.5 % 36.0-46.0 H MEAN CELL VOLUME (test code = MCV) 98.0 fL 80-98 N MEAN CELL HGB (test code = MCH) 33.9 picogram 27.0-33.0 H MEAN CELL HGB CONCETRATION (test code = MCHC) 34.5 gram/dL 33.0-36. 0 N RED CELL DISTRIBUTION WIDTH (test code = RDW) 13.9 % 11.6-16. 2 N PLATELET COUNT (test code = PLT) 297 K/mm3 150-450 N MEAN PLATELET VOLUME (test code = MPV) 9.2 fL 6.7-11.0 N BASIC METABOLIC [id number] 04:48:00* Test Item Value Reference Range Interpretation Comments SODIUM (test code = NA) 140 mmol/L 136-145 N POTASSIUM (test code = K) 3.8 mmol/L 3.5-5.1 N CHLORIDE (test code = CL) 109.0 mmol/L 98-107 H CARBON DIOXIDE (test code = CO2) 22.0 mmol/L 21-32 N ANION GAP (test code = GAP) 12.8 10-20 N GLUCOSE (test code = GLU) 107 mg/dL [...] reagent. BUN/CREATININE RATIO (test code = BUN/CREA) 11.2 10-20 N CALCIUM (test code = CA) 9.3 mg/dL 8.5-10.1 N HCG SERUM [id number] 04:48:00* Test Item Value Reference Range Interpretation Comments HCG SERUM QUAL (test code = HCGQL) NEGATIVE [id number] 04:48:00* Test Item Value Reference Range Interpretation Comments TROPONIN-I (test code = TROPI) <0.015 ng/mL 0-0.045 N - XR CHEST 1 [id number] 04:46:00 FAX: Paula Johnston MD [place]: B St: REG Name: MICHAEL HERNANDEZ [facility] : [birth year] Age/S: 54/F [address] [facility] Unit #: [id number] Loc: [place] [address] Phys: Paula Johnston MD Acct: [id number] Dis Date: Status: REG ER PHONE #: [phone] Exam Date: 07/31/2019441 FAX #: [phone] Reason: CHEST PAIN EXAMS: CPT CODE: [id number] XR CHEST 1 V 98816 AFTER HOURS SERVICE ON: 07/31/2019 4:46 AM AP Portable Chest Location Code M12 HISTORY: CHEST PAIN FINDINGS: There are no in filtrates. There are no pleural effusions. There is no pneumothorax. Cardi ac silhouette and mediastinum appear within normal limits. IMPRESSION: No active pulmonary findings. at 0446 Reported and signed by: Deanna Donaldson M.D. CC: Paula Johnston MD Technologist: Bella Ospina Trndeniserd Date/Time/By: 07/31/2019 (0446) : By: [email or web address] Orig Print D/T: S: 07/31/2019 (0449) PAGE 1 Signed Report CHEST SINGLE (PORTABLE) 2019-07-17 05:50:00 [place] [address] Patient Name: MICHAEL CAPELLAN MR #: [id number] : 1965 Age/Sex: 54/F Req #: [id number] Adm Physician: Ordered by: ALEJANDRO GARZA MD Report #: [id number] Location: ER Room/Bed: Procedure: [id number] DX /CHEST SINGLE (PORTABLE) Exam Date: 07/17/19 Exam Ti me: 0510 REPORT STATUS: Signed E XAMINATION: CHEST SINGLE (PORTABLE) INDICATION: Chest pain C OMPARISON: Chest x-ray 06/15/2016 FINDINGS: TUBES and LINES: None. LUNGS: No consolidations. Mild prominence of central pulmonary vas culature. Hyperinflated lungs. Mild central bronchial wall thickening. PL EURA: No pleural effusion or pneumothorax. HEART AND MEDIASTINUM: The car diomediastinal silhouette is unremarkable. BONES AND SOFT TISSUES: No acute osseous lesion. Soft tissues are unremarkable. UPPER ABDOMEN: No f ree air under the diaphragm. IMPRESSION: Findings of pulmonary em physema and bronchitis and mild pulmonary vascular congestion. Signed by: Vijay Goldsmith DO on 07/17/2019 5:52 AM Dictated By: VIJAY GOLDSMITH DO 1 Transcribed By: THOMAS on 07/17/19551 COPY TO: ALEJANDRO GARZA MD Blood leukocytes automated count (number/volume)2019-07-17 04:36:00* Test Item Value Reference Range Interpretation Comments White Blood Count (test code = 6690-2) 8.28 4.8-10.8 [facility] automated count (number/volume)2019-07-17 04:36:00* Test Item Value Reference Range Interpretation Comments Red Blood Count (test code = 789-8) 5.02 3.6-5.1 [facility] hemoglobin measurement (moles/volume)2019-07-17 04:36:00* Test Item Value Reference Range Interpretation Comments Hemoglobin (test code = 34349-0) 16.6 12.0-16.0 [facility] CenterAutomated blood hematocrit (volume fraction)2019-07-17 04:36:00* Test Item Value Reference Range Interpretation Comments Hematocrit (test code = 4544-3) 48.8 34.2-44.1 [facility] CenterAutomated erythrocyte mean corpuscular [id number] 04:36:00* Test Item Value Reference Range Interpretation Comments Mean Corpuscular Volume (test code = 787-2) 97.2 81-99 [facility] CenterAutomated erythrocyte mean corpuscular hemoglobin (mass per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 [id number] 21:41:00* Test Item Value Reference Range Interpretation [...] NEGATIVE <300 ng/mL DRUGS OF ABUSE SCREEN [id number] 21:11:00* Test Item Value Reference Range Interpretation [...] (test code = [place]) NEGATIVE <300 ng/mL [id number] 20:02:00* Test Item Value Reference Range Interpretation [...] result is a direct measurement.========= CBC W/O [id number] 17:33:00* Test Item Value Reference Range Interpretation [...] MPV) 9.4 fL 6.7-11.0 N BASIC METABOLIC [id number] 17:29:00* Test Item Value Reference Range Interpretation [...] code = CA) 9.4 mg/dL 8.5-10.1 N [id number] 17:29:00* Test Item Value Reference Range Interpretation Comments TROPONIN-I (test code = TROPI) <0.015 ng/mL 0-0.045 N BASIC METABOLIC [id number] 17:16:00* Test Item Value Reference Range Interpretation [...] code = CA) 9.4 mg/dL 8.5-10.1 N [id number] 17:16:00* Test Item Value Reference Range Interpretation Comments TROPONIN-I (test code = TROPI) ng/mL 0-0.045 - CT HEAD/BRAIN W/O [id number] 17:00:00 Name: MICHAEL CAPELLAN [facility] : 1965 Age/S: 53 / F [address] [facility] Unit #: [id number] Loc: [place] [address] Phys: Abundio Fuentes DO Acct: [id number] Dis Date: Status: REG ER PHONE #: [phone] Exam Date: 12/28/2018 1625 FAX #: [phone] Reason: left facial numbness/headache EXAMS: CPT CODE: [id number] CT HEAD/BRAIN W/O CONT 59315 REASON FOR EXAM: left facial numbness/headache EXAM ORDER DATE: 12/28/2018 4:17 PM Ordering: Abundio Fuentes DO Attending:Abundio Fuentes DO Location:[facility] PROCEDURE: - CT HEAD/BRAIN W/O CONT COMPARISON: [...] and signed by: Paramjit Kirkpatrick M.D. CC: Yuval Andres MD; Abundio Feuntes DO Technologist:Mary Jane Corona RT(R); Daniel Grier CTDI: DLP: Trnscb Date/Time: 12/28/2018 (1700) Shanon.VTL Orig Print D/T: S: 12/28/2018 (7962) PAGE 1 Signed Report TROPONIN I [id number] 16:59:00* Test Item Value Reference Range Interpretation [...] similarmethodology is used. - XR CHEST 1 [id number] 16:33:00 FAX: Yuval Montenegro I [phone] [place]: St: [facility] FAX: Abundio Fuentes DO Name: MICHAEL CAPELLAN [facility] : 1965 Age/S: 53/F [address] [facility] Unit #: [id number] Loc: [place] [address] Phys: Abundio Fuentes DO Acct: [id number] Dis Date: Status: REG ER PHONE #: [phone] Exam Date: 12/28/2018 1620 FAX #: [phone] Reason: CHEST PAIN EXAMS: CPT CODE: [id number] XR CHEST 1 V 03003 REASON FOR EXAM: CHEST PAIN EXAM ORDER DATE: 12/28/2018 3:48 PM Ordering: Abundio Fuentes DO Attending:Abundio Fuentes DO Location:[facility] PROCEDURE: - XR CHEST 1 V COMPARISON: 11/11/2018 FINDINGS: Portable AP frontal view of the chest obtained at 4:18 PM shows clear lungs without evidence of consolidation. There is no evidence of effusion. The heart size is within normal limits. Pulmonary vasculatures are unremarkable. IMPRESSION: No active disease. at 0343 Reported and signed by: Deon Kirkpatrick M.D. CC: Yuval Andres MD; Abundio Fuentes DO Technologist: RT DAKOTA(Ada) Trnshila Date/Time/By: 12/28/2018 (4839) : By: SukhjinderL Orig Print D/T: S: 12/28/2018 (6548) PAGE 1 Signed Report XRAY RIBS UNILATERAL 2 [id number] 14:18:45IMPRESSION:No acute displaced rib fracture. I have [...] DO, 11/27/2018 2:18 PMHarris HealthXRAY CHEST 2 [id number] 13:35:38 IMPRESSION: No acute thoracic abnormality. Specifically, [...] report.Signed By: Michelle Pack MD, 11/27/2018 1:35 PM[facility]- [facility] RIBS UNI W/CXR 3+V RT 2018-11-11 17:48:00 Name: MICHAEL CAPELLAN [facility] : 1965 Age/S:53 /F [address] [facility] Unit#:[id number] Loc: [place] [address] Phys: Sergey Westfall MD Dis Date: PHONE #: [phone] Status: DEP ER FAX #: [phone] Exam Date: 11/11/2018 Reason: rib pain, trauma, cough EXAMS: CPT CODE: [id number] XR RIBS UNI W/CXR 3+V RT 58833 EXAM: Right-sided rib series, 4 views; INFORMATION: Trauma, right- sided rib pain, cough; IMPRESSION: 1. Right-sided ribs are intact; no evidence of fractures or other pathological changes. 2. No evidence of pulmonary contusion or pneumothorax. at 1748 Reported and signed by: Beto Lopez M.D. CC: Sergey Westfall MD Technologist: Brissa Lara Trnnhrpt Data: 11/11/2018 (235) Abdullahi Orig Print D/T: S: 11/11/2018 (440) PAGE 1 Signed Report - XR RIBS UNI W/CXR 3+V [id number] 17:48:00 Name: LUIS CAPELLAN [facility] : 1965 Age/S:53 /F [address] [facility] Unit#:[id number] Loc: [place] [address] Phys: Sergey Westfall MD Dis Date: PHONE #: [phone] Status: REG ER FAX #: [phone] Exam Date: 11/11/2018 Reason: rib pain, trauma, cough EXAMS: CPT CODE: [id number] XR RIBS UNI W/CXR 3+V [place] [address]302 EXAM: Right-sided rib series, 4 views; INFORMATION: Trauma, right- sided rib pain, cough; IMPRESSION: 1. Right-sided ribs are intact; no evidence of fractures or other pathological changes. 2. No evidence of pulmonary contusion or pneumothorax. at 1745 Reported and signed by: Beto Lopez M.D. CC: Sergey Westfall MD Technologist: Brissa Lara Trnscrpt Data: 11/11/2018 (000) Abdullahi Orig Print D/T: S: 11/11/2018 (118) PAGE 1 Signed Report - CT HEAD/BRAIN W/O [id number] 20:50:00 Name: MICHAEL CAPELLAN [facility] : 1965 Age/S: 53 / F [address] [facility] Unit #: [id number] Loc: [place] [address] Phys: Brenda Simpson MD Acct: [id number] Dis Date: Status: REG ER PHONE #: [phone] Exam Date: 11/03/20182018 FAX #: [phone] Reason: fall EXAMS: CPT CODE: [id number] CT HEAD/BRAIN W/O CONT 08094 HISTORY: fall TECHNIQUE: Noncontrast 2.5 mm axial [...] RT(R),CT CTDI: DLP: Trnscb Date/Time: 11/03/2018 (2049) t.[email or web address].RR31 Orig Print D/T: S: 11/03/2018 (2052) PAGE 1 Signed Report - XR RIBS UNI W/CXR 3+V [id number] 20:44:00 Name: MICHAEL CAPELLAN [facility] : 1965 Age/S:53 /F [address] [facility] Unit#:[id number] Loc: [place] [address] Phys: Chan Simpson MD Dis Date: PHONE #: [phone] Status: REG ER FAX #: [phone] Exam Date: 11/03/2018 Re ason: fall, right sided chest pain EXAMS: CPT CODE: [id number] XR RIBS UNI W/CXR 3+V [place] 68667 CLINICAL HISTORY: fall, right sided chest pain [...] MIGEL WARE RT(R),CT Trnscrpt Data: 11/03/2018 (2043) t.SDR.RR31 Orig Print D/T: S: 11/03/2018 (2046) PAGE 1 Signed Report BASIC METABOLIC [id number] 08:51:00* Test Item Value Reference Range Interpretation [...] code = CA) 9.3 mg/dL 8.5-10.1 N [id number] 08:51:00* Test Item Value Reference Range Interpretation Comments TROPONIN-I (test code = TROPI) <0.015 ng/mL 0-0.045 N BASIC METABOLIC [id number] 08:37:00* Test Item Value Reference Range Interpretation [...] CALCIUM (test code = CA) mg/dL 8.5-10.1 [id number] 08:37:00* Test Item Value Reference Range Interpretation Comments TROPONIN-I (test code = TROPI) ng/mL 0-0.045 CBC W/O [id number] 08:28:00* Test Item Value Reference Range Interpretation [...] MPV) 9.9 fL 6.7-11.0 N TROPONIN I [id number] 08:20:00* Test Item Value Reference Range Interpretation [...] similarmethodology is used. - XR CHEST 1 [id number] 07:55:00 FAX: Silvio Wilhelm MD [phone] [place]: St: DEP Name: MICHAEL HERNANDEZ [facility] : [birth year] Age/S: 53/F [address] [facility] Unit #: [id number] Loc: [place] [address] Phys: iSlvio Wilhelm MD Acct: [id number] Dis Date: Status: DEP ER PHONE #: [phone] Exam Date: 10/19/2018 0740 FAX #: [phone] Reason: CHEST PAIN EXAMS: CPT CODE: [id number] XR CHEST 1 V 17763 HISTORY: CHEST PAIN TECHNIQUE: AP chest x-ray COMPARISON: 07/28/18 FINDING S: No airspace consolidation or pleural effusion. Normal heart siz e. Mediastinal silhouette is unremarkable. Mild thoracic spondylosis. IMPRESSION: No radiographic evidence of acute card iopulmonary process. Electronically Signed by Hannah Gottlieb D.O. on 09/22 at 0755 Reported and signed by: Hannah Gottlieb D.O. CC: Silvio Wilhelm MD Technologist: Brenda Bustamante(Ada) Trnscrd Date/Time/By: 10/19/2018 (0755) : By: [email or web address] Orig Print D/T: S: (0750) PAGE 1 Signed Repo rt - XR CHEST 1 [id number] 07:55:00 FAX: Silvio Wilhelm MD [phone] [place]: St: REG Name: LUIS HERNANDEZ [facility] : [birth year]27[birth year] Age/S: 53/F [address] [facility] Unit #: [id number] Loc: [place] [address] Phys: Silvio Wilhelm MD Acct: [id number] Dis Date: Status: REG ER PHONE #: [phone] Exam Date: 10/19/2018739 FAX #: [phone] Reason: CHEST PAIN EXAMS: CPT CODE: [id number] XR CHEST 1 V 93221 HISTORY: CHEST PAIN TECHNIQUE: AP chest x-ray [...] S: (0758) PAGE 1 Signed Repo rt [id number] 12:21:00* Test Item Value Reference Range Interpretation Comments GLYCOSYLATED HEMOGLOBIN (HA1C) (test code = GLYHGB) 6.8 % HbA1 4. 8-6.0 H ESTIMATED AVERAGE GLUCOSE (test code = EAG) 148 MG/DL COMPREHENSIVE METABOLIC [id number] 12:16:00* Test Item Value Reference Range Interpretation [...] result is a direct measurement.========= THYROID STIMULATING [id number] 12:16:00* Test Item Value Reference Range Interpretation Comments THYROID STIMULATING HORMONE (test code = TSH) 3.580 uIU/mL 0.36-3.7 4 N TSH REFERENCE RANGES: EUTHYROID: 0.35 - 4.3 mIU/mL HYPO : > 5.5 mIU/mL HYPER : < 0.35 mIU/mL COMPREHENSIVE METABOLIC [id number] 11:51:00* Test Item Value Reference Range Interpretation [...] code = LDL) mg/dL 100-129 THYROID STIMULATING [id number] 11:51:00* Test Item Value Reference Range Interpretation Comments THYROID STIMULATING HORMONE (test code = TSH) uIU/mL 0.36-3.7 4 - MRI BRAIN W/O [id number] 11:26:00 FAX: Raymond Wilde [place]: B St: DIS Name: MICHAEL HERNANDEZ [facility] : [birth year] Age/S: 53/F [address] [facility] Unit #: [id number] Loc: [place] [address] Phys: Raymond Wilde MD Acct: [id number] Dis Date: Status: DIS IN PHONE #: [phone] Exam Date: 07/29/2018 1045 FAX #: [phone] Reason: vertigo, dizziness, pain EXAMS: CPT CODE: [id number] MRI BRAIN W/O CONTRAST 04120 HISTORY: vertigo, dizziness, pain TECHNIQUE: Sagittal T1, [...] Hannah Gottlieb D.O. CC: Raymond Wilde MD Te chnologist: Ryann Posadas RT(R)(MR) Trnscrd Date/ Time/By: 07/29/2018 (1124) : By: [email or web address] Orig Print D/T: S: 07/30/19 (0739) PAGE 1 Signed Report - MRI BRAIN W/O [id number] 11:26:00 FAX: Raymond Wilde [place]: B St: ADM Name: LUIS HERNANDEZ [facility] : [birth year] Age/S: 53/F [address] [facility] Unit #: [id number] Loc: V.[address] [place] [address] Phys: Raymond Wilde MD Acct: [id number] Dis Date: Status: ADM IN PHONE #: [phone] Exam Date: 07/29/2018 1045 FAX #: [phone] Reason: vertigo, dizziness, pain EXAMS: CPT CODE: [id number] MRI BRAIN W/O CONTRAST 16699 HISTORY: vertigo, dizziness, pain TECHNIQUE: Sagittal T1, [...] By: [email or web address] Orig Print D/T: S: 07/30/19 19 (4320) PAGE 1 Signed Report CBC W/AUTO [id number] 11:23:00* Test Item Value Reference Range Interpretation [...] NRBC#) 0.00 K/mm3 0.0-0.1 N CBC W/AUTO [id number] 11:19:00* Test Item Value Reference Range Interpretation [...] # (test code = BA#) K/mm3 0.0-0.2 [id number] 02:44:00* Test Item Value Reference Range Interpretation Comments TROPONIN-I (test code = TROPI) <0.015 ng/mL 0-0.045 N COMMENTS TO GASOLINE CATALYST OPERATOR: COLLECT 3 HOURS AFTER PREVIOUS [id number] 23:48:00* Test Item Value Reference Range Interpretation Comments TROPONIN-I (test code = TROPI) <0.015 ng/mL 0-0.045 N COMMENTS TO GASOLINE CATALYST OPERATOR: COLLECT 3 HOURS AFTER PREVIOUS SAMPLEDRUGS OF ABUSE SCREEN [id number] 19:08:00* Test Item Value Reference Range Interpretation [...] NEGATIVE <300 ng/mL DRUGS OF ABUSE SCREEN [id number] 18:51:00* Test Item Value Reference Range Interpretation [...] NEGATIVE <300 ng/mL - CT HEAD/BRAIN W/O [id number] 15:37:00 Name: MICHAEL CAPELLAN [facility] : 1965 Age/S: 53 / F [address] [facility] Unit #: [id number] Loc: [place] [address] Phys: Raymond Wilde MD Acct: [id number] Dis Date: Status: DIS IN PHONE #: [phone] Exam Date: 07/28/2018 1507 FAX #: [phone] Reason: headache EXAMS: CPT CODE: [id number] CT HEAD/BRAIN W/O CONT 46077 HISTORY: headache TECHNIQUE: Noncontrast 2.5 mm axial [...] CTDI: DLP: Trnscb Date/Time: 07/28/2018 (1 537) t.SDR.PB10 Orig Print D/T: S: 07/28/2018 (8955) PAGE 1 Signed Report - CT HEAD/BRAIN W/O [id number] 15:37:00 Name: LUIS CAPELLAN [facility] : 1965 Age/S: 53 / F [address] [facility] Unit #: [id number] Loc: [place] [address] Phys: Raymond Wilde MD Acct: [id number] Dis Date: Status: REG ER PHONE #: [phone] Exam Date: 07/28/2018 1508 FAX #: [phone] Reason: headache EXAMS: CPT CODE: [id number] CT HEAD/BRAIN W/O CONT 63504 HISTORY: headache TECHNIQUE: Noncontrast 2.5 mm axial [...] RT(R),CT CTDI: DLP: Trnscb Date/Time: 07/28/2018 (1537) [email or web address] Orig Print D/T: S: 07/28/2018 (8079) PAGE 1 Signed Report - XR CHEST 1 [id number] 15:21:00 FAX: Raymond Wilde [place]: St: DIS Name: MICHAEL HERNANDEZ [facility] : [birth year] Age/S: 53/F [address] [facility] Unit #: [id number] Loc: [place] [address] Phys: Raymond Wilde MD Acct: [id number] Dis Date: Status: DIS IN PHONE #: [phone] Exam Date: 07/28/2018 1450 FAX #: [phone] Reason: CHEST PAIN EXAMS: CPT CODE: [id number] XR CHEST 1 V 82815 REASON FOR EXAM: CHEST PAIN Exam Order Date: 07/28/2018 2:33 PM Ordering MMayank: Raymond Wilde MD PROCEDURE: - XR CHEST [...] M.D. CC: Raymond Wilde MD Technologist: TRISTIN ROGERS RT(R) Trnscrd Date/Time/By: 07/28/2018 (1521) : By: [email or web address] Orig Print D/T: S: 07/28/2018 (3573) PAGE 1 Signed Report - XR CHEST 1 [id number] 15:21:00 FAX: Raymond Wilde [place]: St: REG Name: LUIS HERNANDEZ [facility] : [birth year] Age/S: 53/F [address] [facility] Unit #: [id number] Loc: [place] [address] Phys: Raymond Wilde MD Acct: [id number] Dis Date: Status: REG ER PHONE #: [phone] Exam Date: 07/28/2018 1450 FAX #: [phone] Reason: CHEST PAIN EXAMS: CPT CODE: [id number] XR CHEST 1 V 01332 REASON FOR EXAM: CHEST PAIN Exam Order Date: 07/28/2018 2:33 PM Ordering M.Tuyet: Raymond Wilde MD PROCEDURE: - XR CHEST [...] MD Technologist: TRISTIN TAYLOR(R) Trnscrd Date/Time/By: 07/28/2018 (1523) : By: [email or web address] Orig Print D/T: S: 07/28/2018 (2517) PAGE 1 Signed Report URINALYSIS [id number] 15:18:00* Test Item Value Reference Range Interpretation [...] #/LPF FEW Urine Source? Clean CatchUR HCG [id number] 15:18:00* Test Item Value Reference Range Interpretation Comments UR HCG QUAL (test code = HCGQLU) NEGATIVE This HCGQL test is NOT applicable for MALE patients.Check with nurse about probable order error.If Tumor Marker Test needed, nurse should order test "HCGTU"(Test #550.24341) Urine Source? Clean CatchURINALYSIS [id number] 15:17:00* Test Item Value Reference Range Interpretation [...] #/LPF FEW Urine Source? Clean CatchUR HCG [id number] 15:17:00* Test Item Value Reference Range Interpretation Comments UR HCG QUAL (test code = HCGQLU) Urine Source? Clean CatchBASIC METABOLIC [id number] 15:01:00* Test Item Value Reference Range Interpretation [...] CA) 9.0 mg/dL 8.5-10.1 N HCG SERUM [id number] 15:01:00* Test Item Value Reference Range Interpretation Comments HCG SERUM QUAL (test code = HCGQL) NEGATIVE NEGATIVE This HCGQL test is NOT applicable for MALE patients.Check with nurse about probable order error.If Tumor Marker Test needed, nurse should order test "HCGTU"(Test #550.85165) [id number] 15:01:00* Test Item Value Reference Range Interpretation Comments TROPONIN-I (test code = TROPI) ng/mL 0-0.045 BASIC METABOLIC [id number] 15:01:00* Test Item Value Reference Range Interpretation [...] CA) 9.0 mg/dL 8.5-10.1 N HCG SERUM [id number] 15:01:00* Test Item Value Reference Range Interpretation Comments HCG SERUM QUAL (test code = HCGQL) NEGATIVE NEGATIVE This HCGQL test is NOT applicable for MALE patients.Check with nurse about probable order error.If Tumor Marker Test needed, nurse should order test "HCGTU"(Test #550.17175) [id number] 15:01:00* Test Item Value Reference Range Interpretation Comments TROPONIN-I (test code = TROPI) <0.015 ng/mL 0-0.045 N BASIC METABOLIC [id number] 15:00:00* Test Item Value Reference Range Interpretation [...] CA) 9.0 mg/dL 8.5-10.1 N HCG SERUM [id number] 15:00:00* Test Item Value Reference Range Interpretation Comments HCG SERUM QUAL (test code = HCGQL) NEGATIVE [id number] 15:00:00* Test Item Value Reference Range Interpretation Comments TROPONIN-I (test code = TROPI) ng/mL 0-0.045 CBC W/O [id number] 14:55:00* Test Item Value Reference Range Interpretation [...] MPV) 9.8 fL 6.7-11.0 N BASIC METABOLIC [id number] 22:20:00* Test Item Value Reference Range Interpretation [...] code = CA) 9.5 mg/dL 8.5-10.1 N [id number] 22:20:00* Test Item Value Reference Range Interpretation Comments TROPONIN-I (test code = TROPI) <0.015 ng/mL 0-0.045 N - XR CHEST 1 [id number] 22:11:00 FAX: Mehrdad Flowers [phone] [place]: St: DEP Name: MICHAEL HERNANDEZ [facility] : [birth year] Age/S: 53/F [address] [facility] Unit #: [id number] Loc: [place] [address] Phys: Mehrdad Ramirez MD Acct: [id number] Dis Date: Status: DEP ER PHONE #: [phone] Exam Date: 06/15/20182154 FAX #: [phone] Reason: CHEST PAIN EXAMS: CPT CODE: [id number] XR CHEST 1 V 89359 REASON FOR EXAM: CHEST PAIN EXAM ORDER [...] CC: Mehrdad Ramirez MD Technol ogist: Elizabeth Valverde) Trnscrd Date/Time/ By: 06/15/2018 (299) : By: Gustavo Orig Print D/T: S: 06/15/2018 (2 215) PAGE 1 Signed Report - XR CHEST 1 [id number] 22:11:00 FAX: Mehrdad Flowers [phone] [place]: St: REG Name: LUIS HERNANDEZ [facility] : [birth year]27[birth year] Age/S: 53/F [address] [facility] Unit #: [id number] Loc: [place] [address] Phys: Mehrdad Ramirez MD Acct: [id number] Dis Date: Status: REG ER PHONE #: [phone] Exam Date: 06/15/20182154 FAX #: [phone] Reason: CHEST PAIN EXAMS: CPT CODE: [id number] XR CHEST 1 V 24159 REASON FOR EXAM: CHEST PAIN EXAM ORDER DATE: 06/15/2018 9:47 PM Ordering M.Tuyet: Mehrdad Ramirez MD PROCEDURE: - XR CHEST 1 V CO MPARISON: 06/07/2018 FINDINGS: Portable AP frontal view of the [facility] st obtained at 9:58 PM shows clear lungs without evidence of consolidation . There is no evidence of effusion. The heart size is within normal limits . Pulmonary vasculatures are unremarkable. IMPRESSION: No active disease. at 2211 Reported and signed by: Deon Kirkpatrick M.D. CC: Mehrdad Ramirez MD Technol ogist: Elizabeth Valverde) Trnscrd Date/Time/ By: 06/15/2018 (2210) : By: Gustavo Orig Print D/T: S: 06/15/2018 (2 215) PAGE 1 Signed Report BASIC METABOLIC [id number] 22:07:00* Test Item Value Reference Range Interpretation [...] CALCIUM (test code = CA) mg/dL 8.5-10.1 [id number] 22:07:00* Test Item Value Reference Range Interpretation Comments TROPONIN-I (test code = TROPI) ng/mL 0-0.045 CBC W/O [id number] 22:03:00* Test Item Value Reference Range Interpretation [...] fL 6.7-11.0 N - XR CHEST 1 [id number] 15:49:00 FAX: Silvio Wilhelm MD [phone] [place]: B St: DEP Name: MICHAEL HERNANDEZ [facility] : 05[birth year]27/18 [birth year] Age/S: 53/F [address] Unit #: [id number] Loc: [place] [address] Phys: Silvio Wilhelm MD Acct: [id number] Dis Date: Status: DEP ER PHONE #: [phone] Exam Date: 06/07/2018 1530 FAX #: [phone] Reason: CHEST PAIN EXAMS: CPT CODE: [id number] XR CHEST 1 V 25499 REASON FOR EXAM: CHEST PAIN EXAM ORDER DATE: 06/07/2018 3:06 PM Ordering M.D.: Silvio Wilhelm MD PROCEDURE: - XR CHEST 1 V COMPAR SAM: FINDINGS: Portable AP frontal view of the chest obtained at 3:33 PM shows clear lungs without evidence of consolidation. There is no evidence of effusion. The heart size is within normal limits. Pulmon red vasculatures are unremarkable. IMPRESSION: No active diseas e. at 9256 Reported and signed by: Zurdo Mcnair C: Silvio Wilhelm MD Technologist: LUIZA MICHELLE, RT(R) Trnscrd Date/Time/By: 06/07/2018 (4253) : By: Gustavo Orig Print D/T: S: 06/07/2018 (9804) PAGE 1 Signed Report - XR CHEST 1 [id number] 15:49:00 FAX: Silvio Wilhelm MD [phone] [place]: B St: REG Name: LUIS HERNANDEZ [facility] : 05[birth year]27/[birth year] Age/S: 53/F [facility] Unit #: [id number] Loc: [place] [address] Phys: Silvio Wilhelm MD Acct: [id number] Dis Date: Status: REG ER PHONE #: [phone] Exam Date: 06/07/2018 1530 FAX #: [phone] Reason: CHEST PAIN EXAMS: CPT CODE: [id number] XR CHEST 1 V 99521 REASON FOR EXAM: CHEST PAIN EXAM ORDER DATE: 06/07/2018 3:06 PM Ordering M.D.: Silvio Wilhelm MD PROCEDURE: - XR CHEST 1 V COMPAR SAM: FINDINGS: Portable AP frontal view of the chest obtained at 3:33 PM shows clear lungs without evidence of consolidation. There is no evidence of effusion. The heart size is within normal limits. Pulmon red vasculatures are unremarkable. IMPRESSION: No active diseas e. at 1544 Reported and signed by: Zurdo Mcnair C: Silvio Wilhelm MD Technologist: LUIZA MICHELLE, RT(R) Trnscrd Date/Time/By: 06/07/2018 (4637) : By: ZinaVTL Orig Print D/T: S: 06/07/2018 (7047) PAGE 1 Signed Report BASIC METABOLIC [id number] 15:48:00* Test Item Value Reference Range Interpretation [...] code = CA) 9.0 mg/dL 8.5-10.1 N [id number] 15:48:00* Test Item Value Reference Range Interpretation Comments TROPONIN-I (test code = TROPI) <0.015 ng/mL 0-0.045 N CBC W/O [id number] 15:19:00* Test Item Value Reference Range Interpretation [...] MPV) 9.5 fL 6.7-11.0 N - CTA [id number] 19:17:00 Name: MICHAEL CAPELLAN [facility] : 1965 Age/S: 52 / F [address] Unit #: [id number] Loc: [place] [address] Phys: Alex Cowan AUDIO/VISUAL OPERATOR Acct: [id number] Dis Date: Status: DIS IN PHONE #: [phone] Exam Date: 05/11/2018 1602 FAX #: [phone] Reason: sob/cp EXAMS: CPT CODE: [id number] CTA CHEST EXAM: CTA of the chest with contrast; [...] Barb Breen MD; Alex Cowan NP Technologist:TORSTEN JACKSON RT(R); Mary Jane Yusuf CTDI: DLP: Trnscb Date/Time: 05/11/2018 (1916) Abdullahi Orig Print D/T: S: 05/11/2018 (1919) PAGE 1 Signed Report - CTA [id number] 19:17:00 Name: LUIS CAPELLAN [facility] : 1965 Age/S: 52 / F [address] [facility] Unit #: [id number] Loc: [place] [address] Phys: Jayden Cowan NP Acct: [id number] Di s Date: Status: ADM IN PHONE #: Exam Date: 05/11/2018 1602 FAX #: Reason: sob/cp EXAMS: CPT CODE: [id number] CTA CHEST 87323 EXAM: CTA of the chest with contrast; [...] diffuse fatty infiltration of the liver. at 191 Reported and signed by: Beto Lopez M.D. CC: Barb Breen MD; Alex Garcia NP Technologist:TORSTEN JACKSON RT(R); Mary Jane Yusuf CTDI: DLP: Trnscb Date/Time: 05/11/2018 (1916) t.LESTERR.GRW Orig Print D/T: S: 05/11/2018 (1919) CTDI: DLP: PAGE 1 Signed Report [id number] 08:05:00* Test Item Value Reference Range Interpretation Comments GLUBED (test code = GLUBED) 94 mg/dL 74-106 N Performed by certified gang punch operator at [facility] - CT ABD PELVIS W/[id number] 08:02:00 Name: CAITLIN CAPELLANSCILLA [facility] : 1965 Age/S: 52 / F [address] [facility] Unit #: [id number] Loc: [place] [address] Phys: Barb Breen MD Acct: [id number] Dis Date: Status: DIS IN PHONE #: [phone] Exam Date: 05/10/2018 2240 FAX #: [phone] Reason: abdominal pain; bloating EXAMS: CPT CODE: [id number] CT ABD PELVIS W/CONT 18079 REASON FOR EXAM: abdominal pain; bloating EXAM [...] Kirkpatrick M.D. CC: Barb Breen MD Technologist:NOAH LAZO, RT CTDI: DLP: Trnscb Date/Time: 05/11/2018 (801) t.SDR.VTL Orig Print D/T: S: 05/11/2018 (08) PAGE 1 Signed Report - CT ABD PELVIS W/[id number] 08:02:00 Name: LUIS CAPELLAN [facility] : 1965 Age/S: 52 / F [address] [facility] Unit #: [id number] Loc: [place] [address] Phys: Barb Breen MD Acct: [id number] Dis Date: Status: ADM IN PHONE #: [phone] Exam Date: 05/10/20182239 FAX #: [phone] Reason: abdominal pain; bloating EXAMS: CPT CODE: [id number] CT ABD PELVIS W/CONT 18358 REASON FOR EXAM: abdominal pain; bloating EXAM [...] Kirkpatrick M.D. CC: Barb Breen MD Technologist:NOAH LAZO, RT CTDI: DLP: Trnscb Date/Time: 05/11/2018 (801) Gustavo Orig Print D/T: S: 05/11/2018 (804) CTDI: DLP: PAGE 1 Signed Report [id number] 07:07:00* Test Item Value Reference Range Interpretation [...] This LDL result is a direct measurement.========= [id number] 02:59:00* Test Item Value Reference Range Interpretation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
== END 2019-11-08 08:30 | disposition home or self-care (01) ==
LOC: ER 05:52
DX: F10.129 Alcohol abuse with intoxication, unspecified (principal); I10 Essential (primary) hypertension; E78.5 Hyperlipidemia, unspecified; F41.9 Anxiety disorder, unspecified; K21.9 Gastro-esophageal reflux disease without esophagitis
CPT/HCPCS: 36415; 71045; 80053; 80307; 80320; 81001; 82550; 82553; 84484; 85025; 85379; 93005; 99284

== ENCOUNTER 2019-11-24 00:55 | Emergency (ER) | payer SELFPAY ==
[~2019-11-24] VITALS: Ht 149.9 cm; Wt 66.2 kg
[2019-11-24] MEDS ORDERED: ASPIRIN 81 MG CHEW TAB PO ONE (01:00)
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
--- NOTE | 2019-11-24 01:06 | NUR ---
PT STATED, "YALL DON'T KNOW ME HERE, I'VE NEVER BEEN HERE." INFORMED PT THAT I HAD MET HER IN THE PAST. PT AGGRESSIVE WITH STAFF, CURSING AND REFUSING TREATMENT. ER MD TO BS. CARLOS NOTIFIED.
== END 2019-11-24 01:30 | disposition home or self-care (01) ==
LOC: ER 01:00
DX: R07.9 Chest pain, unspecified (principal); F10.10 Alcohol abuse, uncomplicated; R11.2 Nausea with vomiting, unspecified; R06.02 Shortness of breath; I10 Essential (primary) hypertension; E78.5 Hyperlipidemia, unspecified; K21.9 Gastro-esophageal reflux disease without esophagitis; M54.9 Dorsalgia, unspecified; G89.29 Other chronic pain
CPT/HCPCS: 99281

== ENCOUNTER 2020-07-14 15:18 | Emergency (ER) | payer SELFPAY ==
[~2020-07-14] VITALS: Ht 149.9 cm; Wt 66.2 kg
[2020-07-14] MEDS ORDERED: ASPIRIN 81 MG CHEW TAB PO NR (16:00)
[2020-07-14 17:07] LABS: BASOPHILS # (AUTO) 0.1 (0.0-0.1); BASOPHILS % 1.5 % (0.0-1.0); EOSINOPHILS # (AUTO) 0.2 (0.0-0.4); HEMOGLOBIN 16.4 g/dL (12.0-16.0); LYMPHOCYTES # (AUTO) 2.3 (1.0-3.2); LYMPHOCYTES % 44.4 % (18.0-39.1); MEAN CORPUSCULAR HEMOGLOBIN 31.5 pg (28-32); MEAN CORPUSCULAR HGB CONC 32.8 g/dL (31-35); MONOCYTES # (AUTO) 0.5 (0.2-0.8); NEUTROPHILS # (AUTO) 2.1 (2.1-6.9); NEUTROPHILS % 40.7 % (38.7-80.0); PLATELET COUNT 235 x10e3/uL (140-360); RED BLOOD COUNT 5.21 x10e6/uL (3.6-5.1); RED CELL DISTRIBUTION WIDTH 15.1 % (11.7-14.4)
[2020-07-14 17:27] LABS: ALANINE AMINOTRANSFERASE 76 IU/L (0-55); ALBUMIN 3.9 g/dL (3.5-5.0); ALBUMIN/GLOBULIN RATIO 1.2 (0.8-2.0); ALKALINE PHOSPHATASE 137 IU/L (40-150); ANION GAP 16.7 mmol/L (8-16); BLOOD UREA NITROGEN 7 mg/dL (7-26); BUN/CREATININE RATIO 10 (6-25); CALCIUM 9.8 mg/dL (8.4-10.2); CARBON DIOXIDE 20 mmol/L (22-29); CHLORIDE 103 mmol/L (98-107); CREATINE KINASE 306 IU/L (29-168); CREATININE, SERUM 0.68 mg/dL (0.57-1.11); EST GLOMERULAR FILTRATION RATE > 60 ML/MIN (60-); GLUCOSE 106 mg/dL (74-118); POTASSIUM 3.7 mmol/L (3.5-5.1); SODIUM 136 mmol/L (136-145)
[2020-07-14] MEDS ORDERED: KETOROLAC TROMETHAMINE 30 MG/ML VIAL IV STA (17:27)
[2020-07-14] MEDS ORDERED: KETOROLAC TROMETHAMINE 30 MG/ML VIAL ONE (17:35)
== END 2020-07-14 18:44 | disposition home or self-care (01) ==
LOC: ER 16:16
DX: R07.9 Chest pain, unspecified (principal); I10 Essential (primary) hypertension; E11.9 Type 2 diabetes mellitus without complications; E78.5 Hyperlipidemia, unspecified; K21.9 Gastro-esophageal reflux disease without esophagitis; F41.9 Anxiety disorder, unspecified; Z86.73 Personal history of transient ischemic attack (TIA), and cerebral infarction without residual deficits
CPT/HCPCS: 36415; 71045; 80053; 82550; 82553; 83880; 84484; 93005; 99284; 85025; J1885

== ENCOUNTER 2021-05-03 00:31 | Emergency (ER) | payer SELFPAY ==
[~2021-05-03] VITALS: Ht 149.9 cm; Wt 66.2 kg
[~2021-05-03 00:31] MED LIST: NORCO 5-325 TA1 EACH PO
== END 2021-05-03 01:31 | disposition home or self-care (01) ==
LOC: ER 00:43
DX: R07.89 Other chest pain (principal); I10 Essential (primary) hypertension; E11.9 Type 2 diabetes mellitus without complications; E78.5 Hyperlipidemia, unspecified; K21.9 Gastro-esophageal reflux disease without esophagitis; E78.00 Pure hypercholesterolemia, unspecified; F41.9 Anxiety disorder, unspecified; M54.9 Dorsalgia, unspecified; G89.29 Other chronic pain; R94.31 Abnormal electrocardiogram [ECG] [EKG]; Z86.73 Personal history of transient ischemic attack (TIA), and cerebral infarction without residual deficits
CPT/HCPCS: 71046; 93005; 99283

== ENCOUNTER 2021-06-27 14:29 | Observation (INO) | payer SELFPAY ==
[~2021-06-27] VITALS: Ht 149.9 cm; Wt 66.2 kg
[2021-06-27 15:04] LABS: BASOPHILS # (AUTO) 0.1 (0.0-0.1); BASOPHILS % 1.3 % (0.0-1.0); EOSINOPHILS # (AUTO) 0.2 (0.0-0.4); EOSINOPHILS % 2.5 % (0.0-6.0); HEMATOCRIT 50.1 % (34.2-44.1); LYMPHOCYTES # (AUTO) 3.1 (1.0-3.2); LYMPHOCYTES % 45.9 % (18.0-39.1); MEAN CORPUSCULAR HEMOGLOBIN 32.8 pg (28-32); MEAN CORPUSCULAR HGB CONC 33.9 g/dL (31-35); MEAN CORPUSCULAR VOLUME 96.5 fL (81-99); MONOCYTES # (AUTO) 0.5 (0.2-0.8); MONOCYTES % 6.8 % (4.4-11.3); NEUTROPHILS # (AUTO) 2.9 (2.1-6.9); NEUTROPHILS % 42.8 % (38.7-80.0); PLATELET COUNT 282 x10e3/uL (140-360); RED BLOOD COUNT 5.19 x10e6/uL (3.6-5.1); RED CELL DISTRIBUTION WIDTH 17.1 % (11.7-14.4)
[2021-06-27 15:10] LABS: AMPHETAMINES SCREEN,URINE NEGATIVE (NEGATIVE); BENZODIAZEPINES SCREEN,URINE NEGATIVE (NEGATIVE); CLARITY,URINE HAZY (CLEAR); COLOR,URINE YELLOW (YELLOW); PHENCYCLIDINE SCREEN,URINE NEGATIVE (NEGATIVE)
[2021-06-27 15:11] LABS: KETONES,URINE NEGATIVE (NEGATIVE); LEUKOCYTE ESTERASE ,URINE NEGATIVE (NEGATIVE); NITRITE,URINE NEGATIVE (NEGATIVE); PROTEIN,URINE DIPSTICK NEGATIVE (NEGATIVE); URINE UROBILINOGEN 0.2 mg/dL (0.2 - 1)
[2021-06-27 15:12] LABS: BACTERIA,URINE FEW /HPF; EPITHELIAL CELLS,URINE FEW /LPF; RBC,URINE 0-5 /HPF (0-5); WBC,URINE (MAN) 0-5 /HPF (0-5)
[2021-06-27 15:23] LABS: ALANINE AMINOTRANSFERASE 59 IU/L (0-55); ALBUMIN 2.9 g/dL (3.5-5.0); ALKALINE PHOSPHATASE 109 IU/L (40-150); ANION GAP 12.2 mmol/L (8-16); BLOOD UREA NITROGEN < 5 mg/dL (7-26); CARBON DIOXIDE 16 mmol/L (22-29); CHLORIDE 115 mmol/L (98-107); CREATININE, SERUM 0.54 mg/dL (0.57-1.11); EST GLOMERULAR FILTRATION RATE 118 ML/MIN (60-); GLUCOSE 83 mg/dL (74-118); POTASSIUM 3.2 mmol/L (3.5-5.1); SODIUM 140 mmol/L (136-145)
[2021-06-27 15:25] LABS: BUN/CREATININE RATIO 9 (6-25)
[2021-06-27 15:27] LABS: CALCIUM 6.9 mg/dL (8.4-10.2)
[2021-06-27] MEDS ORDERED: CALCIUM GLUCONATE 10% INJ 13.95 MEQ in SODIUM CHLORIDE 0.9% 100 ML 100 ML IV ONE (16:30)
[2021-06-27] MEDS ORDERED: SODIUM CHLORIDE 0.9% 1000ML 1,000 ML IV SCH (16:45)
[2021-06-27] MEDS ORDERED: ASPIRIN 81 MG CHEW TAB PO ONE (16:45)
[2021-06-27 20:00] VITALS: BP 130/78
[2021-06-27 21:04] VITALS: BP 130/78
[2021-06-27] MEDS: SOD CHL 0.45%/POT CHL 20MEQ 1,000 ML IV SCH (21:53)
[2021-06-27] MEDS: THIAMINE HCL INJ 100 MG/ML 2ML VIAL IV SCH (21:54)
[2021-06-27] MEDS: FAMOTIDINE 20 MG/2 ML VIAL IV SCH (21:54)
[2021-06-27] MEDS: HYDROCODONE/APAP 5MG-325MG TAB PO PRN (21:57)
[2021-06-27] MEDS: CHLORDIAZEPOXIDE HCL 10 MG CAP PO PRN (22:37)
[2021-06-27] MEDS: FOLIC ACID/CYANOCOB/PYRIDOXINE TAB PO SCH (22:37)
[2021-06-28] VITALS: BP 148/86
[2021-06-28 04:00] VITALS: BP 132/62
[2021-06-28] MEDS: SOD CHL 0.45%/POT CHL 20MEQ 1,000 ML IV SCH ×2 (04:37→08:46)
[2021-06-28 05:15] LABS: BASOPHILS # (AUTO) 0.1 (0.0-0.1); BASOPHILS % 1.1 % (0.0-1.0); EOSINOPHILS # (AUTO) 0.1 (0.0-0.4); EOSINOPHILS % 2.1 % (0.0-6.0); HEMATOCRIT 47.7 % (34.2-44.1); HEMOGLOBIN 15.9 g/dL (12.0-16.0); LYMPHOCYTES # (AUTO) 2.7 (1.0-3.2); LYMPHOCYTES % 42.8 % (18.0-39.1); MEAN CORPUSCULAR HEMOGLOBIN 32.6 pg (28-32); MEAN CORPUSCULAR HGB CONC 33.3 g/dL (31-35); MEAN CORPUSCULAR VOLUME 97.9 fL (81-99); MONOCYTES # (AUTO) 0.6 (0.2-0.8); MONOCYTES % 9.2 % (4.4-11.3); NEUTROPHILS # (AUTO) 2.8 (2.1-6.9); NEUTROPHILS % 44.3 % (38.7-80.0); PLATELET COUNT 241 x10e3/uL (140-360); RED BLOOD COUNT 4.87 x10e6/uL (3.6-5.1); RED CELL DISTRIBUTION WIDTH 16.8 % (11.7-14.4)
[2021-06-28 05:52] LABS: ALBUMIN/GLOBULIN RATIO 0.9 (0.8-2.0); ANION GAP 11.8 mmol/L (8-16); CALCIUM 8.8 mg/dL (8.4-10.2); CREATININE, SERUM 0.65 mg/dL (0.57-1.11); MAGNESIUM 1.3 MG/DL (1.3-2.1); POTASSIUM 3.8 mmol/L (3.5-5.1)
[2021-06-28 06:12] LABS: THYROID STIMULATING HORMONE 2.905 uIU/mL (0.350-4.940)
[2021-06-28] MEDS ORDERED: IPRATROPIU0.2 MG/1 M INH (07:09)
[2021-06-28] MEDS ORDERED: CYCLOBENZAPRINE5 MG PO (07:09)
[2021-06-28] MEDS ORDERED: KLONOPIN0.5 MG PO (07:09)
[2021-06-28] MEDS ORDERED: AMLODIPINE BESY10 MG PO (07:10)
[2021-06-28] MEDS: HYDROCODONE/APAP 5MG-325MG TAB PO PRN (07:15)
[2021-06-28] MEDS: CHLORDIAZEPOXIDE HCL 10 MG CAP PO PRN (07:28)
[2021-06-28 07:49] VITALS: BP 158/96
[2021-06-28 07:50] VITALS: BP 158/96
[2021-06-28] MEDS ORDERED: CYCLOBENZAPRINE HCL 10 MG TAB PO PRN (08:30)
[2021-06-28] MEDS: THIAMINE HCL INJ 100 MG/ML 2ML VIAL IV SCH (08:39)
[2021-06-28] MEDS: FAMOTIDINE 20 MG/2 ML VIAL IV SCH (08:39)
[2021-06-28] MEDS: FOLIC ACID/CYANOCOB/PYRIDOXINE TAB PO SCH (08:39)
[2021-06-28] MEDS ORDERED: AMLODIPINE BESYLATE 10 MG TAB PO SCH (09:00)
[2021-06-28] MEDS ORDERED: CLONAZEPAM 0.5 MG TAB PO SCH (09:00)
[2021-06-28 11:42] VITALS: BP 136/71
[2021-06-28 16:13] VITALS: BP 144/75
[2021-06-28] MEDS ORDERED: FAMOTIDINE 20 MG TAB PO SCH (16:30)
== END 2021-06-28 16:37 | disposition home or self-care (01) ==
LOC: ER 14:51 → ERHOLD 16:43 → MED/SURG 19:50
PROVIDERS: ADMIT Internal Medicine; ATTEND Internal Medicine
DX: I45.81 Long QT syndrome (principal); E83.51 Hypocalcemia; F32.A Depression, unspecified; I10 Essential (primary) hypertension; E86.0 Dehydration; F10.20 Alcohol dependence, uncomplicated; Y90.8 Blood alcohol level of 240 mg/100 ml or more; Z20.822 Contact with and (suspected) exposure to COVID-19
CPT/HCPCS: 36415 ×2; 71045; 80053 ×2; 80307; 80320; 81001; 82607; 82746; 82948; 83735; 84100; 84443; 84484; 85025 ×2; 93005; 94799 ×2; 99284; G0378 ×2; J0610; J3411 ×2; J7030; U0002

== ENCOUNTER 2021-08-19 02:10 | Emergency (ER) | payer SELFPAY ==
[~2021-08-19] VITALS: Ht 271.8 cm; Wt 66.2 kg
[~2021-08-19 02:10] MED LIST changes: +AMLODIPINE BESY10 MG PO; +CYCLOBENZAPRINE5 MG PO; +IPRATROPIU0.2 MG/1 M INH; +KLONOPIN0.5 MG PO
[2021-08-19] MEDS ORDERED: ONDANSETRON HCL INJ 2MG/ML 2ML 2 MG/ML VIAL IV STA (02:15)
[2021-08-19] MEDS ORDERED: Morphine 4mg INJECTION 4 MG/ML INJ IV STA (02:15)
[2021-08-19 02:32] LABS: BASOPHILS # (AUTO) 0.1 (0.0-0.1); BASOPHILS % 0.9 % (0.0-1.0); EOSINOPHILS # (AUTO) 0.2 (0.0-0.4); EOSINOPHILS % 2.2 % (0.0-6.0); HEMATOCRIT 52.1 % (34.2-44.1); LYMPHOCYTES # (AUTO) 3.4 (1.0-3.2); LYMPHOCYTES % 38.1 % (18.0-39.1); MEAN CORPUSCULAR HEMOGLOBIN 32.6 pg (28-32); MEAN CORPUSCULAR HGB CONC 32.6 g/dL (31-35); MONOCYTES # (AUTO) 0.6 (0.2-0.8); MONOCYTES % 6.5 % (4.4-11.3); NEUTROPHILS # (AUTO) 4.7 (2.1-6.9); PLATELET COUNT 308 x10e3/uL (140-360); RED BLOOD COUNT 5.21 x10e6/uL (3.6-5.1); RED CELL DISTRIBUTION WIDTH 12.7 % (11.7-14.4)
[2021-08-19 02:55] LABS: ALANINE AMINOTRANSFERASE 62 IU/L (0-55); ALBUMIN 3.4 g/dL (3.5-5.0); ALBUMIN/GLOBULIN RATIO 0.9 (0.8-2.0); ALKALINE PHOSPHATASE 113 IU/L (40-150); ANION GAP 16.7 mmol/L (8-16); BLOOD UREA NITROGEN < 5 mg/dL (7-26); CALCIUM 9.3 mg/dL (8.4-10.2); CARBON DIOXIDE 21 mmol/L (22-29); CHLORIDE 105 mmol/L (98-107); CREATINE KINASE 31 IU/L (29-168); CREATININE, SERUM 0.67 mg/dL (0.57-1.11); GLUCOSE 87 mg/dL (74-118); POTASSIUM 3.7 mmol/L (3.5-5.1); SODIUM 139 mmol/L (136-145)
[2021-08-19 02:56] LABS: BUN/CREATININE RATIO 7 (6-25)
== END 2021-08-19 03:31 | disposition home or self-care (01) ==
LOC: ER 02:15
DX: R06.02 Shortness of breath (principal); R07.9 Chest pain, unspecified; F10.10 Alcohol abuse, uncomplicated; I10 Essential (primary) hypertension; I50.9 Heart failure, unspecified; E78.5 Hyperlipidemia, unspecified; K21.9 Gastro-esophageal reflux disease without esophagitis; K76.9 Liver disease, unspecified; Z86.73 Personal history of transient ischemic attack (TIA), and cerebral infarction without residual deficits
CPT/HCPCS: 36415; 71045; 80053; 80320; 82550; 82553; 83690; 83880; 84484; 85025; 85379; 93005; 99284; J2270; J2405

== ENCOUNTER 2021-10-19 19:03 | Emergency (ER) | payer SELFPAY ==
[~2021-10-19] VITALS: Ht 271.8 cm; Wt 66.2 kg
[2021-10-19 19:48] LABS: BASOPHILS # (AUTO) 0.1 (0.0-0.1); BASOPHILS % 0.8 % (0.0-1.0); EOSINOPHILS # (AUTO) 0.2 (0.0-0.4); EOSINOPHILS % 2.7 % (0.0-6.0); HEMATOCRIT 51.6 % (34.2-44.1); HEMOGLOBIN 16.8 g/dL (12.0-16.0); LYMPHOCYTES # (AUTO) 2.1 (1.0-3.2); LYMPHOCYTES % 28.2 % (18.0-39.1); MEAN CORPUSCULAR HEMOGLOBIN 31.1 pg (28-32); MEAN CORPUSCULAR HGB CONC 32.6 g/dL (31-35); MEAN CORPUSCULAR VOLUME 95.6 fL (81-99); MONOCYTES # (AUTO) 0.4 (0.2-0.8); MONOCYTES % 5.9 % (4.4-11.3); NEUTROPHILS # (AUTO) 4.6 (2.1-6.9); NEUTROPHILS % 62.1 % (38.7-80.0); PLATELET COUNT 246 x10e3/uL (140-360); RED CELL DISTRIBUTION WIDTH 14.2 % (11.7-14.4)
[2021-10-19 20:06] LABS: ALANINE AMINOTRANSFERASE 64 IU/L (0-55); ALBUMIN 3.7 g/dL (3.5-5.0); ALBUMIN/GLOBULIN RATIO 1.1 (0.8-2.0); ALKALINE PHOSPHATASE 115 IU/L (40-150); ANION GAP 17.8 mmol/L (8-16); BLOOD UREA NITROGEN 8 mg/dL (7-26); BUN/CREATININE RATIO 11 (6-25); CALCIUM 9.2 mg/dL (8.4-10.2); CARBON DIOXIDE 22 mmol/L (22-29); CHLORIDE 103 mmol/L (98-107); CREATINE KINASE 25 IU/L (29-168); GLUCOSE 159 mg/dL (74-118); POTASSIUM 3.8 mmol/L (3.5-5.1); SODIUM 139 mmol/L (136-145)
[2021-10-19 20:07] LABS: LIPASE 24 U/L (8-78)
[2021-10-19 20:13] LABS: CLARITY,URINE SL CLOUDY (CLEAR); COLOR,URINE STRAW (YELLOW)
[2021-10-19 20:14] LABS: KETONES,URINE NEGATIVE (NEGATIVE); LEUKOCYTE ESTERASE ,URINE NEGATIVE (NEGATIVE); NITRITE,URINE NEGATIVE (NEGATIVE); PROTEIN,URINE DIPSTICK NEGATIVE (NEGATIVE); URINE UROBILINOGEN 0.2 mg/dL (0.2 - 1)
[2021-10-19 20:19] LABS: BACTERIA,URINE MANY /HPF; EPITHELIAL CELLS,URINE FEW /LPF
[2021-10-19 21:16] VITALS: BP 142/84
== END 2021-10-19 21:17 | disposition home or self-care (01) ==
LOC: ER 19:23
DX: R06.02 Shortness of breath (principal); R07.89 Other chest pain; I10 Essential (primary) hypertension; I50.9 Heart failure, unspecified; E78.5 Hyperlipidemia, unspecified; K76.9 Liver disease, unspecified; K21.9 Gastro-esophageal reflux disease without esophagitis; Z86.73 Personal history of transient ischemic attack (TIA), and cerebral infarction without residual deficits
CPT/HCPCS: 36415; 71045; 80053; 80320; 81001; 82550; 82553; 83690; 84484; 85025; 93005; 99284

== ENCOUNTER 2021-11-01 17:43 | Emergency (ER) | payer SELFPAY ==
[~2021-11-01] VITALS: Ht 271.8 cm; Wt 66.2 kg
[2021-11-01 18:29] LABS: BASOPHILS # (AUTO) 0.1 (0.0-0.1); BASOPHILS % 0.7 % (0.0-1.0); EOSINOPHILS # (AUTO) 0.2 (0.0-0.4); HEMATOCRIT 50.8 % (34.2-44.1); HEMOGLOBIN 17.2 g/dL (12.0-16.0); LYMPHOCYTES # (AUTO) 2.5 (1.0-3.2); LYMPHOCYTES % 31.3 % (18.0-39.1); MEAN CORPUSCULAR HEMOGLOBIN 31.3 pg (28-32); MEAN CORPUSCULAR HGB CONC 33.9 g/dL (31-35); MEAN CORPUSCULAR VOLUME 92.4 fL (81-99); MONOCYTES # (AUTO) 0.6 (0.2-0.8); MONOCYTES % 7.1 % (4.4-11.3); NEUTROPHILS # (AUTO) 4.7 (2.1-6.9); NEUTROPHILS % 58.5 % (38.7-80.0); PLATELET COUNT 286 x10e3/uL (140-360); RED CELL DISTRIBUTION WIDTH 14.2 % (11.7-14.4)
[2021-11-01] MEDS ORDERED: ALBUTEROL/IPRATROPIUM 3 ML NEB NEB ONE (18:30)
[2021-11-01] MEDS ORDERED: DEXAMETHASONE 10MG/ML PF INJ IV ONE (18:30)
[2021-11-01] MEDS ORDERED: ONDANSETRON HCL INJ 2MG/ML 2ML 2 MG/ML VIAL IV STA (18:30)
[2021-11-01 18:47] LABS: ALBUMIN 3.4 g/dL (3.5-5.0); ALBUMIN/GLOBULIN RATIO 0.9 (0.8-2.0); ANION GAP 16.3 mmol/L (8-16); CALCIUM 9.3 mg/dL (8.4-10.2); CREATININE, SERUM 0.72 mg/dL (0.57-1.11); POTASSIUM 3.3 mmol/L (3.5-5.1)
[2021-11-01] MEDS ORDERED: PREDNISONE50 MG PO (19:32)
[2021-11-01] MEDS ORDERED: AZITHROMYCIN250 MG PO (19:32)
[2021-11-01] MEDS ORDERED: BENZONATATE200 MG PO (19:32)
[2021-11-01] MEDS ORDERED: SIDESTREAM NEB1 EACH PEG (19:32)
== END 2021-11-01 21:00 | disposition home or self-care (01) ==
LOC: ER 17:48
DX: R05.9 Cough, unspecified (principal); J06.9 Acute upper respiratory infection, unspecified; J44.9 Chronic obstructive pulmonary disease, unspecified; I10 Essential (primary) hypertension; I50.9 Heart failure, unspecified; E78.5 Hyperlipidemia, unspecified; K21.9 Gastro-esophageal reflux disease without esophagitis; K76.9 Liver disease, unspecified; Z20.822 Contact with and (suspected) exposure to COVID-19; Z86.73 Personal history of transient ischemic attack (TIA), and cerebral infarction without residual deficits
CPT/HCPCS: 0223U; 36415; 71045; 80053; 83880; 84484; 85025; 94640; 94799; 99284; J2405

== ENCOUNTER 2021-12-29 16:32 | Emergency (ER) | payer SELFPAY ==
[~2021-12-29] VITALS: Ht 149.9 cm; Wt 59.4 kg
[~2021-12-29 16:32] MED LIST changes: +AZITHROMYCIN250 MG PO; +BENZONATATE200 MG PO; +PREDNISONE50 MG PO; +SIDESTREAM NEB1 EACH PEG
== END 2021-12-29 18:00 | disposition home or self-care (01) ==
LOC: ER 17:15
DX: H57.11 Ocular pain, right eye (principal); H57.89 Other specified disorders of eye and adnexa; I10 Essential (primary) hypertension; E78.5 Hyperlipidemia, unspecified; K76.9 Liver disease, unspecified; K21.9 Gastro-esophageal reflux disease without esophagitis; I50.9 Heart failure, unspecified; Z86.73 Personal history of transient ischemic attack (TIA), and cerebral infarction without residual deficits
CPT/HCPCS: 99282

== ENCOUNTER 2022-06-08 21:55 | Emergency (ER) | payer SELFPAY ==
[~2022-06-08] VITALS: Ht 149.9 cm; Wt 59.4 kg
[2022-06-08] MEDS ORDERED: SODIUM CHLORIDE 0.9% 1000ML 1,000 ML IV STA ×2 (22:00→22:01)
== END 2022-06-08 22:59 | disposition home or self-care (01) ==
LOC: ER 22:01
DX: G51.0 Bell's palsy (principal); F10.129 Alcohol abuse with intoxication, unspecified; K76.9 Liver disease, unspecified; I10 Essential (primary) hypertension; I50.9 Heart failure, unspecified; E78.5 Hyperlipidemia, unspecified; K21.9 Gastro-esophageal reflux disease without esophagitis; R94.31 Abnormal electrocardiogram [ECG] [EKG]; Z86.73 Personal history of transient ischemic attack (TIA), and cerebral infarction without residual deficits
CPT/HCPCS: 93005; 99283

== ENCOUNTER 2022-09-10 19:30 | Emergency (ER) | payer SELFPAY ==
[~2022-09-10] VITALS: Ht 149.9 cm; Wt 59.4 kg
[~2022-09-10 19:30] MED LIST changes: +MACROBID 100 M100 MG PO
[2022-09-10 19:40] VITALS: O2SAT 98
== END 2022-09-10 19:38 | disposition home or self-care (01) ==
LOC: ER 19:36
DX: R45.1 Restlessness and agitation (principal); F10.129 Alcohol abuse with intoxication, unspecified; I10 Essential (primary) hypertension; I50.9 Heart failure, unspecified; G40.909 Epilepsy, unspecified, not intractable, without status epilepticus; E78.5 Hyperlipidemia, unspecified; E78.00 Pure hypercholesterolemia, unspecified; K21.9 Gastro-esophageal reflux disease without esophagitis; Z86.73 Personal history of transient ischemic attack (TIA), and cerebral infarction without residual deficits
CPT/HCPCS: 99282